=== PATIENT | female | born 1940 | race Caucasian/White ===

== ENCOUNTER → 2016-06-11 | Day surgery (SDC) | payer BC, OTHER ==
[2016-06-02 12:38] VITALS: Ht 157.5 cm; Wt 56.4 kg
[~2016-06-11] VITALS: Ht 157.5 cm; Wt 56.4 kg
[~2016-06-11] MED LIST: ACET-1311 PO; ACET325T95 PO; BISA10SU38 PR; CALC-393 PO; CHOL2000 PO; FENT25DI2 TD; FSLL PO; FSMD/70 PO; LANS30TA3 PO; LEVO112T2 PO; LIDOCAINE HCL 2% 2 ML VIAL (20MG/ML) ONE; LISI-729 PO; LORA-741 PO; LORA2INJ19 IM; MAGNSUS5 PO; OLAN-111 PO; OLAN10TA11 PO; OLAN1TAB7 PO; ONDA4TAB9 PO; OXYC1TAB3 PO; PROPOFOL IV EMULSION 10 MG/ML 20 ML VIAL IV ONE; ROPI0.25 PO; SENN1TAB65 PO; SODIENE PR; SODIUM CHLORIDE 0.9% 500ML 500 ML IV ONE; SUMA25TA12 PO; VENL75CA73 PO
--- NOTE | 2016-06-11 10:04 | Endo History and Physical ---
History & Physical Date of Service: Jun 11, 2016. Chief Complaint: dysphagia,reflux,esophagitis Referring Physician: Dr. Gabe Tovar History of Present Illness 75 yo CF who presents for EGD secondary to dysphagia and Reflux esophagitis. Past Medical History Alzheimer's, Eating Disorders, Osteoporosis, Arthritis, Fractures, Anxiety, Reflux, Hypertension, Thyroid Disease, Depression Past Surgical History Hx Cardiac Surgery: No Hx Internal Defibrillator: No Hx Pacemaker: No Hx Abdominal Surgery: Yes (ANTERIOR GASTROPEXY FOR HIATAL HERNIA, TUBAL LIGATION) Hx of Implantable Prosthesis: No Hx Post-Op Nausea and Vomiting: No Hx Cancer Surgery: No Hx Thoracic Surgery: No Hx Orthopedic: Yes (LEFT ELBOW) Hx Urinary Tract Surgery: No Social History Smoking Status: Former Smoker Hx Substance Use: No Hx Alcohol Use: No Allergies Coded Allergies: Caffeine (Verified Allergy, Unknown, ., 06/02/16) Cantaloupe (Verified Allergy, Unknown, RASH, 06/02/16) Reported by patient and family, unknown severity Desipramine (Verified Allergy, Unknown, ., 06/02/16) Ergotamine (Verified Allergy, Unknown, ., 06/02/16) Nitrofurantoin (Verified Allergy, Unknown, ., 06/02/16) Watermelon (Verified Allergy, Unknown, UNKNOWN, 06/02/16) Current Medications Reported Home Medications Medications Dose Route/Sig Max Daily Dose Days Date Category Dose Instructions Roxicodone Ir (Oxycodone HCl) 5 Mg Tab 1-2 Tab PO Q4H PRN 06/02/16 Reported Zyprexa (Olanzapine) 5 Mg Tab 5 Mg PO QAM 06/02/16 Reported Prevacid Solutab (Lansoprazole) 30 Mg Leia 30 Mg PO BID 06/02/16 Reported Venlafaxine Extended Rel (Venlafaxine Hcl) 75 Mg Cap 75 Mg PO QAM 06/02/16 Reported Senna Plus (Sennosides-Docusate Sodium) 1 Tab Tab 1 Tab PO BID 06/02/16 Reported Ferrous Sulfate 220 Mg/5 Ml Elix 7.3 Ml PO QAM 06/02/16 Reported Ativan (Lorazepam) 2 Mg/Ml Inj 0.25 Mg IM Q8 PRN 02/21/16 Reported IF NOT GIVEN BY MOUTH Vitamin D3 (Cholecalciferol) 2,000 Unit Cap 2,000 Units PO QAM 02/21/16 Reported Zyprexa (Olanzapine) 2.5 Mg Tab 2.5 Mg PO QAM 02/21/16 Reported Calcium (Calcium Carbonate) 600 Mg Tab 600 Mg PO BID 02/21/16 Reported Fosamax+D 70MG/2800 Iu (Alendronate Sodium/Vitamin D3) 70 Mg Tab 1 Tablet PO WK 02/21/16 Reported GIVE EVERY THURSDAY MORNING (1/2 HOUR BEFORE BREAKFAST). Tylenol (Acetaminophen) 325 Mg Tab 650 Mg PO QAM 02/21/16 Reported NTE 3000MG/24HRS Duragesic (Fentanyl) 25 Mcg Tdsy 25 Mcg TD CQ72HR 08/13/15 Reported Zyprexa (Olanzapine) 10 Mg Tab 10 Mg PO QPM 08/13/15 Reported Fleet Enema (Sodium Phosphate/Biphosphate) Zulma 1 Ea CA UD PRN 07/25/15 Reported IF NO BM IN 4 DAYS Dulcolax (Bisacodyl) 10 Mg Sup 1 Supp CA UD PRN 07/25/15 Reported IF NO BM IN 3 DAYS Ativan (Lorazepam) 0.5 Mg Tab 0.25 Mg PO Q8 PRN 07/25/15 Reported NTE 2MG/24HRS Ativan (Lorazepam) 0.5 Mg Tab 0.5 Mg PO Q6H PRN 07/25/15 Reported NTE 2MG/24HRS Milk Of Magnesia (Magnesium Hydroxide) 30 Ml Susp 30 Ml PO UD PRN 07/21/15 Reported Requip (Ropinirole HCl) 0.25 Mg Tab 0.25 Mg PO HS 07/21/15 Reported Zestril (Lisinopril) 5 Mg Tab 5 Mg PO QAM 07/21/15 Reported Synthroid (Levothyroxine Sodium) 112 Mcg Tab 112 Mcg PO QAM 03/10/15 Reported Ondansetron HCl (Ondansetron) 4 Mg Tab 4 Mg PO Q6H PRN 09/08/14 Reported Imitrex (Sumatriptan Succinate) 25 Mg Tab 25 Mg PO DAILY PRN 09/08/14 Reported Tylenol (Acetaminophen) 325 Mg Tab 650 Mg PO Q6H PRN 06/24/14 Reported DO NOT EXCEED 3000MG/24 HRS Vital Signs Weight (Kilograms): 56.36 Height (Feet): 0 Height (Inches): 62 Date Time Temp Pulse Resp B/P Pulse Ox O2 Delivery O2 Flow Rate FiO2 06/11/16 09:08 36.8 57 20 145/72 100 Room Air Physical Exam General Appearance: WD/WN, no apparent distress Respiratory/Chest: Auscultation: breath sounds normal Cardiovascular: Heart Auscultation: RRR Abdomen: Bowel Sounds: normal Inspection & Palpation: soft, non-distended, no tenderness, guarding & rebound Assessment and Plan Assessment: 75 yo CF who presents for EGD secondary to dysphagia and Reflux esophagitis. Plan: Proceed with EGD.
--- NOTE | 2016-06-11 10:15 | Discharge Instructions ---
Endoscopy Patient Instructions Date / Procedure(s) Performed Jun 11, 2016. EGD Allergy Information Coded Allergies: Caffeine (Verified Allergy, Unknown, ., 06/02/16) Cantaloupe (Verified Allergy, Unknown, RASH, 06/02/16) Reported by patient and family, unknown severity Desipramine (Verified Allergy, Unknown, ., 06/02/16) Ergotamine (Verified Allergy, Unknown, ., 06/02/16) Nitrofurantoin (Verified Allergy, Unknown, ., 06/02/16) Watermelon (Verified Allergy, Unknown, UNKNOWN, 06/02/16) Discharge Date / Findings Jun 11, 2016. Severe esophagitis with dilation of Esophageal stenosis Medication Instructions 1) OK to resume all medications today as prescribed 2) Carafate 1g by mouth four times daily prior to each meal and at bedtime. Reported Home Medications Medications Dose Route/Sig Max Daily Dose Days Date Category Dose Instructions Roxicodone Ir (Oxycodone HCl) 5 Mg Tab 1-2 Tab PO Q4H PRN 06/02/16 Reported Zyprexa (Olanzapine) 5 Mg Tab 5 Mg PO QAM 06/02/16 Reported Prevacid Solutab (Lansoprazole) 30 Mg Leia 30 Mg PO BID 06/02/16 Reported Venlafaxine Extended Rel (Venlafaxine Hcl) 75 Mg Cap 75 Mg PO QAM 06/02/16 Reported Senna Plus (Sennosides-Docusate Sodium) 1 Tab Tab 1 Tab PO BID 06/02/16 Reported Ferrous Sulfate 220 Mg/5 Ml Elix 7.3 Ml PO QAM 06/02/16 Reported Ativan (Lorazepam) 2 Mg/Ml Inj 0.25 Mg IM Q8 PRN 02/21/16 Reported IF NOT GIVEN BY MOUTH Vitamin D3 (Cholecalciferol) 2,000 Unit Cap 2,000 Units PO QAM 02/21/16 Reported Zyprexa (Olanzapine) 2.5 Mg Tab 2.5 Mg PO QAM 02/21/16 Reported Calcium (Calcium Carbonate) 600 Mg Tab 600 Mg PO BID 02/21/16 Reported Fosamax+D 70MG/2800 Iu (Alendronate Sodium/Vitamin D3) 70 Mg Tab 1 Tablet PO WK 02/21/16 Reported GIVE EVERY THURSDAY MORNING (1/2 HOUR BEFORE BREAKFAST). Tylenol (Acetaminophen) 325 Mg Tab 650 Mg PO QAM 02/21/16 Reported NTE 3000MG/24HRS Duragesic (Fentanyl) 25 Mcg Tdsy 25 Mcg TD CQ72HR 08/13/15 Reported Zyprexa (Olanzapine) 10 Mg Tab 10 Mg PO QPM 08/13/15 Reported Fleet Enema (Sodium Phosphate/Biphosphate) Zulma 1 Ea [place] UD PRN 07/25/15 Reported IF NO BM IN 4 DAYS Dulcolax (Bisacodyl) 10 Mg Sup 1 Supp IL UD PRN 07/25/15 Reported IF NO BM IN 3 DAYS Ativan (Lorazepam) 0.5 Mg Tab 0.25 Mg PO Q8 PRN 07/25/15 Reported NTE 2MG/24HRS Ativan (Lorazepam) 0.5 Mg Tab 0.5 Mg PO Q6H PRN 07/25/15 Reported NTE 2MG/24HRS Milk Of Magnesia (Magnesium Hydroxide) 30 Ml Susp 30 Ml PO UD PRN 07/21/15 Reported Requip (Ropinirole HCl) 0.25 Mg Tab 0.25 Mg PO HS 07/21/15 Reported Zestril (Lisinopril) 5 Mg Tab 5 Mg PO QAM 07/21/15 Reported Synthroid (Levothyroxine Sodium) 112 Mcg Tab 112 Mcg PO QAM 03/10/15 Reported Ondansetron HCl (Ondansetron) 4 Mg Tab 4 Mg PO Q6H PRN 09/08/14 Reported Imitrex (Sumatriptan Succinate) 25 Mg Tab 25 Mg PO DAILY PRN 09/08/14 Reported Tylenol (Acetaminophen) 325 Mg Tab 650 Mg PO Q6H PRN 06/24/14 Reported DO NOT EXCEED 3000MG/24 HRS Provider Instructions Activity Restrictions - No exercising or heavy lifting for 24 hours. - Do not drink alcohol the day of the procedure. - Do not drive a car or operate machinery until the day after the procedure. - Do not make any important decisions or sign important papers in 24 hours after the procedure. Following Day: - Return to full activity which may include returning to work/school. Diet Start your diet with liquids and light foods (jello, soup, juice, toast). Then eat your usual diet if not nauseated. Treatment For Common After Affects For mild abdominal pain, bloating, or excessive gas: - Rest - Eat lightly - Lie on right side Follow-Up Information Follow-up with Dr. Gabe Tovar as scheduled Anesthesia Information What You Should Know You have had a procedure that required some medicine to reduce anxiety and discomfort. This treatment is called moderate sedation. After receiving the treatment, you may be sleepy, but you will be able to breathe on your own. The effects of the treatment may last for several hours. Follow these instructions along with Activity/Diet recommendations noted above: * Do NOT do anything where dizziness or clumsiness would be dangerous. * Rest quietly at home today, then you can be up and about tomorrow. * Have a responsible person stay with you the rest of today. * You may have had an I.V. today. If so, you may take the dressing off later today. Recommendations Call your doctor if: * Trouble breathing * Continuous vomiting for more than 24 hours * Temperature above 101 degrees * Severe abdominal pain or bloating * Pain not relieved by pain medicine ordered * There is increased drainage or redness from any incision * A large amount of rectal bleeding greater than 2-3 tablespoons. (If you had a polyp/s removed or have hemorrhoids, a small amount of blood - from the rectum is to be expected.) * You have any unanswered questions or concerns. IN THE EVENT OF A SERIOUS EMERGENCY, GO TO THE NEAREST EMERGENCY ROOM Your discharge instructions were prepared by provider Felix Montemayor. Patient Instructions Signature Page Kailey Hunt Patient (or Guardian) Signature/Date: I have read and understand the instructions given to me by my caregivers. Caregiver/RN/Doctor Signature/Date: The above-named patient and/or guardian has received patient instructions on this date. + Original Patient Signature Page (only) stays with chart. Please make copy for patient.
[2016-06-11 10:50] VITALS: BP 134/60; PULSE 54; O2SAT 97
--- NOTE | 2016-06-11 11:23 | GI REPORT ---
Procedure Date: 06/11/2016 9:32 AM Procedure: Upper GI endoscopy Indications: Dysphagia, Follow-up of reflux esophagitis Medicines: Monitored Anesthesia Care Complications: No immediate complications. Estimated Blood Loss: Estimated blood loss: none. Procedure: Pre-Anesthesia Assessment: - Prior to the procedure, a History and Physical was performed, and patient medications and allergies were reviewed. The patient's tolerance of previous anesthesia was also reviewed. The risks and benefits of the procedure and the sedation options and risks were discussed with the patient. All questions were answered, and informed consent was obtained. Prior Anticoagulants: The patient has taken no previous anticoagulant or antiplatelet agents. ASA Grade Assessment: II - A patient with mild systemic disease. After reviewing the risks and benefits, the patient was deemed in satisfactory condition to undergo the procedure. After obtaining informed consent, the endoscope was passed under direct vision. Throughout the procedure, the patient's blood pressure, pulse, and oxygen saturations were monitored continuously. The scope was introduced through the mouth, and advanced to the second part of duodenum. The upper GI endoscopy was accomplished without difficulty. The patient tolerated the procedure well. Findings: Two severe benign-appearing, intrinsic stenoses were found. The narrowest stenosis measured 1 cm (inner diameter) x 1 cm (in length) and were traversed. A TTS dilator was passed through the scope. Dilation with a 12-13.5-15 mm balloon (to a maximum balloon size of 15 mm) dilator was performed. The dilation site was examined and showed moderate improvement in luminal narrowing. Evidence of a Rudy fundoplication was found in the cardia (on retroflexion). The wrap appeared loose. This was traversed. The examined duodenum was normal. Impression: - Benign-appearing esophageal stenoses. Dilated. - A Rudy fundoplication was found. The wrap appears loose. - Normal examined duodenum. - No specimens collected. Recommendation: - Resume previous diet. - Continue present medications. - Use sucralfate suspension 1 gram PO QID. - Return to primary care physician as previously scheduled. Felix Montemayor DO 06/11/2016 11:24:21 AM This report has been signed electronically. Note Initiated On: 06/11/2016 9:32 AM I attest to the content of the Intraoperative Record and orders documented therein, exceptions below
--- NOTE | 2016-06-11 15:13 | Anesthesiology Progress Note ---
Anesthesia Post Op Note Date & Time Jun 11, 2016 at 15:13 Vital Signs Pain Intensity: 0 Vital Signs Past 12 Hours Date Time Temp Pulse Resp B/P Pulse Ox O2 Delivery O2 Flow Rate FiO2 06/11/16 10:50 54 18 134/60 97 Room Air 06/11/16 10:35 64 18 137/64 94 Room Air 06/11/16 10:20 65 16 154/67 95 Room Air 06/11/16 09:08 36.8 57 20 145/72 100 Room Air Notes Mental Status: alert / awake / arousable, participated in evaluation Pt Amnestic to Procedure: Yes Nausea / Vomiting: adequately controlled Pain: adequately controlled Airway Patency, RR, SpO2: stable & adequate BP & HR: stable & adequate Hydration State: stable & adequate Anesthetic Complications: no major complications apparent
== END | disposition home or self-care (01) ==
LOC: C.GI 08:35
PROVIDERS: ATTEND Internal Medicine
DX: R13.10 Dysphagia, unspecified (principal); K22.2 Esophageal obstruction; K20.9 Esophagitis, unspecified; K21.9 Gastro-esophageal reflux disease without esophagitis; F03.90 Unspecified dementia, unspecified severity, without behavioral disturbance, psychotic disturbance, mood disturbance, and anxiety; I10 Essential (primary) hypertension; F41.9 Anxiety disorder, unspecified; Z98.890 Other specified postprocedural states; Z98.51 Tubal ligation status; Z87.891 Personal history of nicotine dependence; Z91.018 Allergy to other foods; Z68.22 Body mass index [BMI] 22.0-22.9, adult

== ENCOUNTER → 2016-07-10 | Outpatient (CLI) | payer BC, OTHER ==
[~2016-07-10] MED LIST changes: +BROM0.07 OPL; +CALC600T PO; +CHOL20007 PO; +CRAN1CAP6 PO; +CRFL PO; +DIFL0.0519 OPL; +FERROUS SULFATE PO; +FNTTP25 TD; -LIDOCAINE HCL 2% 2 ML VIAL (20MG/ML) ONE; +MOML PO; +NMN5 PO; +NTRS PO; -PROPOFOL IV EMULSION 10 MG/ML 20 ML VIAL IV ONE; -SODIUM CHLORIDE 0.9% 500ML 500 ML IV ONE
[2016-07-10 18:13] LABS: URINE APPEARANCE CLOUDY (CLEAR); URINE BILIRUBIN NEG (NEG); URINE COLOR YELLOW; URINE EPITHELIAL CELL AUTO 0-5 /lpf (0-5); URINE NITRITE POS (NEG); URINE SPECIFIC GRAVITY 1.016 (1.000-1.030); UROBILINOGEN NEG (NEG)
[2016-07-10 18:15] LABS: MANUAL MICROSCOPIC REQUIRED? NO; REVIEW REQ? NO
--- NOTE | 2016-07-11 11:57 | CODING QUERY NO DIAGNOSIS ---
TREATMENT RENDERED WITHOUT A DIAGNOSIS Dr. Marinelli, To promote full compliance with coding requirements relating to patient care, physician participation is requested in all cases of medical records coder uncertainty. Please assist us with providing a diagnosis/symptom for the test(s) below: A diagnosis/symptom was not documented on your Order. A valid diagnosis/symptom is required to bill all insurances. Please remember that we are unable to code a diagnosis of rule out, probable, possible, questionable, or suspected. Tests that require a diagnosis: * URINE CULTURE DIAGNOSIS: * URINALYSIS WITH MICROSCOPY DIAGNOSIS: DATE OF SERVICE: 07/10/16 Provider Signature: Date: Thank you Candido Donnelly [facility] Information Management Once completed, please kindly fax back to [phone] For questions please call [phone]
== END | disposition home or self-care (01) ==
LOC: C.LABCC 17:27
PROVIDERS: ATTEND Internal Medicine
DX: F41.9 Anxiety disorder, unspecified (principal); R45.1 Restlessness and agitation

== ENCOUNTER → 2016-08-18 | Outpatient (CLI) | payer BC, OTHER ==
[~2016-08-18] MED LIST changes: -BROM0.07 OPL; -CALC600T PO; -CHOL20007 PO; -CRAN1CAP6 PO; -CRFL PO; -DIFL0.0519 OPL; -FERROUS SULFATE PO; -FNTTP25 TD; -MOML PO; -NMN5 PO; -NTRS PO
[2016-08-18 17:49] LABS: URINE APPEARANCE TURBID (CLEAR); URINE BILIRUBIN NEG (NEG); URINE COLOR ORANGE; URINE EPITHELIAL CELL AUTO >30 /lpf (0-5); URINE NITRITE NEG (NEG); URINE PH >= 9.0 (4.5-7.5); URINE SPECIFIC GRAVITY 1.018 (1.000-1.030); UROBILINOGEN NEG (NEG)
[2016-08-18 17:56] LABS: MANUAL MICROSCOPIC REQUIRED? NO; REVIEW REQ? YES
[2016-08-18 18:03] LABS: SULFASALICYLIC ACID POS (NEG)
== END ==
LOC: C.LABSPEC 14:30
PROVIDERS: ATTEND Internal Medicine
DX: R82.99 Other abnormal findings in urine (principal); R63.8 Other symptoms and signs concerning food and fluid intake; R34 Anuria and oliguria; R41.82 Altered mental status, unspecified

== ENCOUNTER → 2016-08-21 | Outpatient (CLI) | payer BC, OTHER ==
[~2016-08-21] MED LIST changes: +BROM0.07 OPL; +CALC600T PO; +CHOL20007 PO; +CRAN1CAP6 PO; +CRFL PO; +DIFL0.0519 OPL; +FERROUS SULFATE PO; +FNTTP25 TD; +MOML PO; +NMN5 PO; +NTRS PO
[2016-08-21 18:38] LABS: URINE APPEARANCE TURBID (CLEAR); URINE BILIRUBIN NEG (NEG); URINE NITRITE NEG (NEG); URINE PH >= 9.0 (4.5-7.5); URINE SPECIFIC GRAVITY 1.019 (1.000-1.030); UROBILINOGEN NEG (NEG)
[2016-08-21 18:51] LABS: MANUAL MICROSCOPIC REQUIRED? NO; REVIEW REQ? YES; SULFASALICYLIC ACID POS (NEG); URINE COLOR BROWN
== END | disposition home or self-care (01) ==
LOC: C.LABSPEC 12:55
PROVIDERS: ATTEND Internal Medicine
DX: R82.90 Unspecified abnormal findings in urine (principal); R41.82 Altered mental status, unspecified; R33.8 Other retention of urine

== ENCOUNTER → 2016-08-26 | Outpatient (CLI) | payer BC, OTHER ==
[2016-08-26 08:58] LABS: COMPLETE YES; EOS % 2.2 %; HEMATOCRIT 39.1 % (37-47); IG% 0.2 %; LYMPH % 36.4 %; LYMPH ABS # 2.36 K/uL (1.2-3.4); MEAN CELL VOLUME 95.8 fL (80-100); MEAN CORPUSCULAR HEMOGLOBIN 30.6 pg (25-34); MEAN PLATELET VOLUME 10.2 fL (7.4-10.4); MONO % 10.9 %; NEUT % 50.3 %; PLATELET COUNT 254 K/uL (130-400); RED BLOOD COUNT 4.08 M/uL (4.2-5.4); WHITE BLOOD COUNT 6.49 K/uL (4.8-10.8)
[2016-08-26 09:07] LABS: ALT/SGPT 32 U/L (12-78); BLOOD UREA NITROGEN 33 mg/dl (7-18); BUN/CREATININE RATIO 34.6 (10-20); CARBON DIOXIDE 26 mmol/L (21-32); CHLORIDE 108 mmol/L (98-107); CREATININE 0.95 mg/dl (0.60-1.20); GLUCOSE 97 mg/dl (70-99); POTASSIUM 3.5 mmol/L (3.5-5.1); SODIUM 144 mmol/L (136-145)
[2016-08-26 09:17] LABS: ALB/GLOB RATIO 0.8 (0.9-2); ALKALINE PHOSPHATASE 111 U/L (45-117); AST/SGOT 34 U/L (15-37)
[2016-08-26 09:23] LABS: CALCIUM 9.5 mg/dl (8.5-10.1)
== END | disposition home or self-care (01) ==
LOC: C.LABCC 08:34
PROVIDERS: ATTEND Internal Medicine
DX: M81.0 Age-related osteoporosis without current pathological fracture (principal); E03.9 Hypothyroidism, unspecified

== ENCOUNTER → 2016-09-05 | Outpatient (CLI) | payer BC, OTHER ==
[2016-09-05 18:02] LABS: URINE APPEARANCE CLOUDY (CLEAR); URINE BILIRUBIN NEG (NEG); URINE COLOR YELLOW; URINE EPITHELIAL CELL AUTO >30 /lpf (0-5); URINE NITRITE POS (NEG); UROBILINOGEN NEG (NEG)
[2016-09-05 18:10] LABS: MANUAL MICROSCOPIC REQUIRED? NO; REVIEW REQ? YES
== END ==
LOC: C.LABCC 07:55
PROVIDERS: ATTEND Internal Medicine
DX: N39.0 Urinary tract infection, site not specified (principal)

== ENCOUNTER → 2016-10-07 | Outpatient (CLI) | payer BC, OTHER ==
[~2016-10-07] MED LIST changes: -BROM0.07 OPL; -CALC600T PO; -CHOL20007 PO; -CRAN1CAP6 PO; -CRFL PO; -DIFL0.0519 OPL; -FERROUS SULFATE PO; -FNTTP25 TD; -MOML PO; -NMN5 PO; -NTRS PO
[2016-10-07 20:14] LABS: URINE APPEARANCE TURBID (CLEAR); URINE BILIRUBIN NEG (NEG); URINE COLOR ORANGE; URINE EPITHELIAL CELL AUTO >30 /lpf (0-5); URINE NITRITE NEG (NEG); URINE PH >= 9.0 (4.5-7.5); URINE SPECIFIC GRAVITY 1.018 (1.000-1.030); UROBILINOGEN NEG (NEG)
[2016-10-07 20:33] LABS: MANUAL MICROSCOPIC REQUIRED? NO; REVIEW REQ? YES; SULFASALICYLIC ACID POS (NEG)
== END ==
LOC: C.LABCC 16:10
PROVIDERS: ATTEND Internal Medicine
DX: R35.0 Frequency of micturition (principal); R32 Unspecified urinary incontinence; R82.99 Other abnormal findings in urine

== ENCOUNTER → 2016-12-19 | Outpatient (CLI) | payer BC, OTHER ==
[2016-12-19 17:09] LABS: URINE APPEARANCE CLOUDY (CLEAR); URINE BILIRUBIN NEG (NEG); URINE COLOR YELLOW; URINE PH >= 9.0 (4.5-7.5); URINE SPECIFIC GRAVITY 1.018 (1.000-1.030)
[2016-12-19 17:10] LABS: URINE EPITHELIAL CELL AUTO >30 /lpf (0-5); URINE NITRITE NEG (NEG); UROBILINOGEN NEG (NEG)
[2016-12-19 17:19] LABS: MANUAL MICROSCOPIC REQUIRED? NO; REVIEW REQ? YES
[2016-12-19 17:21] LABS: SULFASALICYLIC ACID POS (NEG)
== END ==
LOC: C.LABSPEC 16:26
PROVIDERS: ATTEND Internal Medicine
DX: R35.0 Frequency of micturition (principal); R30.0 Dysuria

== ENCOUNTER → 2016-12-23 | Outpatient (CLI) | payer BC, OTHER ==
[2016-12-23 18:20] LABS: URINE APPEARANCE TURBID (CLEAR); URINE BILIRUBIN NEG (NEG); URINE COLOR ORANGE; URINE EPITHELIAL CELL AUTO >30 /lpf (0-5); URINE NITRITE NEG (NEG); URINE PH >= 9.0 (4.5-7.5); URINE SPECIFIC GRAVITY 1.021 (1.000-1.030); UROBILINOGEN NEG (NEG)
[2016-12-23 18:47] LABS: MANUAL MICROSCOPIC REQUIRED? NO; REVIEW REQ? YES
[2016-12-23 18:59] LABS: SULFASALICYLIC ACID POS (NEG)
== END ==
LOC: C.LABCC 17:41
PROVIDERS: ATTEND Internal Medicine
DX: R30.0 Dysuria (principal)

== ENCOUNTER → 2017-01-20 | Day surgery (SDC) | payer BC, OTHER ==
[2017-01-19 09:27] VITALS: Ht 154.9 cm; Wt 57.7 kg
[~2017-01-20] VITALS: Ht 154.9 cm; Wt 57.7 kg
[~2017-01-20] MED LIST changes: +500ML BSS 0.3ML EPI 1:1000PF IRRIG ONE; +ACETAMINOPHEN 325 MG TAB PO PRN; +AMVISC PLUS 0.8ML SYRINGE INT OCU ONE; +ATROPINE SULFATE 0.1 MG/ML 5ML SYR IV PRN; +BSS FLUSH ONE; -CALC-393 PO; -CHOL2000 PO; +CHOL20007 PO; +CRAN1CAP6 PO; +CRFL PO; +EpHEDrine SULFATE INJ 50 MG/ML AMP IV PRN; +EpINEphrine INJ 1MG/ML AMP 1 MG/ML AMP ONE; -FENT25DI2 TD; +FENTANYL CITRATE INJ 50 MCG/1 ML 2 ML VIAL IV PRN; +FENTANYL CITRATE INJ 50 MCG/1 ML 2 ML VIAL ONE; +FERROUS SULFATE PO; +FNTTP25 EXT; -FSLL PO; -FSMD/70 PO; +LACTATED RINGER'S 1000ML 500 ML IV SCH; +LIDOCAINE 3.5% OPH GEL PER APPLICATION CHARGE ONE; +LIDOCAINE HCL 1% MPF 2 ML VIAL ONE; -MAGNSUS5 PO; +MIDAZOLAM HCL 1 MG/ML 2ML VIAL ONE; +MOML PO; +NMN5 PO; +OCUCOAT 1 ML SOLN IO ONE; -OLAN1TAB7 PO; +ONDANSETRON INJ 2 MG/ML 2 ML VIAL IV PRN; +POVIDONE-IODINE OP SOLN 30 ML BTL ONE; +PROPARACAINE 0.5% OP SOLN PER DROP CHARGE OPL SCH; +TOBRAMYCIN/DEXAMETHASONE OPH OINT PER APPLN CHARGE ONE; -VENL75CA73 PO
[2017-01-20] MEDS: PHENYLEPHRINE HCL 2.5% OP SOLN PER DROP CHARGE OPL SCH ×2 (08:32→08:37)
[2017-01-20] MEDS: TROPICAMIDE 1% OP SOLN PER DROP CHARGE OPL SCH ×2 (08:32→08:38)
[2017-01-20] MEDS: CYCLOPENTOLATE HCL 1% OP SOLN PER DROP CHARGE OPL SCH ×2 (08:33→08:39)
[2017-01-20] MEDS: KETOROLAC 0.5% OP SOLN PER DROP CHARGE OPL SCH ×2 (08:34→08:40)
[2017-01-20] MEDS: GATIFLOXACIN OP SOLN PER DROP CHARGE OPL SCH ×2 (08:35→08:45)
--- NOTE | 2017-01-20 09:06 | History & Physical Bridge - SC ---
H&P Re-Evaluation Bridge Note: I have examined the patient, reviewed the History & Physical and in the interval since the performance of the History & Physical I have noted the following changes of clinical significance: No changes noted
--- NOTE | 2017-01-20 09:47 | [facility] Operative Report ---
Operative Report Date of Service Jan 20, 2017. Operative Report 1. PREOPERATIVE DIAGNOSIS: Cataract of the left eye. 2. POSTOPERATIVE DIAGNOSIS: Same. 3. PROCEDURE: Phacoemulsification with intraocular lens implantation of the left eye. SURGEON: Dr. Bertram Murphy. ANESTHESIA: Topical Lidocaine gel, 1% Non- Preserved intracameral Lidocaine, and monitored intravenous sedation. INDICATIONS FOR THE PROCEDURE: The patient is a 76 - year-old female with a history of cataract of the left eye causing significant visual impairment. The details of the proposed procedure were explained to the patient who asked appropriate questions and following discussion of all risks, benefits and alternatives agreed to have the procedure done. 4. OPERATION AND FINDINGS: DESCRIPTION OF PROCEDURE: After informed consent was obtained, the patient was brought to the Operating Room at the [facility]. The patient was placed in a supine position and then the left eye was prepped and draped in the usual sterile fashion for intraocular surgery. A drop of topical Lidocaine gel was placed in the operative eye. A wire lid speculum was then placed in the fornices. A corneal paracentesis was then created temporally. The Non-Preserved Lidocaine was then instilled into the anterior chamber. The anterior chamber was then pressurized with viscoelastic. A 2.0 mm clear corneal incision was then created temporally. A cystotome was inserted into the anterior chamber and used to create a tear in the anterior lens capsule. This capsular tear was then used to create a small flap and the flap was dragged in a counterclockwise direction in order to create a continuous curvilinear capsulorrhexis. Hydrodissection was accomplished with balanced salt solution. Phacoemulsification of the lens nucleus was then performed in a standard [id number] technique. The phaco time was 24 seconds with an average power of 21 %. The remaining cortical material was removed using irrigation aspiration. The capsular bag was then filled with viscoelastic. A [employer]ch [employer] Lomb MI60L +24.0 diopters lens was then loaded into the injector and injected into the capsular bag. The remaining viscoelastic was removed with the irrigation aspiration handpiece. The wound was hydrated and then checked and found to be watertight. The intraocular pressure was checked and found to be adequate. The wire lid speculum was removed and the patient's face was cleaned and dried. TobraDex ointment was placed in the inferior fornix. The patient was discharged to the Recovery Room having tolerated the procedure well. There were no complications. The patient will be seen tomorrow in the office for follow-up. I attest to the content of the Intraoperative Record and any orders documented therein. Any exceptions are noted below.
--- NOTE | 2017-01-20 09:47 | Discharge Instructions-SurgCtr ---
Discharge Instructions Date of Service Jan 20, 2017. Visit Reason for Visit: Cataract Left Eye Discharge Discharge Diagnosis / Problem: cataract Discharge Goals Goal(s): Improve function Activity Recommendations Activity Limitations: per Instructions/Follow-up section Anesthesia . Post Anesthesia Instructions: If you have had General Anesthesia or IV Sedation: * Do not drive today. * Resume driving when surgeon permits. * Do not make important decisions or sign legal documents today. * Call surgeon for: 1. Temperature elevations greater than 101 degrees F. 2. Uncontrollable pain. 3. Excessive bleeding. 4. Persistent nausea and vomiting. 5. Medication intolerance (nausea, vomiting or rash). * For nausea and vomiting use only clear liquids such as: tea, soda, bouillon until nausea subsides, then gradually increase diet as tolerated. * If you have any concerns or questions, call your surgeon's office. If physician is unavailable and it is an emergency, call 911 or go to the nearest emergency room. . Diet Recommendations Home Diet: resume previous diet Pending Studies Studies pending at discharge: no Medical Emergencies . Who to Call and When: Medical Emergencies: If at any time you feel your situation is an emergency, please call 911 immediately. . Non-Emergent Contact Non-Emergency issues call your: Insurance Professional . . "Provider Documentation" section prepared by Bertram Murphy. .
[2017-01-20 09:50] VITALS: TEMP 36.6
--- NOTE | 2017-01-20 10:14 | Anesthesia Progress Nt - [facility] ---
Anesthesia Post Op Note Date & Time Jan 20, 2017 at 10:13 Vital Signs Pain Intensity: 0 Vital Signs Past 12 Hours Date Time Temp Pulse Resp B/P (MAP) Pulse Ox O2 Delivery O2 Flow Rate FiO2 01/20/17 09:50 36.6 56 12 146/72 (96) 98 Room Air 01/20/17 08:19 36.6 53 16 134/72 (92) 100 Room Air Notes Mental Status: alert / awake / arousable, participated in evaluation Pt Amnestic to Procedure: Yes Nausea / Vomiting: adequately controlled Pain: adequately controlled Airway Patency, RR, SpO2: stable & adequate BP & HR: stable & adequate Hydration State: stable & adequate Anesthetic Complications: no major complications apparent
[2017-01-20 10:16] VITALS: BP 165/74; PULSE 49; O2SAT 100
== END | disposition home or self-care (01) ==
LOC: X.SURG 07:56
PROVIDERS: ATTEND Ophthalmology
DX: H26.9 Unspecified cataract (principal); I10 Essential (primary) hypertension; F03.90 Unspecified dementia, unspecified severity, without behavioral disturbance, psychotic disturbance, mood disturbance, and anxiety; E03.9 Hypothyroidism, unspecified; F41.8 Other specified anxiety disorders

== ENCOUNTER 2017-02-09 22:23 | Emergency (ER) | payer BC, OTHER ==
[~2017-02-09] VITALS: Ht 160 cm; Wt 57.8 kg
[~2017-02-09 22:23] MED LIST changes: -500ML BSS 0.3ML EPI 1:1000PF IRRIG ONE; -ACETAMINOPHEN 325 MG TAB PO PRN; -AMVISC PLUS 0.8ML SYRINGE INT OCU ONE; -ATROPINE SULFATE 0.1 MG/ML 5ML SYR IV PRN; +BROM0.07 OPL; -BSS FLUSH ONE; +DIFL0.0519 OPL; -EpHEDrine SULFATE INJ 50 MG/ML AMP IV PRN; -EpINEphrine INJ 1MG/ML AMP 1 MG/ML AMP ONE; -FENTANYL CITRATE INJ 50 MCG/1 ML 2 ML VIAL IV PRN; -FENTANYL CITRATE INJ 50 MCG/1 ML 2 ML VIAL ONE; -FNTTP25 EXT; +FNTTP25 TD; -LACTATED RINGER'S 1000ML 500 ML IV SCH; -LIDOCAINE 3.5% OPH GEL PER APPLICATION CHARGE ONE; -LIDOCAINE HCL 1% MPF 2 ML VIAL ONE; -MIDAZOLAM HCL 1 MG/ML 2ML VIAL ONE; -OCUCOAT 1 ML SOLN IO ONE; -ONDANSETRON INJ 2 MG/ML 2 ML VIAL IV PRN; -POVIDONE-IODINE OP SOLN 30 ML BTL ONE; -PROPARACAINE 0.5% OP SOLN PER DROP CHARGE OPL SCH; -TOBRAMYCIN/DEXAMETHASONE OPH OINT PER APPLN CHARGE ONE
[2017-02-09 22:32] VITALS: TEMP 36.6; Ht 160 cm; Wt 57.8 kg
[2017-02-09] MEDS ORDERED: ACETAMINOPHEN 500 MG TAB PO STA (22:37)
--- NOTE | 2017-02-09 22:55 | EMERGENCY ROOM VISIT NOTE ---
History Report prepared by Ina: Galen Crane Under the Supervision of: Dr. Prince Cabrales M.D. 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 This HPI is limited secondary to the patient's dementia. She is a resident of [facility]. She was found wandering the halls out of her room. They thought she had fallen and got her back into her bed. Afterward the patient was complaining of right hip pain. They brought her here to be evaluated. The patient denies any loss of consciousness, head trauma or headache. She is having lower back pain, right knee pain, and right ankle pain. Her pain is exacerbated with movement. She states that she is normally able to walk around without difficulty. 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 Review of Systems See HPI for pertinent positives & negatives. A total of 10 systems reviewed and were otherwise negative. Past Medical & Surgical Medical Problems: (1) Anemia (2) Dementia (3) Female bladder prolapse (4) History of - tubal ligation (5) HTN (hypertension) (6) Osteoporosis Nos (7) Urinary tract infection Family History Diabetes mellitus Social History Smoking Status: Former Smoker Smokeless Tobacco Use: No Drug Use: none Marital Status: Housing Status: long term Occupation Status: retired Current/Historical Medications Scheduled Acetaminophen (Tylenol), 650 MG PO QAM Alendronate/Cholecalciferol (Fosamax+D 70MG/2800 Iu), 1 TABLET PO WK Bromfenac Sodium (Ophth) (Prolensa), 1 DROP OPL DAILY Calcium Carbonate (Calcium 600), 600 MG PO BID Cholecalciferol (Vitamin D3), 1 TAB PO QAM Cranberry (Vaccinium Macrocarp (Cranberry), 1 CAP PO BID Difluprednate (Durezol), 1 DROPS OPL QAM Enteral Nutrition Formula (Nutritional Supplement), 1 PO BIDM Fentanyl (Fentanyl), 25 MCG TD [id number] Ferrous Sulfate (Ferrous Sulfate), 7.3 ML PO QAM Lansoprazole (Prevacid Solutab), 30 MG PO BID Levothyroxine Sodium (Synthroid), 112 MCG PO QAM Lisinopril (Zestril), 5 MG PO QAM Lorazepam (Ativan), 0.5 MG PO QID Memantine (Namenda), 5 MG PO BID Olanzapine (Zyprexa), 10 MG PO HS Olanzapine (Zyprexa), 5 MG PO QAM Ropinirole (Requip), 0.25 MG PO HS Sennosides-Docusate Sodium (Senna Plus), 2 TAB PO BID Sucralfate (Carafate), 10 ML PO ACHS Scheduled PRN Acetaminophen (Tylenol), 650 MG PO Q6H PRN for Pain or Fever Lorazepam (Ativan), 0.5 MG PO Q8H PRN for Anxiety Lorazepam (Ativan), 0.125 ML IM Q8H PRN for Anxiety Ondansetron (Ondansetron HCl), 4 MG PO Q6H PRN for Nausea Oxycodone Ir (Roxicodone Ir), 5 MG PO Q4 PRN for Moderate Pain Oxycodone Ir (Roxicodone Ir), 10 MG PO Q4H PRN for Severe Pain Sumatriptan Succinate (Imitrex), 25 MG PO DAILY PRN for Migraine Allergies Coded Allergies: Caffeine (Verified Allergy, Unknown, ., 01/20/17) Cantaloupe (Verified Allergy, Unknown, RASH, 01/20/17) Reported by patient and family, unknown severity Desipramine (Verified Allergy, Unknown, ., 02/09/17) Ergotamine (Verified Allergy, Unknown, ., 02/09/17) Nitrofurantoin (Verified Allergy, Unknown, ., 02/09/17) Watermelon (Verified Allergy, Unknown, UNKNOWN, 02/09/17) Physical Exam Vital Signs Date Time Temp Pulse Resp B/P (MAP) Pulse Ox O2 Delivery O2 Flow Rate FiO2 02/09/17 22:32 63 02/09/17 22:32 36.6 64 18 157/78 100 Room Air Physical Exam GENERAL: Patient is in no acute distress. HEENT: No acute trauma, normocephalic atraumatic, mucous membranes moist, no nasal congestion, no scleral icterus. NECK: No stridor, no adenopathy, no meningismus, trachea is midline. Nontender posterior c-spine. LUNGS: Clear to auscultation bilaterally, no wheeze, no rhonchi, breath sounds equal. HEART: Without murmurs gallops or rubs, regular rate and rhythm. ABDOMEN: Soft, nontender, bowel sounds positive, no hernias, no peritonitis. BACK: Tender along the entire lumbar spine, no step off. EXTREMITIES: Pain to palpate the right knee, right proximal tibia/fibula, and right ankle. No gross deformities. Some pain with palpation of right lateral hip. However, movement of right hip joint causes no discomfort. NEUROLOGIC: Some confusion but awake and alert. Moving all extremities. Dementia noted. SKIN: No rash, no jaundice, no diaphoresis. Medical Decision & Procedures ER Provider Diagnostic Interpretation: Radiology results as stated below per my review and radiologist interpretation: CT HEAD: Comparison: CT head February 21, 2016 No acute intracranial abnormality identified. Stable chronic small vessel ischemic disease and cerebral volume loss. Probable stable remote lacunar infarct in the right basal ganglia. Senescent calcifications in the basal ganglia. Bilateral lens implants. Atherosclerotic calcifications in the intracranial vasculature. Radiologist: Grady Winston M.D. Laboratory Results Test 02/09/17 22:45 02/10/17 00:12 Urine Color YELLOW Urine Appearance CLEAR (CLEAR) Urine pH 6.0 (4.5-7.5) Urine Specific [place] 1.010 (1.000-1.030) Urine Protein NEG (NEG) Urine Glucose (UA) NEG (NEG) Urine Ketones NEG (NEG) Urine Occult Blood TRACE (NEG) Urine Nitrite NEG (NEG) Urine Bilirubin NEG (NEG) Urine Urobilinogen NEG (NEG) Urine Leukocyte Esterase NEG (NEG) Urine RBC 0-4 /hpf (0-4) Urine WBC 5-10 /hpf (0-5) Urine Epithelial Cells 10-20 /lpf (0-5) Urine Bacteria NEG (NEG) Laboratory results reviewed by me. ECG Indication: other (Trauma) Rate (beats per minute): 67 Rhythm: sinus rhythm Findings: PAC, no acute ischemic change ED Course 2230: The patient was evaluated in room B11B. A complete history and physical exam was performed. 2236: Ordered Tylenol Tab 1000 mg PO 0030: The patient was signed out to Dr. Santos at the change in shifts. Medical Decision Differential diagnosis includes but is not limited to contusions, extremity fractures, hip fracture, lumbar fracture, intracranial bleeding, anemia, electrolyte abnormality, UTI, and infection. The patient presents with a presumed fall. She has dementia and the history taking was difficult. She seemed to complain mostly of lower back pain and some right leg pain. Her right hip bothered her intermittently. On exam, she seemed mostly tender in the area of the right knee down to the right ankle. No gross deformities. I could not find any scalp hematomas. The neck was nontender. Urinalysis does not show infection. The chemistry profile and CBC testing are pending. EKG showed a sinus rhythm with PACs, no acute ischemia. Brain CT showed no acute bleed or mass effect. I did review the patient's right knee, right tib-fib and right ankle films, I saw no fractures. Chest film did not show CHF or pneumonia. The pelvis and lumbar spine series results are still pending. At this point, the care is being assumed by Dr. Santos, she has assumed care at the change of shift. If no acute traumatic findings are found, if no concerning laboratory findings are found, I suspect the patient will be discharged back to her long term. The patient was given 1 g of Tylenol during her ER stay for her discomfort. She has been resting comfortably. Medication Reconcilliation Current Medication List: was personally reviewed by me Blood Pressure Screening Patient's blood pressure: Elevated blood pressure Blood pressure disposition: Elevated BP felt to be situational Impression Primary Impression: Right leg pain Additional Impressions: Lower back pain Fall Scribe Attestation The scribe's documentation has been prepared under my direction and personally reviewed by me in its entirety. I confirm that the note above accurately reflects all work, treatment, procedures, and medical decision making performed by me. Departure Information Dispostion Still a Patient Referrals No Doctor, Assigned (PCP) Patient Instructions My [facility] Problem Qualifiers
[2017-02-09] MEDS ORDERED: OXYC1TAB3 PO ×2 (23:18)
[2017-02-09] MEDS ORDERED: LORA-741 PO (23:21)
[2017-02-09] MEDS ORDERED: FSLL PO (23:25)
[2017-02-09] MEDS ORDERED: NTRS PO (23:31)
[2017-02-09] MEDS ORDERED: CALC600T PO (23:33)
[2017-02-09] MEDS ORDERED: FSMD/70 PO (23:33)
[2017-02-09 23:50] LABS: MANUAL MICROSCOPIC REQUIRED? YES; URINE APPEARANCE CLEAR (CLEAR); URINE BILIRUBIN NEG (NEG); URINE COLOR YELLOW; URINE NITRITE NEG (NEG); UROBILINOGEN NEG (NEG)
[2017-02-09 23:56] LABS: REVIEW REQ? NO
[2017-02-10 00:29] LABS: URINE BACTERIA NEG (NEG); URINE RBC 0-4 /hpf (0-4)
[2017-02-10 00:50] LABS: ALB/GLOB RATIO 0.8 (0.9-2); ALKALINE PHOSPHATASE 135 U/L (45-117); ALT/SGPT 24 U/L (12-78); AST/SGOT 26 U/L (15-37); BLOOD UREA NITROGEN 28 mg/dl (7-18); BUN/CREATININE RATIO 27.4 (10-20); CALCIUM 9.2 mg/dl (8.5-10.1); CARBON DIOXIDE 26 mmol/L (21-32); CHLORIDE 108 mmol/L (98-107); CREATININE 1.01 mg/dl (0.60-1.20); GLUCOSE 98 mg/dl (70-99); MAGNESIUM 2.5 mg/dl (1.8-2.4); POTASSIUM 4.3 mmol/L (3.5-5.1); SODIUM 142 mmol/L (136-145)
[2017-02-10 01:40] LABS: HEMATOCRIT 37.5 % (37-47); MEAN CELL VOLUME 90.8 fL (80-100); MEAN CORPUSCULAR HEMOGLOBIN 30.3 pg (25-34); MEAN CORPUSCULAR HGB CONC 33.3 g/dl (32-36); MEAN PLATELET VOLUME 9.4 fL (7.4-10.4); PLATELET COUNT 235 K/uL (130-400); RED BLOOD COUNT 4.13 M/uL (4.2-5.4); WHITE BLOOD COUNT 6.04 K/uL (4.8-10.8)
[2017-02-10 02:22] LABS: BASO % 0.3 %; BASO ABS # 0.02 K/uL (0-0.2); COMPLETE YES; EOS % 4.8 %; IG% 1.8 %; LYMPH % 25.5 %; LYMPH ABS # 1.54 K/uL (1.2-3.4); MONO % 13.7 %; NEUT % 53.9 %
[2017-02-10 02:55] VITALS: BP 160/76; PULSE 74; O2SAT 96
--- NOTE | 2017-02-10 04:19 | EMERGENCY ROOM VISIT NOTE ---
ED Visit Note First contact with patient: 00:57 I received this patient in signout at the change of shift from Dr. Prince Quevedo, pending completion of laboratory work and x-rays. The patient's laboratory evaluation is fairly unrevealing. H&H is stable. Urinalysis is negative. X- rays of the chest, knee, tib-fib and ankle were evaluated by Dr. Quevedo. The pending x-rays which include the lumbar spine and pelvis to my interpretation revealed no acute fracture or dislocation. There is chronic arthritic change. Patient is pleasant but confused. Secure transportation arrangements have been made by the case management service. The patient will follow-up with her PCP at [facility] and return to the ER for worsening of symptoms or any medical concerns.
--- NOTE | 2017-02-10 06:27 | DIAGNOSTIC IMAGING REPORT ---
CT HEAD WITHOUT CONTRAST (CT) CLINICAL HISTORY: Head pain status post trauma COMPARISON STUDY: 02/21/2016 TECHNIQUE: Axial CT of the brain is performed from the vertex to the skull base. IV contrast was not administered for this examination. A dose lowering technique was utilized adhering to the principles of ALARA. CT DOSE: 601.98 mGy.cm FINDINGS: No intra or extra-axial mass lesions are visualized. There is no CT evidence of acute cortical infarction. There is no evidence of midline shift. There is no acute hemorrhage. No calvarial fractures are visualized. There are patchy white matter hypodensities likely on a small vessel basis. There is mild ventricular dilatation, finding which is felt to be secondary to volume loss. There is no evidence of acute sinusitis IMPRESSION: No acute intracranial findings Electronically signed by: Merlin Dennison M.D. 02/10/2017 6:26 AM Dictated Date/Time: 02/10/2017 6:25 AM
--- NOTE | 2017-02-10 06:34 | DIAGNOSTIC IMAGING REPORT ---
PELVIS 1 OR 2 VIEW ROUTINE CLINICAL HISTORY: Pelvic pain status post trauma COMPARISON STUDY: 07/21/2015 FINDINGS: No fractures are visualized. The bones are mildly osteopenic. There are no dislocations. There is no SI joint diastases. There is no symphysis diastases. There are degenerative changes present within the lower lumbar spine. IMPRESSION: No fractures identified. Electronically signed by: Merlin Dennison M.D. 02/10/2017 6:32 AM Dictated Date/Time: 02/10/2017 6:31 AM
--- NOTE | 2017-02-10 06:35 | DIAGNOSTIC IMAGING REPORT ---
R TIBIA/FIBULA 2 VIEWS ROUTINE CLINICAL HISTORY: Right leg pain status post trauma COMPARISON: None. DISCUSSION: The bones are osteopenic. No fractures or dislocations are visualized. IMPRESSION: No fractures identified. Electronically signed by: Merlin Dennison M.D. 02/10/2017 6:33 AM Dictated Date/Time: 02/10/2017 6:32 AM
--- NOTE | 2017-02-10 07:04 | DIAGNOSTIC IMAGING REPORT ---
RIGHT ANKLE 3 VIEWS CLINICAL HISTORY: Fall with right ankle injury. FINDINGS: 3 views of the right ankle are obtained. No prior studies are available for comparison at the time of dictation. The skeletal structures are osteopenic. There is no radiographic evidence of right ankle fracture. The ankle mortise is intact. A plantar calcaneal enthesophyte is observed. No joint effusion is seen. Soft tissue edema is present in the right calf. IMPRESSION: Soft tissue swelling with no radiographic evidence of right ankle fracture. Electronically signed by: Prince Pathak M.D. 02/10/2017 7:02 AM Dictated Date/Time: 02/10/2017 7:01 AM
--- NOTE | 2017-02-10 07:12 | DIAGNOSTIC IMAGING REPORT ---
RIGHT KNEE 3 VIEWS HISTORY: Right knee pain. fall, pain COMPARISON: None. FINDINGS: There is no fracture or dislocation. Soft tissues are unremarkable. No radiopaque foreign bodies. No knee effusion. IMPRESSION: No fractures. Electronically signed by: Victor Hugo Tan M.D. 02/10/2017 7:10 AM Dictated Date/Time: 02/10/2017 7:10 AM
--- NOTE | 2017-02-10 07:13 | DIAGNOSTIC IMAGING REPORT ---
CHEST 1 VW FRONT-NOT PORTABLE HISTORY: Fall. Atypical chest pain. COMPARISON: Chest 08/13/2015. FINDINGS: No pneumothorax. No pleural effusions. Hiatal hernia, unchanged. The heart is normal in size. Old, healed bilateral rib fractures. The lungs are clear. Left humeral head deformity which is likely old. IMPRESSION: 1. No acute process within the chest. 2. Left humeral head deformity which is likely old. Recommend correlation for pain to exclude the less likely possibility of an acute fracture. 3. Old, healed bilateral rib fractures. Electronically signed by: Victor Hugo Tan M.D. 02/10/2017 7:12 AM Dictated Date/Time: 02/10/2017 7:10 AM
--- NOTE | 2017-02-10 07:47 | DIAGNOSTIC IMAGING REPORT ---
LUMBAR SPINE 5 VIEWS CLINICAL HISTORY: Fall with low back pain. FINDINGS: 5 views of the lumbar spine are compared to study dated 07/21/2015. The skeletal structures are osteopenic. There is no radiographic evidence of acute fracture. Vertebral body height and alignment are maintained throughout the lumbar spine. A chronic superior endplate compression deformity of T12 is similar to previous. The transverse and spinous processes appear intact. There is mild lumbar dextrocurvature. Small anterior osteophytes are seen throughout. There is no evidence of spondylolysis. Moderate multilevel degenerative disc space narrowing is noted, greatest at L4-L5 and L5-S1. The visualized bony pelvis appears intact. Mild sclerotic change is noted in the sacroiliac joints. There is atherosclerotic calcification of the abdominal aorta. No bowel obstruction is seen. There is moderate constipation. Surgical clips are noted in the upper abdomen. IMPRESSION: 1. There is no radiographic evidence of acute fracture or malalignment involving the lumbar spine. 2. A chronic compression deformity of T12 is unchanged from previous. 3. Osteopenia and spondylotic change as above. Electronically signed by: Prince Pathak M.D. 02/10/2017 7:46 AM Dictated Date/Time: 02/10/2017 6:59 AM
== END 2017-02-10 02:56 | disposition home or self-care (01) ==
LOC: EDBD 22:23 → C.EDB 22:25
DX: M79.604 Pain in right leg (principal); M54.5 Low back pain; W19.XXXA Unspecified fall, initial encounter; F03.90 Unspecified dementia, unspecified severity, without behavioral disturbance, psychotic disturbance, mood disturbance, and anxiety; I10 Essential (primary) hypertension; M81.0 Age-related osteoporosis without current pathological fracture; Z87.440 Personal history of urinary (tract) infections; Z87.891 Personal history of nicotine dependence; Z98.51 Tubal ligation status; Z83.3 Family history of diabetes mellitus; Z79.899 Other long term (current) drug therapy

== ENCOUNTER → 2017-02-25 | Outpatient (CLI) | payer BC, OTHER ==
[~2017-02-25] MED LIST changes: -BISA10SU38 PR; +CALC600T PO; -FERROUS SULFATE PO; +FSLL PO; +FSMD/70 PO; -MOML PO; +NTRS PO; -SODIENE PR
[2017-02-25 08:59] LABS: COMPLETE YES; EOS % 4.8 %; HEMATOCRIT 36.2 % (37-47); IG% 0.2 %; LYMPH % 30.4 %; MEAN CELL VOLUME 94.3 fL (80-100); MEAN CORPUSCULAR HEMOGLOBIN 30.2 pg (25-34); MEAN PLATELET VOLUME 9.6 fL (7.4-10.4); MONO % 11.5 %; NEUT % 53.1 %; PLATELET COUNT 246 K/uL (130-400); RED BLOOD COUNT 3.84 M/uL (4.2-5.4); WHITE BLOOD COUNT 6.25 K/uL (4.8-10.8)
[2017-02-25 09:39] LABS: BLOOD UREA NITROGEN 37 mg/dl (7-18); BUN/CREATININE RATIO 36.7 (10-20); CALCIUM 8.5 mg/dl (8.5-10.1); CARBON DIOXIDE 25 mmol/L (21-32); CHLORIDE 113 mmol/L (98-107); CREATININE 1.01 mg/dl (0.60-1.20); GLUCOSE 96 mg/dl (70-99); SODIUM 143 mmol/L (136-145)
[2017-02-25 09:50] LABS: FERRITIN 30.5 ng/ml (8.0-388.0); TOTAL IRON BINDING CAPACITY 271 mcg/dl (250-450)
== END ==
LOC: C.LABCC 08:25
PROVIDERS: ATTEND Internal Medicine
DX: I10 Essential (primary) hypertension (principal); D64.9 Anemia, unspecified; E03.9 Hypothyroidism, unspecified

== ENCOUNTER → 2017-02-26 | Outpatient (CLI) | payer BC, OTHER ==
--- NOTE | 2017-04-17 09:12 | CODING QUERY NO DIAGNOSIS ---
TREATMENT RENDERED WITHOUT A DIAGNOSIS To promote full compliance with coding requirements relating to patient care, physician participation is requested in all cases of relief master uncertainty. Please assist us with providing a diagnosis/symptom for the test(s) below: A diagnosis/symptom was not documented on your Order. A valid diagnosis/symptom is required to bill all insurances. Please remember that we are unable to code a diagnosis of rule out, probable, possible, questionable, or suspected. Tests that require a diagnosis: DOS: 02/26/17 * UA CATH DIAGNOSIS: * URINE CULTURE CATH DIAGNOSIS: Provider Signature: Date: Thank you Janine Conti [employer] Information Management Once completed, please kindly fax back to [phone] For questions please call [phone]
== END ==
LOC: C.LABCC 17:40
PROVIDERS: ATTEND Internal Medicine
DX: R39.9 Unspecified symptoms and signs involving the genitourinary system (principal)

== ENCOUNTER → 2017-04-23 | Outpatient (CLI) | payer BC, OTHER | LOC: C.LABCC 17:47 | PROVIDERS: ATTEND Internal Medicine | DX: R31.9 Hematuria, unspecified (principal); R32 Unspecified urinary incontinence ==

== ENCOUNTER → 2017-05-16 | Outpatient (CLI) | payer BC, OTHER ==
[~2017-05-16] MED LIST changes: -ACET325T95 PO; +TYLOTC325 PO
== END ==
LOC: C.LABCC 13:00
PROVIDERS: ATTEND Internal Medicine
DX: R19.7 Diarrhea, unspecified (principal)

== ENCOUNTER → 2017-06-27 | Outpatient (CLI) | payer BC, OTHER | END | disposition home or self-care (01) | LOC: C.LABCC 10:47 | PROVIDERS: ATTEND Internal Medicine | DX: R41.82 Altered mental status, unspecified (principal); R35.0 Frequency of micturition ==

== ENCOUNTER → 2017-07-02 | Outpatient (CLI) | payer BC, OTHER | LOC: C.LABCC 17:58 | PROVIDERS: ATTEND Internal Medicine | DX: R41.82 Altered mental status, unspecified (principal) ==

== ENCOUNTER → 2017-08-06 | Outpatient (CLI) | payer BC, OTHER | LOC: C.LABCC 17:16 | PROVIDERS: ATTEND Internal Medicine | DX: N39.0 Urinary tract infection, site not specified (principal) ==

== ENCOUNTER 2018-07-15 23:14 | Inpatient (IN) ==
[2018-07-15] MEDS ORDERED: NITROGLYCERIN 2% OINTMENT 30GM TUBE EXT STA (23:39)
[2018-07-15] MEDS ORDERED: ONDANSETRON INJ 2 MG/ML 2 ML VIAL IV STA (23:39)
[2018-07-16 00:20] LABS: Eosinophils # (auto) 0.23 K/uL (0-0.5); Eosinophils % (auto) 3.2 %; Hematocrit (blood only) 39.6 % (37-47); Immature Granulocytes # (auto) 0.01 K/uL (0.00-0.02); Immature Granulocytes % (auto) 0.1 %; Lymphocytes # (auto) 1.34 K/uL (1.2-3.4); Lymphocytes % (auto) 18.6 %; Mean Corpuscular Hgb Conc 32.8 g/dL (32-36); Mean Corpuscular Volume 94.3 fL (80-100); Monocytes # (auto) 0.65 K/uL (0.11-0.59); Neutrophils # (auto) 4.99 K/uL (1.4-6.5); Neutrophils % (auto) 69.1 %; Platelet Count 227 K/uL (130-400); White Blood Count 7.22 K/uL (4.8-10.8)
[2018-07-16 00:37] LABS: Alanine Aminotransferase 22 U/L (12-78); Albumin Level 3.5 gm/dl (3.4-5.0); Aspartate Aminotransferase 23 U/L (15-37); BUN Creatinine Ratio 32.7 (10-20); Blood Urea Nitrogen 35 mg/dl (7-18); Calcium 9.2 mg/dl (8.5-10.1); Carbon Dioxide 26 mmol/L (21-32); Chloride 109 mmol/L (98-107); Creatinine Clr Calc Pharmacy 40.6 ml/min; Est GFR (African American) 59.1; Glucose 107 mg/dl (70-99); Potassium 4.2 mmol/L (3.5-5.1); Sodium 139 mmol/L (136-145)
[2018-07-16 00:42] LABS: Albumin Globulin Ratio 0.8 (0.9-2); Alkaline Phosphatase 145 U/L (45-117); Bilirubin,Total 0.2 mg/dl (0.2-1); Globulin 4.2 gm/dl (2.5-4.0); Total Protein 7.7 gm/dl (6.4-8.2); Troponin I < 0.015 ng/ml (0-0.045)
[2018-07-16] MEDS ORDERED: METOCLOPRAMIDE HCL INJ 5 MG/ML 2 ML VIAL IV ONE (00:47)
--- NOTE | 2018-07-16 01:18 | History & Physical Report ---
Date of Service July 16, 2018 Assessment & Plan (1) Substernal chest pain: 77 y/o F Hx advanced dementia, HTN, hypothyroidism, unstable gait with frequent falls, back pain and narcotic-dependence, esophageal stenosis and a hiatal hernia which was previously repaired. She also has a history of recurrent UTIs and tends to lose her balance when she acquires an infection. She has been unsteady for a few days per family and today had a few episodes of [facility] at the [facility]. She then apparently complained of left sided chest and arm pain. At this point, the astute staff at [facility] alerted EMS and she was brought to the hospital for evaluation. It was reported that she vomited again on route. On arrival to the ER, her SBP was over 190 which is unusual for her per family. She did not complain of any specific symptoms and could not recall if she had chest pain earlier. Initial labs and an EKG do not support ACS. A CT of the abdomen displayed a moderate hiatal hernia with no acute abnormalities. The pt is unable to provide reliable information which was obtained from family at bedside. 1) CP - no immediate evidence of ACS - she cannot properly express herself or remember earlier symptoms. We will obtain serial troponins. She was provided w ith NTG for her HTN. we would not provide ASA unless there was evidence of cardiac etiology as a GI-related issue may be more likely. 2) Nausea and vomiting. Considering her history, if her symptoms persist, GI should be consulted. We will place her on clears pending AM reevaluation. She should be tried on a soft diet prior to considering DC. 3) Advanced dementia - per family, she can develop delirium and needs a sitter in the hospital. We will continue Olanzapine and Lorazepam. 4) HTN - poorly controlled on arrival - responded to NTG - will continue her Lisinopril which she may have vomited this AM and place her on PRN Hydralazine. 5) Hypothyroidism - cont Synthroid 6) Family were concerned that she may have a UTI due to worsening balance - UA pending 7) Back pain - cont Fenatnyl Full code - SCDs due to GI risk Total time for this admit including review of labs, meds, imaging, records - discussion with pt and ER attending - 35 min History of Present Illness Chief Complaint: 77 y/o F Hx advanced dementia, HTN, hypothyroidism, unstable gait with frequent falls, back pain and narcotic-dependence, esophageal stenosis and a hiatal hernia which was previously repaired. She also has a history of recurrent UTIs and tends to lose her balance when she acquires an infection. She has been unsteady for a few days per family and today had a few episodes of vomiting at the [facility] where she [facility]. She then apparently complained of left sided chest and arm pain. At this point, the astute staff at [facility] alerted EMS and she was brought to the hospital for evaluation. It was reported that she vomited again on route. On arrival to the ER, her SBP was over 190 which is unusual for her per family. She did not complain of any specific symptoms and could not recall if she had chest pain earlier. Initial labs and an EKG do not support ACS. A CT of the abdomen displayed a moderate hiatal hernia with no acute abnormalities. The pt is unable to provide reliable information which was obtained from family at bedside. PMH: 1) Advanced dementia 2) Hiatal hernia 3) HTN 4) Sinus bradycardia 5) Hypothyroidism 6) Esophageal stenosis requiring dilation 7) Migraine headaches 8) Recurrent UTIs - normally requires at least 10 days of antibiotics to clear per family 9) Back pain and narcotic dependence. Surgical: 1) Pessary 2) Hiatal hernia repair 3) Tubal ligation 4) Esophageal dilation 5) L humerus Social: Resides in a fci - care-dependent due to dementia and an unsteady gait. She does not have a history of smoking or drinking although she claimed that she smokes. Family: Noncontributory Primary Care Provider: [facility] Allergies Allergy/AdvReac Type Severity Reaction Status Date / Time caffeine Allergy Unknown . Verified 07/16/18 01:21 desipramine Allergy Unknown . Verified 07/16/18 01:21 ergotamine Allergy Unknown . Verified 07/16/18 01:21 nitrofurantoin Allergy Unknown . Verified 07/16/18 01:21 watermelon Allergy Unknown UNKNOWN Verified 07/16/18 01:21 Cantaloupe Allergy Unknown RASH Uncoded 07/16/18 01:21 Home Medications Home Medications Medication Instructions Recorded Confirmed Type acetaminophen [Tylenol] 650 mg PO Q6H PRN 07/16/18 07/16/18 History acetaminophen [Tylenol] 650 mg PO QAM 07/16/18 07/16/18 History calcium carbonate [Calcium 600] 600 mg PO DAILY 07/16/18 07/16/18 History cholecalciferol (vitamin D3) 2,000 unit PO DAILY 07/16/18 07/16/18 History [Vitamin D3] cranberry extract 250 mg PO DAILY 07/16/18 07/16/18 History escitalopram oxalate 10 mg PO HS 07/16/18 07/16/18 History fentanyl 25 mcg TOPICAL .Q3D 07/16/18 07/16/18 History ferrous sulfate 7.3 ml PO DAILY 07/16/18 07/16/18 History lansoprazole 30 mg PO BID 07/16/18 07/16/18 History levothyroxine 112 mcg PO QAM 07/16/18 07/16/18 History lisinopril 5 mg PO QAM 07/16/18 07/16/18 History lorazepam 0.5 mg PO QID 07/16/18 07/16/18 History magnesium hydroxide [Milk of 30 ml PO DAILY PRN 07/16/18 07/16/18 History Magnesia] memantine 5 mg PO BID 07/16/18 07/16/18 History olanzapine [Zyprexa] 5 mg PO HS 07/16/18 07/16/18 History olanzapine [Zyprexa] 7.5 mg PO HS 07/16/18 07/16/18 History ondansetron HCl 4 mg PO QID PRN 07/16/18 07/16/18 History oxycodone 5 mg PO Q4H PRN 07/16/18 07/16/18 History oxycodone 10 mg PO Q4H PRN 07/16/18 07/16/18 History ropinirole 0.25 mg PO HS 07/16/18 07/16/18 History sennosides-docusate sodium [Senna 2 tab PO DAILY 07/16/18 07/16/18 History Plus] sucralfate [Carafate] 10 ml PO BID 07/16/18 07/16/18 History sumatriptan succinate 25 mg PO DAILY PRN 07/16/18 07/16/18 History Past Med/Surg History Medical History Dementia (Chronic) Female bladder prolapse (Resolved) Anemia CVA (cerebral vascular accident) (Acute) Fracture of head of left humerus (Acute) Fracture of left olecranon process (Acute) Fracture, thoracic vertebra, compression (Acute) HTN (hypertension) (Chronic) Lumbar transverse process fracture (Acute) T12 compression fracture (Acute) Thoracic compression fracture (Acute) UTI (lower urinary tract infection) (Acute) Social History Preferred Language: Uz[place] marital status: Current Living Situation: [place] current occupational status: retired Feels Safe at Home: Yes Smoking Status: Former smoker Review of Systems Review of Systems: Cannot obtain from pt - per HPI - N/V and complaints of L CP Physical Exam Physical Exam: General: Pleasant, disoriented, elderly F, no distress ENT: No erythema or exudates, no thrush Eyes: [place], EOMI Head and neck: Normocephalic, atraumatic, No JVD, neck is supple. Chest/heart: Nontender, S1,2, RRR, no murmurs, no gallops Lungs: CTAB, no wheezing or crackles Abdomen: Nontender, nondistended, BS+ Neuro: Speech is clear, no unilateral weakness or loss of sensation, coordination intact Musculoskeletal: No joint inflammation, muscle tenderness, FROM Skin: No acute rashes or ulcers Extremities: No clubbing, cyanosis, edema Results & Data Vital Signs (Past 12 Hours) Vital Signs Temp Pulse Resp BP Pulse Ox 07/16/18 01:01 55 L 16 161/70 H 97 07/16/18 01:00 59 L 14 97 07/16/18 00:41 55 L 19 169/64 H 96 07/16/18 00:31 55 L 16 186/71 H 96 07/16/18 00:30 52 L 24 97 07/16/18 00:20 49 L 19 98 07/16/18 00:18 20 199/67 H 97 07/15/18 23:19 98.2 F 77 28 H 185/79 H 98
[2018-07-16] MEDS ORDERED: LORazepam 0.5 MG/1 ML VIAL IV STA (01:56)
[2018-07-16] MEDS ORDERED: LORazepam 2 MG/4 ML VIAL ONE (02:03)
--- NOTE | 2018-07-16 02:25 | Emergency Department Note ---
Entered by Toma Mancera acting as a scribe for ED Provider Note CHIEF COMPLAINT: Chest pain HISTORY OF PRESENT ILLNESS: The patient is a 77 year old female with a history of dementia, a CVA, anemia, hypertension, and UTIs who presents to the Emergency Room with complaints of worsening chest pain starting tonight. Per EMS, the patient complained of substernal chest pain and diaphragmatic pain when they arrived at the [facility]. They state that she also reported shortness of breath and pain in her left hand radiating up her left arm and shoulder. They add that the patient was able to interact appropriately with them. EMS notes that the patient received Aspirin and Zofran en route to the ED and experienced 2 episodes of emesis. The patient currently reports that her chest pain has resolved. Pt denies LOC, headache, fevers, chills, diaphoresis, visual changes, neck pain, nausea, abdominal pain, back pain, melena, hematochezia, urinary symptoms, numbness, weakness, lymphadenopathy, rash, or other complaints. REVIEW OF SYSTEMS: See HPI for pertinent positives and negatives. A total of ten systems were reviewed and were otherwise negative. PMHx/PSHx: Dementia CVA Anemia Hypertension UTI SOCIAL HISTORY: Patient lives at a [facility]. She is and retired. PHYSICAL EXAM: GENERAL: Awake, alert, uncomfortable-appearing, in no distress HENT: Normocephalic, atraumatic. Oropharynx unremarkable. EYES: PERRL. Normal conjunctiva. Sclera non-icteric. NECK: Inspection normal. Non-tender. Supple. No nuchal rigidity. FROM. No masses. RESPIRATORY: Clear to auscultation. No wheezes. No rales. Normal respiratory effort. CARDIAC: Normal rate. Normal rhythm. No murmurs. No rubs. Extremities warm and well perfused. Pulses equal. No JVD. GI: Soft, non-distended. No tenderness to palpation. No rebound or guarding. No masses. RECTAL: Deferred. MUSCULOSKELETAL: Atraumatic. Chest examination reveals no tenderness. The back is symmetrical on inspection without obvious abnormality. There is no CVA tenderness to palpation. No joint edema. LOWER EXTREMITIES: Calves are equal size bilaterally and non-tender. 1+ edema. No discoloration. NEURO: Demented sensorium. No focal sensory or motor deficits noted. Following commands and moving extremities appropriately. SKIN: No rash or jaundice noted. EMERGENCY DEPARTMENT COURSE: 2322: Past medical records reviewed. The patient was evaluated in room B11B, and a complete history and physical examination were performed. 0045: Patient reassessed. She was having some nausea. Repeat ECG was performed without any ischemic change. Reglan was ordered. Family updated. 0057: I reviewed the patient's case with Dr. Han - Hospitalist, [facility]. Dr. Han will evaluate the patient for further management. MEDICAL DECISION MAKING: Prior records/ancillary studies reviewed. Triage Nursing notes reviewed and agree them. Additional history obtained from EMS and the family. The patient's history was concerning for chest pain. Differential diagnosis: Etiologies such as cardiac ischemia, aortic dissection, pulmonary embolism, pneumonia, pneumothorax, musculoskeletal, infections, pericarditis, myocarditis, esophageal rupture, gastrointestinal, as well as others were entertained. Physical examination: As above. ER treatment provided: IV Zofran Nitropaste IV Reglan Diagnostic interpretation by me: The electrocardiogram was negative for pathologic change x2 The labs revealed an unremarkable CBC and chemistry panel. Troponin negative x1. Imaging studies: CT scan reveals a hiatal hernia. No obstructive process was noted. No acute intra-abdominal process noted per stat read. Consultation: A consultation was placed with the hospitalist. The case was discussed and diagnostics were reviewed. The patient was evaluated in the ER for further treatment. IMPRESSION: Substernal chest pain Vomiting Hiatal hernia Dementia PLAN: Admitted as inpatient The scribe's documentation has been prepared under my direction and personally reviewed by me in its entirety. I confirm that the note above accurately reflects all work, treatment, procedures, and medical decision making performed by me. Impression & Plan Substernal chest pain Past Med/Surg History Medical History Dementia (Chronic) Female bladder prolapse (Resolved) Anemia CVA (cerebral vascular accident) (Acute) Fracture of head of left humerus (Acute) Fracture of left olecranon process (Acute) Fracture, thoracic vertebra, compression (Acute) HTN (hypertension) (Chronic) Lumbar transverse process fracture (Acute) T12 compression fracture (Acute) Thoracic compression fracture (Acute) UTI (lower urinary tract infection) (Acute) Social History Preferred Language: Polish marital status: Current Living Situation: Intermediate current occupational status: retired Feels Safe at Home: Yes Smoking Status: Former smoker Results & Data Vital Signs Vital Signs - 24 hr 07/15/18 23:19 07/15/18 23:39 07/16/18 00:18 Temperature 36.8 C Temperature Source Oral Sepsis Recent Fever Within 48 Hours No Sepsis New/Unexplained Change in Mental Status No Sepsis Action Taken by Nursing No Action Required Pulse Rate 77 Pulse Rate from SpO2 Sensor 52 L Respiratory Rate 28 H 20 Respiratory Effort / Characteristics Non-Labored Spontaneous Respiratory Depth Normal Respiratory Pattern Regular Blood Pressure 185/79 H 199/67 H Blood Pressure Mean 114 111 Blood Pressure Position Lying Pulse Oximetry 98 97 Oxygen Delivery Method Room Air Room Air Room Air 07/16/18 00:20 07/16/18 00:30 07/16/18 00:31 Temperature Temperature Source Sepsis Recent Fever Within 48 Hours Sepsis New/Unexplained Change in Mental Status Sepsis Action Taken by Nursing Pulse Rate 49 L 52 L 55 L Pulse Rate from SpO2 Sensor 50 L 52 L 55 L Respiratory Rate 19 24 16 Respiratory Effort / Characteristics Respiratory Depth Respiratory Pattern Blood Pressure 186/71 H Blood Pressure Mean 109 Blood Pressure Position Pulse Oximetry 98 97 96 Oxygen Delivery Method Room Air Room Air Room Air 07/16/18 00:41 07/16/18 01:00 07/16/18 01:01 Temperature Temperature Source Sepsis Recent Fever Within 48 Hours Sepsis New/Unexplained Change in Mental Status Sepsis Action Taken by Nursing Pulse Rate 55 L 59 L 55 L Pulse Rate from SpO2 Sensor 54 L 56 L 53 L Respiratory Rate 19 14 16 Respiratory Effort / Characteristics Respiratory Depth Respiratory Pattern Blood Pressure 169/64 H 161/70 H Blood Pressure Mean 99 100 Blood Pressure Position Pulse Oximetry 96 97 97 Oxygen Delivery Method Room Air 07/16/18 01:02 07/16/18 01:40 07/16/18 01:41 Temperature Temperature Source Sepsis Recent Fever Within 48 Hours Sepsis New/Unexplained Change in Mental Status Sepsis Action Taken by Nursing Pulse Rate 57 L 81 63 Pulse Rate from SpO2 Sensor 55 L 62 Respiratory Rate 16 20 21 Respiratory Effort / Characteristics Respiratory Depth Respiratory Pattern Blood Pressure 190/78 H Blood Pressure Mean 115 Blood Pressure Position Pulse Oximetry 96 97 Oxygen Delivery Method 07/16/18 02:00 07/16/18 02:01 Temperature Temperature Source Sepsis Recent Fever Within 48 Hours Sepsis New/Unexplained Change in Mental Status Sepsis Action Taken by Nursing Pulse Rate 67 67 Pulse Rate from SpO2 Sensor 66 63 Respiratory Rate 21 21 Respiratory Effort / Characteristics Respiratory Depth Respiratory Pattern Blood Pressure 155/70 H Blood Pressure Mean 98 Blood Pressure Position Pulse Oximetry 91 94 Oxygen Delivery Method Home Medications Current Medication List: was personally reviewed by me Laboratory Data Attestation: I reviewed the patient's lab results. Result diagrams: 07/16/18 00:04 07/16/18 00:04 Lab Results 07/16/18 07/16/18 Range/Units 00:04 00:04 WBC 7.22 (4.8-10.8) K/uL RBC 4.20 (4.2-5.4) M/uL Hgb 13.0 (12.0-16.0) g/dL Hct 39.6 (37-47) % MCV 94.3 (80-100) fL MCH 31.0 (25-34) pg MCHC 32.8 (32-36) g/dL RDW Std Deviation 48.0 H (36.4-46.3) fL RDW Coeff of Neville 14.0 (11.5-14.5) % Plt Count 227 (130-400) K/uL MPV 10.0 (7.4-10.4) fL Immature Gran % (Auto) 0.1 % Neut % (Auto) 69.1 % Lymph % (Auto) 18.6 % Taney % (Auto) 9.0 % Eos % (Auto) 3.2 % Baso % (Auto) 0.0 % Immature Gran # (Auto) 0.01 (0.00-0.02) K/uL Neut # (Auto) 4.99 (1.4-6.5) K/uL Lymph # (Auto) 1.34 (1.2-3.4) K/uL Taney # (Auto) 0.65 H (0.11-0.59) K/uL Eos # (Auto) 0.23 (0-0.5) K/uL Baso # (Auto) 0.00 (0-0.2) K/uL Sodium 139 (136-145) mmol/L Potassium 4.2 (3.5-5.1) mmol/L Chloride 109 H (98-107) mmol/L Carbon Dioxide 26 (21-32) mmol/L Anion Gap 4.0 (3-11) BUN 35 H (7-18) mg/dl Creatinine 1.06 (0.6-1.2) mg/dl Est Cr Clr Drug Dosing 40.6 ml/min Est GFR ( Amer) 59.1 Est GFR (Non-Af Amer) 51.0 BUN/Creatinine Ratio 32.7 H (10-20) Glucose 107 H (70-99) mg/dl Calcium 9.2 (8.5-10.1) mg/dl Total Bilirubin 0.2 (0.2-1) mg/dl AST 23 (15-37) U/L ALT 22 (12-78) U/L Alkaline Phosphatase 145 H (45-117) U/L Troponin I < 0.015 (0-0.045) ng/ml Total Protein 7.7 (6.4-8.2) gm/dl Albumin 3.5 (3.4-5.0) gm/dl Globulin 4.2 H (2.5-4.0) gm/dl Albumin/Globulin Ratio 0.8 L (0.9-2) Lipase 100 (73-393) U/L Administered Medications Discontinued Medications Lorazepam (Ativan) 0.5 mg in 1 mls @ 1 mls/min IV NOW STA Stop: 07/16/18 01:57 Last Admin: 07/16/18 02:17 Dose: 1 mls/min Documented by: [id number] Lorazepam (Ativan) Confirm Administered Dose 2 mg .ROUTE .STK-MED ONE Stop: 07/16/18 02:04 Last Admin: 07/16/18 02:13 Dose: Not Given Documented by: [id number] Metoclopramide HCl (Reglan) 5 mg IV ONE ONE Stop: 07/16/18 00:48 Last Admin: 07/16/18 00:58 Dose: 5 mg Documented by: [id number] Nitroglycerin (Nitro-Bid 2%) 0.5 inch EXT NOW STA Stop: 07/15/18 23:40 Last Admin: 07/15/18 23:53 Dose: 0.5 inch Documented by: [id number] Ondansetron HCl (Zofran) 4 mg IV NOW STA Stop: 07/15/18 23:40 Last Admin: 07/15/18 23:53 Dose: 4 mg Documented by: [id number] Imaging Data Attestation: I personally reviewed and interpreted this imaging study as follows: My Impression: Radiology results as stated below per my review and interpretation: XR CHEST 1V: Findings: No free air, no pneumothorax, no infiltrate, no pulmonary edema. Kyphosis. Radiologist's Impression: Radiology results as stated below per my review and the radiologist's interpretation: CT ABDOMEN & PELVIS Without Contrast: Moderate hiatal hernia. Normal appendix. No bowel wall thickening or obstruction. A pelvic device is located in the cervix and vaginal canal. Scoliosis and multilevel degenerative changes of the spine. No other acute findings. Radiologist: Belia Pichardo MD Study ready at 0024 and initial results transmitted at 0037 ECG Data Attestation: I personally reviewed and interpreted this ECG as follows: Indication: chest pain Rate (beats per minute): 94 Rhythm: normal sinus Findings: + other (premature supraventricular complexes); no PVC, no ST depression and no ST elevation Additional Comments: Prehospital EKG findings: normal sinus, 55 BPM, no ST elevation, no ST depression, no PVC Repeat EKG findings: sinus bradycardia, 55 BPM, no ST elevation, no ST depression, no PVC, no PAC Blood Pressure Blood Pressure Findings: Elevated blood pressure Blood Pressure Disposition: further management by hospitalist Discharge Plan Visit Data Chief Complaint: Chest Pain ED Provider: Mau Gentile Discharge Problem: Substernal chest pain Patient Disposition: Admitted As Inpatient Forms Stand Alone Forms: Call Back Authorization, [facility] Prescriptions Prescriptions: No Action acetaminophen [Tylenol] 325 mg Tablet 650 mg PO Q6H PRN (Reason: Fever Or Pain) RF: 0 acetaminophen [Tylenol] 325 mg Tablet 650 mg PO QAM RF: 0 calcium carbonate [Calcium 600] 600 mg calcium (1,500 mg) Tablet 600 mg PO DAILY RF: 0 sucralfate [Carafate] 100 mg/mL Suspension 10 ml PO BID RF: 0 cranberry extract 250 mg Capsule 250 mg PO DAILY RF: 0 fentanyl 25 mcg/hr patch 72 hour 25 mcg topical .Q3D RF: 0 ferrous sulfate 220 mg (44 mg iron)/5 mL Solution 7.3 ml PO DAILY RF: 0 lansoprazole 30 mg tablet,disintegrat, delay rel 30 mg PO BID RF: 0 levothyroxine 112 mcg tablet 112 mcg PO QAM RF: 0 escitalopram oxalate 10 mg tablet 10 mg PO HS RF: 0 lisinopril 5 mg tablet 5 mg PO QAM RF: 0 lorazepam 0.5 mg Tablet 0.5 mg PO QID RF: 0 memantine 5 mg tablet 5 mg PO BID RF: 0 magnesium hydroxide [Milk of Magnesia] 400 mg/5 mL Suspension 30 ml PO DAILY PRN (Reason: Constipation) RF: 0 ondansetron HCl 4 mg Tablet 4 mg PO QID PRN (Reason: Nausea) RF: 0 oxycodone 5 mg tablet 5 mg PO Q4H PRN (Reason: Pain) RF: 0 oxycodone 5 mg Tablet 10 mg PO Q4H PRN (Reason: Pain) RF: 0 ropinirole 0.25 mg Tablet 0.25 mg PO HS RF: 0 sennosides-docusate sodium [Senna Plus] 8.6-50 mg Tablet 2 tab PO DAILY RF: 0 sumatriptan succinate 25 mg tablet 25 mg PO DAILY PRN (Reason: Migraine Headache) RF: 0 cholecalciferol (vitamin D3) [Vitamin D3] 2,000 unit Tablet 2,000 unit PO DAILY RF: 0 olanzapine [Zyprexa] 5 mg Tablet 5 mg PO QAM RF: 0 olanzapine [Zyprexa] 7.5 mg Tablet 7.5 mg PO HS RF: 0 Referrals Referrals: [facility] [Primary Care Provider] - The scribe's documentation has been prepared under my direction and personally reviewed by me in its entirety. I confirm that the note above accurately reflects all work, treatment, procedures, and medical decision making performed by me.
[2018-07-16] MEDS ORDERED: ACETAMINOPHEN 325 MG TAB PO PRN (02:59)
[2018-07-16] MEDS ORDERED: MAGNESIUM HYDROXIDE SUSP 30 ML UDC PO PRN (02:59)
[2018-07-16] MEDS ORDERED: NITROGLYCERIN SL 0.4 MG/TAB TAB SL PRN (02:59)
[2018-07-16] MEDS ORDERED: D5W AND NSS 1,000 ML IV SCH (02:59)
[2018-07-16] MEDS ORDERED: NITROGLYCERIN 2% OINTMENT 30GM TUBE EXT SCH (06:00)
[2018-07-16] MEDS: LEVOTHYROXINE SODIUM 112 MCG TABLET PO SCH (06:21)
--- NOTE | 2018-07-16 06:24 | XRay Report ---
XR chest 1V portable CLINICAL HISTORY: Chest Pain COMPARISON STUDY: Chest radiograph February 10, 2017. FINDINGS: Upper abdominal and lower mediastinal surgical clips are noted. A hiatal hernia is present. There is no consolidation or evidence for pulmonary edema. Cardiomediastinal silhouette is normal. T here are old left rib fractures and an old proximal left humeral fracture. Low lung volumes are prese nt. There is no consolidation. IMPRESSION: 1. No acute cardiopulmonary findings. 2. Hiatal hernia. 3. Low lung volumes. Electronically signed by: Brandon Wing M.D. 07/16/2018 6:23 AM
--- NOTE | 2018-07-16 07:21 | CT Scan Report ---
CT abd pelvis wo con CLINICAL HISTORY: 77 years-old Female presenting with vomiting, chest pain. TECHNIQUE: Multidetector CT of the abdomen and pelvis was performed without the use of intravenous co ntrast. IV contrast: None. One or more dose lowering techniques were used consistent with the princip les of ALA (as low as reasonably achievable), including automatic exposure control, mA or kV adjust ment to individual patient size, and/or use of iterative reconstruction. COMPARISON: 06/05/2014. CT DOSE (mGy.cm): The estimated cumulative dose is 646.67 mGy.cm. FINDINGS: Viscera Washer topogram: Unremarkable. Lung bases: Normal heart size. No pericardial or pleural effusion. Minimal dependent changes likely a telectasis. Liver: Normal morphology. Normal density. Biliary: No gross biliary ductal dilatation allowing for noncontrast technique. Gallbladder decompres sed. Pancreas: Moderate parenchymal atrophy. Spleen: Normal. Adrenal glands: Normal noncontrast appearance. Kidneys and ureters: Normal noncontrast appearance. No nephrolithiasis. No hydronephrosis. Normal ure ters. Bladder: Normal. Pelvic organs: Uterine atrophy versus partial hysterectomy. A pessary is in place within the vagina. No adnexal masses. Bowel: Few diverticula in the distal sigmoid colon without associated inflammatory change. No bowel o bstruction. The appendix is normal. Moderate hiatal hernia, which appears to be a sliding-type. Surgi clay clips noted in the region of the gastroesophageal junction, possibly from prior repair. Peritoneal cavity: No free fluid or intraperitoneal gas. Lymph nodes: No gross lymphadenopathy allowing for noncontrast technique. Vasculature: Atherosclerosis of the normal caliber abdominal aorta. Abdominal wall: Normal. Musculoskeletal: Mild compression deformity of T12, which is new since 2014 though present on prior l umbar radiographs from 02/10/2017. IMPRESSION: 1. No acute intra-abdominal pathology. 2. Moderate hiatal hernia. 3. Pessary in place. 4. Chronic mild compression fracture of T12. Electronically signed by: Yimi Aparicio M.D. 07/16/2018 7:20 AM
[2018-07-16] MEDS: SUCRALFATE 1 GM/10 ML UDC PO SCH ×2 (08:31→21:56)
[2018-07-16] MEDS: LANSOPRAZOLE 30 MG SOLTAB PO SCH ×2 (08:32→21:59)
[2018-07-16] MEDS: MEMANTINE HCL 5 MG TAB PO SCH ×2 (08:32→21:56)
[2018-07-16] MEDS: OLANZapine 5 MG TABLET PO SCH (08:33)
[2018-07-16] MEDS: LISINOPRIL 5 MG TAB PO SCH (08:33)
[2018-07-16] MEDS: fentaNYL 25 MCG/HR TDSY TD SCH (08:36)
[2018-07-16] MEDS: LORazepam 0.5 MG TAB PO SCH ×5 (08:37→22:01)
[2018-07-16] MEDS: DOCUSATE SODIUM/SENNA 50/8.6MG TAB PO SCH (08:37)
[2018-07-16] MEDS ORDERED: FAMOTIDINE 20 MG in DEXTROSE 5% 100 ML IV SCH (09:00)
[2018-07-16] MEDS: FAMOTIDINE 20 MG in SYRINGE 3 ML IV SCH ×2 (10:11→22:01)
[2018-07-16] MEDS: cefTRIAXone SODIUM 1,000 MG in DEXTROSE 5% 50 ML IV SCH (10:12)
[2018-07-16] MEDS: OXYCODONE HCL IR 5 MG TAB (IMMEDIATE RELEASE) PO PRN (10:19)
[2018-07-16] MEDS: ONDANSETRON INJ 2 MG/ML 2 ML VIAL IV PRN (10:22)
[2018-07-16] MEDS: ACETAMINOPHEN 1,000 MG/100 ML VIAL IV PRN (10:58)
--- NOTE | 2018-07-16 13:11 | Hospitalist Progress Note ---
Date of Service July 16, 2018 Assessment & Plan (1) Substernal chest pain: This patient is a 77 y/o F Hx advanced dementia, HTN, hypothyroidism, unstable gait with frequent falls, back pain and narcotic-dependence, esophageal stenosis and a hiatal hernia which was previously repaired. She also has a history of recurrent UTIs and tends to lose her balance when she acquires an infection. She has been unsteady for a few days per family and then presented with a few episodes of vomiting at the [facility] where [facility]. She then apparently complained of left sided chest and arm pain, as well as upper back pain. At this point, the astute staff at [facility] alerted EMS and she was brought to the hospital for evaluation. It was reported that she vomited again on route. On arrival to the ER, her SBP was over 190 which is unusual for her per family. Serial troponins were negative and EKG without ischemia. A CT of the abdomen displayed a moderate hiatal hernia with no acute abnormalities. CP -acute coronary syndrome ruled out with serial negative troponin. Most like ly a GI etiology of the chest pain. -Discontinue Nitropaste as is causing headache -No need for aspirin or statin -Appreciate cardiology consultation -Consult thoracic surgery for hiatal hernia as possible cause of chest pain and nausea with vomiting-appreciate consultation-recommends against surgery at this time and to consult GI -GI consultation pending -Added Pepcid 20 mg IV twice daily, continue lansoprazole twice daily as well (2) Nausea & vomiting: Nausea and vomiting persisted today. Question if is related to her moderate sized hiatal hernia seen on imaging -Continue with antiemetics as needed -Continue H2 lima and PPI -GI consultation requested -Continue clear liquids diet as tolerated (3) Hiatal hernia: Moderate-sized seen on CT -Plan outlined as above (4) Dementia: Daughter reports that patient can wax and wane from day today with her mental status. She can get agitated at times and the olanzapine does help with this. She is able to recognize her daughter's face and name. She can carry on simple conversations on some days. Other days, she barely speaks. She has been in the [facility] now with her dementia for about 4 years. - per family, she can develop delirium and needs a sitter in the hospital. -Continue Olanzapine and memantine -Continue Lorazepam (5) Female bladder prolapse: With frequent UTIs, has pessary in place -UA here appears abnormal, most likely is asymptomatic bacteriuria, but will treat nonetheless with Rocephin -Follow urine culture (6) HTN (hypertension): Blood pressures were quite elevated upon admission likely due to pain. Had Nitropaste on and blood pressures have been on the low side along with a headache. -Discontinue Nitropaste -Continue lisinopril 5 mg daily -Follow blood pressures (7) UTI (lower urinary tract infection): UA abnormal here -Started Rocephin 1 g daily for uncomplicated cystitis which may be asymptomatic bacteriuria -Follow urine culture (8) Sinus bradycardia: Noted to be in the low 40s at rest consistently, not on any AV ryamon blocking agents -Discussed the case with cardiology who does not feel this is a problem as patient is mostly sedentary and is asymptomatic with it. Her heart rate did come up in the 50s when she is awake. -No further treatment needed -Cardiology recommends taking her off of telemetry-we will do so in the morning is already late at night and this may cause her agitation with her dementia (9) Hypothyroidism: TSH not checked in our records since last year -Check TSH in the morning -Continue home levothyroxine 112 mcg daily (10) Chronic pain: Stable, in the back -Continue fentanyl patch 25 mcg change every 72 hours -Continue oxycodone as needed for breakthrough pain -Continue senna/docusate for constipation (11) Depression: Stable and associated with dementia -Continue Lexapro 10 mg daily (12) Restless legs syndrome: Stable -Continue ropinirole 0.25 mg p.o. nightly (13) DVT prophylaxis: Add Lovenox SQ as no surgical procedure is planned Disposition-remain on telemetry overnight and will transfer to medical floor tomorrow Discharge back to [facility] when able to take p.o. Subjective Patient was vomiting quite a bit this morning and is now improved after getting antiemetics. She denies any further severe chest pain, but does report some mild chest pain. Denies shortness of breath. She was sleeping when I saw her and was very difficult to wake up. Her daughter was at the bedside provided most of the history. She had a very small bowel movement today. Telemetry with sinus bradycardia with rates consistently in the 40s with sleeping and in the 50s when awake Review of Systems Review of Systems: Unobtainable due to cognitive status Physical Exam 2 Constitutional: well developed (Sleeping for most of my examination); no acute distress ENMT: Ears: no external ear abnormality Neck: trachea midline, no thyromegaly Respiratory: normal respiratory effort, lungs clear to auscultation Cardiovascular: Rate/Rhythm: regular rhythm and + bradycardic Heart Sounds: no murmur Extremities: no edema Gastrointestinal (Abdomen): normal bowel sounds, soft, nontender, no hepatosplenomegaly Musculoskeletal: Extremities: extremities normal to inspection; no cyanosis and no clubbing Skin: no rashes, warm and dry Neurologic: + not awake Psychiatric: Orientation: oriented to person; + not alert (Lethargic), + not oriented to place and + not oriented to time Results & Data Vital Signs (Past 12 Hours) Vital Signs Temp Pulse Pulse Resp BP BP BP 07/16/18 11:52 36.7 C 47 L 16 122/71 07/16/18 07:05 36.4 C L 50 L 16 118/52 L 07/16/18 04:33 51 L 106/45 L 07/16/18 02:50 36.7 C 20 180/59 H 07/16/18 02:01 67 21 155/70 H 07/16/18 02:00 67 21 07/16/18 01:41 63 21 190/78 H 07/16/18 01:40 81 20 Pulse Ox 07/16/18 11:52 97 07/16/18 07:05 96 07/16/18 04:33 07/16/18 02:50 95 07/16/18 02:01 94 07/16/18 02:00 91 07/16/18 01:41 97 07/16/18 01:40 Laboratory Results 07/16/18 07/16/18 07/16/18 Range/Units Unknown 06:02 00:04 WBC (4.8-10.8) K/uL RBC (4.2-5.4) M/uL Hgb (12.0-16.0) g/dL Hct (37-47) % MCV (80-100) fL MCH (25-34) pg MCHC (32-36) g/dL RDW Std Deviation (36.4-46.3) fL RDW Coeff of Neville (11.5-14.5) % Plt Count (130-400) K/uL MPV (7.4-10.4) fL Immature Gran % (Auto) % Neut % (Auto) % Lymph % (Auto) % [place] % (Auto) % Eos % (Auto) % Baso % (Auto) % Immature Gran # (Auto) (0.00-0.02) K/uL Neut # (Auto) (1.4-6.5) K/uL Lymph # (Auto) (1.2-3.4) K/uL [place] # (Auto) (0.11-0.59) K/uL Eos # (Auto) (0-0.5) K/uL Baso # (Auto) (0-0.2) K/uL Sodium 139 (136-145) mmol/L Potassium 4.2 (3.5-5.1) mmol/L Chloride 109 H (98-107) mmol/L Carbon Dioxide 26 (21-32) mmol/L Anion Gap 4.0 (3-11) BUN 35 H (7-18) mg/dl Creatinine 1.06 (0.6-1.2) mg/dl Est Cr Clr Drug Dosing 40.6 ml/min Est GFR ( Amer) 59.1 Est GFR (Non-Af Amer) 51.0 BUN/Creatinine Ratio 32.7 H (10-20) Glucose 107 H (70-99) mg/dl Calcium 9.2 (8.5-10.1) mg/dl Total Bilirubin 0.2 (0.2-1) mg/dl AST 23 (15-37) U/L ALT 22 (12-78) U/L Alkaline Phosphatase 145 H (45-117) U/L Troponin I < 0.015 < 0.015 (0-0.045) ng/ml Total Protein 7.7 (6.4-8.2) gm/dl Albumin 3.5 (3.4-5.0) gm/dl Globulin 4.2 H (2.5-4.0) gm/dl Albumin/Globulin Ratio 0.8 L (0.9-2) Lipase 100 (73-393) U/L Nasal Screen MRSA (PCR) Negative (Negative) 07/16/18 Range/Units 00:04 WBC 7.22 (4.8-10.8) K/uL RBC 4.20 (4.2-5.4) M/uL Hgb 13.0 (12.0-16.0) g/dL Hct 39.6 (37-47) % MCV 94.3 (80-100) fL MCH 31.0 (25-34) pg MCHC 32.8 (32-36) g/dL RDW Std Deviation 48.0 H (36.4-46.3) fL RDW Coeff of Neville 14.0 (11.5-14.5) % Plt Count 227 (130-400) K/uL MPV 10.0 (7.4-10.4) fL Immature Gran % (Auto) 0.1 % Neut % (Auto) 69.1 % Lymph % (Auto) 18.6 % [place] % (Auto) 9.0 % Eos % (Auto) 3.2 % Baso % (Auto) 0.0 % Immature Gran # (Auto) 0.01 (0.00-0.02) K/uL Neut # (Auto) 4.99 (1.4-6.5) K/uL Lymph # (Auto) 1.34 (1.2-3.4) K/uL [place] # (Auto) 0.65 H (0.11-0.59) K/uL Eos # (Auto) 0.23 (0-0.5) K/uL Baso # (Auto) 0.00 (0-0.2) K/uL Sodium (136-145) mmol/L Potassium (3.5-5.1) mmol/L Chloride (98-107) mmol/L Carbon Dioxide (21-32) mmol/L Anion Gap (3-11) BUN (7-18) mg/dl Creatinine (0.6-1.2) mg/dl Est Cr Clr Drug Dosing ml/min Est GFR ( Amer) Est GFR (Non-Af Amer) BUN/Creatinine Ratio (10-20) Glucose (70-99) mg/dl Calcium (8.5-10.1) mg/dl Total Bilirubin (0.2-1) mg/dl AST (15-37) U/L ALT (12-78) U/L Alkaline Phosphatase (45-117) U/L Troponin I (0-0.045) ng/ml Total Protein (6.4-8.2) gm/dl Albumin (3.4-5.0) gm/dl Globulin (2.5-4.0) gm/dl Albumin/Globulin Ratio (0.9-2) Lipase (73-393) U/L Nasal Screen MRSA (PCR) (Negative)
[2018-07-16] MEDS: CHECK FENTANYL PATCH PLACEMENT SCH (15:59)
--- NOTE | 2018-07-16 18:41 | Cardiology Consultation ---
Date of Consultation July 16, 2018 Assessment & Plan (1) Chest pain: Unfortunately, the patient is a poor historian. However, does seem that she had some symptoms of chest discomfort yesterday evening. This is in association with a known hiatal hernia and some gastrointestinal symptoms. I think given the absence of objective cardiac findings, cardiac etiology is less likely. There is no elevation in serial biomarkers. Her EKG was normal. Unfortunately, she can provide very little additional history regarding the symptoms. It would seem that the more likely diagnosis for symptoms would be this hiatal hernia. I think the likelihood of a coronary syndrome is low. Given her dementia and relatively sedentary lifestyle I do not think pursuing a diagnosis of coronary disease is in her best interest. I would not recommend any additional cardiac testing in that regard. (2) Sinus bradycardia: Patient does have an element of sinus bradycardia at baseline. It appears that when she is sleeping or resting she can have sinus rates in the 30s. I think this is physiological. I do not think this represents a clinical concern at this point in time. While she is a very poor historian, there does not appear to have been any symptoms or signs of trouble with this low heart rate. When she is awake or more active her heart rate appears to respond appropriately. Again, I think we would have difficulty providing her any benefit with a pacemaker, especially in the absence of any symptoms. Her overall conduction appears quite good and there has been no evidence of heart block. I think she could be safely taken off telemetry. I would only pursue additional evaluation in the presence of significant symptoms that could potentially be attributed to bradycardia. History of Present Illness Reason for Consultation: Bradycardia, chest pain Requesting Physician: Dahlia Attending Physician: Dafne Villagomez MD History of Present Illness Patient is a 77-year-old woman without a known history of cardiac disease who is currently a resident at [facility]. She suffers from severe dementia. According to the nursing staff she had some vomiting and chest discomfort last evening. This was associated with significant hypertension. Based on this information she was transferred to [facility] for an evaluation. She continue to have some gastrointestinal complaints. Initial EKG did not demonstrate any acute findings. Initial cardiac biomarkers were also normal. The patient was admitted to telemetry for observation. Unfortunately, the patient provides little useful history. She was accompanied today by her daughter who provided some supplemental information. It seems that she is very sedentary. She generally gets around in a wheelchair currently but can ambulate for short distances. She appears to have some difficulty with gait instability. She has a known history of hiatal hernia. She generally does not complain of chest discomfort. The patient could not recall the symptoms which prompted her evaluation at the hospital. She is not currently having symptoms of chest discomfort. She reports a poor appetite. She cannot recall eating dinner. Her daughter reports very little oral intake today. She did eat some Jell-O and broth. Allergies Allergy/AdvReac Type Severity Reaction Status Date / Time caffeine Allergy Unknown . Verified 07/16/18 01:21 desipramine Allergy Unknown . Verified 07/16/18 01:21 ergotamine Allergy Unknown . Verified 07/16/18 01:21 nitrofurantoin Allergy Unknown . Verified 07/16/18 01:21 watermelon Allergy Unknown UNKNOWN Verified 07/16/18 01:21 Cantaloupe Allergy Unknown RASH Uncoded 07/16/18 01:21 Home Medications Home Medications Medication Instructions Recorded Confirmed Type acetaminophen [Tylenol] 650 mg PO Q6H PRN 07/16/18 07/16/18 History acetaminophen [Tylenol] 650 mg PO QAM 07/16/18 07/16/18 History calcium carbonate [Calcium 600] 600 mg PO DAILY 07/16/18 07/16/18 History cholecalciferol (vitamin D3) 2,000 unit PO DAILY 07/16/18 07/16/18 History [Vitamin D3] cranberry extract 250 mg PO DAILY 07/16/18 07/16/18 History escitalopram oxalate 10 mg PO HS 07/16/18 07/16/18 History fentanyl 25 mcg TOPICAL .Q3D 07/16/18 07/16/18 History ferrous sulfate 7.3 ml PO DAILY 07/16/18 07/16/18 History lansoprazole 30 mg PO BID 07/16/18 07/16/18 History levothyroxine 112 mcg PO QAM 07/16/18 07/16/18 History lisinopril 5 mg PO QAM 07/16/18 07/16/18 History lorazepam 0.5 mg PO QID 07/16/18 07/16/18 History magnesium hydroxide [Milk of 30 ml PO DAILY PRN 07/16/18 07/16/18 History Magnesia] memantine 5 mg PO BID 07/16/18 07/16/18 History olanzapine [Zyprexa] 5 mg PO QAM 07/16/18 07/16/18 History olanzapine [Zyprexa] 7.5 mg PO HS 07/16/18 07/16/18 History ondansetron HCl 4 mg PO QID PRN 07/16/18 07/16/18 History oxycodone 5 mg PO Q4H PRN 07/16/18 07/16/18 History oxycodone 10 mg PO Q4H PRN 07/16/18 07/16/18 History ropinirole 0.25 mg PO HS 07/16/18 07/16/18 History sennosides-docusate sodium [Senna 2 tab PO DAILY 07/16/18 07/16/18 History Plus] sucralfate [Carafate] 10 ml PO BID 07/16/18 07/16/18 History sumatriptan succinate 25 mg PO DAILY PRN 07/16/18 07/16/18 History Patient History Medical History Dementia (Chronic) Female bladder prolapse (Resolved) Anemia CVA (cerebral vascular accident) (Acute) Fracture of head of left humerus (Acute) Fracture of left olecranon process (Acute) Fracture, thoracic vertebra, compression (Acute) HTN (hypertension) (Chronic) Lumbar transverse process fracture (Acute) T12 compression fracture (Acute) Thoracic compression fracture (Acute) UTI (lower urinary tract infection) (Acute) Social History Preferred Language: [place] Communication Ability: dementia [place] Headgate Operator Required: No Beliefs That Will Affect Care: None marital status: Current Living Situation: Detention current occupational status: retired Feels Safe at Home: Yes Smoking Status: Never smoker Hx Alcohol Use: No Hx Substance Use: No Review of Systems Review of Systems: Unobtainable due to cognitive status Physical Exam Physical Exam: She is alert but only oriented to person. Mood affect appear normal. She did not answer questions appropriately. HEENT: Sclerae are anicteric. Pupils are equal and reactive to light and accommodation. Extraocular movements were intact. Neuro: Cranial nerves intact Neck: Examination of the submandibular region did not reveal any significant lymphadenopathy. Carotids are palpable bilaterally and free of bruits on auscultation. There was no evidence of jugular venous distention. The thyroid was not enlarged. Lungs: Lungs are clear to auscultation bilaterally. There are no rales wheezes or rhonchi. She has normal respiratory effort without use of accessory muscles. There is normal pulmonary excursion. Cardiac: The rhythm was regular. S1 and S2 were normal. There are no murmurs on examination. The PMI was not markedly displaced on palpation. Abdomen: The abdomen was soft and nontender. Extremities: Patient has bilateral radial pulses that are equal in intensity. There is no evidence cyanosis or clubbing. There was no evidence of significant peripheral edema bilaterally. Skin: There are no rashes noted on examination today. Results & Data Vital Signs (Past 12 Hours) Vital Signs Temp Pulse Resp BP Pulse Ox 07/16/18 15:39 36.8 C 67 20 152/66 H 96 07/16/18 11:52 36.7 C 47 L 16 122/71 97 07/16/18 07:05 36.4 C L 50 L 16 118/52 L 96 Laboratory Results Abnormal Lab Results 07/16/18 07/16/18 07/16/18 00:04 00:04 06:02 WBC 7.22 RBC 4.20 Hgb 13.0 Hct 39.6 MCV 94.3 MCH 31.0 MCHC 32.8 RDW Std Deviation 48.0 H RDW Coeff of Neville 14.0 Plt Count 227 MPV 10.0 Immature Gran % (Auto) 0.1 Neut % (Auto) 69.1 Lymph % (Auto) 18.6 [place] % (Auto) 9.0 Eos % (Auto) 3.2 Baso % (Auto) 0.0 Immature Gran # (Auto) 0.01 Neut # (Auto) 4.99 Lymph # (Auto) 1.34 [place] # (Auto) 0.65 H Eos # (Auto) 0.23 Baso # (Auto) 0.00 Sodium 139 Potassium 4.2 Chloride 109 H Carbon Dioxide 26 Anion Gap 4.0 BUN 35 H Creatinine 1.06 Est Cr Clr Drug Dosing 40.6 Est GFR ( Amer) 59.1 Est GFR (Non-Af Amer) 51.0 BUN/Creatinine Ratio 32.7 H Glucose 107 H Calcium 9.2 Total Bilirubin 0.2 AST 23 ALT 22 Alkaline Phosphatase 145 H Troponin I < 0.015 < 0.015 Total Protein 7.7 Albumin 3.5 Globulin 4.2 H Albumin/Globulin Ratio 0.8 L Lipase 100 Nasal Screen MRSA (PCR) 07/16/18 Unknown WBC RBC Hgb Hct MCV MCH MCHC RDW Std Deviation RDW Coeff of Neville Plt Count MPV Immature Gran % (Auto) Neut % (Auto) Lymph % (Auto) [place] % (Auto) Eos % (Auto) Baso % (Auto) Immature Gran # (Auto) Neut # (Auto) Lymph # (Auto) [place] # (Auto) Eos # (Auto) Baso # (Auto) Sodium Potassium Chloride Carbon Dioxide Anion Gap BUN Creatinine Est Cr Clr Drug Dosing Est GFR ( Amer) Est GFR (Non-Af Amer) BUN/Creatinine Ratio Glucose Calcium Total Bilirubin AST ALT Alkaline Phosphatase Troponin I Total Protein Albumin Globulin Albumin/Globulin Ratio Lipase Nasal Screen MRSA (PCR) Negative Diagnostic Findings Chest x-ray did not demonstrate any acute cardiopulmonary findings Abdominal CT demonstrated moderate hiatal hernia. ECG Additional Comments: Normal sinus rhythm. Normal EKG
[2018-07-16 20:55] LABS: Partial Thromboplastin Ratio 0.9; Partial Thromboplastin Time 24.8 Seconds (21.0-31.0); Prothrombin Time 10.6 Seconds (9.0-12.0)
[2018-07-16] MEDS: ROPINIROLE HCL 0.25 MG TABLET PO SCH (21:56)
[2018-07-16] MEDS: ESCITALOPRAM OXALATE 10 MG TAB PO SCH (21:56)
[2018-07-16] MEDS: OLANZAPINE 2.5 MG TAB PO SCH (21:58)
--- NOTE | 2018-07-16 23:07 | Consultation Report ---
DATE OF CONSULTATION: 07/16/2018 GASTROENTEROLOGY CONSULTATION SEX: Female RACE: ATTENDING PHYSICIAN: Dafne Villagomez MD CONSULTING PHYSICIAN: Felix Montemayor DO REASON FOR CONSULTATION: Chest pain, history of hiatal hernia. HISTORY OF PRESENT ILLNESS: This patient is a 77-year-old female who resides at [facility]. She has a chronic medical history including gastroesophageal reflux disease with esophageal stenosis and a hiatal hernia which has previously been repaired with a Rudy fundoplication. She had 2 esophageal strictures dilated with a Savary dilator to 15 mm. She presented to the Department of Emergency Medicine secondary to left-sided chest pain radiating to her left arm. She was noted to have systolic blood pressures in 190s and subsequently was brought to the Emergency Room. In the Department of Emergency Medicine, she was noted to have a normal H and H of 13 and 39.6. Her BUN and creatinine were noted to be 35 and 1.06. Liver panel was unremarkable with the exception of a slight elevation of her alkaline phosphatase of 145. CT scan of the abdomen and pelvis showed no acute intra-abdominal pathology. There was a moderate sized hiatal hernia. She was subsequently admitted and placed on Pepcid 20 mg I.V. q. 12 hours and Carafate 1 g p.o. b.i.d. as well as Prevacid 30 mg p.o. b.i.d. She was subsequently admitted to the second floor PCU. Her troponins were negative x2. Her systolic blood pressures improved to 120s and she had a resolution of her chest pain. It should be noted that she did have a resting pulse rate in 40s. At the time I saw the patient, her and daughter were at the bedside. The patient herself states that she is feeling much better though she does have baseline dementia. The and daughter both feel that she is improved since her arrival. Per the family, there has not been any reported history of hematemesis, melena or hematochezia and the patient does have intermittent dysphagia at times. She has not had any reported dysphagia over the last few days. She denies any abdominal pain now. She did, however, have 2 episodes of nonbloody, nonbilious vomiting today. PAST MEDICAL HISTORY: Includes dementia, anxiety, depression, cerebrovascular accident, anemia, bladder prolapse, hypertension and urinary tract infection. PAST SURGICAL HISTORY: Includes orthopedic surgery. ALLERGIES: CAFFEINE, DESIPRAMINE, ERGOTAMINE AND NITROFURANTOIN. MEDICATIONS: At present include Tylenol 650 mg p.o. q. 6 hours p.r.n., ceftriaxone 1 g I.V. q. 24 hours, docusate sodium 2 tablets p.o. daily with senna, Lexapro 10 mg p.o. at bedtime, famotidine 20 mg I.V. q. 12 hours, fentanyl 25 mcg transdermally every 72 hours, Lansoprazole 30 mg p.o. b.i.d., levothyroxine 112 mcg p.o. daily, lisinopril 5 mg p.o. q.a.m., Ativan 0.5 mg p.o. q.i.d., magnesium hydroxide 30 mL p.o. daily p.r.n., Namenda 5 mg p.o. b.i.d., Zyprexa 5 mg p.o. q.a.m., Zyprexa 7.5 mg p.o. at bedtime, Zofran 4 mg I.V. q. 6 hours p.r.n. nausea, oxycodone 10 mg p.o. q. 4 hours p.r.n. pain, Requip 0.25 mg p.o. at bedtime, Carafate 1 g p.o. b.i.d. and nitroglycerin paste 1 inch externally applied q. 6 hours. SOCIAL HISTORY: She currently resides at [facility]. No tobacco, alcohol or illicit drug use. FAMILY HISTORY: Negative for gastrointestinal malignancy or inflammatory bowel disease. REVIEW OF SYSTEMS: Limited secondary to the patient's dementia and reviewed in the HPI. PHYSICAL EXAMINATION: VITAL SIGNS: Temperature 36.7, pulse 47, respirations 16, blood pressure 122/71 and pulse ox 97% on room air. GENERAL: She is awake, cooperative, in no acute distress. HEAD: Normocephalic and atraumatic. EYES: Pupils are equal and round. Extraocular muscles are intact. ENT: External evaluation of ears and nose are normal. Oropharynx is clear. Mucous membranes are dry. CHEST: Decreased breath sounds at bilateral bases. CARDIOVASCULAR SYSTEM: Slow rate. Regular rhythm. ABDOMEN: Soft, nontender and nondistended. Positive bowel sounds. There is no appreciable hepatosplenomegaly. EXTREMITIES: No clubbing, cyanosis or edema. LABORATORY STUDIES AND RADIOGRAPHIC STUDIES: Reviewed in the HPI. IMPRESSION: This patient is a 77-year-old female with a known history of gastroesophageal reflux disease and esophageal stenosis who presented with chest pain as well as hypertension. PLAN: At the present time, the patient has had an improvement of her symptoms following normalization of her blood pressure. She is noted to have bradycardia and that will need to be worked up further as per the primary team. She is not having any alarm gastrointestinal symptoms that would prompt emergent upper endoscopy. Her hemoglobin and hematocrit are normal. I would advance her diet to a soft diet and see if she tolerates this. I did speak with the family and told them that if they wish to pursue invasive testing down the road, this could be performed either while she is hospitalized or as an outpatient. In regard to her intermittent dysphagia and history of esophageal strictures. I would continue her on Prevacid 30 mg p.o. b.i.d. as well as famotidine 20 mg I.V. q. 12 hours and I would continue her Carafate 1 g p.o. b.i.d. Once again, thank you for allowing me to participate in the care of this patient. If you have any further questions, please do not hesitate to contact me.
--- NOTE | 2018-07-17 00:45 | Consultation Report ---
DATE OF CONSULTATION: 07/16/2018 SURGICAL CONSULTATION REASON FOR CONSULTATION: Hiatal hernia. HISTORY OF PRESENT ILLNESS: This is a 77-year-old female with underlying dementia who was admitted to the hospital secondary to experiencing some substernal chest pain along with nausea and vomiting. The patient did present through the Emergency Department and diagnostic studies were undertaken. The patient did have complete blood count which revealed white blood cell count, hemoglobin and hematocrit along with platelet count were within the normal range. Chemistry profile did show sodium and potassium within normal range. BUN was slightly high at 35. Creatinine was normal at 1.06. The patient had imaging studies including a CT scan of her abdomen and pelvis which demonstrated no acute intraabdominal pathology, but a moderate hiatal hernia was noted. Because of her hiatal hernia, we are asked to see her. At the time of our examination, the patient was resting comfortably at bedside. At the present time, she is not complaining of abdominal pain. The patient has underlying dementia which limits her subjective data but there were not any evident falls. The patient did note some chest pain prior to admission and she did note some nausea and vomiting. Her records were reviewed and she did have a history of a Rudy fundoplication in the past and she also has had endoscopies in the past with her most recent one being in 2017, where she was noted to have some intrinsic stenosis that were dilated by Dr. Felix Montemayor. PAST MEDICAL HISTORY: Includes the following, 1. Dementia. 2. History of hiatal hernia. 3. Hypertension. 4. Hypothyroidism. 5. History of unstable gait. 6. History of back pain. 7. History of esophageal stenosis. 8. History of migraines. 9. History of recurrent urinary tract infections. PAST SURGICAL HISTORY: Includes, 1. Hiatal hernia repair with Rudy fundoplication. 2. History of esophageal dilatation. 3. Tubal ligation. SOCIAL HISTORY: She resides in a [facility]. FAMILY HISTORY: She does not report premature coronary artery disease. REVIEW OF SYSTEMS: As noted above. PHYSICAL EXAMINATION: VITAL SIGNS: The patient's blood pressure is 164/88. Pulse 80 and regular. Respirations are 17 and unlabored. She is afebrile with temperature 36.6. Pulse ox 95% on room air. GENERAL: The patient is alert to person. HEENT: Head is atraumatic and normocephalic. Eyes, pupils are equal, round and react to light and accommodation. Extraocular motions are intact. Ears, auditory acuity is grossly intact. Nose, nasal patency is intact. Sinuses are nontender. Mouth is moist without exudates. NECK: Supple. There is no JVD. CARDIOVASCULAR: Regular rate and rhythm. LUNGS: Clear to auscultation. ABDOMEN: Soft and nondistended. Palpation did not really cause pain. EXTREMITIES: Reveal no cyanosis, clubbing or edema. NEUROLOGIC: Reveals she can move all 4 extremities and follow simple commands. DIAGNOSTIC DATA: As noted above. IMPRESSION: This patient is a 77-year-old female with hiatal hernia. PLAN: The patient has multiple underlying medical problems and before any surgical intervention would even be considered, I feel that Gastroenterology consultation should be obtained. We discussed this with the primary service and they do plan on consulting Gastroenterology. We would be interested to see if they recommend the patient to undergo any type of swallowing study versus repeat endoscopy. We will follow along for the results of her consultation with recommendations to follow thereafter.
[2018-07-17] MEDS: CHECK FENTANYL PATCH PLACEMENT SCH ×4 (01:27→23:47)
[2018-07-17] MEDS: ONDANSETRON INJ 2 MG/ML 2 ML VIAL IV PRN (05:32)
[2018-07-17] MEDS: LEVOTHYROXINE SODIUM 112 MCG TABLET PO SCH (06:31)
[2018-07-17 07:16] LABS: Eosinophils # (auto) 0.15 K/uL (0-0.5); Eosinophils % (auto) 1.6 %; Hematocrit (blood only) 35.7 % (37-47); Hemoglobin 11.6 g/dL (12.0-16.0); Immature Granulocytes # (auto) 0.02 K/uL (0.00-0.02); Immature Granulocytes % (auto) 0.2 %; Lymphocytes # (auto) 0.88 K/uL (1.2-3.4); Lymphocytes % (auto) 9.3 %; Mean Corpuscular Hgb Conc 32.5 g/dL (32-36); Mean Corpuscular Volume 94.9 fL (80-100); Mean Platelet Volume 9.7 fL (7.4-10.4); Monocytes # (auto) 0.96 K/uL (0.11-0.59); Monocytes % (auto) 10.1 %; Neutrophils # (auto) 7.45 K/uL (1.4-6.5); Neutrophils % (auto) 78.8 %; Platelet Count 204 K/uL (130-400); RDW Coefficient of Variation 14.1 % (11.5-14.5); RDW Standard Deviation 48.5 fL (36.4-46.3); Red Blood Count 3.76 M/uL (4.2-5.4); White Blood Count 9.46 K/uL (4.8-10.8)
[2018-07-17 08:03] LABS: BUN Creatinine Ratio 19.5 (10-20); Calcium 8.8 mg/dl (8.5-10.1); Creatinine Clr Calc Pharmacy 36.6 ml/min; Est GFR (African American) 53.5; Est GFR (Non-African American) 46.2; Potassium 4.1 mmol/L (3.5-5.1)
--- NOTE | 2018-07-17 09:04 | Gastroenterology Progress Note ---
Date of Service July 17, 2018 Supervising Physician Co-Signing Physician Notes 77 yo fm with a history of prior Rudy fundoplication in the past, last egd in [address] Montemayor for esophageal stenosis s/p dilation admitted on 07/16/18 with complaints of chest pain and vomiting. She was bradycardic and hypertensive initially- cardiac workup was done. She remains bradycardic and was seen by dr. Montemayor yesterday. She had one episode of vomiting over night- mostly bile per aide report at bedside. She appears to be doing okay. Would limit her diet to NPO or clear liquid diet if she would like to take sips. Would continue IV Pepcid, Carafate qid- (it appears she is getting it bid). Would also query if any of her dementia medications were recently changed or increased as sometimes those changes can contribute to nausea/vomiting. No current plan for egd today or likely tomorrow. This follow-up was seen for Dr. Montemayor. Subjective No family at bediside this morning Patient appears to have just had a bath Aide with her in the room. She reports not complaints of chest pain One episode of vomiting yesterday and ? this am- all non bloody. She is having no diarrhea, fevers, or chills. Review of Systems Review of Systems: All systems reviewed & are unremarkable except as noted in HPI & below Physical Exam Physical Exam: Lying in bed in no acute distress Constitutional: WD/WN, vitals as above Respiratory: normal respiratory effort, lungs clear to auscultation Cardiovascular: RRR, no murmur, no edema Gastrointestinal (Abdomen): normal bowel sounds, soft, nontender, no hepatosplenomegaly Results & Data Vital Signs (Past 12 Hours) Vital Signs Temp Pulse Resp BP BP Pulse Ox 07/17/18 07:09 36.7 C 54 L 17 129/56 L 93 07/17/18 03:42 36.7 C 62 17 114/62 94 07/16/18 23:36 36.7 C 67 18 139/69 98 Laboratory Results Reviewed - no significant changes.
[2018-07-17] MEDS: LORazepam 0.5 MG TAB PO SCH ×4 (09:26→22:27)
[2018-07-17] MEDS: OLANZapine 5 MG TABLET PO SCH (09:27)
[2018-07-17] MEDS: MEMANTINE HCL 5 MG TAB PO SCH ×2 (09:27→22:22)
[2018-07-17] MEDS: DOCUSATE SODIUM/SENNA 50/8.6MG TAB PO SCH (09:27)
[2018-07-17] MEDS: ENOXAPARIN INJ 40 MG/0.4 ML SYR SQ SCH (09:27)
[2018-07-17] MEDS: LISINOPRIL 5 MG TAB PO SCH (09:27)
[2018-07-17] MEDS: SUCRALFATE 1 GM/10 ML UDC PO SCH ×4 (09:27→22:32)
[2018-07-17] MEDS: LANSOPRAZOLE 30 MG SOLTAB PO SCH ×2 (09:27→22:24)
[2018-07-17] MEDS: cefTRIAXone SODIUM 1,000 MG in DEXTROSE 5% 50 ML IV SCH (09:28)
--- NOTE | 2018-07-17 10:02 | Progress Note ---
DATE: 07/17/2018 Ms. Hunt was seen today on 07/17/2018. She remains quite confused. She has also had some vomiting this morning. Gastroenterology evaluated her yesterday and as expected they would hold off doing an endoscopy now as her symptoms were improved. From a surgical standpoint, we really have nothing to offer her at this point. Again, it is unclear to me that her symptoms currently are due to her hiatal hernia.
[2018-07-17] MEDS: FAMOTIDINE 20 MG in SYRINGE 3 ML IV SCH ×2 (10:14→22:34)
--- NOTE | 2018-07-17 11:38 | Consultation Report ---
DATE OF CONSULTATION: 07/16/2018 HISTORY OF PRESENT ILLNESS: Kailey Hunt is a 77-year-old who has fairly significant cognitive dysfunction from dementia, who was seen with her and her daughter. She had a Rudy fundoplication several years ago. She presents now with chest pain and nausea and vomiting; however, this has resolved to a great extent. She is not a reliable historian, but her daughter and tell me that she feels much better than she did upon admission. At this point, in reviewing the record, she underwent an endoscopy by Dr. Montemayor in the past and noted to have a bit of a slipped Rudy and she does have a recurrent hiatal hernia; however, I do not think this is causing her current problem. She also had esophageal stenosis. I would ask GI to evaluate this patient. I am not sure that I would even go so far as stated that she do an upper endoscopy, but I would at least have an evaluation. At this point, she would be a poor candidate for us to try and re-repair of this hiatal hernia. In addition, it is unclear to me that this is causing her current symptoms. For details of this consultation, please see Mr. Can Velazquez's note.
--- NOTE | 2018-07-17 12:27 | Hospitalist Progress Note ---
Date of Service July 17, 2018 Assessment & Plan (1) Substernal chest pain: This patient is a 77 y/o F Hx advanced dementia, HTN, hypothyroidism, unstable gait with frequent falls, back pain and narcotic-dependence, esophageal stenosis and a hiatal hernia which was previously repaired. She also has a history of recurrent UTIs and tends to lose her balance when she acquires an infection. She has been unsteady for a few days per family and then presented with [facility]. She then apparently complained of left sided chest and arm pain, as well as upper back pain. At this point, the astute staff at [facility] alerted EMS and she was brought to the hospital for evaluation. It was reported that she vomited again on route. On arrival to the ER, her SBP was over 190 which is unusual for her per family. Serial troponins were negative and EKG without ischemia. A CT of the abdomen displayed a moderate hiatal hernia with no acute abnormalities. CP -acute coronary syndrome ruled out with serial negative troponin. Most like ly a GI etiology of the chest pain. -No need for aspirin or statin -Appreciate cardiology consultation -Consult thoracic surgery for hiatal hernia as possible cause of chest pain and nausea with vomiting-appreciate consultation-recommends against surgery at this time and to consult GI -GI consultation appreciated--> reports since doing better today, no indication for EGD, continues clears diet as tolerated -continue Pepcid 20 mg IV twice daily, continue lansoprazole twice daily as well, and GI recommends carafate qid--increased dose of this today (2) Nausea & vomiting: Nausea and vomiting somewhat improved today. Question if is related to her moderate sized hiatal hernia seen on imaging -Continue with antiemetics as needed -Continue H2 lima and PPI -GI consultation appreciated-no EGD indicated at this time -Continue clear liquids diet as tolerated (3) Hiatal hernia: Moderate-sized seen on CT -Plan outlined as above (4) Dementia: Daughter reports that patient can wax and wane from day today with her mental status. She can get agitated at times and the olanzapine does help with this. She is able to recognize her daughter's face and name. She can carry on simple conversations on some days. Other days, she barely speaks. She has been [facility] the [facility] now with her dementia for about 4 years. - per family, she can develop delirium and needs a sitter in the hospital. Very confused at this time -Continue Olanzapine and memantine -Continue Lorazepam (5) Female bladder prolapse: With frequent UTIs, has pessary in place -UA here appears abnormal, most likely is asymptomatic bacteriuria, but will tr eat nonetheless with Rocephin urine culture with Proteus resistant to FQs (6) HTN (hypertension): Blood pressures somewhat elevated again -Continue lisinopril 5 mg daily and increase as needed -Follow (7) UTI (lower urinary tract infection): UA abnormal here, Ur cx with Proteus as above res to FQs -continue Rocephin 1 g daily for uncomplicated cystitis which may be asymptomatic bacteriuria-day #2 of 3 (8) Sinus bradycardia: Noted to be in the low 40s at rest consistently, not on any AV raymon blocking agents, now improved to the 50s-60s -Discussed the case with cardiology who does not feel this is a problem as patient is mostly sedentary and is asymptomatic with it. -No further treatment needed -Cardiology recommends taking her off of telemetry-will transfer to medical floor today (9) Hypothyroidism: TSH 9 months ago was normal -Continue home levothyroxine 112 mcg daily (10) Chronic pain: Stable, in the back -Continue fentanyl patch 25 mcg change every 72 hours -Continue oxycodone as needed for breakthrough pain -Continue senna/docusate for constipation (11) Depression: Stable and associated with dementia -Continue Lexapro 10 mg daily (12) Restless legs syndrome: Stable -Continue ropinirole 0.25 mg p.o. nightly (13) DVT prophylaxis: Add Lovenox SQ as no surgical procedure is planned Disposition-transfer to medical floor [facility]charge back to [facility] when able to take p.o. better PT/OT Subjective Pt very confused but is trying to tell me that her throat feels "scratchy" after swallowing the carafate today. Then asks when she is going home and then talks off topic about nonsensical matters. Keeps yelling out at her "Isabel Man! Isabel Man!" and refers to me as the "file-keeping lady." Says she has some mild chest pain. No vomiting so far today and is currently tolerating clears and applesauce Review of Systems Review of Systems: All systems reviewed & are unremarkable except as noted in HPI & below Physical Exam Constitutional: WD/WN, vitals as above no acute distress Eyes: PERRL, conjunctivae normal, anicteric sclerae ENMT: external ear and nose normal, oropharynx normal Ears: no external ear abnormality Neck: trachea midline, no thyromegaly Respiratory: normal respiratory effort, lungs clear to auscultation Cardiovascular: RRR, no murmur, no edema Gastrointestinal (Abdomen): normal bowel sounds, soft, nontender, no hepatosplenomegaly Musculoskeletal: Extremities: extremities normal to inspection; no cyanosis and no clubbing Skin: no rashes, warm and dry Psychiatric: Orientation: alert, oriented to person and cooperative; + not oriented to place and + not oriented to time Results & Data Vital Signs (Past 12 Hours) Vital Signs Temp Pulse Resp BP BP Pulse Ox 07/17/18 10:57 36.9 C 57 L 16 162/54 H 98 07/17/18 07:09 36.7 C 54 L 17 129/56 L 93 07/17/18 03:42 36.7 C 62 17 114/62 94 Laboratory Results 07/17/18 07/17/18 Range/Units 07:02 07:02 WBC 9.46 (4.8-10.8) K/uL RBC 3.76 L (4.2-5.4) M/uL Hgb 11.6 L (12.0-16.0) g/dL Hct 35.7 L (37-47) % MCV 94.9 (80-100) fL MCH 30.9 (25-34) pg MCHC 32.5 (32-36) g/dL RDW Std Deviation 48.5 H (36.4-46.3) fL RDW Coeff of Neville 14.1 (11.5-14.5) % Plt Count 204 (130-400) K/uL MPV 9.7 (7.4-10.4) fL Immature Gran % (Auto) 0.2 % Neut % (Auto) 78.8 % Lymph % (Auto) 9.3 % Edwards % (Auto) 10.1 % Eos % (Auto) 1.6 % Baso % (Auto) 0.0 % Immature Gran # (Auto) 0.02 (0.00-0.02) K/uL Neut # (Auto) 7.45 H (1.4-6.5) K/uL Lymph # (Auto) 0.88 L (1.2-3.4) K/uL Edwards # (Auto) 0.96 H (0.11-0.59) K/uL Eos # (Auto) 0.15 (0-0.5) K/uL Baso # (Auto) 0.00 (0-0.2) K/uL Sodium 142 (136-145) mmol/L Potassium 4.1 (3.5-5.1) mmol/L Chloride 114 H (98-107) mmol/L Carbon Dioxide 25 (21-32) mmol/L Anion Gap 3.0 (3-11) BUN 22 H (7-18) mg/dl Creatinine 1.15 (0.6-1.2) mg/dl Est Cr Clr Drug Dosing 36.6 ml/min Est GFR ( Amer) 53.5 Est GFR (Non-Af Amer) 46.2 BUN/Creatinine Ratio 19.5 (10-20) Glucose 94 (70-99) mg/dl Calcium 8.8 (8.5-10.1) mg/dl
[2018-07-17] MEDS: ACETAMINOPHEN 1,000 MG/100 ML VIAL IV PRN (16:50)
[2018-07-17] MEDS: ESCITALOPRAM OXALATE 10 MG TAB PO SCH (22:21)
[2018-07-17] MEDS: ROPINIROLE HCL 0.25 MG TABLET PO SCH (22:21)
[2018-07-17] MEDS: OLANZAPINE 2.5 MG TAB PO SCH (22:22)
[2018-07-18] MEDS: OXYCODONE HCL IR 5 MG TAB (IMMEDIATE RELEASE) PO PRN (02:29)
[2018-07-18] MEDS: LEVOTHYROXINE SODIUM 112 MCG TABLET PO SCH (06:12)
--- NOTE | 2018-07-18 09:36 | Gastroenterology Progress Note ---
Date of Service July 18, 2018 Supervising Physician Co-Signing Physician Notes 77 yo fm with dementia, admitted Thursday with chest pain and vomiting - noted to be hypertensive and bradycardic. Initially on 2nd floor, now on the 4th floor today. From a GI perspective she had a prior Rudy fundoplication and last egd per Dr. Montemayor in 2017 with esophageal dilation done at that time. She reports no complaints of dysphagia. Admitted with vomiting in addition to chest pain- both appear to have resolved as of today. She did have vomiting Thursday/Thursday but none today since being on the 4th floor. Would continue IV Pepcid and Carafate. No plans for EGD at this time. This patient was seen in follow-up for Dr. Montemayor. Subjective She is sleeping this morning and per nursing she was agitated overnite Review of Systems Review of Systems: Other Mostly discussed her case with nursing in the room as patient was awak for parts of the night and sleeping Physical Exam Physical Exam: Lying in bed in no acute distress Constitutional: WD/WN, vitals as above well developed and well nourished Gastrointestinal (Abdomen): normal bowel sounds, soft, nontender, no hepatosplenomegaly Skin: no rashes, warm and dry Results & Data Vital Signs (Past 12 Hours) Vital Signs Temp Pulse Resp BP BP Pulse Ox 07/18/18 07:00 36.7 C 94 H 20 177/87 H 95 07/17/18 22:54 36.8 C 58 L 18 165/70 H 96 Laboratory Results No new labs today
[2018-07-18] MEDS: CHECK FENTANYL PATCH PLACEMENT SCH ×2 (09:50→15:54)
[2018-07-18] MEDS: FAMOTIDINE 20 MG in SYRINGE 3 ML IV SCH ×2 (09:51→21:53)
[2018-07-18] MEDS: ONDANSETRON INJ 2 MG/ML 2 ML VIAL IV PRN (09:52)
[2018-07-18] MEDS: cefTRIAXone SODIUM 1,000 MG in DEXTROSE 5% 50 ML IV SCH (10:04)
[2018-07-18] MEDS: ENOXAPARIN INJ 40 MG/0.4 ML SYR SQ SCH (10:11)
[2018-07-18] MEDS: LORazepam 0.5 MG TAB PO SCH ×4 (10:11→21:48)
[2018-07-18] MEDS: MEMANTINE HCL 5 MG TAB PO SCH ×2 (10:12→21:48)
[2018-07-18] MEDS: LANSOPRAZOLE 30 MG SOLTAB PO SCH ×2 (10:13→21:47)
[2018-07-18] MEDS: LISINOPRIL 5 MG TAB PO SCH (10:14)
[2018-07-18] MEDS: OLANZapine 5 MG TABLET PO SCH (10:15)
[2018-07-18] MEDS: DOCUSATE SODIUM/SENNA 50/8.6MG TAB PO SCH (10:19)
[2018-07-18] MEDS ORDERED: LORazepam 0.5 MG/1 ML VIAL IV STA (10:56)
[2018-07-18] MEDS: SUCRALFATE 1 GM/10 ML UDC PO SCH ×4 (10:59→22:39)
[2018-07-18] MEDS ORDERED: BISACODYL 10 MG SUPP PR STA (14:51)
--- NOTE | 2018-07-18 14:52 | Hospitalist Progress Note ---
Date of Service July 18, 2018 Assessment & Plan (1) Substernal chest pain: This patient is a 77 y/o F Hx advanced dementia, HTN, hypothyroidism, unstable gait with frequent falls, back pain and narcotic-dependence, esophageal stenosis and a hiatal hernia which was previously repaired. She also has a history of recurrent UTIs and tends to lose her balance when she acquires an infection. She has been unsteady for a few days per family and then presented with a few episodes of vomiting at the residential where she resides. She then apparently complained of left sided chest and arm pain, as well as upper back pain. At this point, the astute staff at [facility] alerted EMS and she was brought to the hospital for evaluation. It was reported that she vomited again on route. On arrival to the ER, her SBP was over 190 which is unusual for her per family. Serial troponins were negative and EKG without ischemia. A CT of the abdomen displayed a moderate hiatal hernia with no acute abnormalities. CP -acute coronary syndrome ruled out with serial negative troponin. Most like ly a GI etiology of the chest pain. -No need for aspirin or statin -Appreciate cardiology consultation -Consult thoracic surgery for hiatal hernia as possible cause of chest pain and nausea with vomiting-appreciate consultation-recommends against surgery at this time and to consult GI -GI consultation appreciated--> reports since doing better, no indication for EGD -continue Pepcid 20 mg IV twice daily, continue lansoprazole twice daily as well, and GI recommends carafate be increased to qid (2) Nausea & vomiting: Nausea and vomiting continue intermittently. Was tolerating some soft diet earlier today Question if is related to her moderate sized hiatal hernia seen on imaging -Continue with antiemetics as needed -Continue H2 lima and PPI -GI consultation appreciated-no EGD indicated at this time (3) Hiatal hernia: Moderate-sized seen on CT -Plan outlined as above (4) Dementia: Daughter reports that patient can wax and wane from day today with her mental status. She can get agitated at times and the olanzapine does help with this. She is able to recognize her daughter's face and name. She can carry on simple conversations on some days. Other days, she barely speaks. She has been in the residential now with her dementia for about 4 years. - per family, she can develop delirium and needs a sitter in the hospital. Very confused at this time off and on. Is dependent at this point on benzos and becomes very agitated when ativan wears off -Continue Olanzapine and memantine -Continue Lorazepam due to dependence (5) Female bladder prolapse: With frequent UTIs, has pessary in place -UA here appears abnormal, most likely is asymptomatic bacteriuria, but will treat nonetheless urine culture with Proteus resistant to FQs -received 3 days of Rocephin, now on keflex-day#4 overall of treatment (6) HTN (hypertension): Blood pressures somewhat elevated -Continue lisinopril 5 mg daily and increase as needed -Follow (7) UTI (lower urinary tract infection): UA abnormal here, Ur cx with Proteus as above res to FQs treatment as above (8) Sinus bradycardia: Noted to be in the low 40s at rest consistently when on tele, not on any AV raymon blocking agents, now improved to the 50s-60s -Discussed the case with cardiology who does not feel this is a problem as patient is mostly sedentary and is asymptomatic with it. -No further treatment needed no further tele monitoring needed (9) Hypothyroidism: TSH 9 months ago was normal -Continue home levothyroxine 112 mcg daily (10) Chronic pain: Stable, in the back -Continue fentanyl patch 25 mcg change every 72 hours -Continue oxycodone as needed for breakthrough pain -Continue senna/docusate for constipation (11) Depression: Stable and associated with dementia -Continue Lexapro 10 mg daily (12) Restless legs syndrome: Stable -Continue ropinirole 0.25 mg p.o. nightly (13) DVT prophylaxis: Lovenox SQ Disposition- Discharge back to residential when able to take p.o. better without N/V PT/OT Subjective Pt was refusing po meds this AM and was pinching her , RN requested IV ativan to replace her po ativan. When I saw her, daughter reported pt had been sleeping for hours after the IV ativan. But pt continues to wake up when has urge to urinate and aide reports she is getting up to the bathroom with assistance. Pt does tell me she is feeling "much better." Later in the evening, RN reported to me pt was trying to hit the nurses when attempts were made to give bisacodyl supository for constiaption. Still no BM the entire hsopital stay. Had more vomiting then in the evening Review of Systems Review of Systems: Unobtainable due to cognitive status Physical Exam Constitutional: WD/WN, vitals as above (sleeping) no acute distress Eyes: PERRL, conjunctivae normal, anicteric sclerae ENMT: Ears: no external ear abnormality Neck: trachea midline, no thyromegaly Respiratory: normal respiratory effort, lungs clear to auscultation Cardiovascular: RRR, no murmur, no edema Gastrointestinal (Abdomen): normal bowel sounds, soft, nontender, no hepatosplenomegaly Musculoskeletal: Extremities: extremities normal to inspection; no cyanosis and no clubbing Skin: no rashes, warm and dry Neurologic: + not awake Results & Data Vital Signs (Past 12 Hours) Vital Signs Temp Pulse Resp BP BP Pulse Ox 07/18/18 13:50 36.4 C L 72 20 162/75 H 96 07/18/18 07:00 36.7 C 94 H 20 177/87 H 95
[2018-07-18] MEDS ORDERED: BISACODYL 10 MG SUPP PR ONE (17:44)
[2018-07-18] MEDS ORDERED: BISACODYL 5 MG TABEC PO ONE (20:40)
[2018-07-18] MEDS: OLANZAPINE 2.5 MG TAB PO SCH (21:47)
[2018-07-18] MEDS: ROPINIROLE HCL 0.25 MG TABLET PO SCH (21:47)
[2018-07-18] MEDS: ESCITALOPRAM OXALATE 10 MG TAB PO SCH (21:48)
[2018-07-19] MEDS ORDERED: Nursing to Pharmacy Communication ONE (01:03)
[2018-07-19] MEDS: CHECK FENTANYL PATCH PLACEMENT SCH ×3 (01:10→16:36)
[2018-07-19] MEDS: ONDANSETRON INJ 2 MG/ML 2 ML VIAL IV PRN ×3 (01:18→16:35)
[2018-07-19] MEDS: fentaNYL 25 MCG/HR TDSY TD SCH (01:34)
[2018-07-19] MEDS: PROCHLORPERAZINE 10 MG in SYRINGE 8 ML IV PRN ×3 (05:49→20:06)
[2018-07-19] MEDS: LEVOTHYROXINE SODIUM 112 MCG TABLET PO SCH (06:24)
[2018-07-19] MEDS: cephALEXin 500 MG CAP PO SCH ×2 (08:25→20:37)
[2018-07-19] MEDS: ENOXAPARIN INJ 40 MG/0.4 ML SYR SQ SCH (08:25)
[2018-07-19] MEDS: MEMANTINE HCL 5 MG TAB PO SCH ×2 (08:25→20:35)
[2018-07-19] MEDS: DOCUSATE SODIUM/SENNA 50/8.6MG TAB PO SCH (08:25)
[2018-07-19] MEDS: LISINOPRIL 5 MG TAB PO SCH (08:25)
[2018-07-19] MEDS: OLANZapine 5 MG TABLET PO SCH (08:26)
[2018-07-19] MEDS: SUCRALFATE 1 GM/10 ML UDC PO SCH ×4 (08:26→20:36)
[2018-07-19] MEDS: LORazepam 0.5 MG TAB PO SCH ×3 (08:26→17:32)
[2018-07-19] MEDS: FAMOTIDINE 20 MG in SYRINGE 3 ML IV SCH ×2 (08:27→20:34)
[2018-07-19] MEDS: LANSOPRAZOLE 30 MG SOLTAB PO SCH ×2 (08:29→20:37)
[2018-07-19] MEDS: OXYCODONE HCL IR 5 MG TAB (IMMEDIATE RELEASE) PO PRN ×2 (08:40→12:32)
--- NOTE | 2018-07-19 09:32 | Gastroenterology Progress Note ---
Date of Service July 19, 2018 Assessment & Plan (1) Nausea & vomiting: (2) RUQ pain: 1. NPO for now. 2. Gall bladder ultrasound now. 3. If ultrasound is negative, will proceed with EGD for further evaluation of symptoms. 4. Continue IV Pepcid, Carafate and antiemetics as prescribed. 5. Additional recommendations pending results of testing. Supervising Physician Co-Signing Physician Notes Agree with [place] Block as above Abd: Soft, ND Continue current therapy RUQ US reviewed Proceed with EGD tomorrow Subjective Patient reports she is feeling poorly today. Per nursing, patient has had 4 episodes of vomiting this morning. Patient also states she is having significant RUQ pain stating "it's a 10 or 12" on a 0-10 scale. No fever or chills. Review of Systems Constitutional: as per Subjective / HPI Respiratory: no problem reported Cardiovascular: no problem reported Gastrointestinal: as per Subjective / HPI Physical Exam Constitutional: WD/WN, vitals as above Respiratory: + tachypneic Auscultation: lungs clear to auscultation bilaterally Cardiovascular: Rate/Rhythm: regular rate and regular rhythm Gastrointestinal (Abdomen): Inspection/Auscultation: normal bowel sounds Percussion/Palpation: + abdomen tender and abdomen soft; no guarding and abdomen not rigid Psychiatric: A+Ox3, euthymic affect Results & Data Vital Signs (Past 12 Hours) Vital Signs Temp Pulse Resp BP Pulse Ox 07/19/18 07:25 36.9 C 63 20 162/77 H 90 07/18/18 23:05 37.2 C 78 18 142/71 H 92
--- NOTE | 2018-07-19 10:23 | Ultrasound Report ---
US gallbladder HISTORY: Pain. Nausea. RUQ pain, persistent n/v COMPARISON: None. FINDINGS: Ultrasonic evaluation of the right upper quadrant shows limited visibility of the pancreas. Liver is uniform. Gallbladder demonstrates slight gallbladder wall thickening. Gallbladder wall is estimated a t 4 mm. There is no pericholecystic fluid. Common bile duct measures 6 to 7 mm which is at the upper limits of normal. Right kidney is negative for hydronephrosis. IMPRESSION: 1. Mild gallbladder wall thickening at 4 mm.. 2. Otherwise negative study. The above report was generated using voice recognition software. It may contain grammatical, syntax or spelling errors. Electronically signed by: Duke Rosario M.D. 07/19/2018 10:22 AM
--- NOTE | 2018-07-19 10:24 | XRay Report ---
XR abdomen 2V w PA chest CLINICAL HISTORY: ongoing nausea/emesis pain. Nausea. COMPARISON STUDY: No previous studies for comparison. FINDINGS: The soft tissues, psoas shadows, renal outlines and intestinal gas pattern appear normal. T here is no evidence for bowel obstruction. There is no evidence for free intraperitoneal air. No abno rmal abdominal calcifications are seen. A frontal view of the chest was performed and is unremarkable . IMPRESSION: Normal study. The above report was generated using voice recognition software. It may contain grammatical, syntax or spelling errors. Electronically signed by: Duke Rosario M.D. 07/19/2018 10:22 AM
[2018-07-19] MEDS ORDERED: SOD PHOSPHATE/SOD BIPHOSPHATE ENEMA 132 ML BTL PR STA (13:03)
[2018-07-19] MEDS: METOCLOPRAMIDE HCL INJ 5 MG/ML 2 ML VIAL IV SCH ×2 (13:32→20:34)
--- NOTE | 2018-07-19 13:53 | Progress Note ---
DATE: 07/19/2018 The patient is seen today on 07/19/2018. She is quite confused this morning. In addition, the patient has had some bilious vomiting. She is to be evaluated by Gastroenterology, but I believe that offering her a repeat upper endoscopy is probably going to be required.
[2018-07-19] MEDS: D5W AND 1/2NSS + 20MEQ KCL 20 MEQ/1,000 ML BAG IV SCH (14:55)
[2018-07-19] MEDS: LORazepam 0.5 MG/1 ML VIAL IV SCH (19:19)
[2018-07-19] MEDS: ESCITALOPRAM OXALATE 10 MG TAB PO SCH (20:36)
[2018-07-19] MEDS: OLANZAPINE 2.5 MG TAB PO SCH (20:36)
[2018-07-19] MEDS: ROPINIROLE HCL 0.25 MG TABLET PO SCH (20:37)
--- NOTE | 2018-07-19 21:08 | Hospitalist Progress Note ---
Date of Service July 19, 2018 Assessment & Plan (1) Nausea & vomiting: CT abd/pelvis without obvious cause (has hiatal hernia - could be contributing but uncertain). Abd x-rays today w/o ileus, gastric outlet obstruction, or SBO. Significant constipation present but doubt the primary player. Gall bladder u/s without acute cholecystitis. By the description of the events it sounds more like regurgitation rather than vomiting. severe GERD in setting of hiatal hernia? other? Plan - NPO. restart IVF. place on reglan 5mg IV q6h. EGD tomorrow by . cont PPI, H2 lima, carafate. 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 Present on Admission?: Yes (2) Chest pain: likely esophageal/GI in origin. see above. (3) Hiatal hernia: moderate in size. had it repaired in the past. seen by thoracic - no operative re-do at this time. see discussion above in nausea/vomiting. (4) Hypothyroidism: cont synthroid check TSH am (5) Depression: continue home meds (6) Dementia: cont zyprexa BID cont ativan QID - change ativan to IV to ensure no benzo withdrawal (7) Delirium: continue usual meds including zyprexa normally I would not give ativan but she takes this chronically outside the hospital titrate zyprexa if needed recheck labs in am UTI could be contributing to altered MS (8) UTI (lower urinary tract infection): due to proteus received 3 days of IV rocephin now on keflex doubt UTI contributing to GI symptoms (9) Fecal impaction: likely due to chronic narcotic usage, advanced age, dementia, etc fleets enema x 1 then bowel maintenance (10) DVT prophylaxis: lovenox daily hold tomorrow's dose due to EGD family updated at bedside today Subjective patient unable to provide any meaningful history or ROS during the visit occasionally will answer some questions with 1-word responses staff report that the emesis isn't forceful but dribbles out of her mouth and downward able to eat very little this am even with anti-emetics Review of Systems Review of Systems: Unobtainable due to cognitive status Physical Exam Constitutional: average body habitus and + altered mental status; + not well nourished and no acute distress ENMT: Mouth: + oral mucosal abnormality (dry MM) Respiratory: normal respiratory effort, lungs clear to auscultation Cardiovascular: Rate/Rhythm: regular rhythm Heart Sounds: normal S1 and normal S2; no murmur Vessels: posterior tibial pulses present and dorsalis pedis pulses present; no JVD Extremities: no edema Gastrointestinal (Abdomen): normal bowel sounds, soft, nontender, no hepatosplenomegaly FLOYD -- chaperoned by nurse Tasha -- COPIOUS HARD STOOL IN THE RECTAL VAULT; NO MASSES. STOOL NOT MELENA. Psychiatric: Orientation: alert; + not oriented x 3 Results & Data Vital Signs (Past 12 Hours) Vital Signs Temp Pulse Resp BP Pulse Ox 07/19/18 15:01 36.8 C 66 20 164/72 H 95 Diagnostic Findings abd x-rays, my reading - copious stool; no ileus; no SBO; no enlarged stomach bubble. gall bladder u/s - no stones. IMPRESSION: 1. Mild gallbladder wall thickening at 4 mm.. 2. Otherwise negative study. (1) Nausea & vomiting Vomiting type: unspecified Vomiting Intractability: intractable Qualified Code(s): R11.2 - Nausea with vomiting, unspecified (2) Chest pain Chest pain type: unspecified Qualified Code(s): R07.9 - Chest pain, unspecified (3) Hypothyroidism Hypothyroidism type: acquired Qualified Code(s): E03.9 - Hypothyroidism, unspecified (4) Depression Depression Type: other depression Qualified Code(s): F32.89 - Other specified depressive episodes (5) Dementia Dementia type: associated with other underlying disease Dementia behavioral disturbance: with behavioral disturbance Qualified Code(s): F02.81 - Dementia in other diseases classified elsewhere with behavioral disturbance
--- OUTSIDE RECORDS SUMMARY | 2018-07-19 21:47 | External Medical Summary | Continuity of Care Document ---
:1940 Author Name Danielle Gzuman Address Unavailable Unavailable , Care Team Providers Name Role Phone Meri Mcmillan M.D. Unavailable [email or web address] Bony Tovar M.D. Unavailable [email or web address] Unavailable Unavailable Unavailable Unavailable Unavailable Problems Improper Nutrition - Moderate (263.0) Increased urinary frequency (788.41) (R35.0) Joint pain, knee (719.46) (M25.569) Rosacea (695.3) (L71.9) Allergic rhinitis (477.9) (J30.9) Osteoporosis (733.00) (M81.0) Encounter for routine gynecological examination (V72.31) (Z0 1.419) Depression (311) (F32.9) Urinary incontinence (788.30) (R32) Facet syndrome, lumbar (724.8) (M47.816) Joint pain, elbow (719.42) (M25.529) Excoriation, neurotic (698.4) (L98.1) Gastroparesis (536.3) (K31.84) Abnormal weight loss (783.21) (R63.4) Diarrhea (787.91) (R19.7) Appetite lost (783.0) (R63.0) Abnormal blood chemistry (790.6) (R79.9) Insomnia (780.52) (G47.00) Anxiety disorder (300.00) (F41.9) Cerumen impaction (380.4) (H61.20) Hematuria (599.70) (R31.9) Urinary tract infection (599.0) (N39.0) 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) Ptosis of eyelid (374.30) (H02.409) Fall from other slipping, tripping, or stumbling (E885.9) (W 01.0XXA) Compression fracture of lumbar vertebra (805.4) (S32.000A) Hypertension (401.9) (I10) Hypothyroidism (244.9) (E03.9) Dementia (294.20) (F03.90) Renal insufficiency (593.9) (N28.9) Fracture, olecranon (813.01) (S52.023A) Traumatic fracture of spine at T12-L1 level (805.2) Fall (E888.9) (W19.XXXA) Hypokalemia (276.8) (E87.6) Vaginitis (616.10) (N76.0) Elbow fracture (812.40) (S42.409A) Anemia (285.9) (D64.9) Dysphagia, oropharyngeal phase (787.22) (R13.12) Erosive esophagitis (530.19) (K22.10) Acid reflux disease (530.81) (K21.9) Constipation (564.00) (K59.00) Migraine headache (346.90) (G43.909) Venous insufficiency (459.81) (I87.2) Pessary maintenance (V53.99) (Z46.89) Procidentia of uterus (618.3) (N81.3) Cystocele, midline (618.01) (N81.11) Prolapse of vaginal mathews (618.00) (N81.10) Allergies and Adverse Reactions Cafergot TABS (Allergy) Caffeine (Allergy) Desipramine HCl TABS (Allergy) Ergotamine Tartrate POWD (Allergy) Nitrofurantoin CAPS (Allergy) Medications Tylenol 325 MG Oral Tablet; TAKE 1 TO 2 TABLETS EVERY 4 HOUR S NEEDED Refills: 0 Ensure Oral Liquid; USE DIRECTED. Thomas Tovar art: 03-Dec-2011 Quantity: 1 237 ML Bottle Refills: 0 Lidocaine 5 % External Patch; APPLY 1 PA TCH TO THE AFFECTED AREA AND LEAVE IN PLACE FOR 12 HOURS, THEN REMOVE AND LEAVE OFF FOR 12 HOURS. Start: 04-Jul-2014 Refills: 0 Requip 1 MG TABS Refills: 0 Levothyroxine Sodium 112 MCG Oral Tablet Refills: 0 Vitamin D3 2000 UNIT Oral Capsule Refills: 0 SUMAtriptan Succinate 25 MG Oral Tablet Start: 25-Feb-2016 Refills: 0 Carafate 1 GM/10ML Oral Suspension Refills: 0 Senna-Plus 8.6-50 MG Oral Tablet Refills: 0 Calcium 600 + D TABS Refills: 0 Cranberry TABS Refills: 0 Lisinopril 5 MG Oral Tablet Refills: 0 Memantine HCl TABS Refills: 0 Milk of Magnesia SUSP Refills: 0 oxyCODONE HCl - 5 MG Oral Capsule Refills: 0 Prevacid 30 MG Oral Capsule Delayed Release Refills: 0 Acetaminophen TABS Refills: 0 Dulcolax TBEC Refills: 0 fentaNYL PT72 Refills: 0 Ferrous Sulfate TABS Refills: 0 LORazepam TABS Refills: 0 OLANZapine 10 MG Oral Tablet Disintegrating Refills: 0 Ondansetron HCl - 8 MG Oral Tablet Refills: 0 Fleet Enema ENEM Refills: 0 Lexapro 20 MG Oral Tablet Refills: 0 Procedures History of Anterior Gastropexy For Hiatal Hernia Status: Completed History of Tubal Ligation Status: Comple bijan History of Cataract Surgery Status: Comp leted History of Pap smear for cervical cancer screening Status: Completed History of Elbow Surgery Status: Complet ed Immunizations Zostavax 13850 UNT/0.65ML Subcutaneous Solution Reconstitute d On: 2007 Pneumococcal polysaccharide vaccine, 23 valent On: 09-Feb-20 10 Influenza On: 27-Dec-2010 11:34 Lot #: [id number], SANOFI PASTEUR Influenza On: 16-Dec-2011 14:58 Lot #: [id number], SANOFI PASTEUR Influenza On: 30-Nov-2012 16:06 Lot #: [id number], SANOFI PASTEUR Fluzone INJ On: 25-Jan-2014 15:04 Lot #: [id number], SANOFI PASTEUR Family History Father Family history of Bone cancer (170.9) (C41.9) Status: Active Family history of cerebrovascular accident (V17.1) (Z82.3) S tatus: Active Sister No pertinent family history in first degree relatives (V49.8 9) Status: Active (Z78.9) Mother Family history of cerebrovascular accident (V17.1) (Z82.3) S tatus: Active Plan of Treatment Planned Encounters Appointment; Raiza Mcmillan M.D. Start: 07-Oct-2018 11:15 Re quest Appointment; CURRENCY EXAMINER SC1, Procedure Room Start: 07-Oct-2018 11:1 5 Request Planned Observations Planned Goals not documented Results Ultrasound Gallbladder Abd Ltd (Pending) Laboratory: [facility] Diagnostic Imaging [address] Kayla Sumpter KATHERINE 19-Jul-2018 10:21 US Gallbladder Abd Ltd [facility], [place] [phone] Ultrasound Report Patient: ADILENE JALLOH Admit Date: 07/17/18 MR#: [id number] Address1: [address] [place] [address] Acct ID:[id number] Address2: [facility] Date: 1940 [facility] Zip : [place] [address] Age: 77 Location: 4W Sex: F Room/Bed: [facility] Att Phy: Yandel Ware MD Diagnosis: CH EST PAIN, N/V Elly Phy: [facility] Service Date: 9 Fam Phy: [facility] Interpreting Phy: Dorothy Rosario MD Admit Phy: Teo Han M. D. Ordering Phy: Ebony Green CRNP cc: US gallbladder HISTORY: Pain. Nausea. RUQ pain, persistent n/v COMPARISON : None. FINDINGS: Ultrasonic evaluation of the right upper quadrant shows limited visibility of the pancreas . Liver is uniform. Gallbladder demonstrat es slight gallbladder wall thickening. Gallbladder wall is estimated at 4 mm. There is no pericholecystic fluid. Common bile duct measures 6 to 7 mm whic h is at the upper limits of normal. Right kidney is negative for hydronephrosis. IMPRESSION: 1. Mild gallbladder wall thickening at 4 mm .. 2. Otherwise negative study. The above report was generated [employer] voice recognition software. It may contain grammatical, syntax or spelling errors. Electronically signed by: Duke Rosario M.D. 07/19/2018 10:22 AM Dictated: 07/19/18 1021 Transcribed: 07/19/18 1021 Encounters Appointment; Raiza Mcmillan M.D. 18-Jun-2018 11:00 Encounter Diagnosis: Problem not documented Appointment; CURRENCY EXAMINER SC1, Procedure Room 18-Jun-2018 11:00 Encounter Diagnosis: Problem not documented Appointment; Raiza Mcmillan M.D. 02-Mar-2018 10:15 Encounter Diagnosis: Problem not documented Appointment; CURRENCY EXAMINER SC1, Procedure Room 02-Mar-2018 10:15 Encounter Diagnosis: Problem not documented Appointment; Raiza Mcmillan M.D. 10-Dec-2017 13:30 Encounter Diagnosis: Problem not documented Appointment; CURRENCY EXAMINER SC1, Procedure Room 10-Dec-2017 13:30 Encounter Diagnosis: Problem not documented Appointment; Bibi Jones M.D. 07-Aug-2017 13:40 Encounter Diagnosis: Problem not documented Appointment; Bibi Jones M.D. 04-May-2017 13:30 Encounter Diagnosis: Problem not documented Appointment; Bibi Jones M.D. 06-Feb-2017 13:50 Encounter Diagnosis: Problem not documented Appointment; CURRENCY EXAMINER SC1, Procedure Room 06-Feb-2017 13:50 Encounter Diagnosis: Problem not documented Appointment; Bibi Jones M.D. 29-Oct-2016 13:40 Encounter Diagnosis: Problem not documented Appointment; Bibi Jones M.D. 28-Jul-2016 14:20 Encounter Diagnosis: Problem not documented Appointment; CURRENCY EXAMINER SC1, Procedure Room 28-Jul-2016 14:00 Encounter Diagnosis: Problem not documented Appointment; CURRENCY EXAMINER SC1, Procedure Room 23-Jul-2016 13:30 Encounter Diagnosis: Problem not documented Appointment; Bibi Jones M.D. 23-Jul-2016 13:30 Encounter Diagnosis: Problem not documented Appointment; Raiza Mcmillan M.D. 07-Oct-2018 11:15 Encounter Diagnosis: Problem not documented
[2018-07-20] MEDS: CHECK FENTANYL PATCH PLACEMENT SCH ×4 (00:15→23:35)
[2018-07-20] MEDS: LORazepam 0.5 MG/1 ML VIAL IV SCH ×4 (00:18→19:47)
[2018-07-20] MEDS: METOCLOPRAMIDE HCL INJ 5 MG/ML 2 ML VIAL IV SCH ×4 (01:40→21:03)
[2018-07-20] MEDS: D5W AND 1/2NSS + 20MEQ KCL 20 MEQ/1,000 ML BAG IV SCH ×2 (04:21→19:47)
[2018-07-20] MEDS: ONDANSETRON INJ 2 MG/ML 2 ML VIAL IV PRN (05:00)
[2018-07-20] MEDS: LEVOTHYROXINE SODIUM 112 MCG TABLET PO SCH (05:56)
[2018-07-20 07:19] LABS: Hematocrit (blood only) 35.5 % (37-47); Hemoglobin 11.7 g/dL (12.0-16.0); Mean Corpuscular Volume 92.9 fL (80-100); Mean Platelet Volume 9.9 fL (7.4-10.4); Platelet Count 215 K/uL (130-400); RDW Coefficient of Variation 13.9 % (11.5-14.5); RDW Standard Deviation 47.2 fL (36.4-46.3); Red Blood Count 3.82 M/uL (4.2-5.4); White Blood Count 17.49 K/uL (4.8-10.8)
[2018-07-20 07:57] LABS: Albumin Level 2.8 gm/dl (3.4-5.0); BUN Creatinine Ratio 18.3 (10-20); Calcium 8.5 mg/dl (8.5-10.1); Est GFR (Non-African American) 63.8; Potassium 3.5 mmol/L (3.5-5.1)
[2018-07-20] MEDS: FAMOTIDINE 20 MG in SYRINGE 3 ML IV SCH ×2 (08:03→21:25)
[2018-07-20] MEDS: OXYCODONE HCL IR 5 MG TAB (IMMEDIATE RELEASE) PO PRN (08:04)
[2018-07-20 08:07] LABS: Albumin Globulin Ratio 0.7 (0.9-2); Bilirubin,Total 0.5 mg/dl (0.2-1); Globulin 4.1 gm/dl (2.5-4.0); Total Protein 6.9 gm/dl (6.4-8.2)
--- NOTE | 2018-07-20 09:05 | History & Physical Bridge Note ---
Date of Service July 20, 2018 History & Physical Bridge Note I have examined the patient, reviewed the History & Physical and in the interval since the performance of the History & Physical I have noted the following changes of clinical significance: last emesis was last evening. Patient to undergo EGD today for further evaluation of symptoms. General: Drowsy. VSS as follows: BP 163/79, Pulse 57, Resp 20, Temp 36.9, and O2 sat 91% on RA. Cardiovascular: RRR. Respiratory: Lungs CTA bilaterally. Gastrointestinal: Normal bowel sounds. Soft, non-tender. Musculoskeletal: No pedal edema A/P: Patient is a 77 y.o female with persistent nausea and vomiting. Proceed with EGD today by Dr. Montemayor. Continue supportive care with IV Pepcid, Carafate and antiemetics as prescribed. Additional recommendations pending results of testing. Supervising Physician Co-Signing Physician Notes Agree with AUSTIN Block as above Abd: Soft, ND Proceed with EGD Continue current therapy
[2018-07-20] MEDS ORDERED: LIDOCAINE HCL 2% 2 ML VIAL/AMP(20MG/ML) INFIL ONE ×2 (10:01→11:02)
[2018-07-20] MEDS ORDERED: PROPOFOL IV EMULSION 10 MG/ML 20 ML VIAL IV ONE ×2 (10:01→11:02)
--- NOTE | 2018-07-20 10:26 | Anesthesiology Consultation ---
Date of Service July 20, 2018 Assessment & Plan (1) Encounter for pre-operative examination: Chart Review Chart Review: Acceptable Risk for Surgery Consults Requested none ASA ASA4 Proposed Anesthesia Anesthesia Type: MAC Risk / Benefits Reviewed With: PT / POA / Parent / Guardian, Accepts Plan and Informed Consent Obtained History Surgery Operation Date: 07/20/18 10:30 Proposed Procedures p Esophagogastroduodenoscopy Dr Montemayor - Felix Carmona Case, DO Height/Weight Height: 5 ft 2 in Weight: 59.4 kg Allergies Allergy/AdvReac Type Severity Reaction Status Date / Time caffeine Allergy Unknown . Verified 07/16/18 01:21 desipramine Allergy Unknown . Verified 07/16/18 01:21 ergotamine Allergy Unknown . Verified 07/16/18 01:21 nitrofurantoin Allergy Unknown . Verified 07/16/18 01:21 watermelon Allergy Unknown UNKNOWN Verified 07/16/18 01:21 Cantaloupe Allergy Unknown RASH Uncoded 07/16/18 01:21 Medications Home Medications Medication Instructions Recorded Confirmed Last Taken acetaminophen [Tylenol] 650 mg PO Q6H PRN 07/16/18 07/16/18 Unknown acetaminophen [Tylenol] 650 mg PO QAM 07/16/18 07/16/18 Unknown calcium carbonate [Calcium 600] 600 mg PO DAILY 07/16/18 07/16/18 Unknown cholecalciferol (vitamin D3) 2,000 unit PO DAILY 07/16/18 07/16/18 Unknown [Vitamin D3] cranberry extract 250 mg PO DAILY 07/16/18 07/16/18 Unknown escitalopram oxalate 10 mg PO HS 07/16/18 07/16/18 Unknown fentanyl 25 mcg TOPICAL .Q3D 07/16/18 07/16/18 Unknown ferrous sulfate 7.3 ml PO DAILY 07/16/18 07/16/18 Unknown lansoprazole 30 mg PO BID 07/16/18 07/16/18 Unknown levothyroxine 112 mcg PO QAM 07/16/18 07/16/18 Unknown lisinopril 5 mg PO QAM 07/16/18 07/16/18 Unknown lorazepam 0.5 mg PO QID 07/16/18 07/16/18 Unknown magnesium hydroxide [Milk of 30 ml PO DAILY PRN 07/16/18 07/16/18 Unknown Magnesia] memantine 5 mg PO BID 07/16/18 07/16/18 Unknown olanzapine [Zyprexa] 5 mg PO QAM 07/16/18 07/16/18 Unknown olanzapine [Zyprexa] 7.5 mg PO HS 07/16/18 07/16/18 Unknown ondansetron HCl 4 mg PO QID PRN 07/16/18 07/16/18 Unknown oxycodone 5 mg PO Q4H PRN 07/16/18 07/16/18 Unknown oxycodone 10 mg PO Q4H PRN 07/16/18 07/16/18 Unknown ropinirole 0.25 mg PO HS 07/16/18 07/16/18 Unknown sennosides-docusate sodium [Senna 2 tab PO DAILY 07/16/18 07/16/18 Unknown Plus] sucralfate [Carafate] 10 ml PO BID 07/16/18 07/16/18 Unknown sumatriptan succinate 25 mg PO DAILY PRN 07/16/18 07/16/18 Unknown Active Medications Generic Name Dose Route Start Last Admin Trade Name Freq PRN Reason Stop Dose Admin Cephalexin HCl 500 mg 07/19/18 09:00 07/19/18 20:37 Keflex PO 07/24/18 08:59 500 mg BID NORMA Administration Enoxaparin Sodium 40 mg 07/17/18 09:00 07/19/18 08:25 Lovenox SQ 08/16/18 08:59 40 mg Q24H NORMA Administration Escitalopram Oxalate 10 mg 07/16/18 21:00 07/19/18 20:36 Lexapro PO 08/15/18 20:59 10 mg HS NORMA Administration Fentanyl 25 mcg 07/16/18 08:00 07/19/18 01:34 Duragesic TD 07/30/18 07:59 25 mcg Q72H NORMA Administration Famotidine 20 mg/ Syringe 5 mls @ 2.5 mls/min 07/16/18 09:00 07/20/18 08:03 IV 08/15/18 08:59 2.5 mls/min Q12H NORMA Administration Acetaminophen 1,000 mg in 100 mls @ 400 mls/hr 07/16/18 10:37 07/17/18 17:37 Ofirmev IV 08/15/18 10:36 Infused Q8H PRN Infusion Pain Prochlorperazine 10 mg/ 10 mls @ 5 mls/min 07/19/18 05:09 07/19/18 20:06 Syringe IV 08/18/18 05:08 5 mls/min Q6H PRN Administration Nausea And Vomiting Potassium Chloride/Dextrose/Sod Cl 20 meq in 1,000 mls @ 80 mls/hr 07/19/18 13:15 07/20/18 06:26 D5w And 1/2nss + 20meq Kcl IV 08/18/18 13:14 80 mls/hr .[id number] NORMA Infusion Lorazepam 0.5 mg in 1 mls @ 1 mls/min 07/19/18 19:00 07/20/18 05:56 Ativan IV 08/18/18 18:59 1 mls/min Q6H NORMA Administration Lansoprazole 30 mg 07/16/18 09:00 07/19/18 20:37 Prevacid PO 08/15/18 08:59 30 mg BID NORMA Administration Levothyroxine Sodium 112 mcg 07/16/18 06:30 07/20/18 05:56 Synthroid PO 08/15/18 06:29 Not Given DAILYBB NORMA Lisinopril 5 mg 07/16/18 09:00 07/19/18 08:25 Zestril PO 08/15/18 08:59 5 mg QAM NORMA Administration Memantine 5 mg 07/16/18 09:00 07/19/18 20:35 Namenda PO 08/15/18 08:59 5 mg BID NORMA Administration Metoclopramide HCl 5 mg 07/19/18 13:15 07/20/18 08:03 Reglan IV 08/18/18 13:14 5 mg Q6H NORMA Administration Miscellaneous 1 ea 07/16/18 16:00 07/20/18 08:03 Fentanyl Patch Check Placement N/A 08/15/18 15:59 1 ea QS NORMA Administration Miscellaneous 1 ea 07/16/18 07:59 07/19/18 01:26 Fentanyl Patch Remove & Waste N/A 08/15/18 07:58 1 ea Q72H NORMA Administration Olanzapine 5 mg 07/16/18 09:00 07/19/18 08:26 Zyprexa PO 08/15/18 08:59 5 mg QAM NORMA Administration Olanzapine 7.5 mg 07/16/18 21:00 07/19/18 20:36 Zyprexa PO 08/15/18 20:59 7.5 mg HS NORMA Administration Ondansetron HCl 4 mg 07/16/18 02:59 07/20/18 05:00 Zofran IV 08/15/18 02:58 4 mg Q6H PRN Administration Nausea Oxycodone HCl 10 mg 07/16/18 02:59 07/20/18 08:04 Roxicodone Immediate Rel PO 07/30/18 02:58 10 mg Q4H PRN Administration Pain Ropinirole HCl 0.25 mg 07/16/18 21:00 07/19/18 20:37 Requip PO 08/15/18 20:59 0.25 mg HS NORMA Administration Senna/Docusate Sodium 2 tab 07/16/18 09:00 07/19/18 08:25 Senokot S PO 08/15/18 08:59 2 tab DAILY NORMA Administration Sucralfate 1 gm 07/17/18 13:00 07/19/18 20:36 Carafate PO 08/16/18 12:59 1 gm QID NORMA Administration NPO Date Last Intake of Fluids: 07/20/18 Time Last Intake of Fluids: 08:00 Date Last Intake of Solids: 07/19/18 Time Last Intake of Solids: 10:00 Past Medical History Medical History Dementia (Chronic) Female bladder prolapse (Resolved) Anemia Fracture of head of left humerus (Acute) Fracture of left olecranon process (Acute) Fracture, thoracic vertebra, compression (Acute) HTN (hypertension) (Chronic) Lumbar transverse process fracture (Acute) T12 compression fracture (Acute) Thoracic compression fracture (Acute) UTI (lower urinary tract infection) (Acute) Exercise / Class Metabolic Activity IV < 2 Limit ADL/Bedbound Past Surgical History Surgical History S/P breast biopsy S/P hysterectomy S/P shoulder surgery Status post Rudy fundoplication Past Anesthesia History No Hx of Anesthesia Complications and No Family Hx of Anesthesia Complications History of PONV No Hx of PONV, No Family Hx of PONV and No Hx of Motion Sickness Social History Smoking Status: Never smoker Hx Alcohol Use: No Hx Substance Use: No Physical Exam Vital Signs Last Vital Signs Temp 98.4 F 07/20/18 10:20 Pulse 64 07/20/18 10:20 Resp 17 07/20/18 10:20 BP 152/98 H 07/20/18 10:20 Pulse Ox 92 07/20/18 10:20 ENMT Mouth: + edentulous Thyromental Distance: > or= 3.5 Finger Breadths Mallampati Class: II Neck normal visual inspection Respiratory normal respiratory effort Auscultation: lungs clear to auscultation bilaterally Cardiovascular Rate/Rhythm: regular rate and regular rhythm Testing Electrocardiogram Date: 07/16/18 Findings: + SB @ (55 bpm) Chest X-Ray Date: 07/19/18 Findings: + NAD Laboratory Results 07/20/18 06:40 07/20/18 06:40 PT 10.6 Seconds (9.0-12.0) 07/16/18 19:53 INR 1.0 (0.9-1.1) 07/16/18 19:53 APTT 24.8 Seconds (21.0-31.0) 07/16/18 19:53
--- NOTE | 2018-07-20 11:32 | Anesthesiology Progress Note ---
Date of Service July 20, 2018 Anesthesia Post Procedure Vital Signs Vital Signs: Temp Pulse Resp BP BP Pulse Ox 07/20/18 10:20 36.9 C 64 17 152/98 H 92 07/20/18 06:51 36.9 C 57 L 20 163/79 H 91 07/19/18 23:08 36.8 C 68 20 153/80 H 94 07/19/18 15:01 36.8 C 66 20 164/72 H 95 Pain Intensity Medial Neck: Pain Intensity: 4
--- NOTE | 2018-07-20 11:38 | GI REPORT ---
Patient Name: Kailey Hunt Procedure Date: 07/20/2018 10:43 AM Date of : 1940 Admit Type: Inpatient Age: 77 Gender: Female Attending MD: Felix Montemayor DO Procedure: Upper GI endoscopy Providers: Felix Montemayor DO Referring MD: Yandel Fritz Indications: Dysphagia, Abnormal CT of the GI tract, Chest pain (non cardiac), Nausea with vomiting Medicines: Monitored Anesthesia Care Complications: No immediate complications. Estimated Blood Loss: Estimated blood loss: none. Procedure: Pre-Anesthesia Assessment: - Prior to the procedure, a History and Physical was performed, and patient medications and allergies were reviewed. The patient's tolerance of previous anesthesia was also reviewed. The risks and benefits of the procedure and the sedation options and risks were discussed with the patient. All questions were answered, and informed consent was obtained. Prior Anticoagulants: The patient has taken Lovenox (enoxaparin), last dose was 1 day prior to procedure. ASA Grade Assessment: IV - A patient with severe systemic disease that is a constant threat to life. After reviewing the risks and benefits, the patient was deemed in satisfactory condition to undergo the procedure. After obtaining informed consent, the endoscope was passed under direct vision. Throughout the procedure, the patient's blood pressure, pulse, and oxygen saturations were monitored continuously. The Endoscope was introduced through the mouth, and advanced to the second part of duodenum. The upper GI endoscopy was accomplished without difficulty. The patient tolerated the procedure well. Findings: One benign-appearing, intrinsic moderate stenosis was found 22 cm from the incisors. This stenosis measured 1.2 cm (inner diameter) x 1 cm (in length). The stenosis was traversed. A guidewire was placed and the scope was withdrawn. Dilation was performed with a Savary dilator with mild resistance at 45 Fr. The dilation site was examined following endoscope reinsertion and showed moderate improvement in luminal narrowing. A medium-sized hiatal hernia was present. Diffuse mild inflammation characterized by congestion (edema) and erythema was found in the entire examined stomach. The examined duodenum was normal. Impression: - Benign-appearing esophageal stenosis. Dilated. - Medium-sized hiatal hernia. - Gastritis. - Normal examined duodenum. - No specimens collected. Recommendation: - Return patient to hospital [facility] for ongoing care. - Advance diet as tolerated. - Continue present medications. Felix FaridehJt Montemayor, DO 07/20/2018 11:37:52 AM This report has been signed electronically. Note Initiated On: 07/20/2018 10:43 AM Number of Addenda: 0 I attest to the content of the Intraoperative Record and orders documented therein, exceptions below {[id number]}
[2018-07-20] MEDS: SUCRALFATE 1 GM/10 ML UDC PO SCH ×4 (12:18→21:07)
[2018-07-20] MEDS: LANSOPRAZOLE 30 MG SOLTAB PO SCH ×2 (12:27→21:11)
[2018-07-20] MEDS: LISINOPRIL 5 MG TAB PO SCH (12:28)
[2018-07-20] MEDS: cephALEXin 500 MG CAP PO SCH ×2 (12:28→21:02)
[2018-07-20] MEDS: MEMANTINE HCL 5 MG TAB PO SCH ×2 (12:29→21:09)
[2018-07-20] MEDS: OLANZapine 5 MG TABLET PO SCH (12:30)
[2018-07-20] MEDS: DOCUSATE SODIUM/SENNA 50/8.6MG TAB PO SCH (13:34)
--- NOTE | 2018-07-20 16:27 | Progress Note ---
DATE: 07/20/2018 The patient is seen today. She has not really changed. She has significant cognitive defects and has dementia. An upper endoscopy was performed today, which showed some gastritis, and a very mild distal esophageal stricture which was dilated by Dr. Montemayor. He noted a moderate hiatal hernia. At this point, of course we would not consider any surgical intervention. HAILEY
[2018-07-20] MEDS: ROPINIROLE HCL 0.25 MG TABLET PO SCH (21:02)
[2018-07-20] MEDS: ESCITALOPRAM OXALATE 10 MG TAB PO SCH (21:09)
[2018-07-20] MEDS: OLANZAPINE 2.5 MG TAB PO SCH (21:10)
--- NOTE | 2018-07-20 21:18 | XRay Report ---
XR chest 1V portable CLINICAL HISTORY: b/l basilar rales, eval for edema/pneumonia dyspnea COMPARISON STUDY: 07/19/2018 FINDINGS: Developing pulmonary edema. Increased cardiac size. Superimposed parenchymal infiltrate rig ht base. IMPRESSION: 1. Developing congestive failure versus pulmonary edema. 2. Superimposed parenchymal infiltrate right base. 3. Fixed hiatal hernia. The above report was generated using voice recognition software. It may contain grammatical, syntax or spelling errors. Electronically signed by: Duke Rosario M.D. 07/20/2018 9:16 PM
[2018-07-20] MEDS ORDERED: FUROSEMIDE 10 MG in SYRINGE 0 ML IV SCH (21:30)
--- NOTE | 2018-07-20 21:35 | Hospitalist Progress Note ---
Date of Service July 20, 2018 Assessment & Plan (1) Esophageal stenosis: s/p EGD today with discovery of this issue. likely cause of presenting vomiting/regurgitation. s/p dilatation by Dr Montemayor. now tolerating diet following the procedure. appreciate GI assistance. Present on Admission?: Yes (2) RLL pneumonia: suspect an aspiration event in setting of frequent vomiting/regurgitation in the last few days. new RLL infiltrate on cxr and elevated wbc is concerning for RLL infectious process. thus start unasyn q6h. could have component of mild fluid overload - lasix 10mg IV x 1 reassess tomorrow (3) Nausea & vomitinnd to esophageal stenosis -- s/p dilatation by Dr Montemayor today. N/V resolved. mild gastritis seen on EGD today as well. stop the H2 lima IV cont PPI cont carafate can likely stop the reglan IV as well (4) Chest pain: likely esophageal/GI in origin. see above. (5) Hiatal hernia: moderate in size radiographically and on EGD today. risk factor for GERD. cont acid blockade with PPI. no surgical intervention of hiatal hernia at this time. (6) Hypothyroidism: cont synthroid TSH wnl (7) Depression: continue home meds (8) Dementia: cont zyprexa BID cont ativan QID (9) Delirium: continue usual meds including zyprexa UTI could be contributing hospital psychosis could be contributing follow adjust meds as needed (10) UTI (lower urinary tract infection): due to proteus received 3 days of IV rocephin, then keflex since unasyn is being started for RLL pneumonia can d/c keflex (11) Fecal impaction: likely due to chronic narcotic usage, advanced age, dementia, etc resolved s/p enema bowel maintenance thereafter (12) DVT prophylaxis: lovenox daily resume in AM stop fluids due to ? mild volume overload see how patient does next 24 hours w/ diet dispo - centre crest wheelchair dependent / nonambulatory at baseline Subjective like yesterday patient unable to provide any meaningful history or ROS during the visit she waved when I came into the room she pointed to the medical education manager and uttered some nonsensical phrase she seems more awake/alert today staff report she ate lunch without any vomiting following her EGD Review of Systems Review of Systems: Unobtainable due to cognitive status Physical Exam Constitutional: average body habitus and + altered mental status; no acute distress ENMT: external ear and nose normal, oropharynx normal Respiratory: no respiratory distress Auscultation: + rales (b/l); no wheezes Cardiovascular: Rate/Rhythm: regular rhythm Heart Sounds: normal S1 and normal S2; no murmur Vessels: posterior tibial pulses present and dorsalis pedis pulses present; no JVD Extremities: no edema Gastrointestinal (Abdomen): normal bowel sounds, soft, nontender, no hepatosplenomegaly Psychiatric: Orientation: alert; + not oriented x 3 Results & Data Vital Signs (Past 12 Hours) Vital Signs Temp Pulse Resp BP Pulse Ox 07/20/18 14:35 37.2 C 75 20 130/71 92 07/20/18 11:56 59 L 17 130/60 97 07/20/18 11:39 67 17 142/58 H 98 07/20/18 11:24 74 17 135/73 96 07/20/18 10:20 36.9 C 64 17 152/98 H 92 Laboratory Results Laboratory Results - last 24 hr 07/20/18 07/20/18 06:40 06:40 WBC 17.49 H RBC 3.82 L Hgb 11.7 L Hct 35.5 L MCV 92.9 MCH 30.6 MCHC 33.0 RDW Std Deviation 47.2 H RDW Coeff of Neville 13.9 Plt Count 215 MPV 9.9 Sodium 143 Potassium 3.5 Chloride 111 H Carbon Dioxide 23 Anion Gap 9.0 BUN 16 Creatinine 0.88 Est Cr Clr Drug Dosing 43.0 Est GFR ( Amer) 74.0 Est GFR (Non-Af Amer) 63.8 BUN/Creatinine Ratio 18.3 Glucose 147 H Calcium 8.5 Total Bilirubin 0.5 AST 17 ALT 14 Alkaline Phosphatase 104 Total Protein 6.9 Albumin 2.8 L Globulin 4.1 H Albumin/Globulin Ratio 0.7 L TSH 3.500 (1) Dementia Dementia behavioral disturbance: with behavioral disturbance Dementia type: associated with other underlying disease Qualified Code(s): F02.81 - Dementia in other diseases classified elsewhere with behavioral disturbance (2) Depression Depression Type: other depression Qualified Code(s): F32.89 - Other specified depressive episodes (3) Hypothyroidism Hypothyroidism type: acquired Qualified Code(s): E03.9 - Hypothyroidism, unspecified (4) Nausea & vomiting Vomiting Intractability: intractable Vomiting type: unspecified Qualified Code(s): R11.2 - Nausea with vomiting, unspecified (5) Chest pain Chest pain type: unspecified Qualified Code(s): R07.9 - Chest pain, unspecified (6) RLL pneumonia Pneumonia type: aspiration pneumonia Aspiration pneumonia type: due to gastric secretions Qualified Code(s): J69.0 - Pneumonitis due to inhalation of food and vomit
[2018-07-20] MEDS: AMPICILLIN/SULBACTAM SOD 3,000 MG in 0.9 % SODIUM CHLORIDE 100 ML IV SCH (22:27)
[2018-07-21] MEDS: LORazepam 0.5 MG/1 ML VIAL IV SCH ×4 (01:04→19:20)
[2018-07-21] MEDS: METOCLOPRAMIDE HCL INJ 5 MG/ML 2 ML VIAL IV SCH (01:44)
[2018-07-21] MEDS: AMPICILLIN/SULBACTAM SOD 3,000 MG in 0.9 % SODIUM CHLORIDE 100 ML IV SCH ×4 (04:16→21:53)
[2018-07-21] MEDS: LEVOTHYROXINE SODIUM 112 MCG TABLET PO SCH (06:47)
[2018-07-21 07:25] LABS: Hemoglobin 12.2 g/dL (12.0-16.0); Mean Corpuscular Volume 93.2 fL (80-100); Mean Platelet Volume 10.1 fL (7.4-10.4); Platelet Count 206 K/uL (130-400); RDW Standard Deviation 47.8 fL (36.4-46.3); Red Blood Count 3.97 M/uL (4.2-5.4); White Blood Count 13.76 K/uL (4.8-10.8)
[2018-07-21 07:59] LABS: BUN Creatinine Ratio 17.8 (10-20); Calcium 8.4 mg/dl (8.5-10.1); Creatinine Clr Calc Pharmacy 40.7 ml/min; Est GFR (African American) 69.2; Est GFR (Non-African American) 59.7; Potassium 3.1 mmol/L (3.5-5.1)
[2018-07-21] MEDS ORDERED: POTASSIUM CHLORIDE 10 MEQ TABCR PO STA (08:42)
[2018-07-21] MEDS: LANSOPRAZOLE 30 MG SOLTAB PO SCH ×2 (09:17→20:27)
[2018-07-21] MEDS: CHECK FENTANYL PATCH PLACEMENT SCH ×3 (09:17→23:42)
[2018-07-21] MEDS: LISINOPRIL 5 MG TAB PO SCH (09:17)
[2018-07-21] MEDS: MEMANTINE HCL 5 MG TAB PO SCH ×2 (09:18→20:26)
[2018-07-21] MEDS: OLANZapine 5 MG TABLET PO SCH (09:18)
[2018-07-21] MEDS: SUCRALFATE 1 GM/10 ML UDC PO SCH ×4 (09:18→20:26)
[2018-07-21] MEDS: OXYCODONE HCL IR 5 MG TAB (IMMEDIATE RELEASE) PO PRN (09:23)
[2018-07-21] MEDS: DOCUSATE SODIUM/SENNA 50/8.6MG TAB PO SCH (09:23)
--- NOTE | 2018-07-21 12:00 | Gastroenterology Progress Note ---
Date of Service July 21, 2018 Assessment & Plan (1) Nausea & vomitin. Diet as tolerated. 2. Continue Carafate 1 g ACHS x 10 days. 3. Start Pantoprazole 40 mg daily. 4. Supportive care. Supervising Physician Co-Signing Physician Notes Agree with AUSTIN Block as above Abd: Soft, NT, ND, +BS Continue current therapy Continue supportive care Subjective Patient reports feeling "very bad". Per her , however, she has not had any further nausea or vomiting and has in fact started to eat solids. She is reporting a mild sore throat s/p EGD with dilation. No further abdominal pain or overt GIB sx. Review of Systems Constitutional: as per Subjective / HPI Cardiovascular: no problem reported Gastrointestinal: no problem reported Physical Exam Constitutional: no acute distress Respiratory: tachypneic. lungs CTA Gastrointestinal (Abdomen): Inspection/Auscultation: normal bowel sounds Percussion/Palpation: abdomen soft; abdomen nontender Results & Data Vital Signs (Past 12 Hours) Vital Signs Temp Pulse Resp BP BP Pulse Ox 07/21/18 11:30 150/81 H 07/21/18 06:00 36.0 C L 58 L 24 188/74 H 91 07/21/18 04:34 162/73 H 07/21/18 00:03 160/74 H Laboratory Results Abnormal lab results 07/21/18 07/21/18 Range/Units 07:08 07:08 WBC 13.76 H (4.8-10.8) K/uL RBC 3.97 L (4.2-5.4) M/uL RDW Std Deviation 47.8 H (36.4-46.3) fL Potassium 3.1 L (3.5-5.1) mmol/L Chloride 110 H (98-107) mmol/L Glucose 107 H (70-99) mg/dl Calcium 8.4 L (8.5-10.1) mg/dl (1) Nausea & vomiting Vomiting Intractability: intractable Vomiting type: unspecified Qualified Code(s): R11.2 - Nausea with vomiting, unspecified
[2018-07-21] MEDS: PANTOprazole 40 MG TAB PO SCH (13:26)
[2018-07-21] MEDS: ROPINIROLE HCL 0.25 MG TABLET PO SCH (20:26)
[2018-07-21] MEDS: OLANZAPINE 2.5 MG TAB PO SCH (20:26)
[2018-07-21] MEDS: ESCITALOPRAM OXALATE 10 MG TAB PO SCH (20:27)
--- NOTE | 2018-07-21 21:32 | Hospitalist Progress Note ---
Date of Service July 21, 2018 Assessment & Plan (1) Esophageal stenosis: s/p EGD with dilatation by Dr Montemayor. was the likely cause of presenting vomiting/regurgitation. now tolerating diet following the procedure. appreciate GI assistance. (2) RLL pneumonia: suspect an aspiration event in setting of frequent vomiting/regurgitation in the last few days. new RLL infiltrate on cxr and elevated wbc c/w the pneumonia. day #2 unasyn. consider transition to PO augmentin tomorrow. pulmonary status stable today. (3) Nausea & vomitinnd to esophageal stenosis -- s/p dilatation by Dr Montemayor on EGD. N/V resolved. mild gastritis seen on EGD cont PPI cont carafate reglan IV stopped (4) Chest pain: was likely esophageal/GI in origin. resolved (5) Hiatal hernia: moderate in size radiographically and on EGD. risk factor for GERD. cont acid blockade with PPI. no surgical intervention of hiatal hernia at this time. (6) Hypothyroidism: cont synthroid TSH wnl (7) Depression: continue home meds (8) Dementia: cont zyprexa BID cont ativan QID (9) Delirium: continue usual meds including zyprexa improved (10) UTI (lower urinary tract infection): due to proteus received 3 days of IV rocephin, then keflex since unasyn is being used for RLL pneumonia this will cover UTI (11) Fecal impaction: likely due to chronic narcotic usage, advanced age, dementia, etc resolved s/p enema bowel maintenance (12) DVT prophylaxis: dispo - centre crest wheelchair dependent / nonambulatory at baseline hopefully d/c tomorrow Subjective pt sleeping during the visit daughter at bedside no feeding intolerance per daughter and staff no nausea/emesis/regurgitation no respiratory issues daughter requests to speak with department chair about "foods my mom can eat that won't cause swallowing issues" Review of Systems Review of Systems: Unobtainable due to cognitive status Physical Exam Constitutional: average body habitus; no acute distress ENMT: external ear and nose normal, oropharynx normal Respiratory: no respiratory distress Auscultation: + rales (right base only); no wheezes Cardiovascular: Rate/Rhythm: regular rhythm Heart Sounds: normal S1 and normal S2; no murmur Vessels: posterior tibial pulses present and dorsalis pedis pulses present; no JVD Extremities: no edema Gastrointestinal (Abdomen): normal bowel sounds, soft, nontender, no hepatosplenomegaly Psychiatric: sleeping Results & Data Vital Signs (Past 12 Hours) Vital Signs Temp Pulse Resp BP BP Pulse Ox 07/21/18 14:51 36.8 C 68 18 119/64 91 07/21/18 11:30 150/81 H Laboratory Results Laboratory Results - last 24 hr 07/21/18 07/21/18 07:08 07:08 WBC 13.76 H RBC 3.97 L Hgb 12.2 Hct 37.0 MCV 93.2 MCH 30.7 MCHC 33.0 RDW Std Deviation 47.8 H RDW Coeff of Neville 14.0 Plt Count 206 MPV 10.1 Sodium 141 Potassium 3.1 L Chloride 110 H Carbon Dioxide 26 Anion Gap 5.0 BUN 17 Creatinine 0.93 Est Cr Clr Drug Dosing 40.7 Est GFR ( Amer) 69.2 Est GFR (Non-Af Amer) 59.7 BUN/Creatinine Ratio 17.8 Glucose 107 H Calcium 8.4 L Magnesium 2.0 (1) Dementia Dementia behavioral disturbance: with behavioral disturbance Dementia type: associated with other underlying disease Qualified Code(s): F02.81 - Dementia in other diseases classified elsewhere with behavioral disturbance (2) Depression Depression Type: other depression Qualified Code(s): F32.89 - Other specified depressive episodes (3) Hypothyroidism Hypothyroidism type: acquired Qualified Code(s): E03.9 - Hypothyroidism, unspecified (4) RLL pneumonia Aspiration pneumonia type: due to gastric secretions Pneumonia type: aspiration pneumonia Qualified Code(s): J69.0 - Pneumonitis due to inhalation of food and vomit (5) Nausea & vomiting Vomiting Intractability: intractable Vomiting type: unspecified Qualified Code(s): R11.2 - Nausea with vomiting, unspecified (6) Chest pain Chest pain type: unspecified Qualified Code(s): R07.9 - Chest pain, unspec ified
[2018-07-22] MEDS: LORazepam 0.5 MG/1 ML VIAL IV SCH ×3 (00:13→13:37)
[2018-07-22] MEDS: fentaNYL 25 MCG/HR TDSY TD SCH (01:57)
[2018-07-22] MEDS: AMPICILLIN/SULBACTAM SOD 3,000 MG in 0.9 % SODIUM CHLORIDE 100 ML IV SCH (03:36)
[2018-07-22] MEDS: LEVOTHYROXINE SODIUM 112 MCG TABLET PO SCH (05:51)
[2018-07-22] MEDS ORDERED: AMOXICILLIN/CLAVULANATE 875 MG TAB PO SCH (08:35)
[2018-07-22 09:24] LABS: Hematocrit (blood only) 38.3 % (37-47); Hemoglobin 12.9 g/dL (12.0-16.0); Mean Corpuscular Hgb Conc 33.7 g/dL (32-36); Mean Platelet Volume 9.9 fL (7.4-10.4); Platelet Count 230 K/uL (130-400); RDW Coefficient of Variation 14.1 % (11.5-14.5); RDW Standard Deviation 48.2 fL (36.4-46.3); Red Blood Count 4.12 M/uL (4.2-5.4); White Blood Count 12.51 K/uL (4.8-10.8)
[2018-07-22] MEDS: LISINOPRIL 5 MG TAB PO SCH (09:44)
[2018-07-22] MEDS: DOCUSATE SODIUM/SENNA 50/8.6MG TAB PO SCH (09:45)
[2018-07-22] MEDS: OLANZapine 5 MG TABLET PO SCH (09:45)
[2018-07-22] MEDS: OXYCODONE HCL IR 5 MG TAB (IMMEDIATE RELEASE) PO PRN (09:45)
[2018-07-22] MEDS: CHECK FENTANYL PATCH PLACEMENT SCH (09:47)
[2018-07-22] MEDS: MEMANTINE HCL 5 MG TAB PO SCH (09:48)
[2018-07-22] MEDS: SUCRALFATE 1 GM/10 ML UDC PO SCH ×2 (09:48→13:38)
[2018-07-22] MEDS: LANSOPRAZOLE 30 MG SOLTAB PO SCH (09:49)
[2018-07-22] MEDS: PANTOprazole 40 MG TAB PO SCH (09:49)
[2018-07-22 09:50] LABS: BUN Creatinine Ratio 21.9 (10-20); Creatinine Clr Calc Pharmacy 41.1 ml/min; Est GFR (African American) 70.1; Est GFR (Non-African American) 60.5; Potassium 3.5 mmol/L (3.5-5.1)
[2018-07-22] MEDS ORDERED: LACTOBACILLUS ACIDOPHILUS (FLORANEX) TAB PO SCH (12:00)
--- NOTE | 2018-07-27 08:44 | Discharge Summary ---
Date of Service date of admission - 07/16/18 date of discharge - 07/22/18 Admission HPI Per Admitting Provider 77 y/o F Hx advanced dementia, HTN, hypothyroidism, unstable gait with frequent falls, back pain and narcotic-dependence, esophageal stenosis and a hiatal hernia which was previously repaired. She also has a history of recurrent UTIs and tends to lose her balance when she acquires an infection. She has been unsteady for a few days per family and today had a few episodes of vomiting [facility]. She then apparently complained of left sided chest and arm pain. At this point, the astute staff at [facility] alerted EMS and she was brought to the hospital for evaluation. It was reported that she vomited again on route. On arrival to the ER, her SBP was over 190 which is unusual for her per family. She did not complain of any specific sympt oms and could not recall if she had chest pain earlier. Initial labs and an EKG do not support ACS. A CT of the abdomen displayed a moderate hiatal hernia with no acute abnormalities. Principal Diagnosis esophageal stenosis s/p dilatation Discharge Exam Constitutional average body habitus; no acute distress ENMT external ear and nose normal, oropharynx normal Respiratory no respiratory distress Auscultation: + rales (right base only); no wheezes Cardiovascular Rate/Rhythm: regular rhythm Heart Sounds: normal S1 and normal S2; no murmur Vessels: posterior tibial pulses present and dorsalis pedis pulses present; no JVD Extremities: no edema Gastrointestinal (Abdomen) normal bowel sounds, soft, nontender, no hepatosplenomegaly Psychiatric Orientation: alert; + not oriented x 3 Discharge Data Allergies Allergy/AdvReac Type Severity Reaction Status Date / Time caffeine Allergy Unknown . Verified 07/16/18 01:21 desipramine Allergy Unknown . Verified 07/16/18 01:21 ergotamine Allergy Unknown . Verified 07/16/18 01:21 nitrofurantoin Allergy Unknown . Verified 07/16/18 01:21 watermelon Allergy Unknown UNKNOWN Verified 07/16/18 01:21 Cantaloupe Allergy Unknown RASH Uncoded 07/16/18 01:21 Consultations 1. cardiology - Robbie Peace MD 2. thoracic surgery - Lexa Arriaga MD 3. gastroenterology - Felix Case DO 4. warehouse driver 5. PT, OT 6. speech therapy Procedures Performed Operation Date: 07/20/18 EGD with Dilatation - Felix Montemayor, DO * esophageal stenosis s/p dilatation * mild gastritis * medium-sized hiatal hernia Ordered Studies 1. CT abd pelvis - IMPRESSION: 1. No acute intra-abdominal pathology. 2. Moderate hiatal hernia. 3. Pessary in place. 4. Chronic mild compression fracture of T12. 2. US gallbladder - IMPRESSION: 1. Mild gallbladder wall thickening at 4 mm. 2. Otherwise negative study. Hospital Course (1) Esophageal stenosis: This was the cause of the patient's vomiting/regurgitation. She underwent EGD with dilatation by Dr Felix Montemayor for the stenosis. Post-EGD the patient had no further upper GI symptoms and was able to eat/drink without any difficulty. She should follow a minced & moist diet and exercise GERD precautions in light of her hiatal hernia. (2) RLL pneumonia: Post-EGD the patient developed rales on physical exam along with leukocytosis. Chest x-ray was consistent with a new RLL pneumonia. I suspect she had an aspiration event in the setting of frequent vomiting/regurgitation in the days leading up to her admission as well as during her stay. She was initiated on Unasyn then transitioned to PO augmentin at discharge. She never required oxygen. She will complete an augmentin course after discharge. Repeat cxr in 4-6 weeks to ensure radiographic resolution advised. She may have had very mild volume overload as well and received diuretics here and will take a few more days of PO lasix post-discharge. (3) Nausea & vomitinnd to esophageal stenosis -- s/p dilatation by Dr Montemayor on EGD. N/V promptly resolved after the EGD. She also had mild gastritis on EGD. She will remain on PPI and carafate. (4) Chest pain: This was likely esophageal/GI in origin rather than cardiac. She was evaluated by [facility] and they, too, felt her symptoms were GI in origin. No cardiac work-up was pursued. All troponins were negative. (5) Hiatal hernia: Moderate in size radiographically and on EGD. Certainly a risk factor for GERD. She will continue acid blockade with PPI. Seen by Dr Arriaga - thoracic surgery - NO surgical intervention of the hiatal hernia was recommended at this time. (6) Hypothyroidism: cont synthroid TSH wnl (7) Depression: continue home meds (8) Dementia: cont zyprexa BID cont ativan QID (9) Delirium: Mild hospital psychosis / metabolic encephalopathy while hospitalized. This resolved over the course of her stay with supportive care. She will continue her usual meds including zyprexa and ativan. (10) UTI (lower urinary tract infection): Due to proteus. Received 3 days of IV rocephin, then unasyn, and then ultimately augmentin (to cover her RLL pneumonia as well). (11) Fecal impaction: Likely due to chronic narcotic usage, advanced age, dementia, etc. Resolved s/p enema. She should remain on a bowel maintenance indefinitely. (12) Chronic kidney disease, stage 3a: baseline Cr 0.9 to 1. stable while hospitalized. Total Time Total Time Spent Total Time Spent (In Minutes): 40 Total Time Includes: Examination of the Patient, Discharge Planning and Medication Reconciliation Discharge Plan Discharge Items Patient Disposition: Transfer Snf Fac Reason For Visit: Nausea and Vomiting Discharge Diagnosis: Nausea and vomiting due to esophageal stenosis s/p dilatation by Dr. Montemayor. RLL (right lower lobe) pneumonia. UTI. Discharge Goals: Diagnostic testing and Therapeutic intervention Activity: Resume your previous activity Non-emergency contact: Primary Care Provider Call non-emergency contact if: you have any medication questions, your symptoms worsen and your temperature is above 100.5 Follow-up/Referrals: Felix Montemayor DO [Physician] - (1-2 MONTHS - diagnosis - esophageal stricture, hiatal hernia.) [facility] - Diet: Regular Diet Texture: Dental soft (bite-sized) Diet Comment: NO STRAWS WITH DRINKING. BITE-SIZED, MINCED AND MOIST FOODS. Addtl Provider Instructions: 1. aspiration precautions at all times. NO STRAWS. UPRIGHT FOR MEALS AND UPRIGHT FOR AT LEAST 30 MINUTES FOLLOWING MEALS. 2. repeat basic metabolic panel and magnesium in 3-4 days for stability. Results to medical claims assistant. 3. follow-up with Dr. Montemayor's office in 1-2 months. 4. PT and OT -- diagnosis -- ambulatory dysfunction and deconditioning. 5. speech therapy for mild dysphagia. Return to [facility] if - * fevers over 100.5 degrees occur * recurrent vomiting * abdominal pain * any other concerns Prescriptions: New furosemide [Lasix] 20 mg tablet 20 mg PO DAILY Qty: 2 RF: 0 polyethylene glycol 3350 [Miralax] 17 gram powder in packet 17 gm PO DAILY Qty: 30 RF: 5 Continued acetaminophen [Tylenol] 325 mg Tablet 650 mg PO Q6H PRN (Reason: Fever Or Pain) RF: 0 acetaminophen [Tylenol] 325 mg Tablet 650 mg PO QAM RF: 0 calcium carbonate [Calcium 600] 600 mg calcium (1,500 mg) Tablet 600 mg PO DAILY RF: 0 sucralfate [Carafate] 100 mg/mL Suspension 10 ml PO BID RF: 0 cranberry extract 250 mg Capsule 250 mg PO DAILY RF: 0 ferrous sulfate 220 mg (44 mg iron)/5 mL Solution 7.3 ml PO DAILY RF: 0 lansoprazole 30 mg tablet,disintegrat, delay rel 30 mg PO BID RF: 0 levothyroxine 112 mcg tablet 112 mcg PO QAM RF: 0 escitalopram oxalate 10 mg tablet 10 mg PO HS RF: 0 lisinopril 5 mg tablet 5 mg PO QAM RF: 0 lorazepam 0.5 mg Tablet 0.5 mg PO QID RF: 0 memantine 5 mg tablet 5 mg PO BID RF: 0 magnesium hydroxide [Milk of Magnesia] 400 mg/5 mL Suspension 30 ml PO DAILY PRN (Reason: Constipation) RF: 0 ondansetron HCl 4 mg Tablet 4 mg PO QID PRN (Reason: Nausea) RF: 0 ropinirole 0.25 mg Tablet 0.25 mg PO HS RF: 0 sennosides-docusate sodium [Senna Plus] 8.6-50 mg Tablet 2 tab PO DAILY RF: 0 sumatriptan succinate 25 mg tablet 25 mg PO DAILY PRN (Reason: Migraine Headache) RF: 0 cholecalciferol (vitamin D3) [Vitamin D3] 2,000 unit Tablet 2,000 unit PO DAILY RF: 0 olanzapine [Zyprexa] 5 mg Tablet 5 mg PO QAM RF: 0 olanzapine [Zyprexa] 7.5 mg Tablet 7.5 mg PO HS RF: 0 fentanyl 25 mcg/hr patch 72 hour 25 mcg topical .Q3D Qty: 10 RF: 0 oxycodone 5 mg tablet 5 mg PO Q4H PRN (Reason: Pain) Qty: 15 RF: 0 Discontinued oxycodone 5 mg Tablet 10 mg PO Q4H PRN (Reason: Pain) RF: 0 Stand-Alone Forms: Call Back Authorization, [facility] Discharge Orders: Discharge Order (Routine); Ordered 07/22/18 Ordered By: Yandel Ware Skilled Items Patient informed of condition?: Yes DNR: No Discharge Level of Care: Skilled Communicable Disease: No Discharge Prognosis: Stable Admission Data Admit Date/Time: 07/17/18 13:47 Attending Provider: Yandel Ware Admit Provider: Teo Han Primary Care Provider: Vance Urena Other Providers: Jacques Peace ; Lexa Arriaga ; Felix Montemayor Service: Medical Other Interventions: Discharge Summary Assessment (RN) Last Done: 07/22/18 11:01 DC Date/Time DO NOT enter until pt leaves facility: 07/22/18 16:14
== END 2018-07-22 16:14 | DRG 391 ==
LOC: 2E 23:14 → ED 23:14 → SUATTDRO 07-16 01:55 → 2E 07-16 02:30 → SUATTDRO 07-17 13:47 → 4W 07-17 14:07

== ENCOUNTER 2018-07-27 09:15 | Inpatient (IN) ==
[2018-07-27] MEDS ORDERED: SODIUM CHLORIDE 0.9% 250 ML IV PRN (10:24)
[2018-07-27 10:55] LABS: Eosinophils % (auto) 0.8 %; Hematocrit (blood only) 40.1 % (37-47); Hemoglobin 13.2 g/dL (12.0-16.0); Immature Granulocytes # (auto) 0.05 K/uL (0.00-0.02); Immature Granulocytes % (auto) 0.4 %; Lymphocytes # (auto) 1.08 K/uL (1.2-3.4); Lymphocytes % (auto) 9.1 %; Mean Corpuscular Hgb Conc 32.9 g/dL (32-36); Mean Platelet Volume 9.9 fL (7.4-10.4); Monocytes # (auto) 0.82 K/uL (0.11-0.59); Monocytes % (auto) 6.9 %; Neutrophils # (auto) 9.81 K/uL (1.4-6.5); Neutrophils % (auto) 82.8 %; Platelet Count 286 K/uL (130-400); RDW Coefficient of Variation 13.9 % (11.5-14.5); RDW Standard Deviation 47.4 fL (36.4-46.3); Red Blood Count 4.31 M/uL (4.2-5.4); White Blood Count 11.86 K/uL (4.8-10.8)
[2018-07-27 11:15] LABS: Albumin Level 3.2 gm/dl (3.4-5.0); BUN Creatinine Ratio 23.2 (10-20); Calcium 9.2 mg/dl (8.5-10.1); Creatinine Clr Calc Pharmacy 38.9 ml/min; Est GFR (African American) 60.4; Est GFR (Non-African American) 52.1; Potassium 4.4 mmol/L (3.5-5.1)
[2018-07-27 11:18] LABS: Albumin Globulin Ratio 0.7 (0.9-2); Bilirubin,Total 0.4 mg/dl (0.2-1); Globulin 4.4 gm/dl (2.5-4.0); Total Protein 7.6 gm/dl (6.4-8.2)
[2018-07-27] MEDS ORDERED: IOVERSOL 100ml IV PRN (11:53)
--- NOTE | 2018-07-27 12:02 | CT Scan Report ---
CT abd pelvis IV con only CLINICAL HISTORY: abd pain COMPARISON STUDY: CT scan dated 07/16/2018 TECHNIQUE: The patient was scanned in a dynamic helical fashion during intravenous administration of 94 cc of Optiray 320. A dose lowering technique was utilized adhering to the principles of ALARA. CT DOSE: 848.35 mGycm FINDINGS: Lower chest: There is a prominent fluid-filled hiatal hernia. There are bilateral dependent lower don g zone airspace opacities, atelectatic versus infectious/inflammatory Liver: The contrast-enhanced liver is normal in size, contour, and attenuation. There is no intrahepa tic biliary ductal dilatation. The hepatic veins and portal veins are patent. Gallbladder: Unremarkable. Spleen: Normal in size and attenuation. Pancreas: Unremarkable. Adrenal glands: Unremarkable. Kidneys: There is symmetric renal cortical enhancement. The kidneys are normal in size without hydron ephrosis. Bowel: There are no transition zones indicate bowel obstruction. There is no evidence of acute divert iculitis. The appendix is at the upper limits of normal in diameter. There are no periappendiceal inf lammatory changes. peritoneum: There is no intraperitoneal free air or abdominal ascites. Vasculature: The abdominal aorta is normal in course and caliber. Adenopathy: None. Pelvic viscera: A pessary device is visualized. There is suggestion of mild thickening of the endomet rium. Skeletal structures: There is an old superior endplate T12 compression deformity. IMPRESSION: 1. No evidence of bowel obstruction. No evidence of free air 2. No evidence of acute appendicitis. No evidence of acute diverticulitis 3. Moderate fluid-filled hiatal hernia 4. Basilar airspace opacities, atelectatic versus infectious/inflammatory 5. Mild endometrial thickening. Electronically signed by: Merlin Dennison M.D. 07/27/2018 12:01 PM
[2018-07-27] MEDS ORDERED: FAMOTIDINE 20MG/5ML IV PUSH IV STA (12:12)
--- NOTE | 2018-07-27 15:53 | History & Physical Report ---
Date of Service July 27, 2018 Assessment & Plan (1) Upper GI bleed: Patient with approximate 1 cup of coffee-ground emesis at the [facility] No nausea and vomiting since admitted CT abdomen pelvis negative for acute findings Continue Zofran Continue active bacillus acidophilus Continue pantoprazole 40 mg p.o. daily, and Carafate twice daily, and lansoprazole 30 mg p.o. twice daily Gastroenterology was consulted We will keep the patient n.p.o. in the event that they want to repeat EGD Hemodynamically stable H&H stable Check repeat H&H at 1800 hrs. tonight and every morning (2) Chronic kidney disease, stage 3a: BUN 24, creatinine 1.04 Normal saline solution at 70 mL/h for maintenance fluids Follow fluid output as well as routine vital signs Follow serial labs (3) Esophageal stenosis: Previous EGD with dilatation by Dr. Montemayor Gastroenterology consulted Follow expectantly Appreciate GIs input (4) Hypothyroidism: Continue levothyroxine (5) DVT prophylaxis: No chemical prophylaxis secondary to upper GI bleed Ambulate as tolerated Disposition: Patient is a resident at [facility]. Patient brought in under observation for GI evaluation. Anticipate discharge back to [facility] when stable Please refer to Dr. Han's addendum for further recommendations. History of Present Illness Admitting: Dr. Han This is a 77-year-old female that is admitted for upper GI bleed. She is a resident at [facility] and overnight had 3 episodes of hematemesis. In discussion with the nurse at [facility] it was to find that the patient had the largest episode of about 1 cup of coffee ground appearing emesis. The ailyn ent has no abdominal pain at this time and nausea is controlled. She denies any fever, chills, sweats, rigors. She has no ripping or tearing sensation in her abdomen back or flank. The patient does have dementia but is absent of any signs of CVA and is able to give me her name and date of . Her of 61 years and her daughter are present at bedside for the examination interview and corroborate her story. Patient was recently admitted and was discharged on 07/27/2018. During that ad mission she had an EGD with a benign-appearing esophageal stenosis which was dilated with mild resistance of 45 Persian. The dilation site at that time was examined and showed moderate improvement in luminal narrowing with no evidence of bleeding. There was diffuse mild inflammation characterized by edema and erythema found within the entire examined stomach. The patient was discharged on dual therapy and has been taking medications as prescribed at [facility]. The patient denies any current melena or hematochezia. The patient does have a history of aspiration pneumonia per the family's report. She has had no recent episodes of aspiration the family is aware of and is oxygenating well on room air. The patient has no other acute complaints. Primary Care Provider: [facility] Allergies Allergy/AdvReac Type Severity Reaction Status Date / Time caffeine Allergy Unknown . Verified 07/27/18 10:23 desipramine Allergy Unknown . Verified 07/27/18 10:23 ergotamine Allergy Unknown . Verified 07/27/18 10:23 nitrofurantoin Allergy Unknown . Verified 07/27/18 10:23 watermelon Allergy Unknown UNKNOWN Verified 07/27/18 10:23 Cantaloupe Allergy Unknown RASH Uncoded 07/27/18 10:23 Home Medications Home Medications Medication Instructions Recorded Confirmed Type acetaminophen [Tylenol] 650 mg PO QAM 07/16/18 07/27/18 History calcium carbonate [Calcium 600] 600 mg PO DAILY 07/16/18 07/27/18 History cholecalciferol (vitamin D3) 2,000 unit PO DAILY 07/16/18 07/27/18 History [Vitamin D3] cranberry extract 250 mg PO DAILY 07/16/18 07/27/18 History escitalopram oxalate 10 mg PO HS 07/16/18 07/27/18 History ferrous sulfate 7.3 ml PO DAILY 07/16/18 07/27/18 History lansoprazole 30 mg PO BID 07/16/18 07/27/18 History levothyroxine 112 mcg PO QAM 07/16/18 07/27/18 History lisinopril 5 mg PO QAM 07/16/18 07/27/18 History lorazepam 0.5 mg PO QID 07/16/18 07/27/18 History magnesium hydroxide [Milk of 30 ml PO DAILY PRN 07/16/18 07/27/18 History Magnesia] memantine 5 mg PO BID 07/16/18 07/27/18 History olanzapine [Zyprexa] 5 mg PO QAM 07/16/18 07/27/18 History olanzapine [Zyprexa] 7.5 mg PO HS 07/16/18 07/27/18 History ondansetron HCl 4 mg PO QID PRN 07/16/18 07/27/18 History ropinirole 0.25 mg PO HS 07/16/18 07/27/18 History sennosides-docusate sodium [Senna 2 tab PO DAILY 07/16/18 07/27/18 History Plus] sucralfate [Carafate] 10 ml PO BID 07/16/18 07/27/18 History sumatriptan succinate 25 mg PO DAILY PRN 07/16/18 07/27/18 History fentanyl 25 mcg TOPICAL .Q3D #10 patch 07/22/18 07/27/18 Rx oxycodone 5 mg PO Q4H PRN #15 tab 07/22/18 07/27/18 Rx polyethylene glycol 3350 [Miralax] 17 gm PO DAILY #30 ea 07/22/18 07/27/18 Rx Lactobacillus acidoph-L.bulgar 4 tab PO TID 07/27/18 07/27/18 History [Floranex] bisacodyl 10 mg IN DAILY PRN 07/27/18 07/27/18 History oxycodone 10 mg PO Q4H PRN 07/27/18 07/27/18 History pantoprazole 40 mg PO DAILY 07/27/18 07/27/18 History sodium phosphates [Fleet Enema] 118 ml IN HS PRN 07/27/18 07/27/18 History Past Med/Surg History Medical History Dementia (Chronic) Female bladder prolapse (Resolved) Anemia Fracture of head of left humerus (Acute) Fracture of left olecranon process (Acute) Fracture, thoracic vertebra, compression (Acute) HTN (hypertension) (Chronic) Lumbar transverse process fracture (Acute) T12 compression fracture (Acute) Thoracic compression fracture (Acute) UTI (lower urinary tract infection) (Acute) Surgical History S/P breast biopsy S/P hysterectomy S/P shoulder surgery Status post Rudy fundoplication Family History Other Family history non-contributory Social History Preferred Language: Algerian Communication Ability: dementia Beliefs That Will Affect Care: None marital status: Current Living Situation: Senior [facility] current occupational status: retired Other Information That Helps Us Care for You: No Feels Safe at Home: Yes Safety Concerns: Feels Safe At This Time Smoking Status: Never smoker Hx Alcohol Use: No Hx Substance Use: No Review of Systems Review of Systems: All systems reviewed & are unremarkable except as noted in HPI & below Physical Exam Physical Exam: GENERAL : No acute distress. Pleasant EYES: No icterus, gaze conjugate. Pupils are equal round and reactive to light NOSE: No evidence of epistaxis. MOUTH: No lesions or candidiasis. Mucosa is moist. No evidence of bleeding in the posterior oropharynx NECK: Supple. No carotid bruits LUNGS: Rales at the left base. No bronchospasm appreciated HEART: Regular, rate controlled. No evidence of ectopy ABDOMEN: Soft, NT, ND, BS Present. No pain to light palpation. No guarding. EXTREMITIES: No LE edema, pedal pulses intact NEURO: A&OX3. Deep tendon reflexes at the biceps, brachioradialis, patellar tendons 2/4. No pronator drift. Cerebellar function is intact with [id number] and rapid alternating movements. No acute neurological deficits appreciated. Results & Data Vital Signs (Past 12 Hours) Vital Signs Temp Pulse Pulse Resp BP BP Pulse Ox 07/27/18 13:00 65 16 164/82 H 95 07/27/18 11:23 72 16 163/85 H 95 07/27/18 10:18 92 07/27/18 09:23 37.1 C 72 16 180/91 H 93 Laboratory Results 07/27/18 10:47 07/27/18 10:[address] abd pelvis IV con only CLINICAL HISTORY: abd pain COMPARISON STUDY: CT scan dated 07/16/2018 TECHNIQUE: The patient was scanned in a dynamic helical fashion during intravenous administration of 94 cc of Optiray 320. A dose lowering technique was utilized adhering to the principles of ALARA. CT DOSE: 848.35 mGycm FINDINGS: Lower chest: There is a prominent fluid-filled hiatal hernia. There are bilateral dependent lower lung zone airspace opacities, atelectatic versus infectious/inflammatory Liver: The contrast-enhanced liver is normal in size, contour, and attenuation. There is no intrahepatic biliary ductal dilatation. The hepatic veins and portal veins are patent. Gallbladder: Unremarkable. Spleen: Normal in size and attenuation. Pancreas: Unremarkable. Adrenal glands: Unremarkable. Kidneys: There is symmetric renal cortical enhancement. The kidneys are normal in size without hydronephrosis. Bowel: There are no transition zones indicate bowel obstruction. There is no evidence of acute diverticulitis. The appendix is at the upper limits of normal in diameter. There are no periappendiceal inflammatory changes. peritoneum: There is no intraperitoneal free air or abdominal ascites. Vasculature: The abdominal aorta is normal in course and caliber. Adenopathy: None. Pelvic viscera: A pessary device is visualized. There is suggestion of mild thickening of the endometrium. Skeletal structures: There is an old superior endplate T12 compression deformity. IMPRESSION: 1. No evidence of bowel obstruction. No evidence of free air 2. No evidence of acute appendicitis. No evidence of acute diverticulitis 3. Moderate fluid-filled hiatal hernia 4. Basilar airspace opacities, atelectatic versus infectious/inflammatory 5. Mild endometrial thickening. Electronically signed by: Merlin Dennison M.D. 07/27/2018 12:01 PM Code Status & VTE Plan VTE Prophylaxis Plan VTE Prophylaxis will be ordered: No Reason for no VTE drug order: Contraindicated Reason for no VTE mechanical prophylaxis: Refusal of treatmnt by pt Critical Care Time Critical Care Time: No Supervising Physician Co-Signing Physician Notes Pt seen/examined following KATHERINE Moya. Orders and plan of admission formulated with KATHERINE. 77 y/o F Hx Dementia, HTN, recent admission for esophageal stenosis requiring dilation. EGD also showed inflammation of the stomach lining without discrete ulcers. She had been DCd on dual suppression therapy and has complied with treatment. Presents from [facility] following 3 episodes of hematemesis. She is not able to provide any additional information and denies abdominal pain at the time of my evaluation. Hb on arrival has imporved from DC but may be due to element of hemoconcentration. OE AAO x1 S1,2 R CTAB NT, ND No CCE No deficits - poor recall P: NPO, GI consult, serial Hb, PPi and H2 continued Would hold Lisinopril for AM eval, cont Synthroid She takes narcotics for arthrirtic pain which should be continued as possible to avoid withdrawal (1) Hypothyroidism Hypothyroidism type: acquired Qualified Code(s): E03.9 - Hypothyroidism, unspecified
[2018-07-27] MEDS ORDERED: BISACODYL 10 MG SUPP PR PRN (16:41)
[2018-07-27] MEDS ORDERED: ACETAMINOPHEN 325 MG TAB PO PRN (16:41)
[2018-07-27] MEDS ORDERED: ONDANSETRON INJ 2 MG/ML 2 ML VIAL IV PRN (16:41)
--- NOTE | 2018-07-27 17:26 | Emergency Department Note ---
Entered by Jena Jama acting as a scribe for History of Present Illness General Chief complaint: Vomiting Stated complaint: vomit/ [facility] Source: patient and family History of Present Illness Onset (ago): day(s) 1 Location: abdomen Pain Consistency: + other (episodes) Maximum Pain Intensity: 4 Quality: + other (hematemesis) Associated symptoms: + denies other symptoms (abdominal pain); no headaches The patient is a 77 year old female that is presenting to the Emergency Room with complaints of multiple episodes of vomiting that started last night around 2300. The patients family notes that the patient is demented at baseline and is only slightly aware of her current situation. The patients daughter states that the patient started vomiting blood and then had two more episodes over the course of the night. Her daughter is unsure of the appearance of the emesis but notes that the nurses at the halfway stated that it appeared to contain blood and tested heme positive. She denies any headaches or abdominal pain. Her daughter notes that the patient was in the Emergency Room 1 week ago for similar symptoms and had her esophagus was stretched. Her daughter states that her symptoms were thought to be secondary to scarring of the esophagus and a hiatal hernia. The daughter reports that the patient had been able to keep food down until yesterday. Her daughter notes that the patient had her esophagus stretched 2 years ago. The HPI and ROS are limited secondary to the patient's dementia. Home Medications Home Medications Medication Instructions Recorded Confirmed Type acetaminophen [Tylenol] 650 mg PO QAM 07/16/18 07/27/18 History calcium carbonate [Calcium 600] 600 mg PO DAILY 07/16/18 07/27/18 History cholecalciferol (vitamin D3) 2,000 unit PO DAILY 07/16/18 07/27/18 History [Vitamin D3] cranberry extract 250 mg PO DAILY 07/16/18 07/27/18 History escitalopram oxalate 10 mg PO HS 07/16/18 07/27/18 History ferrous sulfate 7.3 ml PO DAILY 07/16/18 07/27/18 History lansoprazole 30 mg PO BID 07/16/18 07/27/18 History levothyroxine 112 mcg PO QAM 07/16/18 07/27/18 History lisinopril 5 mg PO QAM 07/16/18 07/27/18 History lorazepam 0.5 mg PO QID 07/16/18 07/27/18 History magnesium hydroxide [Milk of 30 ml PO DAILY PRN 07/16/18 07/27/18 History Magnesia] memantine 5 mg PO BID 07/16/18 07/27/18 History olanzapine [Zyprexa] 5 mg PO QAM 07/16/18 07/27/18 History olanzapine [Zyprexa] 7.5 mg PO HS 07/16/18 07/27/18 History ondansetron HCl 4 mg PO QID PRN 07/16/18 07/27/18 History ropinirole 0.25 mg PO HS 07/16/18 07/27/18 History sennosides-docusate sodium [Senna 2 tab PO DAILY 07/16/18 07/27/18 History Plus] sucralfate [Carafate] 10 ml PO BID 07/16/18 07/27/18 History sumatriptan succinate 25 mg PO DAILY PRN 07/16/18 07/27/18 History fentanyl 25 mcg TOPICAL .Q3D #10 patch 07/22/18 07/27/18 Rx oxycodone 5 mg PO Q4H PRN #15 tab 07/22/18 07/27/18 Rx polyethylene glycol 3350 [Miralax] 17 gm PO DAILY #30 ea 07/22/18 07/27/18 Rx Lactobacillus acidoph-L.bulgar 4 tab PO TID 07/27/18 07/27/18 History [Floranex] bisacodyl 10 mg ND DAILY PRN 07/27/18 07/27/18 History oxycodone 10 mg PO Q4H PRN 07/27/18 07/27/18 History pantoprazole 40 mg PO DAILY 07/27/18 07/27/18 History sodium phosphates [Fleet Enema] 118 ml ND HS PRN 07/27/18 07/27/18 History Allergies Allergy/AdvReac Type Severity Reaction Status Date / Time caffeine Allergy Unknown . Verified 07/27/18 10:23 desipramine Allergy Unknown . Verified 07/27/18 10:23 ergotamine Allergy Unknown . Verified 07/27/18 10:23 nitrofurantoin Allergy Unknown . Verified 07/27/18 10:23 watermelon Allergy Unknown UNKNOWN Verified 07/27/18 10:23 Cantaloupe Allergy Unknown RASH Uncoded 07/27/18 10:23 Past Med/Surg History Medical History Dementia (Chronic) Female bladder prolapse (Resolved) Anemia Fracture of head of left humerus (Acute) Fracture of left olecranon process (Acute) Fracture, thoracic vertebra, compression (Acute) HTN (hypertension) (Chronic) Lumbar transverse process fracture (Acute) T12 compression fracture (Acute) Thoracic compression fracture (Acute) UTI (lower urinary tract infection) (Acute) Surgical History S/P breast biopsy S/P hysterectomy S/P shoulder surgery Status post Rudy fundoplication Family History Other Family history non-contributory Social History Preferred Language: [place] Communication Ability: dementia Beliefs That Will Affect Care: None marital status: Current Living Situation: Residential current occupational status: retired Other Information That Helps Us Care for You: No Feels Safe at Home: Yes Safety Concerns: Feels Safe At This Time Smoking Status: Never smoker Hx Alcohol Use: No Hx Substance Use: No Review of Systems See HPI for pertinent positives & negatives. The HPI and ROS are limited secondary to the patient's dementia. Physical Exam Vital Signs Vital Signs - 24 hr 07/27/18 09:23 07/27/18 10:18 07/27/18 11:23 Temperature 37.1 C Temperature Source Oral Sepsis Recent Fever Within 48 Hours No Sepsis New/Unexplained Change in Mental Status No Sepsis Action Taken by Nursing No Action Required Pulse Rate 72 Pulse Rate [Apical] 72 Pulse Rate [Left Finger] Respiratory Rate 16 16 Respiratory Effort / Characteristics Respiratory Depth Respiratory Pattern Blood Pressure 180/91 H Blood Pressure [Left Arm] 163/85 H Blood Pressure [Right Arm] Blood Pressure Mean 120 Blood Pressure Mean [Left Arm] 111 Blood Pressure Mean [Right Arm] Pulse Oximetry 93 92 95 Oxygen Delivery Method Room Air Room Air Room Air 07/27/18 13:00 07/27/18 14:39 07/27/18 16:40 Temperature 37.5 C Temperature Source Oral Sepsis Recent Fever Within 48 Hours Sepsis New/Unexplained Change in Mental Status Sepsis Action Taken by Nursing Pulse Rate Pulse Rate [Apical] 65 Pulse Rate [Left Finger] 67 Respiratory Rate 16 21 Respiratory Effort / Characteristics Non-Labored Spontaneous Non-Labored Spontaneous Respiratory Depth Normal Normal Respiratory Pattern Regular Regular Blood Pressure Blood Pressure [Left Arm] 164/82 H Blood Pressure [Right Arm] 176/72 H Blood Pressure Mean Blood Pressure Mean [Left Arm] 109 Blood Pressure Mean [Right Arm] 106 Pulse Oximetry 95 96 Oxygen Delivery Method Room Air Room Air Room Air GENERAL: Sitting up in bed, well appearing, well nourished, no distress, non- toxic EYE EXAM: normal conjunctiva OROPHARYNX: no exudate, no erythema, lips, buccal mucosa, and tongue normal and mucous membranes are moist NECK: supple, no nuchal rigidity, no adenopathy, non-tender LUNGS: Clear to auscultation. Normal chest wall mechanics HEART: no murmurs, S1 normal and S2 normal ABDOMEN: abdomen soft, non-tender, normo-active bowel sounds, no masses, no rebound or guarding. BACK: Back is symmetrical on inspection and there is no deformity, no midline tenderness, no CVA tenderness. SKIN: no rashes and no bruising UPPER EXTREMITIES: upper extremities are grossly normal. LOWER EXTREMITIES: No pitting edema. NEURO EXAM:Pleasantly demented at baseline per family, moving all extremities, non-vocal. Course ED COURSE: Vital signs were reviewed and showed hypertension The patients medical record was reviewed The above diagnostic studies were performed and reviewed. ED treatments and interventions as stated above. 1017: The patient was evaluated in room A03. A complete history and physical examination was performed. 1220: I discussed the patient's case with LISANDRO Streeter, who will evaluate the patient for further management and care. 1224: I updated the patient on her current lab findings. 1345: I discussed the patient's case with VICKI Bermudez, who will follow-up with the patient. 1350: Upon reevaluation, the patient is resting comfortably.I discussed my findings with the patient and she understands and agrees with the treatment plan. Based on the patients age, coexisting illnesses, exam and lab findings the decision to treat as an inpatient was made. The patient remained stable while under my care. The patient will be evaluated for further management. Consultations Consultation #1: I discussed the patient's case with LISANDRO Streeter, who will evaluate the patient for further management and care. Time: 12:20 Consultation #2: I discussed the patient's case with Dr. Montemayor, GI, who will follow-up with the patient. Time: 13:45 Administered Medications Ioversol (Optiray 320 100ml) 94 ml IV ONCE PRN PRN Reason: Interaction Checking Stop: 07/31/18 11:52 Last Admin: 07/27/18 11:53 Dose: 94 ml Documented by: [id number] Discontinued Medications Famotidine (Pepcid 20mg Iv Push) 20 mg IV ONE STA Stop: 07/27/18 12:13 Last Admin: 07/27/18 12:24 Dose: 20 mg Documented by: [id number] Medical Decision Making Differential Diagnosis Differential diagnosis includes etiologies such as diverticulosis, AVM, coagulopathy, colitis, inflammatory bowel disease, malignancy, Bel-Anand tear, esophagitis, peptic ulcer disease, variceal bleed, gastritis, epistaxis, fissure, hemorrhoids, as well as others were entertained. Medical Records Attestation: I reviewed the patient's medical records. Home Medications Current Medication List: was personally reviewed by me Laboratory Data Attestation: I reviewed the patient's lab results. Result diagrams: 07/27/18 10:47 07/27/18 10:47 Lab Results 07/27/18 07/27/18 07/27/18 Range/Units 10:47 10:47 10:47 WBC 11.86 H (4.8-10.8) K/uL RBC 4.31 (4.2-5.4) M/uL Hgb 13.2 (12.0-16.0) g/dL Hct 40.1 (37-47) % MCV 93.0 (80-100) fL MCH 30.6 (25-34) pg MCHC 32.9 (32-36) g/dL RDW Std Deviation 47.4 H (36.4-46.3) fL RDW Coeff of Neville 13.9 (11.5-14.5) % Plt Count 286 (130-400) K/uL MPV 9.9 (7.4-10.4) fL Immature Gran % (Auto) 0.4 % Neut % (Auto) 82.8 % Lymph % (Auto) 9.1 % [place] % (Auto) 6.9 % Eos % (Auto) 0.8 % Baso % (Auto) 0.0 % Immature Gran # (Auto) 0.05 H (0.00-0.02) K/uL Neut # (Auto) 9.81 H (1.4-6.5) K/uL Lymph # (Auto) 1.08 L (1.2-3.4) K/uL [place] # (Auto) 0.82 H (0.11-0.59) K/uL Eos # (Auto) 0.10 (0-0.5) K/uL Baso # (Auto) 0.00 (0-0.2) K/uL Sodium 138 (136-145) mmol/L Potassium 4.4 (3.5-5.1) mmol/L Chloride 104 (98-107) mmol/L Carbon Dioxide 32 (21-32) mmol/L Anion Gap 2.0 L (3-11) BUN 24 H (7-18) mg/dl Creatinine 1.04 (0.6-1.2) mg/dl Est Cr Clr Drug Dosing 38.9 ml/min Est GFR ( Amer) 60.4 Est GFR (Non-Af Amer) 52.1 BUN/Creatinine Ratio 23.2 H (10-20) Glucose 111 H (70-99) mg/dl Calcium 9.2 (8.5-10.1) mg/dl Total Bilirubin 0.4 (0.2-1) mg/dl AST 17 (15-37) U/L ALT 17 (12-78) U/L Alkaline Phosphatase 114 (45-117) U/L Total Protein 7.6 (6.4-8.2) gm/dl Albumin 3.2 L (3.4-5.0) gm/dl Globulin 4.4 H (2.5-4.0) gm/dl Albumin/Globulin Ratio 0.7 L (0.9-2) Lipase 67 L (73-393) U/L Blood Type O Positive Antibody Screen NEGATIVE Crossmatch See Detail Imaging Data Radiologist's Impression: Radiology results as stated below per my review and the radiologist's interpretation: CT abd pelvis IV con only CLINICAL HISTORY: abd pain COMPARISON STUDY: CT scan dated 07/16/2018 TECHNIQUE: The patient was scanned in a dynamic helical fashion during intravenous administration of 94 cc of Optiray 320. A dose lowering technique was utilized adhering to the principles of ALARA. CT DOSE: 848.35 mGycm FINDINGS: Lower chest: There is a prominent fluid-filled hiatal hernia. There are bilateral dependent lower lung zone airspace opacities, atelectatic versus infectious/inflammatory Liver: The contrast-enhanced liver is normal in size, contour, and attenuation. There is no intrahepatic biliary ductal dilatation. The hepatic veins and portal veins are patent. Gallbladder: Unremarkable. Spleen: Normal in size and attenuation. Pancreas: Unremarkable. Adrenal glands: Unremarkable. Kidneys: There is symmetric renal cortical enhancement. The kidneys are normal in size without hydronephrosis. Bowel: There are no transition zones indicate bowel obstruction. There is no evidence of acute diverticulitis. The appendix is at the upper limits of normal in diameter. There are no periappendiceal inflammatory changes. peritoneum: There is no intraperitoneal free air or abdominal ascites. Vasculature: The abdominal aorta is normal in course and caliber. Adenopathy: None. Pelvic viscera: A pessary device is visualized. There is suggestion of mild thickening of the endometrium. Skeletal structures: There is an old superior endplate T12 compression deformity. IMPRESSION: 1. No evidence of bowel obstruction. No evidence of free air 2. No evidence of acute appendicitis. No evidence of acute diverticulitis 3. Moderate fluid-filled hiatal hernia 4. Basilar airspace opacities, atelectatic versus infectious/inflammatory 5. Mild endometrial thickening. Electronically signed by: Merlin Dennison M.D. 07/27/2018 12:01 PM Blood Pressure Blood Pressure Findings: Elevated blood pressure Blood Pressure Disposition: Referred to patients primary care provider MDM Narrative Patient is a 77-year-old female who presents the ER for abdominal pain along with vomiting/hematemesis. Had 3 episodes of coffee-ground emesis. Discussed with halfway fur floor worker who notes that had a full cup of coffee ground emesis and consequently patient was sent here. Upon review of the chart patient has a previous scope for esophageal stricture. Labs were obtained and showed mild leukocytosis of 11.8 thousand. BMP was unremarkable. LFTs and lipase was negative. She was typed and screened. CT abdomen pelvis shows atelectasis at the bases. Patient was given IV fluids and IV Pepcid. Discussed case with GI who recently scoped her and recommended bringing her in. Discussed case with jakub michaud hospitalist patient was admitted for upper GI bleed likely secondary to recent dilation and gastritis. Impression & Plan Upper GI bleed Discharge Plan Visit Data *Final* Discharge Date/Time: 07/27/18 16:28 Chief Complaint: Vomiting Stated Complaint: vomit/ [facility] ED Provider: Marquise New Discharge Problem: Upper GI bleed Patient Disposition: Admitted As Inpatient Discharge Instructions Interventions: ED Discharge Assessment Last Done: 07/27/18 16:28 The scribe's documentation has been prepared under my direction and personally reviewed by me in its entirety. I confirm that the note above accurately reflects all work, treatment, procedures, and medical decision making performed by me.
[2018-07-27] MEDS: SODIUM CHLORIDE 0.9% 1000ML 1,000 ML IV SCH (17:30)
[2018-07-27] MEDS ORDERED: LORazepam 0.5 MG TAB ONE (18:11)
[2018-07-27 18:48] LABS: Hematocrit (blood only) 37.7 % (37-47); Hemoglobin 12.2 g/dL (12.0-16.0)
[2018-07-27] MEDS: FERROUS SULFATE 325 MG/7.4 ML UDP PO SCH (19:21)
[2018-07-27] MEDS: OLANZAPINE 2.5 MG TAB PO SCH (19:22)
[2018-07-27] MEDS: LORazepam 0.5 MG TAB PO SCH ×2 (19:46→21:06)
[2018-07-27] MEDS: SUCRALFATE 1 GM/10 ML UDC PO SCH (20:58)
[2018-07-27] MEDS: LACTOBACILLUS ACIDOPHILUS (FLORANEX) TAB PO SCH ×2 (20:59→21:35)
[2018-07-27] MEDS: ESCITALOPRAM OXALATE 10 MG TAB PO SCH (21:00)
[2018-07-27] MEDS: MEMANTINE HCL 5 MG TAB PO SCH (21:01)
[2018-07-27] MEDS: ROPINIROLE HCL 0.25 MG TABLET PO SCH (21:02)
[2018-07-27] MEDS: LANSOPRAZOLE 30 MG SOLTAB PO SCH (21:35)
[2018-07-27] MEDS: CHECK FENTANYL PATCH PLACEMENT SCH (23:42)
[2018-07-28] MEDS ORDERED: LORazepam 0.5 MG TAB PO STA (03:24)
[2018-07-28] MEDS ORDERED: OLANZAPINE ZYDIS 5 MG ORALLY DIS. TAB PO ONE (03:45)
[2018-07-28] MEDS ORDERED: LEVOTHYROXINE SODIUM 112 MCG TABLET PO SCH (06:30)
[2018-07-28] MEDS: SODIUM CHLORIDE 0.9% 1000ML 1,000 ML IV SCH ×2 (07:21→21:13)
[2018-07-28 07:43] LABS: Eosinophils # (auto) 0.16 K/uL (0-0.5); Eosinophils % (auto) 2.1 %; Hematocrit (blood only) 38.2 % (37-47); Hemoglobin 12.3 g/dL (12.0-16.0); Immature Granulocytes # (auto) 0.03 K/uL (0.00-0.02); Immature Granulocytes % (auto) 0.4 %; Lymphocytes # (auto) 1.62 K/uL (1.2-3.4); Mean Corpuscular Hgb Conc 32.2 g/dL (32-36); Mean Corpuscular Volume 93.4 fL (80-100); Monocytes # (auto) 0.85 K/uL (0.11-0.59); Neutrophils # (auto) 5.05 K/uL (1.4-6.5); Neutrophils % (auto) 65.5 %; Platelet Count 280 K/uL (130-400); RDW Coefficient of Variation 13.8 % (11.5-14.5); Red Blood Count 4.09 M/uL (4.2-5.4); White Blood Count 7.71 K/uL (4.8-10.8)
[2018-07-28 08:21] LABS: BUN Creatinine Ratio 16.8 (10-20); Calcium 8.7 mg/dl (8.5-10.1); Creatinine Clr Calc Pharmacy 48.7 ml/min; Est GFR (African American) 79.4; Est GFR (Non-African American) 68.5; Potassium 4.2 mmol/L (3.5-5.1)
[2018-07-28] MEDS ORDERED: DOCUSATE SODIUM/SENNA 50/8.6MG TAB PO SCH (09:00)
[2018-07-28] MEDS ORDERED: CALCIUM CARBONATE 1250MG TAB PO SCH (09:00)
[2018-07-28] MEDS ORDERED: PANTOprazole 40 MG TAB PO SCH (09:00)
[2018-07-28] MEDS ORDERED: CHOLECALCIFEROL 1,000 UNITS TAB PO SCH (09:00)
[2018-07-28] MEDS ORDERED: fentaNYL 25 MCG/HR TDSY TD SCH (09:00)
[2018-07-28] MEDS: CHECK FENTANYL PATCH PLACEMENT SCH ×3 (09:05→23:41)
[2018-07-28] MEDS: SUCRALFATE 1 GM/10 ML UDC PO SCH ×4 (09:07→22:34)
[2018-07-28] MEDS: MEMANTINE HCL 5 MG TAB PO SCH ×2 (09:08→22:28)
[2018-07-28] MEDS: LACTOBACILLUS ACIDOPHILUS (FLORANEX) TAB PO SCH ×2 (09:08→12:28)
[2018-07-28] MEDS: LANSOPRAZOLE 30 MG SOLTAB PO SCH ×2 (09:09→22:34)
[2018-07-28] MEDS: LISINOPRIL 5 MG TAB PO SCH (09:10)
[2018-07-28] MEDS: OLANZapine 5 MG TABLET PO SCH (09:10)
[2018-07-28] MEDS: LORazepam 0.5 MG TAB PO SCH ×2 (09:17→12:26)
--- NOTE | 2018-07-28 10:49 | Gastrointestinal Consultation ---
Date of Consultation July 28, 2018 Assessment & Plan (1) Hematemesis: Patient is a 77 yo female who recently underwent an EGD with dilation for esophageal stenosis. She was discharged back to her [facility] and was promptly returned after vomiting. Her H/H is stable. She has had no episodes of vomiting today. 1) Recommend BID PPI therapy. Patient does not need both Pantoprazole and Lansoprazole as they are both PPIs, but should continue one of these choices BID upon discharge. 2) Increase Carafate dosing to 1 gm four times daily before meals and bedtime. If patient does not have liquid version, the tablet should be crushed and mixed with 15 mL of water to make a syrup. 3) Recommend a standing dosage of Zofran 4 mg IV q 6 hr. 4) No further GI procedures or interventions planned unless patient develops dysphagia. Thank you for allowing us to participate in the care of this patient. If you should have any further questions or concerns, do not hesitate to contact us at [email or web address] [phone] or [phone]. Present on Admission?: Yes Supervising Physician Co-Signing Physician Notes Agree with JOAN Chadwick as above Abd: Soft, NT, ND No overt bleeding since her arrival Continue current therapy Followup clinical course No plans for endoscopic workup at present History of Present Illness Reason for Consultation: Hematemesis Attending Physician: Yandel Ware History of Present Illness Patient is a 77 yo female with a PMH of CKD, RLS, Depression, chronic pain, hypothyroidism, Dementia, HTN, DJD & Anemia who was readmitted on 07/27/2018 after being discharged from a hospital stay. She was sent home to [facility] and had an episode of hematemesis. She underwent an EGD on 07/20/2018 that indicated an esophageal stenosis, gastritis, and a hiatal hernia. She appears to have been discharged on once daily PPI therapy and Carafate twice daily. She is resting comfortably in bed at present. Family reports no further issues with vomiting since admission. Her H/H is stable at 12.3/38.2. There are no reports of abdominal pain. Family denies issues with dysphagia since the dilation on 07/20/2018. Allergies Allergy/AdvReac Type Severity Reaction Status Date / Time caffeine Allergy Unknown . Verified 07/27/18 10:23 desipramine Allergy Unknown . Verified 07/27/18 10:23 ergotamine Allergy Unknown . Verified 07/27/18 10:23 nitrofurantoin Allergy Unknown . Verified 07/27/18 10:23 watermelon Allergy Unknown UNKNOWN Verified 07/27/18 10:23 Cantaloupe Allergy Unknown RASH Uncoded 07/27/18 10:23 Home Medications Home Medications Medication Instructions Recorded Confirmed Type acetaminophen [Tylenol] 650 mg PO QAM 07/16/18 07/27/18 History calcium carbonate [Calcium 600] 600 mg PO DAILY 07/16/18 07/27/18 History cholecalciferol (vitamin D3) 2,000 unit PO DAILY 07/16/18 07/27/18 History [Vitamin D3] cranberry extract 250 mg PO DAILY 07/16/18 07/27/18 History escitalopram oxalate 10 mg PO HS 07/16/18 07/27/18 History ferrous sulfate 7.3 ml PO DAILY 07/16/18 07/27/18 History lansoprazole 30 mg PO BID 07/16/18 07/27/18 History levothyroxine 112 mcg PO QAM 07/16/18 07/27/18 History lisinopril 5 mg PO QAM 07/16/18 07/27/18 History lorazepam 0.5 mg PO QID 07/16/18 07/27/18 History magnesium hydroxide [Milk of 30 ml PO DAILY PRN 07/16/18 07/27/18 History Magnesia] memantine 5 mg PO BID 07/16/18 07/27/18 History olanzapine [Zyprexa] 5 mg PO QAM 07/16/18 07/27/18 History olanzapine [Zyprexa] 7.5 mg PO HS 07/16/18 07/27/18 History ondansetron HCl 4 mg PO QID PRN 07/16/18 07/27/18 History ropinirole 0.25 mg PO HS 07/16/18 07/27/18 History sennosides-docusate sodium [Senna 2 tab PO DAILY 07/16/18 07/27/18 History Plus] sucralfate [Carafate] 10 ml PO BID 07/16/18 07/27/18 History sumatriptan succinate 25 mg PO DAILY PRN 07/16/18 07/27/18 History fentanyl 25 mcg TOPICAL .Q3D #10 patch 07/22/18 07/27/18 Rx oxycodone 5 mg PO Q4H PRN #15 tab 07/22/18 07/27/18 Rx polyethylene glycol 3350 [Miralax] 17 gm PO DAILY #30 ea 07/22/18 07/27/18 Rx Lactobacillus acidoph-L.bulgar 4 tab PO TID 07/27/18 07/27/18 History [Floranex] bisacodyl 10 mg IN DAILY PRN 07/27/18 07/27/18 History oxycodone 10 mg PO Q4H PRN 07/27/18 07/27/18 History pantoprazole 40 mg PO DAILY 07/27/18 07/27/18 History sodium phosphates [Fleet Enema] 118 ml IN HS PRN 07/27/18 07/27/18 History Patient History Medical History Dementia (Chronic) Female bladder prolapse (Resolved) Anemia Fracture of head of left humerus (Acute) Fracture of left olecranon process (Acute) Fracture, thoracic vertebra, compression (Acute) HTN (hypertension) (Chronic) Lumbar transverse process fracture (Acute) T12 compression fracture (Acute) Thoracic compression fracture (Acute) UTI (lower urinary tract infection) (Acute) Surgical History S/P breast biopsy S/P hysterectomy S/P shoulder surgery Status post Rudy fundoplication Family History Other Family history non-contributory Social History Preferred Language: Pakistani Communication Ability: dementia Beliefs That Will Affect Care: None marital status: Current Living Situation: Care Home current occupational status: retired Other Information That Helps Us Care for You: No Feels Safe at Home: Yes Safety Concerns: Feels Safe At This Time Smoking Status: Never smoker Hx Alcohol Use: No Hx Substance Use: No Review of Systems Constitutional: no fever and no chills Eyes: no acute complaints Ear, Nose, Mouth, Throat: no acute issues Respiratory: no cough Cardiovascular: no chest pain Gastrointestinal: no abdominal pain, no nausea, no vomiting and no dysphagia Musculoskeletal: no new complaints Integumentary: no acute complaints Neurologic: no new complaints Psychiatric: no acute changes/complaints Physical Exam Constitutional: WD/WN, vitals as above Eyes: PERRL, conjunctivae normal, anicteric sclerae Neck: normal visual inspection Respiratory: normal respiratory effort Cardiovascular: Rate/Rhythm: regular rate and regular rhythm Gastrointestinal (Abdomen): normal bowel sounds, soft, nontender, no hepatosplenomegaly Musculoskeletal: Head/Neck/Chest: normocephalic and head atraumatic Skin: warm, dry Psychiatric: Orientation: alert Results & Data Vital Signs (Past 12 Hours) Vital Signs Temp Pulse Resp BP Pulse Ox 07/28/18 07:06 36.7 C 68 18 180/76 H 93 07/28/18 03:23 95 07/27/18 23:02 37.3 C 81 17 186/88 H 90
[2018-07-28] MEDS: FERROUS SULFATE 325 MG/7.4 ML UDP PO SCH (12:25)
[2018-07-28] MEDS: ONDANSETRON INJ 2 MG/ML 2 ML VIAL IV SCH ×3 (12:26→23:41)
[2018-07-28] MEDS: AMOXICILLIN/CLAVULANATE 875 MG TAB PO SCH ×2 (12:26→16:53)
[2018-07-28] MEDS: LORazepam 0.5 MG/1 ML VIAL IV SCH ×2 (14:20→19:30)
[2018-07-28] MEDS ORDERED: HydrALAZINE HCL 20 MG/ML VIAL IV PRN (15:51)
--- NOTE | 2018-07-28 16:07 | Hospitalist Progress Note ---
Date of Service July 28, 2018 Assessment & Plan (1) Hematemesis: - Presented with recurrent hematemesis after undergoing EGD with esophageal dilation on 07/20/18. - Also had gastritis noted on EGD imaging. - H/H has remained stable, no further episodes noted. - Will continue PPI BID along with increasing Carafate to QID dosing. - Zofran 4 mg IV q6hr scheduled for nausea/vomiting. - Converted most meds to IV as pt. is refusing most PO meds; convert back to oral form in near future. - Clear liquid diet; advance to minced and moist if tolerating. - GI consulted, appreciate input. (2) HTN (hypertension): - Continue Lisinopril as prescribed. - Has been hypertensive with SBP 170-190's -- start Hydralazine q6hr prn. - May be partially related to anxiety as well. (3) Chronic kidney disease, stage 3a: - Renally dose all meds. (4) Esophageal stenosis: - S/p dilation on EGD 07/20/18. (5) Hypothyroidism: - Continue Synthroid, convert to IV due to dysphagia. - Most recent TSH was 3.5. (6) RLL pneumonia: - Previously treated with Unasyn --> Augmentin. - Will complete Augmentin x 2 days to finish treatment course. - Chest imaging was not obtained during this admission; CT A/P did show basilar opacities c/w atelectasis vs. infectious. - Has been afebrile, hemodynamically stable. (7) Hiatal hernia: - Moderate in size, noted on EGD. - Continue PPI. - No surgery indicated. (8) Depression: - Continue home lexapro and zyprexa as tolerated. - Continue Ativan -- converted to 0.5 mg IV q6hr scheduled (on 0.5 mg PO q4hr ATC at home) (9) Delirium: - Likely acute hospital delirium - Continue treatment for aspiration PNA as noted above. - Repeat u/a pending; previously treated for Proteus UTI. (10) Dementia: - Continue Namenda as prescribed. (11) DVT prophylaxis: - Hold in setting of acute bleed. Dispo: Med/surg; discharge pending improvement in PO intake. PT/OT ordered. Supervising Physician Co-Signing Physician Notes Attending Attestation: Chart reviewed in detail, care plan d/w KATHERINE Moralez. I agree w/ the chavis components of her documentation. Pt well known to me from her previous hospitalization. Had esophageal dilatation for esophageal stenosis. Following such she was eating/drinking without difficulty. Was observed for about 48 hours following this procedure and did well. Returns with coffee-ground emesis. H/H stable -- values nanette similar to her prior hospital stay's labs. gastritis? esophageal irritation from the dilatation procedure? other? cont PPI twice daily. carafate QID. CBC am. Yandel Ware MD Subjective Pt. did not provide history today. Her daughter and were present at bedside. They stated that patient did not have any further episodes of coffee ground emesis overnight. She was complaining of a sore throat today and refused to take PO meds. She was previously taking meds at [facility]. Per bedside nurse, patient was incontinent of urine this morning. Review of Systems Review of Systems: Unobtainable due to cognitive status Physical Exam Physical Exam: General: Resting comfortably HEENT: NC/AT; PERRLA with EOMI; [place] conjunctiva, MMM. Neck: Supple and nontender Cardiac: RRR Lungs: CTA bilaterally Abdomen: Bowel normoactive X 4; Nontender to palpation Extremities: Warm. No edema present Neuro: No focal weakness; did not answer questions, slept throughout exam. Skin: No rash Results & Data Vital Signs (Past 12 Hours) Vital Signs Temp Pulse Resp BP Pulse Ox 07/28/18 15:22 36.8 C 72 16 193/85 H 97 07/28/18 07:06 36.7 C 68 18 180/76 H 93 Laboratory Results 07/28/18 07/28/18 07/28/18 Range/Units 07:27 07:27 06:00 WBC 7.71 (4.8-10.8) K/uL RBC 4.09 L (4.2-5.4) M/uL Hgb 12.3 (12.0-16.0) g/dL Hct 38.2 (37-47) % MCV 93.4 (80-100) fL MCH 30.1 (25-34) pg MCHC 32.2 (32-36) g/dL RDW Std Deviation 47.0 H (36.4-46.3) fL RDW Coeff of Neville 13.8 (11.5-14.5) % Plt Count 280 (130-400) K/uL MPV 10.0 (7.4-10.4) fL Immature Gran % (Auto) 0.4 % Neut % (Auto) 65.5 % Lymph % (Auto) 21.0 % [place] % (Auto) 11.0 % Eos % (Auto) 2.1 % Baso % (Auto) 0.0 % Immature Gran # (Auto) 0.03 H (0.00-0.02) K/uL Neut # (Auto) 5.05 (1.4-6.5) K/uL Lymph # (Auto) 1.62 (1.2-3.4) K/uL [place] # (Auto) 0.85 H (0.11-0.59) K/uL Eos # (Auto) 0.16 (0-0.5) K/uL Baso # (Auto) 0.00 (0-0.2) K/uL Sodium 140 (136-145) mmol/L Potassium 4.2 (3.5-5.1) mmol/L Chloride 109 H (98-107) mmol/L Carbon Dioxide 26 (21-32) mmol/L Anion Gap 5.0 (3-11) BUN 14 (7-18) mg/dl Creatinine 0.83 (0.6-1.2) mg/dl Est Cr Clr Drug Dosing 48.7 ml/min Est GFR ( Amer) 79.4 Est GFR (Non-Af Amer) 68.5 BUN/Creatinine Ratio 16.8 (10-20) Glucose 90 (70-99) mg/dl Calcium 8.7 (8.5-10.1) mg/dl Nasal Screen MRSA (PCR) Negative (Negative) 07/27/18 Range/Units 18:31 WBC (4.8-10.8) K/uL RBC (4.2-5.4) M/uL Hgb 12.2 (12.0-16.0) g/dL Hct 37.7 (37-47) % MCV (80-100) fL MCH (25-34) pg MCHC (32-36) g/dL RDW Std Deviation (36.4-46.3) fL RDW Coeff of Neville (11.5-14.5) % Plt Count (130-400) K/uL MPV (7.4-10.4) fL Immature Gran % (Auto) % Neut % (Auto) % Lymph % (Auto) % [place] % (Auto) % Eos % (Auto) % Baso % (Auto) % Immature Gran # (Auto) (0.00-0.02) K/uL Neut # (Auto) (1.4-6.5) K/uL Lymph # (Auto) (1.2-3.4) K/uL [place] # (Auto) (0.11-0.59) K/uL Eos # (Auto) (0-0.5) K/uL Baso # (Auto) (0-0.2) K/uL Sodium (136-145) mmol/L Potassium (3.5-5.1) mmol/L Chloride (98-107) mmol/L Carbon Dioxide (21-32) mmol/L Anion Gap (3-11) BUN (7-18) mg/dl Creatinine (0.6-1.2) mg/dl Est Cr Clr Drug Dosing ml/min Est GFR ( Amer) Est GFR (Non-Af Amer) BUN/Creatinine Ratio (10-20) Glucose (70-99) mg/dl Calcium (8.5-10.1) mg/dl Nasal Screen MRSA (PCR) (Negative) (1) Dementia Dementia behavioral disturbance: with behavioral disturbance Dementia type: associated with other underlying disease Qualified Code(s): F02.81 - Dementia in other diseases classified elsewhere with behavioral disturbance (2) Depression Depression Type: other depression Qualified Code(s): F32.89 - Other specified depressive episodes (3) Hypothyroidism Hypothyroidism type: acquired Qualified Code(s): E03.9 - Hypothyroidism, unspecified (4) RLL pneumonia Aspiration pneumonia type: due to gastric secretions Pneumonia type: aspiration pneumonia Qualified Code(s): J69.0 - Pneumonitis due to inhalation of food and vomit
[2018-07-28 18:01] LABS: Appearance Urine Clear (Clear); Bacteria Urine Automated Negative (Negative); Bilirubin Urine Negative (Negative); Blood Urine Negative (Negative); Color Urine Yellow; Epithelial Cell Urine Auto >30 /lpf (0-5); Glucose Urine UA Negative (Negative); Ketones Urine Negative (Negative); Leukocyte Esterase Urine Trace (Negative); Nitrite Urine Negative (Negative); Protein Urine Negative (Negative); RBC Urine Automated 0-4 /hpf (0-4); Specific Gravity Urine 1.015 (1.000-1.030); Urobilinogen Urine Negative (Negative); pH Urine 6.5 (4.5-7.5)
[2018-07-28] MEDS: OLANZAPINE 2.5 MG TAB PO SCH (22:28)
[2018-07-28] MEDS: ROPINIROLE HCL 0.25 MG TABLET PO SCH (22:28)
[2018-07-28] MEDS: ESCITALOPRAM OXALATE 10 MG TAB PO SCH (22:28)
[2018-07-29] MEDS: LORazepam 0.5 MG/1 ML VIAL IV SCH ×4 (03:12→19:58)
[2018-07-29 05:26] LABS: Basophils # (auto) 0.02 K/uL (0-0.2); Basophils % (auto) 0.3 %; Eosinophils # (auto) 0.17 K/uL (0-0.5); Eosinophils % (auto) 2.7 %; Hematocrit (blood only) 32.9 % (37-47); Hemoglobin 10.6 g/dL (12.0-16.0); Immature Granulocytes # (auto) 0.05 K/uL (0.00-0.02); Immature Granulocytes % (auto) 0.8 %; Lymphocytes # (auto) 1.34 K/uL (1.2-3.4); Mean Corpuscular Hgb Conc 32.2 g/dL (32-36); Mean Corpuscular Volume 93.5 fL (80-100); Mean Platelet Volume 9.9 fL (7.4-10.4); Monocytes # (auto) 0.76 K/uL (0.11-0.59); Monocytes % (auto) 11.9 %; Neutrophils # (auto) 4.04 K/uL (1.4-6.5); Neutrophils % (auto) 63.3 %; Platelet Count 259 K/uL (130-400); RDW Coefficient of Variation 13.9 % (11.5-14.5); RDW Standard Deviation 46.9 fL (36.4-46.3); Red Blood Count 3.52 M/uL (4.2-5.4); White Blood Count 6.38 K/uL (4.8-10.8)
[2018-07-29 05:45] LABS: Calcium 7.8 mg/dl (8.5-10.1); Creatinine Clr Calc Pharmacy 45.9 ml/min; Est GFR (Non-African American) 63.8; Potassium 4.1 mmol/L (3.5-5.1)
[2018-07-29] MEDS: ONDANSETRON INJ 2 MG/ML 2 ML VIAL IV SCH ×4 (06:00→23:35)
[2018-07-29] MEDS: LANSOPRAZOLE 30 MG SOLTAB PO SCH ×2 (08:01→19:59)
[2018-07-29] MEDS: SUCRALFATE 1 GM/10 ML UDC PO SCH ×4 (08:01→19:59)
[2018-07-29] MEDS: LISINOPRIL 5 MG TAB PO SCH (08:01)
[2018-07-29] MEDS: OLANZapine 5 MG TABLET PO SCH (08:02)
[2018-07-29] MEDS: MEMANTINE HCL 5 MG TAB PO SCH ×2 (08:02→19:59)
[2018-07-29] MEDS: AMOXICILLIN/CLAVULANATE 875 MG TAB PO SCH ×2 (08:03→18:09)
[2018-07-29] MEDS: FERROUS SULFATE 325 MG/7.4 ML UDP PO SCH (08:03)
[2018-07-29] MEDS: CHECK FENTANYL PATCH PLACEMENT SCH ×3 (08:27→21:44)
[2018-07-29] MEDS: LEVOTHYROXINE SODIUM 56 MCG in SYRINGE 0 ML IV SCH (09:10)
--- NOTE | 2018-07-29 15:28 | Hospitalist Progress Note ---
Date of Service July 29, 2018 Assessment & Plan (1) Hematemesis: - Presented with recurrent hematemesis after undergoing EGD with esophageal dilation on 07/20/18. - Also had gastritis noted on EGD imaging. - H/H is stable; no further episodes of emesis. - Continue PPI BID; increased Carafate to QID dosing. - Zofran 4 mg IV q6hr scheduled. - Converted meds to IV due to dysphagia/pain with swallowing. - Advance to moist and minced diet. - GI consulted, appreciate input. (2) HTN (hypertension): - Continue Lisinopril as prescribed. - Has been hypertensive -- Hydralazine q6hr prn. - May be partially related to anxiety as well. (3) Chronic kidney disease, stage 3a: - Renally dose all meds. (4) Esophageal stenosis: - S/p dilation on EGD 07/20/18. (5) Hypothyroidism: - Continue Synthroid, convert to IV due to dysphagia. - Most recent TSH was 3.5. (6) RLL pneumonia: - Previously treated with Unasyn --> Augmentin. - Complete Augmentin x 2 days to finish treatment course. - Chest imaging was not obtained during this admission; CT A/P did show basilar opacities c/w atelectasis vs. infectious. - Has been afebrile, hemodynamically stable. (7) Hiatal hernia: - Moderate in size, noted on EGD. - Continue PPI. - No surgery indicated. (8) Depression: - Continue home lexapro and zyprexa as tolerated. - Continue Ativan -- converted to 0.5 mg IV q6hr scheduled (on 0.5 mg PO q4hr AT at home) (9) Delirium: - Likely acute hospital delirium - Continue treatment for aspiration PNA as noted above. - Repeat u/a was negative; previously treated for Proteus UTI. (10) Dementia: - Continue Namenda as prescribed. (11) DVT prophylaxis: - Hold in setting of acute bleed. Dispo: Med/surg; discharge to [facility] pending improvement in lethargy, PO intake and ability to take PO meds. Supervising Physician Co-Signing Physician Notes Attending Attestation: Chart reviewed in detail, care plan d/w KATHERINE Moralez. I agree w/ the chavis components of her documentation. Patient with no additional episodes of hematemsis. H/H stable. cont PPI twice daily and carafate QID. Waxing/ waning of mental status is similar to previous admission. Delirium/encephalopathy - likely hospital psychosis - in setting of advance dementia. Supportive care. Yandel Ware MD Subjective Pt. is very lethargic today, does not wake up during rounds. Daughter and are at bedside -- states patient sleeps throughout most of the day. She was awake overnight per bedside nurse report. Pt. was awake around 8 am, used bedside commode and had breakfast. Has not had any further episodes of coffee ground emesis. Will advance to minced and moist diet. Is having BMs. Review of Systems Review of Systems: Unobtainable due to cognitive status Physical Exam Physical Exam: General: Resting comfortably HEENT: NC/AT; PERRLA with EOMI; [place] conjunctiva, MMM. Neck: Supple and nontender Cardiac: RRR Lungs: CTA bilaterally Abdomen: Bowel normoactive X 4; Nontender to palpation Extremities: Warm. No edema present Neuro: No focal weakness; slept through exam. Skin: No rash Results & Data Vital Signs (Past 12 Hours) Vital Signs Temp Pulse Resp BP Pulse Ox 07/29/18 15:10 37.0 C 60 20 173/76 H 95 07/29/18 13:53 66 16 154/83 H 93 07/29/18 07:10 36.5 C 72 18 182/76 H 94 Laboratory Results 07/29/18 07/29/18 07/28/18 Range/Units 05:20 05:20 17:00 WBC 6.38 (4.8-10.8) K/uL RBC 3.52 L (4.2-5.4) M/uL Hgb 10.6 L (12.0-16.0) g/dL Hct 32.9 L (37-47) % MCV 93.5 (80-100) fL MCH 30.1 (25-34) pg MCHC 32.2 (32-36) g/dL RDW Std Deviation 46.9 H (36.4-46.3) fL RDW Coeff of Neville 13.9 (11.5-14.5) % Plt Count 259 (130-400) K/uL MPV 9.9 (7.4-10.4) fL Immature Gran % (Auto) 0.8 % Neut % (Auto) 63.3 % Lymph % (Auto) 21.0 % [place] % (Auto) 11.9 % Eos % (Auto) 2.7 % Baso % (Auto) 0.3 % Immature Gran # (Auto) 0.05 H (0.00-0.02) K/uL Neut # (Auto) 4.04 (1.4-6.5) K/uL Lymph # (Auto) 1.34 (1.2-3.4) K/uL [place] # (Auto) 0.76 H (0.11-0.59) K/uL Eos # (Auto) 0.17 (0-0.5) K/uL Baso # (Auto) 0.02 (0-0.2) K/uL Sodium 142 (136-145) mmol/L Potassium 4.1 (3.5-5.1) mmol/L Chloride 113 H (98-107) mmol/L Carbon Dioxide 26 (21-32) mmol/L Anion Gap 3.0 (3-11) BUN 13 (7-18) mg/dl Creatinine 0.88 (0.6-1.2) mg/dl Est Cr Clr Drug Dosing 45.9 ml/min Est GFR ( Amer) 74.0 Est GFR (Non-Af Amer) 63.8 BUN/Creatinine Ratio 15.0 (10-20) Glucose 78 (70-99) mg/dl Calcium 7.8 L (8.5-10.1) mg/dl Urine Color Yellow Urine Appearance Clear (Clear) Urine pH 6.5 (4.5-7.5) Ur Specific [place] 1.015 (1.000-1.030) Urine Protein Negative (Negative) Urine Glucose (UA) Negative (Negative) Urine Ketones Negative (Negative) Urine Blood Negative (Negative) Urine Nitrite Negative (Negative) Urine Bilirubin Negative (Negative) Urine Urobilinogen Negative (Negative) Ur Leukocyte Esterase Trace H (Negative) Urine WBC (Auto) 1-5 (0-5) /hpf Urine RBC (Auto) 0-4 (0-4) /hpf U Hyaline Cast (Auto) 1-5 (0-5) /lpf U Epithel Cells (Auto) >30 H (0-5) /lpf Urine Bacteria (Auto) Negative (Negative) (1) Dementia Dementia behavioral disturbance: with behavioral disturbance Dementia type: associated with other underlying disease Qualified Code(s): F02.81 - Dementia in other diseases classified elsewhere with behavioral disturbance (2) Depression Depression Type: other depression Qualified Code(s): F32.89 - Other specified depressive episodes (3) Hypothyroidism Hypothyroidism type: acquired Qualified Code(s): E03.9 - Hypothyroidism, unspecified (4) RLL pneumonia Aspiration pneumonia type: due to gastric secretions Pneumonia type: aspiration pneumonia Qualified Code(s): J69.0 - Pneumonitis due to inhalation of food and vomit
[2018-07-29] MEDS: ROPINIROLE HCL 0.25 MG TABLET PO SCH (19:58)
[2018-07-29] MEDS: ESCITALOPRAM OXALATE 10 MG TAB PO SCH (19:59)
[2018-07-29] MEDS: OLANZAPINE 2.5 MG TAB PO SCH (19:59)
[2018-07-29] MEDS: OXYCODONE HCL IR 5 MG TAB (IMMEDIATE RELEASE) PO PRN ×2 (19:59→23:33)
[2018-07-30] MEDS: LORazepam 0.5 MG/1 ML VIAL IV SCH ×2 (01:16→08:37)
[2018-07-30] MEDS: OXYCODONE HCL IR 5 MG TAB (IMMEDIATE RELEASE) PO PRN (03:42)
[2018-07-30] MEDS: ONDANSETRON INJ 2 MG/ML 2 ML VIAL IV SCH ×2 (06:23→11:26)
[2018-07-30 06:34] LABS: Eosinophils # (auto) 0.17 K/uL (0-0.5); Eosinophils % (auto) 2.1 %; Hemoglobin 12.4 g/dL (12.0-16.0); Immature Granulocytes # (auto) 0.02 K/uL (0.00-0.02); Immature Granulocytes % (auto) 0.3 %; Lymphocytes # (auto) 1.43 K/uL (1.2-3.4); Lymphocytes % (auto) 18.1 %; Mean Corpuscular Hgb Conc 33.5 g/dL (32-36); Mean Corpuscular Volume 91.6 fL (80-100); Mean Platelet Volume 9.5 fL (7.4-10.4); Monocytes # (auto) 0.85 K/uL (0.11-0.59); Monocytes % (auto) 10.7 %; Neutrophils # (auto) 5.44 K/uL (1.4-6.5); Neutrophils % (auto) 68.8 %; Platelet Count 293 K/uL (130-400); RDW Coefficient of Variation 13.6 % (11.5-14.5); RDW Standard Deviation 45.2 fL (36.4-46.3); Red Blood Count 4.04 M/uL (4.2-5.4); White Blood Count 7.91 K/uL (4.8-10.8)
[2018-07-30 07:08] LABS: BUN Creatinine Ratio 11.1 (10-20); Calcium 8.7 mg/dl (8.5-10.1); Creatinine Clr Calc Pharmacy 44.4 ml/min; Est GFR (Non-African American) 61.3; Potassium 4.1 mmol/L (3.5-5.1)
[2018-07-30] MEDS: SUCRALFATE 1 GM/10 ML UDC PO SCH ×2 (08:38→11:26)
[2018-07-30] MEDS: CHECK FENTANYL PATCH PLACEMENT SCH (08:41)
[2018-07-30] MEDS: LISINOPRIL 5 MG TAB PO SCH (08:42)
[2018-07-30] MEDS: FERROUS SULFATE 325 MG/7.4 ML UDP PO SCH (08:42)
[2018-07-30] MEDS: MEMANTINE HCL 5 MG TAB PO SCH (08:48)
[2018-07-30] MEDS: OLANZapine 5 MG TABLET PO SCH (08:48)
[2018-07-30] MEDS: LANSOPRAZOLE 30 MG SOLTAB PO SCH (08:48)
[2018-07-30] MEDS: LEVOTHYROXINE SODIUM 56 MCG in SYRINGE 0 ML IV SCH (09:47)
--- NOTE | 2018-07-30 12:33 | Discharge Summary ---
Date of Service July 30, 2018 Admission HPI Per Admitting Provider This is a 77-year-old female that is admitted for upper GI bleed. She is a resident at [facility] and overnight had 3 episodes of hematemesis. In discussion with the nurse at [facility] it was to find that the patient had the largest episode of about 1 cup of coffee ground appearing emesis. The patient has no abdominal pain at this time and nausea is controlled. She denies any fever, chills, sweats, rigors. She has no ripping or tearing sensation in her abdomen back or flank. The patient does have dementia but is absent of any signs of CVA and is able to give me her name and date of . Her of 60 years and her daughter are present at bedside for the examination interview and corroborate her story. Patient was recently admitted and was discharged on 07/27/2018. During that admission she had an EGD with a benign-appearing esophageal stenosis which was dilated with mild resistance of 45 [place]. The dilation site at that time was examined and showed moderate improvement in luminal narrowing with no evidence of bleeding. There was diffuse mild inflammation characterized by edema and erythema found within the entire examined stomach. The patient was discharged on dual therapy and has been taking medications as prescribed at [facility]. The patient denies any current melena or hematochezia. The patient does have a history of aspiration pneumonia per the family's report. She has had no recent episodes of aspiration the family is aware of and is oxygenating well on room air. The patient has no other acute complaints. Admission Exam Per Admitting Provider GENERAL : No acute distress. Pleasant EYES: No icterus, gaze conjugate. Pupils are equal round and reactive to light NOSE: No evidence of epistaxis. MOUTH: No lesions or candidiasis. Mucosa is moist. No evidence of bleeding in the posterior oropharynx NECK: Supple. No carotid bruits LUNGS: Rales at the left base. No bronchospasm appreciated HEART: Regular, rate controlled. No evidence of ectopy ABDOMEN: Soft, NT, ND, BS Present. No pain to light palpation. No guarding. EXTREMITIES: No LE edema, pedal pulses intact NEURO: A&OX3. Deep tendon reflexes at the biceps, brachioradialis, patellar tendons 2/4. No pronator drift. Cerebellar function is intact with [id number] and rapid alternating movements. No acute neurological deficits appreciated. Principal Diagnosis Hematemesis Discharge Exam General: Sitting up in chair, accompanied by and daughter. HEENT: NC/AT; PERRLA with EOMI; [place] conjunctiva, MMM. Neck: Supple and nontender Cardiac: RRR Lungs: CTA bilaterally Abdomen: Bowel normoactive X 4; Nontender to palpation Extremities: Warm. No edema present Neuro: No focal weakness; alert, answers questions appropriately. Skin: No rash Discharge Data Allergies Allergy/AdvReac Type Severity Reaction Status Date / Time caffeine Allergy Unknown . Verified 07/27/18 10:23 desipramine Allergy Unknown . Verified 07/27/18 10:23 ergotamine Allergy Unknown . Verified 07/27/18 10:23 nitrofurantoin Allergy Unknown . Verified 07/27/18 10:23 watermelon Allergy Unknown UNKNOWN Verified 07/27/18 10:23 Cantaloupe Allergy Unknown RASH Uncoded 07/27/18 10:23 Consultations 07/27/18 12:13 ED Decision to Admit Stat 07/27/18 16:41 Consult Gastroenterology Routine Ordered Studies 07/27/18 10:14 CT abd pelvis IV con only Stat Hospital Course (1) Hematemesis: Presented with recurrent hematemesis after undergoing EGD with esophageal dilation on 07/20/18. Also had gastritis noted on EGD imaging. H/H remained stable during this admission, did not have further episodes of hematemesis. PPI BID was continued; Carafate was increased to QID dosing -- will need to complete 10 day course as outpatient. Zofran was scheduled QID. GI was consulted, appreciate input. Repeat EGD was not indicated. Pt. was tolerating minced and moist diet, stable for discharge on 07/30/18. (2) HTN (hypertension): Continued Lisinopril as prescribed. BP was elevated -- may be related to anxiety during hospitalization. May require increase in med in future vs. adding additional agent. (3) Chronic kidney disease, stage 3a: Renally dosed all meds. (4) Esophageal stenosis: S/p dilation on EGD 07/20/18. (5) Hypothyroidism: Continued Synthroid, convert to IV due to dysphagia. Most recent TSH was 3.5. (6) RLL pneumonia: Previously treated with Unasyn --> Augmentin. Completed Augmentin x 2 days to finish treatment course. Chest imaging was not obtained during this admission; CT A/P did show basilar opacities c/w atelectasis vs. infectious. Was afebrile, hemodynamically stable. (7) Hiatal hernia: Moderate in size, noted on EGD. Continued PPI. Is not surgical candidate. (8) Depression: Continued home lexapro and zyprexa as tolerated. Continued Ativan -- was converted to 0.5 mg IV q6hr due to dysphagia, will resume 0.5 mg PO q4hr at discharge. (9) Delirium: Likely acute hospital delirium Repeat u/a was negative. CXR was not obtained but did complete Augmentin course for PNA. Confusion improved, was alert and answering questions on day of discharge. (10) Dementia: Continued Namenda as prescribed. (11) DVT prophylaxis: Held in setting of recent bleed. Stable for discharge to [facility] on 07/30/18. Total Time Total Time Spent Total Time Spent (In Minutes): >30 minutes Total Time Includes: Examination of the Patient, Discharge Planning, Medication Reconciliation, Communication With Other Providers and Other Discharge Plan Discharge Items Patient Disposition: Transfer [facility] Reason For Visit: GI BLEED Discharge Diagnosis: Hematemesis Condition: Good Discharge Goals: Improve disease control, Improve function, Increase independence, Improve nutritional status and Prevent disease Activity: As commented below Activity Comment: Per PT/OT recs. Exercise/Sports: Gradually increase as tolerated Non-emergency contact: Primary Care Provider Call non-emergency contact if: you have any medication questions, your symptoms worsen, your pain is not controlled, your pain is worsening, your pain is unusual for you, your pain is concerning for you and you have a fever Follow-up/Referrals: Vance Urena [Primary Care Provider] - Diet: Regular Diet Texture: Dental soft (bite-sized) Addtl Provider Instructions: 1. Hematemesis in setting of recent esophageal dilatation and gastritis * Please continue a PPI twice daily. * Please continue Carafate four times daily to complete a 10 day course (end date: 08/08/18) * Please continue a moist and minced diet as tolerated. * Monitor CBC weekly -- hemoglobin has been stable during this admission. 2. Hypertension * Please continue Lisinopril as prescribed. * Blood pressure has been elevated during this admission -- consider increasing dose of ACEI vs. adding an additional agent. 3. Please schedule a follow up with her PCP in 1-2 weeks. Prescriptions: New lorazepam 0.5 mg Tablet 0.5 mg PO QID 7 Days Qty: 28 RF: 0 fentanyl 25 mcg/hr patch 72 hour 25 mcg topical .Q3D Qty: 10 RF: 0 oxycodone 5 mg tablet 5 mg PO Q4H PRN (Reason: Pain) Qty: 15 RF: 0 Continued calcium carbonate [Calcium 600] 600 mg calcium (1,500 mg) Tablet 600 mg PO DAILY RF: 0 cranberry extract 250 mg Capsule 250 mg PO DAILY RF: 0 ferrous sulfate 220 mg (44 mg iron)/5 mL Solution 7.3 ml PO DAILY RF: 0 lansoprazole 30 mg tablet,disintegrat, delay rel 30 mg PO BID RF: 0 levothyroxine 112 mcg tablet 112 mcg PO QAM RF: 0 escitalopram oxalate 10 mg tablet 10 mg PO HS RF: 0 lisinopril 5 mg tablet 5 mg PO QAM RF: 0 memantine 5 mg tablet 5 mg PO BID RF: 0 magnesium hydroxide [Milk of Magnesia] 400 mg/5 mL Suspension 30 ml PO DAILY PRN (Reason: Constipation) RF: 0 ondansetron HCl 4 mg Tablet 4 mg PO QID PRN (Reason: Nausea) RF: 0 ropinirole 0.25 mg Tablet 0.25 mg PO HS RF: 0 sennosides-docusate sodium [Senna Plus] 8.6-50 mg Tablet 2 tab PO DAILY RF: 0 sumatriptan succinate 25 mg tablet 25 mg PO DAILY PRN (Reason: Migraine Headache) RF: 0 cholecalciferol (vitamin D3) [Vitamin D3] 2,000 unit Tablet 2,000 unit PO DAILY RF: 0 olanzapine [Zyprexa] 5 mg Tablet 5 mg PO QAM RF: 0 olanzapine [Zyprexa] 7.5 mg Tablet 7.5 mg PO HS RF: 0 bisacodyl 10 mg Suppository 10 mg HI DAILY PRN (Reason: Constipation) RF: 0 Fleet Enema 19-7 gram/118 mL Enema 118 ml HI HS PRN (Reason: Constipation) RF: 0 Lactobacillus acidoph-L.bulgar [Floranex] 1 million cell Tablet 4 tab PO TID RF: 0 Changed acetaminophen [Tylenol] 325 mg Tablet 650 mg PO QAM PRN (Reason: pain) Qty: 0 RF: 0 polyethylene glycol 3350 [Miralax] 17 gram powder in packet 17 gm PO DAILY PRN (Reason: constipation) Qty: 30 RF: 5 sucralfate [Carafate] 100 mg/mL Suspension 10 ml PO QID Qty: 0 RF: 0 Discontinued pantoprazole 40 mg Tablet,Delayed Release (Dr/Ec) 40 mg PO DAILY RF: 0 oxycodone 5 mg Tablet 10 mg PO Q4H PRN (Reason: Pain) RF: 0 Stand-Alone Forms: [facility] Discharge Orders: Discharge Order (Routine); Ordered 07/30/18 Ordered By: Janee Moralez Skilled Items Patient informed of condition?: Yes DNR: No Discharge Level of Care: Skilled Communicable Disease: No Discharge Prognosis: Improving Admission Data Admit Date/Time: 07/29/18 11:10 Attending Provider: Yandel Ware Admit Provider: Teo Han Primary Care Provider: Vance Urena Other Providers: Felix Montemayor Service: Surgical Services Other Interventions: Discharge Summary Assessment (RN) Last Done: 07/30/18 12:26 Pending Studies at Discharge: No DC Date/Time DO NOT enter until pt leaves facility: 07/30/18 13:55 Supervising Physician Co-Signing Physician Notes Attending Attestation and Discharge Note: Pt seen/examined, chart reviewed, discharge care plan d/w PA Janee Moralez. I agree w/ the chavis components of her discharge summary. 77yo female with dementia - well known to me from her recent hospital stay for vomiting / regurgitation due to esophageal stenosis s/p EGD w/ dilatation - who presented with an episode of hematemesis. H/H stayed stable the entire stay. Upper GI symptoms never recurred. Suspect this was old blood due to gastritis or due to irritation from the dilatation procedure. Course complicated by hospital psychosis which resolved prior to d/c. Other medical issues were stable. Discharge exam: gen - sitting in chair eating breakfast mouth - MMM heart - RRR, s1, s2 lungs - CTA b/l abd - soft NT ND BS+ no HSM ext - no edema psych - awake, alert Yandel Ware MD
[2018-07-30] MEDS ORDERED: LORazepam 0.5 MG TAB PO STA (12:48)
--- NOTE | 2018-08-03 13:38 | Coding Query ---
CODING QUERY To promote full compliance with coding requirements relating to patient care, provider participation is requested in all cases of shank paperer uncertainty. Please assist us with the question(s) below: Coding Question: "Hematemesis in setting of recent esophageal dilatation and gastritis", was documented throughout the chart but that verbiage does not establish a link. Please clarify below if the bleeding could have been due to the dilation procedure or gastritis. Thank you so much for your help on this! Have a great day! ( ) Hematemesis possibly due to esophageal dilation (postop complication) ( ) Hematemesis due to gastritis (X) Hematemesis possibly due to gastritis and a postop complication ( ) Other, explain Thank you! Gwen Grullon Principal Diagnosis: "that condition established after study, to be chiefly responsible for occasioning the admission of the patient to the hospital for care." Co-Existing Principal Diagnosis: "when two or more diagnoses equally meet the criteria for principal diagnosis as determined by the circumstances of admission, diagnostic work up, and/or therapy provided, and the Alphabetic Index, Tabular List, or another coding guideline does not provide sequencing direction, any one of the diagnoses may be sequenced first." "When the physician has documented what appears to be a current diagnosis in the body of the record, but has not included the diagnosis in the final diagnostic statement, the physician should be asked whether the diagnosis should be added." (Source [facility]oding [facility] 2 QTR90. p3-4) [facility]
== END 2018-07-30 13:55 | DRG 919 ==
LOC: 3N 09:15 → ED 09:15 → SUATTDRO 15:29 → 3N 16:28

== ENCOUNTER 2018-11-11 09:21 | Inpatient (IN) ==
[2018-11-11] MEDS ORDERED: FAMOTIDINE 20MG/5ML IV PUSH IV STA (09:34)
[2018-11-11] MEDS ORDERED: SODIUM CHLORIDE 0.9% 500 ML IV SCH (09:45)
[2018-11-11 09:50] LABS: Eosinophils # (auto) 0.03 K/uL (0-0.5); Eosinophils % (auto) 0.4 %; Hematocrit (blood only) 39.9 % (37-47); Lymphocytes # (auto) 0.79 K/uL (1.2-3.4); Mean Corpuscular Hgb Conc 32.6 g/dL (32-36); Mean Corpuscular Volume 90.5 fL (80-100); Mean Platelet Volume 10.1 fL (7.4-10.4); Monocytes # (auto) 0.45 K/uL (0.11-0.59); Monocytes % (auto) 6.3 %; Neutrophils % (auto) 82.3 %; Platelet Count 244 K/uL (130-400); RDW Standard Deviation 46.2 fL (36.4-46.3); Red Blood Count 4.41 M/uL (4.2-5.4); White Blood Count 7.17 K/uL (4.8-10.8)
[2018-11-11] MEDS ORDERED: ONDANSETRON INJ 2 MG/ML 2 ML VIAL IV STA (09:55)
[2018-11-11] MEDS ORDERED: ONDANSETRON INJ 2 MG/ML 2 ML VIAL ONE ×2 (09:55→11:58)
--- NOTE | 2018-11-11 10:01 | XRay Report ---
XR chest 1V portable CLINICAL HISTORY: Gastrointestinal hemorrhage COMPARISON STUDY: 07/20/2018 FINDINGS: The heart is normal in size. There is no failure. There is no focal pulmonary consolidation . There are no pleural effusions. There is a retrocardiac opacity consistent with a hiatal hernia.[ IMPRESSION: Hiatal hernia. No active disease in the chest. Electronically signed by: Merlin Dennison M.D. 11/11/2018 10:00 AM
[2018-11-11 10:05] LABS: Partial Thromboplastin Ratio 0.9; Partial Thromboplastin Time 24.5 Seconds (21.0-31.0); Prothrombin Time 10.7 Seconds (9.0-12.0)
[2018-11-11 10:08] LABS: Alanine Aminotransferase 26 U/L (12-78); Albumin Level 3.6 gm/dl (3.4-5.0); Aspartate Aminotransferase 30 U/L (15-37); BUN Creatinine Ratio 27.6 (10-20); Blood Urea Nitrogen 34 mg/dl (7-18); Calcium 8.6 mg/dl (8.5-10.1); Carbon Dioxide 27 mmol/L (21-32); Chloride 109 mmol/L (98-107); Est GFR (Non-African American) 42.3; Glucose 96 mg/dl (70-99); Sodium 142 mmol/L (136-145)
[2018-11-11 10:13] LABS: Alkaline Phosphatase 130 U/L (45-117); Bilirubin,Total 0.5 mg/dl (0.2-1); Globulin 3.8 gm/dl (2.5-4.0); Total Protein 7.4 gm/dl (6.4-8.2); Troponin I < 0.015 ng/ml (0-0.045)
--- NOTE | 2018-11-11 10:19 | Emergency Department Note ---
Entered by Renetta Banda acting as a scribe for History of Present Illness General Chief complaint: GI Bleed Stated complaint: abd pain Time Seen by Provider: 11/11/18 09:24 Source: patient, family and other (nurse) History of Present Illness Provider complaint: GI bleed Onset (ago): hour(s) 5 Severity: similar to prior episodes (May,) Pain Consistency: + other (episode) Quality: + other (GI bleeding) Associated symptoms: + denies other symptoms (abdominal pain) and + other (4 bloody emesis looked like "coffee grounds," 4 bloody bowel movements, refused medicine) Treatments prior to arrival: other (daily medication) The patient is a 78 year old female who presents to the ED with complaints of an episodes of GI bleeding that began 5 hours ago. Per nursing staff, the patient has slight dementia and was sent here from [facility]. Per nurse, the patient had 4 episodes of bloody emesis and 4 episodes of bloody bowel movements starting at 0400 this morning. The patients daughter states that the patient had a similar episode of this in May, and was given medication for it. Per daughter, the patient refused her medication last night which is probably why she had coffee ground looking emesis this morning. Per daughter, it seems as if the patient took her medications this morning based on the way she is acting. The patient denies abdominal pain. Home Medications Home Medications Medication Instructions Recorded Confirmed Type calcium carbonate [Calcium 600] 600 mg PO DAILY 07/16/18 11/11/18 History cholecalciferol (vitamin D3) 2,000 unit PO DAILY 07/16/18 11/11/18 History [Vitamin D3] cranberry extract 250 mg PO DAILY 07/16/18 11/11/18 History escitalopram oxalate 10 mg PO HS 07/16/18 11/11/18 History ferrous sulfate 7.3 ml PO DAILY 07/16/18 11/11/18 History lansoprazole 30 mg PO BID 07/16/18 11/11/18 History levothyroxine 112 mcg PO QAM 07/16/18 11/11/18 History lisinopril 5 mg PO QAM 07/16/18 11/11/18 History magnesium hydroxide [Milk of 30 ml PO DAILY PRN 07/16/18 11/11/18 History Magnesia] memantine 5 mg PO BID 07/16/18 11/11/18 History olanzapine [Zyprexa] 5 mg PO QAM 07/16/18 11/11/18 History olanzapine [Zyprexa] 7.5 mg PO HS 07/16/18 11/11/18 History ondansetron HCl 4 mg PO QID PRN 07/16/18 11/11/18 History ropinirole 0.25 mg PO HS 07/16/18 11/11/18 History sennosides-docusate sodium [Senna 2 tab PO DAILY 07/16/18 11/11/18 History Plus] sumatriptan succinate 25 mg PO DAILY PRN 07/16/18 11/11/18 History Fleet Enema 118 ml DE HS PRN 07/27/18 11/11/18 History Lactobacillus acidoph-L.bulgar 4 tab PO TID 07/27/18 11/11/18 History [Floranex] bisacodyl 10 mg DE DAILY PRN 07/27/18 11/11/18 History acetaminophen [Tylenol] 650 mg PO QAM PRN #0 tab 07/30/18 11/11/18 Rx fentanyl 25 mcg TOPICAL .Q3D #10 patch 07/30/18 11/11/18 Rx oxycodone 5 mg PO Q4H PRN #15 tab 07/30/18 11/11/18 Rx polyethylene glycol 3350 [Miralax] 17 gm PO DAILY PRN #30 ea 07/30/18 11/11/18 Rx sucralfate [Carafate] 10 ml PO QID #0 ml 07/30/18 11/11/18 Rx lorazepam 0.5 mg PO QID 11/11/18 11/11/18 History sulfamethoxazole-trimethoprim 1 tab PO DAILY 11/11/18 11/11/18 History Allergies Allergy/AdvReac Type Severity Reaction Status Date / Time melon Allergy Intermediate [place] Verified 11/11/18 13:45 - Rash caffeine Allergy Unknown . Verified 11/11/18 09:46 desipramine Allergy Unknown . Verified 11/11/18 09:46 ergotamine Allergy Unknown . Verified 11/11/18 09:46 nitrofurantoin Allergy Unknown . Verified 11/11/18 09:46 watermelon Allergy Unknown UNKNOWN Verified 11/11/18 09:46 Past Med/Surg History Medical History Dementia (Chronic) Female bladder prolapse (Resolved) Anemia Fracture of head of left humerus (Acute) Fracture of left olecranon process (Acute) Fracture, thoracic vertebra, compression (Acute) HTN (hypertension) (Chronic) Lumbar transverse process fracture (Acute) T12 compression fracture (Acute) Thoracic compression fracture (Acute) UTI (lower urinary tract infection) (Acute) Chronic scarring of esophagus Surgical History S/P breast biopsy S/P hysterectomy S/P shoulder surgery Status post Rudy fundoplication Family History Other Family history non-contributory Social History Preferred Language: Gabonese Communication Ability: dementia Damascener Required: No Beliefs That Will Affect Care: None marital status: Current Living Situation: Senior Living Current Living Situation Comment: [facility] current occupational status: retired Other Information That Helps Us Care for You: No Feels Safe at Home: Yes Safety Concerns: Feels Safe At This Time Smoking Status: Never smoker Do You Dip or Chew Tobacco: No ; Second Hand Exposure: No ; Tobacco Cessation Education Requested by Patient: No Hx Alcohol Use: No Hx Substance Use: No Review of Systems See HPI for pertinent positives & negatives. and A total of 10 systems reviewed and were otherwise negative Physical Exam Vital Signs Vital Signs - 24 hr 11/11/18 09:23 11/11/18 09:27 11/11/18 09:33 Temperature 36.7 C Temperature Source Oral Sepsis Recent Fever Within 48 Hours No Sepsis Action Taken by Nursing No Action Required Pulse Rate 64 54 L 59 L Pulse Rate [Apical] Pulse Rate [Left Finger] Pulse Rate from SpO2 Sensor 62 59 L Pulse Rhythm Pulse Rhythm [Apical] Respiratory Rate 23 20 18 Respiratory Effort / Characteristics Non-Labored Spontaneous Respiratory Depth Normal Respiratory Pattern Blood Pressure 175/72 H 175/72 H Blood Pressure [Left Arm] Blood Pressure Mean 106 106 Blood Pressure Mean [Left Arm] Blood Pressure Position [Left Arm] Pulse Oximetry 97 98 97 Oxygen Delivery Method Room Air Oxygen Flow Rate 11/11/18 10:00 11/11/18 10:04 11/11/18 10:12 Temperature Temperature Source Sepsis Recent Fever Within 48 Hours Sepsis Action Taken by Nursing Pulse Rate 67 71 71 Pulse Rate [Apical] Pulse Rate [Left Finger] Pulse Rate from SpO2 Sensor 65 Pulse Rhythm Regular Pulse Rhythm [Apical] Respiratory Rate 29 H 16 Respiratory Effort / Characteristics Respiratory Depth Respiratory Pattern Blood Pressure 169/70 H Blood Pressure [Left Arm] Blood Pressure Mean 103 Blood Pressure Mean [Left Arm] Blood Pressure Position [Left Arm] Pulse Oximetry 92 87 L Oxygen Delivery Method Room Air Oxygen Flow Rate 2 11/11/18 10:30 11/11/18 11:07 11/11/18 11:53 Temperature Temperature Source Sepsis Recent Fever Within 48 Hours Sepsis Action Taken by Nursing Pulse Rate 61 Pulse Rate [Apical] Pulse Rate [Left Finger] 62 Pulse Rate from SpO2 Sensor 72 Pulse Rhythm Pulse Rhythm [Apical] Respiratory Rate 24 23 18 Respiratory Effort / Characteristics Non-Labored Respiratory Depth Normal Respiratory Pattern Regular Blood Pressure 167/75 H 138/60 Blood Pressure [Left Arm] 148/61 H Blood Pressure Mean 105 Blood Pressure Mean [Left Arm] 90 Blood Pressure Position [Left Arm] Pulse Oximetry 94 100 98 Oxygen Delivery Method Nasal Cannula Nasal Cannula Oxygen Flow Rate 2 2 11/11/18 12:00 11/11/18 13:34 11/11/18 13:40 Temperature 36.8 C 36.5 C Temperature Source Oral Temporal Artery Scan Sepsis Recent Fever Within 48 Hours Sepsis Action Taken by Nursing Pulse Rate Pulse Rate [Apical] 64 66 66 Pulse Rate [Left Finger] Pulse Rate from SpO2 Sensor Pulse Rhythm Pulse Rhythm [Apical] Regular Regular Regular Respiratory Rate 16 18 18 Respiratory Effort / Characteristics Non-Labored Spontaneous Non-Labored Spontaneous Non-Labored Spontaneous Respiratory Depth Normal Normal Normal Respiratory Pattern Regular Regular Regular Blood Pressure Blood Pressure [Left Arm] 145/56 H 143/52 H 134/58 L Blood Pressure Mean Blood Pressure Mean [Left Arm] 85 82 83 Blood Pressure Position [Left Arm] Semi-fowlers Lying Lying Pulse Oximetry 100 100 100 Oxygen Delivery Method Room Air Oxymask Oxymask Oxygen Flow Rate 10 10 GENERAL: Patient is awake, alert, and in no acute distress.Patient is resting comfortably and showing no signs of anxiety EYES: The conjunctivae are clear. The pupils are round and reactive. EARS, NOSE, MOUTH AND THROAT: The nose is without any evidence of any deformity. Mucous membranes are moist.Tongue is midline NECK: The neck is nontender and supple. RESPIRATORY: Normal respiratory effort is noted. There is no evidence of wheezing rhonchi or rales to auscultation. CARDIOVASCULAR: Regular rate and rhythm noted to auscultation. Systolic murmur suggested GASTROINTESTINAL: The abdomen is mildly distended but soft. Epigastric region is tender to palpation but no guarding or rigidity. RECTAL: Black stool strongly heme positive. MUSCULOSKELETAL/EXTREMITIES: There is no evidence of gross deformity. Full range of motion is noted in the hips and shoulders. SKIN: Pedal edema bilaterally, skin is pale. NEUROLOGIC: Patient is awake alert and oriented to person, place and situation. The patient recognizes her daughter. Course 0932: Past medical records reviewed. The patient was evaluated in room B7. A complete history and physical exam was performed. 0959: The patient started vomiting so I ordered Zofran. 1007: I discussed the patient's case with Dr. Marquita COHEN. He is agreeable for admi ssion. 1009: I discussed the patient's case with Dr. Dubois [facility], Hospitalist. He will evaluate the patient for further management. 1010: I updated the patient on the test results and plan for admission. She verbally agrees and understands. Consultations Consultation #1: I discussed the patient's case with Dr. Marquita COHEN. He is agreeable for admission. Time: 10:07 Consultation #2: I discussed the patient's case with Dr. Dubois [facility], Hospitalist. He will evaluate the patient for further management. Time: 10:09 Administered Medications Escitalopram Oxalate (Lexapro Tab) 10 mg PO HS NORMA Stop: 12/11/18 20:59 Last Admin: 11/11/18 21:27 Dose: 10 mg Documented by: [id number] Pantoprazole Sodium 40 mg/ (Dextrose) 100 mls @ 20 mls/hr IV Q5H NORMA Stop: 12/12/18 10:59 Last Admin: 11/12/18 07:12 Dose: 20 mls/hr Documented by: [id number] Infusion: 11/12/18 07:12 Dose: 20 mls/hr Documented by: [id number] Admin: 11/12/18 02:33 Dose: 20 mls/hr Documented by: [id number] Infusion: 11/12/18 02:33 Dose: 20 mls/hr Documented by: [id number] Admin: 11/11/18 22:03 Dose: 20 mls/hr Documented by: [id number] Infusion: 11/11/18 21:25 Dose: 20 mls/hr Documented by: [id number] Admin: 11/11/18 16:25 Dose: 20 mls/hr Documented by: [id number] Infusion: 11/11/18 16:25 Dose: 20 mls/hr Documented by: [id number] Admin: 11/11/18 12:05 Dose: 20 mls/hr Documented by: [id number] Sodium Chloride (Nss 1000ml) 1,000 mls @ 80 mls/hr IV .[id number] NORMA Stop: 12/11/18 14:16 Last Admin: 11/12/18 03:50 Dose: 80 mls/hr Documented by: [id number] Infusion: 11/12/18 03:50 Dose: 80 mls/hr Documented by: [id number] Admin: 11/11/18 16:25 Dose: 80 mls/hr Documented by: [id number] Acetaminophen (Ofirmev) 1,000 mg in 100 mls @ 400 mls/hr IV Q8H PRN; Protocol PRN Reason: Pain Stop: 12/11/18 16:14 Last Infusion: 11/11/18 17:21 Dose: 0 mls/hr Documented by: [id number] Admin: 11/11/18 16:51 Dose: 400 mls/hr Documented by: [id number] Lactobacillus Acidophilus (Floranex) 4 tab PO TID NORMA Stop: 12/11/18 20:59 Last Admin: 11/11/18 21:26 Dose: 4 tab Documented by: [id number] Levothyroxine Sodium (Synthroid) 112 mcg PO DAILYBB NORMA Stop: 12/12/18 06:29 Last Admin: 11/12/18 06:18 Dose: 112 mcg Documented by: [id number] Lisinopril (Zestril) 5 mg PO QAM NORMA Stop: 12/11/18 16:14 Last Admin: 11/11/18 16:55 Dose: 5 mg Documented by: [id number] Memantine (Namenda) 5 mg PO BID NORMA Stop: 12/11/18 20:59 Last Admin: 11/11/18 21:27 Dose: 5 mg Documented by: [id number] Olanzapine (Zyprexa) 7.5 mg PO HS NORMA Stop: 12/11/18 20:59 Last Admin: 11/11/18 21:29 Dose: 7.5 mg Documented by: [id number] Ropinirole HCl (Requip) 0.25 mg PO HS NORMA Stop: 12/11/18 20:59 Last Admin: 11/11/18 21:28 Dose: 0.25 mg Documented by: [id number] Discontinued Medications Famotidine (Pepcid 20mg Iv Push) 20 mg IV ONE STA Stop: 11/11/18 09:35 Last Admin: 11/11/18 09:59 Dose: 20 mg Documented by: [id number] Sodium Chloride (Nss) 500 mls @ 999 mls/hr IV .Q31M NORMA Stop: 11/11/18 10:15 Last Infusion: 11/11/18 10:59 Dose: 0 mls/hr Documented by: [id number] Admin: 11/11/18 09:59 Dose: 999 mls/hr Documented by: [id number] Pantoprazole Sodium 80 mg/ (Dextrose) 120 mls @ 480 mls/hr IV 1045 NORMA Stop: 11/11/18 10:59 Last Infusion: 11/11/18 11:49 Dose: 0 mls/hr Documented by: [id number] Admin: 11/11/18 11:33 Dose: 480 mls/hr Documented by: [id number] Metoclopramide HCl (Reglan) 10 mg IV NOW STA Stop: 11/11/18 10:49 Last Admin: 11/11/18 11:32 Dose: 10 mg Documented by: [id number] Olanzapine (Zyprexa) 5 mg PO ONE ONE Stop: 11/11/18 16:01 Last Admin: 11/11/18 16:32 Dose: 5 mg Documented by: [id number] Ondansetron HCl (Zofran) 4 mg IV NOW STA Stop: 11/11/18 09:56 Last Admin: 11/11/18 09:58 Dose: 4 mg Documented by: [id number] Ondansetron HCl (Zofran) Confirm Administered Dose 4 mg .ROUTE .STK-MED ONE Stop: 11/11/18 09:56 Last Admin: 11/11/18 09:59 Dose: Not Given Documented by: [id number] Medical Decision Making Differential Diagnosis Differential diagnosis: Etiologies such as esophagitis, variceal bleed, [place], [place] tear, gastritis, peptic ulcer disease, AVM, inflammatory bowel disease, ischemia, diverticulosis, colitis, malignancy, coagulopathy, thrombocytopenia, fissure, hemorrhoid, epistaxis , as well as others were entertained. Medical Records Attestation: I reviewed the patient's medical records. Home Medications Current Medication List: was personally reviewed by me Laboratory Data Attestation: I reviewed the patient's lab results. Result diagrams: 11/12/18 08:09 11/12/18 07:33 Lab Results 11/11/18 11/11/18 11/11/18 Range/Units 09:29 09:29 09:29 WBC 7.17 (4.8-10.8) K/uL RBC 4.41 (4.2-5.4) M/uL Hgb 13.0 (12.0-16.0) g/dL Hct 39.9 (37-47) % MCV 90.5 (80-100) fL MCH 29.5 (25-34) pg MCHC 32.6 (32-36) g/dL RDW Std Deviation 46.2 (36.4-46.3) fL RDW Coeff of Neville 14.0 (11.5-14.5) % Plt Count 244 (130-400) K/uL MPV 10.1 (7.4-10.4) fL Immature Gran % (Auto) 0.0 % Neut % (Auto) 82.3 % Lymph % (Auto) 11.0 % [place] % (Auto) 6.3 % Eos % (Auto) 0.4 % Baso % (Auto) 0.0 % Immature Gran # (Auto) 0.00 (0.00-0.02) K/uL Neut # (Auto) 5.90 (1.4-6.5) K/uL Lymph # (Auto) 0.79 L (1.2-3.4) K/uL [place] # (Auto) 0.45 (0.11-0.59) K/uL Eos # (Auto) 0.03 (0-0.5) K/uL Baso # (Auto) 0.00 (0-0.2) K/uL PT 10.7 (9.0-12.0) Seconds INR 1.0 (0.9-1.1) APTT 24.5 (21.0-31.0) Seconds PTT Ratio 0.9 Sodium 142 (136-145) mmol/L Potassium 4.0 (3.5-5.1) mmol/L Chloride 109 H (98-107) mmol/L Carbon Dioxide 27 (21-32) mmol/L Anion Gap 6.0 (3-11) BUN 34 H (7-18) mg/dl Creatinine 1.23 H (0.6-1.2) mg/dl Est Cr Clr Drug Dosing 36.0 ml/min Est GFR ( Amer) 49.0 Est GFR (Non-Af Amer) 42.3 BUN/Creatinine Ratio 27.6 H (10-20) Glucose 96 (70-99) mg/dl Calcium 8.6 (8.5-10.1) mg/dl Total Bilirubin 0.5 (0.2-1) mg/dl AST 30 (15-37) U/L ALT 26 (12-78) U/L Alkaline Phosphatase 130 H (45-117) U/L Troponin I < 0.015 (0-0.045) ng/ml Total Protein 7.4 (6.4-8.2) gm/dl Albumin 3.6 (3.4-5.0) gm/dl Globulin 3.8 (2.5-4.0) gm/dl Albumin/Globulin Ratio 1.0 (0.9-2) Lipase 54 L (73-393) U/L Blood Type Antibody Screen 11/11/18 Range/Units 09:29 WBC (4.8-10.8) K/uL RBC (4.2-5.4) M/uL Hgb (12.0-16.0) g/dL Hct (37-47) % MCV (80-100) fL MCH (25-34) pg MCHC (32-36) g/dL RDW Std Deviation (36.4-46.3) fL RDW Coeff of Neville (11.5-14.5) % Plt Count (130-400) K/uL MPV (7.4-10.4) fL Immature Gran % (Auto) % Neut % (Auto) % Lymph % (Auto) % [place] % (Auto) % Eos % (Auto) % Baso % (Auto) % Immature Gran # (Auto) (0.00-0.02) K/uL Neut # (Auto) (1.4-6.5) K/uL Lymph # (Auto) (1.2-3.4) K/uL [place] # (Auto) (0.11-0.59) K/uL Eos # (Auto) (0-0.5) K/uL Baso # (Auto) (0-0.2) K/uL PT (9.0-12.0) Seconds INR (0.9-1.1) APTT (21.0-31.0) Seconds PTT Ratio Sodium (136-145) mmol/L Potassium (3.5-5.1) mmol/L Chloride (98-107) mmol/L Carbon Dioxide (21-32) mmol/L Anion Gap (3-11) BUN (7-18) mg/dl Creatinine (0.6-1.2) mg/dl Est Cr Clr Drug Dosing ml/min Est GFR ( Amer) Est GFR (Non-Af Amer) BUN/Creatinine Ratio (10-20) Glucose (70-99) mg/dl Calcium (8.5-10.1) mg/dl Total Bilirubin (0.2-1) mg/dl AST (15-37) U/L ALT (12-78) U/L Alkaline Phosphatase (45-117) U/L Troponin I (0-0.045) ng/ml Total Protein (6.4-8.2) gm/dl Albumin (3.4-5.0) gm/dl Globulin (2.5-4.0) gm/dl Albumin/Globulin Ratio (0.9-2) Lipase (73-393) U/L Blood Type O Positive Antibody Screen NEGATIVE Imaging Data Radiologist's Impression: Radiology results as stated below per my review and the radiologist's interpretation: XR chest 1V portable CLINICAL HISTORY: Gastrointestinal hemorrhage COMPARISON STUDY: 07/20/2018 FINDINGS: The heart is normal in size. There is no failure. There is no focal pulmonary consolidation. There are no pleural effusions. There is a retrocardiac opacity consistent with a hiatal hernia.[ IMPRESSION: Hiatal hernia. No active disease in the chest. Electronically signed by: Merlin Dennison M.D. 11/11/2018 10:00 AM [facility] CLINICAL HISTORY: GI bleeding. FINDINGS: 2 AP supine abdominal radiographs are compared to study dated 07/19/2018 and correlated with abdominal CT dated 07/27/2018. There is a nonobstructed abdominal bowel gas pattern. No evidence of intraperitoneal free air is seen on these supine images. Postoperative change is noted at the level of the diaphragm. There are no abnormal abdominal calcifications. The skeletal structures are osteopenic. Lumbosacral spondylosis is observed. A vaginal pessary is in place. IMPRESSION: Nonobstructed abdominal bowel gas pattern. Electronically signed by: Prince Pathak M.D. 11/11/2018 10:49 AM Blood Pressure Blood Pressure Findings: Elevated blood pressure Blood Pressure Disposition: further management by hospitalist MDM Narrative The patient is a 78-year-old female who presented to the emergency department by ambulance for an evaluation of GI bleeding. The patient had multiple episodes of coffee-ground emesis. She has black stool which is strongly heme positive on physical exam. I discussed the patient's laboratory and radiographic studies with her. She was treated with Pepcid in the emergency department. Unfortunately I could not order Protonix in the emergency department because of pharmacy rules. I discussed the patient's laboratory and radiographic studies with her and her daughter. The patient was also treated with IV Zofran and IV fluids. I discussed her case with the patient's primary GI physician as well as the on-call [facility] hospitalist group. They have agreed to evaluate the patient in the emergency department for further management disposition. The patient's hemoglobin was stable at this time. She is not hypotensive. She did have one episode of emesis and then had oxygen desaturation afterwards. She was reevaluated afterwards and was breathing easier. Her oxygen saturation was acceptable. She was placed on supplemental oxygen. Impression & Plan Upper GI bleed, Hematemesis Discharge Plan Visit Data *Final* Discharge Date/Time: 11/11/18 11:53 Chief Complaint: GI Bleed Stated Complaint: abd pain ED Provider: Gabe Gomez Discharge Problem: Upper GI bleed, Hematemesis Patient Disposition: Still a Patient Discharge Instructions Interventions: ED Discharge Assessment Last Done: 11/11/18 11:53 Discharge Problem: Hematemesis Qualifiers: Nausea presence: unspecified Qualified Code(s): K92.0 - Hematemesis The scribe's documentation has been prepared under my direction and personally reviewed by me in its entirety. I confirm that the note above accurately reflects all work, treatment, procedures, and medical decision making performed by me.
[2018-11-11] MEDS ORDERED: PANTOprazole 80 MG in DEXTROSE 5% 100 ML IV SCH (10:45)
[2018-11-11] MEDS ORDERED: METOCLOPRAMIDE HCL INJ 5 MG/ML 2 ML VIAL IV STA (10:48)
--- NOTE | 2018-11-11 10:51 | XRay Report ---
[facility]UB CLINICAL HISTORY: GI bleeding. FINDINGS: 2 AP supine abdominal radiographs are compared to study dated 07/19/2018 and correlated with abdominal CT dated 07/27/2018. There is a nonobstructed abdominal bowel gas pattern. No evidence of in traperitoneal free air is seen on these supine images. Postoperative change is noted at the level of the diaphragm. There are no abnormal abdominal calcifications. The skeletal structures are osteopenic . Lumbosacral spondylosis is observed. A vaginal pessary is in place. IMPRESSION: Nonobstructed abdominal bowel gas pattern. Electronically signed by: Prince Pathak M.D. 11/11/2018 10:49 AM
--- NOTE | 2018-11-11 11:03 | Gastrointestinal Consultation ---
Date of Consultation November 11, 2018 Assessment & Plan (1) Hematemesis: -Initiate Protonix infusion. Confirmed with pharmacy that this has been ordered. -Continue to monitor H/H. -Zofran 4 mg q 6 hr prn n/v. -10 mg IV Reglan prior to EGD. -EGD in OR today. Thank you for allowing us to participate in the care of this patient. If you should have any further questions or concerns, do not hesitate to contact us at extension [phone] or [phone]. Supervising Physician Co-Signing Physician Notes Agree with JOAN Chadwick as above Abd: Soft, NT, ND, +BS Continue current therapy with Protonix gtt Proceed with emergent EGD History of Present Illness Reason for Consultation: Vomiting, possible upper GI bleed History of Present Illness Patient is a 78 yo female with dementia, CKD3, recurrent pneumonia, RLS, depression, chronic pain, hypothyroidism, hiatal hernia, anemia, and history of esophageal stenosis who presents to the ED accompanied by her daughter. Daughter provides the history due to patient's dementia. Daughter reports she was in her usual state of health and was feeling quite well until last night when she refused her PPI and Carafate. This morning she reportedly woke up with vomiting and reporting it was hard to breathe. In the ED during my evaluation, patient had multiple episodes of coffee-ground emesis. Presently her H/H is 13.0/39.9 at the time of admission, however this was prior to the emesis episodes. There is no documented history of NSAID use. As an outpatient she takes Lansoprazole 30 mg BID & Carafate 1-4 times daily. She had an EGD in June 2018 that indicated an esophageal stenosis & gastritis as well as a hiatal hernia. The patient is presently on 4L O2 in the ED as she was saturating at 87% upon presentation to the ED. Her sats are presently 92% on 4L O2 NC. Allergies Allergy/AdvReac Type Severity Reaction Status Date / Time caffeine Allergy Unknown . Verified 11/11/18 09:46 desipramine Allergy Unknown . Verified 11/11/18 09:46 ergotamine Allergy Unknown . Verified 11/11/18 09:46 nitrofurantoin Allergy Unknown . Verified 11/11/18 09:46 watermelon Allergy Unknown UNKNOWN Verified 11/11/18 09:46 Cantaloupe Allergy Unknown RASH Uncoded 11/11/18 09:46 Home Medications Home Medications Medication Instructions Recorded Confirmed Type calcium carbonate [Calcium 600] 600 mg PO DAILY 07/16/18 11/11/18 History cholecalciferol (vitamin D3) 2,000 unit PO DAILY 07/16/18 11/11/18 History [Vitamin D3] cranberry extract 250 mg PO DAILY 07/16/18 11/11/18 History escitalopram oxalate 10 mg PO HS 07/16/18 11/11/18 History ferrous sulfate 7.3 ml PO DAILY 07/16/18 11/11/18 History lansoprazole 30 mg PO BID 07/16/18 11/11/18 History levothyroxine 112 mcg PO QAM 07/16/18 11/11/18 History lisinopril 5 mg PO QAM 07/16/18 11/11/18 History magnesium hydroxide [Milk of 30 ml PO DAILY PRN 07/16/18 11/11/18 History Magnesia] memantine 5 mg PO BID 07/16/18 11/11/18 History olanzapine [Zyprexa] 5 mg PO QAM 07/16/18 11/11/18 History olanzapine [Zyprexa] 7.5 mg PO HS 07/16/18 11/11/18 History ondansetron HCl 4 mg PO QID PRN 07/16/18 11/11/18 History ropinirole 0.25 mg PO HS 07/16/18 11/11/18 History sennosides-docusate sodium [Senna 2 tab PO DAILY 07/16/18 11/11/18 History Plus] sumatriptan succinate 25 mg PO DAILY PRN 07/16/18 11/11/18 History Fleet Enema 118 ml MS HS PRN 07/27/18 11/11/18 History Lactobacillus acidoph-L.bulgar 4 tab PO TID 07/27/18 11/11/18 History [Floranex] bisacodyl 10 mg MS DAILY PRN 07/27/18 11/11/18 History acetaminophen [Tylenol] 650 mg PO QAM PRN #0 tab 07/30/18 11/11/18 Rx fentanyl 25 mcg TOPICAL .Q3D #10 patch 07/30/18 11/11/18 Rx oxycodone 5 mg PO Q4H PRN #15 tab 07/30/18 11/11/18 Rx polyethylene glycol 3350 [Miralax] 17 gm PO DAILY PRN #30 ea 07/30/18 11/11/18 Rx sucralfate [Carafate] 10 ml PO QID #0 ml 07/30/18 11/11/18 Rx lorazepam 0.5 mg PO QID 11/11/18 11/11/18 History sulfamethoxazole-trimethoprim 1 tab PO DAILY 11/11/18 11/11/18 History Patient History Medical History Dementia (Chronic) Female bladder prolapse (Resolved) Anemia Fracture of head of left humerus (Acute) Fracture of left olecranon process (Acute) Fracture, thoracic vertebra, compression (Acute) HTN (hypertension) (Chronic) Lumbar transverse process fracture (Acute) T12 compression fracture (Acute) Thoracic compression fracture (Acute) UTI (lower urinary tract infection) (Acute) Chronic scarring of esophagus Surgical History S/P breast biopsy S/P hysterectomy S/P shoulder surgery Status post Rudy fundoplication Family History Other Family history non-contributory Social History Preferred Language: Mauritian Communication Ability: dementia Iv Technician Required: No Beliefs That Will Affect Care: None marital status: Current Living Situation: Halfway Current Living Situation Comment: [facility] current occupational status: retired Other Information That Helps Us Care for You: No Feels Safe at Home: Yes Safety Concerns: Feels Safe At This Time Smoking Status: Never smoker Do You Dip or Chew Tobacco: No ; Second Hand Exposure: No ; Tobacco Cessation Education Requested by Patient: No Hx Alcohol Use: No Hx Substance Use: No Review of Systems Review of Systems: Patient could not participate with extensive ROS due to dementia, however did report vomiting, shortness of breath, and acknowledged acid reflux Physical Exam Constitutional: + ill appearing Eyes: PERRL, conjunctivae normal, anicteric sclerae ENMT: external ear and nose normal, oropharynx normal Neck: normal visual inspection Respiratory: normal respiratory effort, lungs clear to auscultation Cardiovascular: RRR, no murmur, no edema Gastrointestinal (Abdomen): normal bowel sounds, soft, nontender, no hepatosplenomegaly patient with multiple episodes of coffee ground emesis during my physical examination Skin: no rashes, warm and dry Psychiatric: Orientation: alert Results & Data Vital Signs (Past 12 Hours) Vital Signs Temp Pulse Resp BP Pulse Ox 11/11/18 10:30 24 167/75 H 94 11/11/18 10:12 71 87 L 11/11/18 10:04 71 16 169/70 H 11/11/18 10:00 67 29 H 92 11/11/18 09:33 59 L 18 97 11/11/18 09:27 36.7 C 54 L 20 175/72 H 98 11/11/18 09:23 64 23 175/72 H 97 PG Care Time/CCT Total # of Minutes Spent Total Time Spent with Patient: Total time spent is greater than 50% in coordination of care (as documented) at patient's floor/unit and/or counseling patient:
[2018-11-11] MEDS ORDERED: LIDOCAINE HCL 2% 2 ML VIAL/AMP(20MG/ML) INFIL ONE (11:58)
[2018-11-11] MEDS ORDERED: PROPOFOL IV EMULSION 10 MG/ML 20 ML VIAL IV ONE (11:58)
[2018-11-11] MEDS ORDERED: MIDAZOLAM HCL 1 MG/ML 2ML VIAL ONE (11:58)
[2018-11-11] MEDS ORDERED: SUCCINYLCHOLINE CHLORIDE 20 MG/ML 10 ML VIAL ONE (11:58)
[2018-11-11] MEDS ORDERED: fentaNYL citrate 100 MCG/2 ML VIAL ONE (11:58)
--- NOTE | 2018-11-11 12:00 | History & Physical Report ---
Date of Service November 11, 2018 Assessment & Plan (1) Upper GI bleed: EGD with esophagitis and gastritis. No evidence of acute bleeding. Appreciate Case input Continue with pantoprazole per GI orders Okay to advance diet to clear liquids tonight and give oral medications Continue to follow serial H&H * 2000 tonight and a.m. labs ordered * Most recent bowel movement with bilious appearance but no bipin blood Continue to follow supportively (2) Dementia: Patient requires meds on a scheduled basis Per daughter's report when patient does not get her meds she has increased confusion and can have some slight combativeness Continue home meds as prescribed In the event the patient needs to be n.p.o., call to see if limited meds can be administered orally (3) Chronic kidney disease, stage 3a: Continue normal saline solution at 80 mL liters per hour due to n.p.o. status from GI bleed and procedure Follow serial labs BUN 34 Creatinine 1.23 (4) Restless legs syndrome: Okay to continue home meds No current acute complaints (5) HTN (hypertension): Continue home dose of lisinopril Currently hemodynamically stable in the low 100s Continue to follow. (6) Hypothyroidism: Continue levothyroxine No need for any further inpatient work-up Continue to manage outpatient (7) DVT prophylaxis: No chemical prophylaxis secondary to GI bleed Ambulate as tolerated with assistance Reassess in the morning Please refer to Dr. Betts's addendum for further recommendations History of Present Illness Attending: Dr. Betts Is a 78-year-old female that resides at [facility] in [facility]. She has a past medical history which includes CKD stage I II AAA, esophageal stenosis, history of pneumonia, restless leg syndrome, chronic and progressive dementia, depression, hypothyroidism, chronic sinus bradycardia, hiatal hernia, hypertension. The patient reports that over the last 2 to 3 days she had increased mild abdominal pain in the midepigastric region. Last evening she developed hematemesis as witnessed by the senior living staff. This continued overnight and progressed to melena this morning. The patient was brought to the emergency department and had witnessed hematemesis and melena on arrival. The patient's hemoglobin is 13 and hematocrit is 39.9. Hemodynamically the patient is stable. She has no significant hypoxia. She has some pain to deep palpation in the midepigastric region but otherwise has no complaints of abdominal pain at this time. Gastroenterology has been consulted and is planning on taking the patient for EGD from the emergency department. Patient has been started on pantoprazole drip. Further management per gastroenterology Patient is able to give some history but also confirmed with daughter Leatha who is present with the patient. There is no reported fever, chills, sweats, rigors. No recent trauma or injury to the abdomen. No recent travel. No new foods have been introduced. The patient has no other acute complaints. Primary Care Provider: [facility] Allergies Allergy/AdvReac Type Severity Reaction Status Date / Time melon Allergy Intermediate Cantelope Verified 11/11/18 13:45 - Rash caffeine Allergy Unknown . Verified 11/11/18 09:46 desipramine Allergy Unknown . Verified 11/11/18 09:46 ergotamine Allergy Unknown . Verified 11/11/18 09:46 nitrofurantoin Allergy Unknown . Verified 11/11/18 09:46 watermelon Allergy Unknown UNKNOWN Verified 11/11/18 09:46 Home Medications Home Medications Medication Instructions Recorded Confirmed Type calcium carbonate [Calcium 600] 600 mg PO DAILY 07/16/18 11/11/18 History cholecalciferol (vitamin D3) 2,000 unit PO DAILY 07/16/18 11/11/18 History [Vitamin D3] cranberry extract 250 mg PO DAILY 07/16/18 11/11/18 History escitalopram oxalate 10 mg PO HS 07/16/18 11/11/18 History ferrous sulfate 7.3 ml PO DAILY 07/16/18 11/11/18 History lansoprazole 30 mg PO BID 07/16/18 11/11/18 History levothyroxine 112 mcg PO QAM 07/16/18 11/11/18 History lisinopril 5 mg PO QAM 07/16/18 11/11/18 History magnesium hydroxide [Milk of 30 ml PO DAILY PRN 07/16/18 11/11/18 History Magnesia] memantine 5 mg PO BID 07/16/18 11/11/18 History olanzapine [Zyprexa] 5 mg PO QAM 07/16/18 11/11/18 History olanzapine [Zyprexa] 7.5 mg PO HS 07/16/18 11/11/18 History ondansetron HCl 4 mg PO QID PRN 07/16/18 11/11/18 History ropinirole 0.25 mg PO HS 07/16/18 11/11/18 History sennosides-docusate sodium [Senna 2 tab PO DAILY 07/16/18 11/11/18 History Plus] sumatriptan succinate 25 mg PO DAILY PRN 07/16/18 11/11/18 History Fleet Enema 118 ml UT HS PRN 07/27/18 11/11/18 History Lactobacillus acidoph-L.bulgar 4 tab PO TID 07/27/18 11/11/18 History [Floranex] bisacodyl 10 mg [place] DAILY PRN 07/27/18 11/11/18 History acetaminophen [Tylenol] 650 mg PO QAM PRN #0 tab 07/30/18 11/11/18 Rx fentanyl 25 mcg TOPICAL .Q3D #10 patch 07/30/18 11/11/18 Rx oxycodone 5 mg PO Q4H PRN #15 tab 07/30/18 11/11/18 Rx polyethylene glycol 3350 [Miralax] 17 gm PO DAILY PRN #30 ea 07/30/18 11/11/18 Rx sucralfate [Carafate] 10 ml PO QID #0 ml 07/30/18 11/11/18 Rx lorazepam 0.5 mg PO QID 11/11/18 11/11/18 History sulfamethoxazole-trimethoprim 1 tab PO DAILY 11/11/18 11/11/18 History Past Med/Surg History Medical History Dementia (Chronic) Female bladder prolapse (Resolved) Anemia Fracture of head of left humerus (Acute) Fracture of left olecranon process (Acute) Fracture, thoracic vertebra, compression (Acute) HTN (hypertension) (Chronic) Lumbar transverse process fracture (Acute) T12 compression fracture (Acute) Thoracic compression fracture (Acute) UTI (lower urinary tract infection) (Acute) Chronic scarring of esophagus Surgical History S/P breast biopsy S/P hysterectomy S/P shoulder surgery Status post Rudy fundoplication Family History Other Family history non-contributory Social History Preferred Language: Belarusian Communication Ability: dementia Hand Stonecutter Required: No Beliefs That Will Affect Care: None marital status: Current Living Situation: Group Home Current Living Situation Comment: [facility] current occupational status: retired Other Information That Helps Us Care for You: No Feels Safe at Home: Yes Safety Concerns: Feels Safe At This Time Smoking Status: Never smoker Do You Dip or Chew Tobacco: No ; Second Hand Exposure: No ; Tobacco Cessation Education Requested by Patient: No Hx Alcohol Use: No Hx Substance Use: No Review of Systems Review of Systems: All systems reviewed & are unremarkable except as noted in HPI & below Patient does have mild epigastric pain to deep palpation but otherwise has no pain in her abdomen. Physical Exam Physical Exam: GENERAL : No acute distress. Patient appears to be competent other than some short-term memory loss. EYES: No icterus, gaze conjugate. Pupils equal and round and reactive to light NOSE: No evidence of epistaxis. No evidence of septal breech MOUTH: No lesions or candidiasis. No evidence of bleeding in the posterior oropharynx NECK: Supple. No stridor or appreciation carotid bruits LUNGS: CTA B/L, no wheezes, rales or rhonchi. No appreciation of ectopy HEART: Regular, rate controlled in the 60s ABDOMEN: Soft, ND, BS Present. Some tenderness in the mid epigastric region with deep palpation. No guarding or rebound tenderness. EXTREMITIES: No LE edema, pedal pulses intact NEURO: A&OX3. Results & Data Vital Signs (Past 12 Hours) Vital Signs Temp Pulse Pulse Resp BP BP Pulse Ox 11/11/18 11:53 61 18 138/60 98 11/11/18 11:07 62 23 148/61 H 100 11/11/18 10:30 24 167/75 H 94 11/11/18 10:12 71 87 L 11/11/18 10:04 71 16 169/70 H 11/11/18 10:00 67 29 H 92 11/11/18 09:33 59 L 18 97 11/11/18 09:27 36.7 C 54 L 20 175/72 H 98 11/11/18 09:23 64 23 175/72 H 97 Laboratory Results 11/11/18 09:29 11/11/18 09:29 Diagnostic Findings KUB CLINICAL HISTORY: GI bleeding. FINDINGS: 2 AP supine abdominal radiographs are compared to study dated 07/19/2018 and correlated with abdominal CT dated 07/27/2018. There is a nonobstructed abdominal bowel gas pattern. No evidence of intraperitoneal free air is seen on these supine images. Postoperative change is noted at the level of the diaphragm. There are no abnormal abdominal calcifications. The skeletal structures are osteopenic. Lumbosacral spondylosis is observed. A vaginal pess gerber is in place. IMPRESSION: Nonobstructed abdominal bowel gas pattern. Electronically signed by: Prince Pathak M.D. 11/11/2018 10:49 AM Code Status & VTE Plan VTE Prophylaxis Plan Reason for no VTE drug order: Contraindicated (UGI Bleed) Supervising Physician Co-Signing Physician Notes Patient seen and examined with Prince MURPHY. I agree with his HPI, history, ROS, physical exam and A/P. Case was discussed with his as well as the chavis points in treatment. I personally reviewed the lab work and imaging and other diagnostic studies. Patient presented with melena and hematemesis but not a significant drop in Hb. Vitals stable. Taken for EGD this afternoon, found to have esophagitis and gastritis. - GI bleeding due to gastritis and esophagitis no active bleeding at this time follow Hb treat with Protonix clear liquids for today discuss with GI tomorrow for full details see the H&P PG Care Time/CCT Total # of Minutes Spent Total Time Spent with Patient: Total time spent is greater than 50% in coordination of care (as documented) at patient's floor/unit and/or counseling patient: 60 (1) Dementia Dementia behavioral disturbance: with behavioral disturbance Dementia type: associated with other underlying disease Qualified Code(s): F02.81 - Dementia in other diseases classified elsewhere with behavioral disturbance (2) Hypothyroidism Hypothyroidism type: acquired Qualified Code(s): E03.9 - Hypothyroidism, unspecified
[2018-11-11] MEDS: PANTOprazole 40 MG in DEXTROSE 5% 100 ML IV SCH ×3 (12:05→22:03)
--- NOTE | 2018-11-11 12:18 | Anesthesiology Consultation ---
Date of Service November 11, 2018 Assessment & Plan Chart Review Chart Review: Acceptable Risk for Surgery Consults Requested none History Surgery Operation Date: 11/11/18 08:50 Proposed Procedures p Esophagogastroduodenoscopy Dr Sim Carmona Case, DO Height/Weight Height: 5 ft 4 in Weight: 66.8 kg Allergies Allergy/AdvReac Type Severity Reaction Status Date / Time caffeine Allergy Unknown . Verified 11/11/18 09:46 desipramine Allergy Unknown . Verified 11/11/18 09:46 ergotamine Allergy Unknown . Verified 11/11/18 09:46 nitrofurantoin Allergy Unknown . Verified 11/11/18 09:46 watermelon Allergy Unknown UNKNOWN Verified 11/11/18 09:46 Cantaloupe Allergy Unknown RASH Uncoded 11/11/18 09:46 Medications Home Medications Medication Instructions Recorded Confirmed Last Taken calcium carbonate [Calcium 600] 600 mg PO DAILY 07/16/18 11/11/18 11/10/18 cholecalciferol (vitamin D3) 2,000 unit PO DAILY 07/16/18 11/11/18 11/10/18 [Vitamin D3] cranberry extract 250 mg PO DAILY 07/16/18 11/11/18 11/10/18 escitalopram oxalate 10 mg PO HS 07/16/18 11/11/18 11/10/18 ferrous sulfate 7.3 ml PO DAILY 07/16/18 11/11/18 11/10/18 lansoprazole 30 mg PO BID 07/16/18 11/11/18 11/10/18 levothyroxine 112 mcg PO QAM 07/16/18 11/11/18 11/10/18 lisinopril 5 mg PO QAM 07/16/18 11/11/18 11/10/18 magnesium hydroxide [Milk of 30 ml PO DAILY PRN 07/16/18 11/11/18 11/10/18 Magnesia] memantine 5 mg PO BID 07/16/18 11/11/18 11/10/18 olanzapine [Zyprexa] 5 mg PO QAM 07/16/18 11/11/18 11/10/18 olanzapine [Zyprexa] 7.5 mg PO HS 07/16/18 11/11/18 11/10/18 ondansetron HCl 4 mg PO QID PRN 07/16/18 11/11/18 11/10/18 ropinirole 0.25 mg PO HS 07/16/18 11/11/18 11/10/18 sennosides-docusate sodium [Senna 2 tab PO DAILY 07/16/18 11/11/18 11/10/18 Plus] sumatriptan succinate 25 mg PO DAILY PRN 07/16/18 11/11/18 11/10/18 Fleet Enema 118 ml MN HS PRN 07/27/18 11/11/18 11/10/18 Lactobacillus acidoph-L.bulgar 4 tab PO TID 07/27/18 11/11/18 11/10/18 [Floranex] bisacodyl 10 mg [place] DAILY PRN 07/27/18 11/11/18 11/10/18 acetaminophen [Tylenol] 650 mg PO QAM PRN #0 tab 07/30/18 11/11/18 11/10/18 fentanyl 25 mcg TOPICAL .Q3D #10 patch 07/30/18 11/11/18 11/10/18 oxycodone 5 mg PO Q4H PRN #15 tab 07/30/18 11/11/18 11/10/18 polyethylene glycol 3350 [Miralax] 17 gm PO DAILY PRN #30 ea 07/30/18 11/11/18 11/10/18 sucralfate [Carafate] 10 ml PO QID #0 ml 07/30/18 11/11/18 11/10/18 lorazepam 0.5 mg PO QID 11/11/18 11/11/18 11/10/18 sulfamethoxazole-trimethoprim 1 tab PO DAILY 11/11/18 11/11/18 11/10/18 Active Medications Generic Name Dose Route Start Last Admin Trade Name Freq PRN Reason Stop Dose Admin Pantoprazole Sodium 40 mg/ 100 mls @ 20 mls/hr 11/11/18 11:00 11/11/18 12:05 Dextrose IV 11/11/18 15:59 20 mls/hr Q5H NORMA Administration NPO Date Last Intake of Fluids: 11/10/18 Time Last Intake of Fluids: 20:00 Date Last Intake of Solids: 11/10/18 Time Last Intake of Solids: 20:00 Past Medical History Medical History Dementia (Chronic) Female bladder prolapse (Resolved) Anemia Fracture of head of left humerus (Acute) Fracture of left olecranon process (Acute) Fracture, thoracic vertebra, compression (Acute) HTN (hypertension) (Chronic) Lumbar transverse process fracture (Acute) T12 compression fracture (Acute) Thoracic compression fracture (Acute) UTI (lower urinary tract infection) (Acute) Chronic scarring of esophagus Past Family History Family History Other Family history non-contributory Past Surgical History Surgical History S/P breast biopsy S/P hysterectomy S/P shoulder surgery Status post Rudy fundoplication Social History Smoking Status: Never smoker Do You Dip or Chew Tobacco: No Hx Alcohol Use: No Hx Substance Use: No substance use type: does not use Physical Exam Vital Signs Last Vital Signs Temp 36.8 C 11/11/18 12:00 Pulse 64 11/11/18 12:00 Resp 16 11/11/18 12:00 BP 145/56 H 11/11/18 12:00 Pulse Ox 100 11/11/18 12:00 Testing Laboratory Results 11/11/18 09:29 11/11/18 09:29 PT 10.7 Seconds (9.0-12.0) 11/11/18 09:29 INR 1.0 (0.9-1.1) 11/11/18 09:29 APTT 24.5 Seconds (21.0-31.0) 11/11/18 09:29 Blood Type O Positive 11/11/18 09:29 Antibody Screen NEGATIVE 11/11/18 09:29
[2018-11-11] MEDS ORDERED: ePHEDrine sulfate 50 MG/ML AMP IV PRN (13:22)
[2018-11-11] MEDS ORDERED: ATROPINE SULFATE 0.1 MG/ML 10ML SYR IV PRN (13:22)
--- NOTE | 2018-11-11 13:29 | GI REPORT ---
Patient Name: Kailey Hunt Procedure Date: 11/11/2018 11:59 AM Date of : 1940 Admit Type: Emergency Department Age: 78 Gender: Female Attending MD: Felix Montemayor DO Procedure: Upper GI endoscopy Providers: Felix Montemayor DO Referring MD: Felix Montemayor DO Indications: Coffee-ground emesis, Melena Medicines: Monitored Anesthesia Care Complications: No immediate complications. Estimated Blood Loss: Estimated blood loss: none. Procedure: Pre-Anesthesia Assessment: - Prior to the procedure, a History and Physical was performed, and patient medications and allergies were reviewed. The patient's tolerance of previous anesthesia was also reviewed. The risks and benefits of the procedure and the sedation options and risks were discussed with the patient. All questions were answered, and informed consent was obtained. Prior Anticoagulants: The patient has taken no previous anticoagulant or antiplatelet agents. ASA Grade Assessment: E - Emergency. After reviewing the risks and benefits, the patient was deemed in satisfactory condition to undergo the procedure. After obtaining informed consent, the endoscope was passed under direct vision. Throughout the procedure, the patient's blood pressure, pulse, and oxygen saturations were monitored continuously. The Endoscope was introduced through the mouth, and advanced to the third part of duodenum. The upper GI endoscopy was accomplished without difficulty. The patient tolerated the procedure well. Findings: Moderately severe esophagitis with no bleeding was found. A medium-sized hiatal hernia was present. Retained fluid was found on the greater curvature of the stomach. Localized moderate inflammation characterized by erythema and friability was found in the gastric antrum. The examined duodenum was normal. Impression: - Moderately severe acute esophagitis. - Medium-sized hiatal hernia. - Retained gastric fluid. - Gastritis. - Normal examined duodenum. - No specimens collected. Recommendation: - Admit the patient to hospital [facility] for ongoing care. - NPO. - Use Protonix (pantoprazole) 40 mg IV BID. Felix Montemayor DO 11/11/2018 1:29:35 PM This report has been signed electronically. Note Initiated On: 11/11/2018 11:59 AM Number of Addenda: 0 I attest to the content of the Intraoperative Record and orders documented therein, exceptions below {[id number]}
[2018-11-11] MEDS ORDERED: ONDANSETRON INJ 2 MG/ML 2 ML VIAL IV PRN (14:17)
--- NOTE | 2018-11-11 14:19 | Anesthesiology Progress Note ---
Date of Service November 11, 2018 Anesthesia Post Procedure Vital Signs Vital Signs: Temp Pulse Pulse Pulse Resp BP BP 11/11/18 14:10 37.3 C 70 22 132/47 L 11/11/18 14:00 66 20 138/70 11/11/18 13:50 73 21 166/80 H 11/11/18 13:40 66 18 134/58 L 11/11/18 13:34 36.5 C 66 18 143/52 H 11/11/18 12:00 36.8 C 64 16 145/56 H 11/11/18 11:53 61 18 138/60 11/11/18 11:07 62 23 148/61 H 11/11/18 10:30 24 167/75 H 11/11/18 10:12 71 11/11/18 10:04 71 16 169/70 H 11/11/18 10:00 67 29 H 11/11/18 09:33 59 L 18 11/11/18 09:27 36.7 C 54 L 20 175/72 H 11/11/18 09:23 64 23 175/72 H Pulse Ox 11/11/18 14:10 95 11/11/18 14:00 100 11/11/18 13:50 100 11/11/18 13:40 100 11/11/18 13:34 100 11/11/18 12:00 100 11/11/18 11:53 98 11/11/18 11:07 100 11/11/18 10:30 94 11/11/18 10:12 87 L 11/11/18 10:04 11/11/18 10:00 92 11/11/18 09:33 97 11/11/18 09:27 98 11/11/18 09:23 97 Transfer of Care Handoff Completed per policy Notes Mental Status: alert / awake / arousable and participated in evaluation Patient Amnestic to Procedure: Yes Nausea / Vomiting: adequately controlled Pain: adequately controlled Airway Patency, RR, SpO2: stable & adequate BP & HR: stable & adequate Hydration State: stable & adequate Anesthetic Complications: no major complications apparent
[2018-11-11 14:38] LABS: Hematocrit (blood only) 35.6 % (37-47); Hemoglobin 11.7 g/dL (12.0-16.0)
[2018-11-11] MEDS ORDERED: ACETAMINOPHEN 1000 MG/100 ML IV IV PRN (15:57)
[2018-11-11] MEDS ORDERED: OLANZapine 5 MG TABLET PO ONE (16:00)
[2018-11-11] MEDS ORDERED: SUMAtriptan succinate 25 MG TAB PO PRN (16:04)
[2018-11-11] MEDS ORDERED: ACETAMINOPHEN 1,000 MG/100 ML VIAL IV PRN (16:15)
[2018-11-11] MEDS: SODIUM CHLORIDE 0.9% 1000ML 1,000 ML IV SCH (16:25)
[2018-11-11] MEDS: LISINOPRIL 5 MG TAB PO SCH (16:55)
[2018-11-11 20:34] LABS: Hematocrit (blood only) 33.4 % (37-47)
[2018-11-11] MEDS: LACTOBACILLUS ACIDOPHILUS (FLORANEX) TAB PO SCH (21:26)
[2018-11-11] MEDS: ESCITALOPRAM OXALATE 10 MG TAB PO SCH (21:27)
[2018-11-11] MEDS: MEMANTINE HCL 5 MG TAB PO SCH (21:27)
[2018-11-11] MEDS: ROPINIROLE HCL 0.25 MG TABLET PO SCH (21:28)
[2018-11-11] MEDS: OLANZAPINE 2.5 MG TAB PO SCH (21:29)
[2018-11-12] MEDS: PANTOprazole 40 MG in DEXTROSE 5% 100 ML IV SCH ×5 (02:33→23:20)
[2018-11-12] MEDS: SODIUM CHLORIDE 0.9% 1000ML 1,000 ML IV SCH ×2 (03:50→18:09)
[2018-11-12] MEDS: LEVOTHYROXINE SODIUM 112 MCG TABLET PO SCH (06:18)
[2018-11-12 08:13] LABS: Calcium 8.1 mg/dl (8.5-10.1); Creatinine Clr Calc Pharmacy 45.2 ml/min; Est GFR (African American) 64.5; Est GFR (Non-African American) 55.6; Potassium 3.7 mmol/L (3.5-5.1)
[2018-11-12 08:30] LABS: Eosinophils # (auto) 0.19 K/uL (0-0.5); Eosinophils % (auto) 2.6 %; Hematocrit (blood only) 33.2 % (37-47); Hemoglobin 10.6 g/dL (12.0-16.0); Immature Granulocytes # (auto) 0.01 K/uL (0.00-0.02); Immature Granulocytes % (auto) 0.1 %; Lymphocytes # (auto) 1.05 K/uL (1.2-3.4); Lymphocytes % (auto) 14.1 %; Mean Corpuscular Hgb Conc 31.9 g/dL (32-36); Mean Corpuscular Volume 90.7 fL (80-100); Mean Platelet Volume 9.8 fL (7.4-10.4); Monocytes # (auto) 0.64 K/uL (0.11-0.59); Monocytes % (auto) 8.6 %; Neutrophils # (auto) 5.54 K/uL (1.4-6.5); Neutrophils % (auto) 74.6 %; Platelet Count 178 K/uL (130-400); RDW Coefficient of Variation 14.2 % (11.5-14.5); RDW Standard Deviation 46.3 fL (36.4-46.3); Red Blood Count 3.66 M/uL (4.2-5.4); White Blood Count 7.43 K/uL (4.8-10.8)
--- NOTE | 2018-11-12 09:39 | Gastroenterology Progress Note ---
Date of Service November 12, 2018 Assessment & Plan (1) Esophagitis: H/H dropped to 10.6/33.2 after hematemesis yesterday. No further vomiting or concerns. -Continue Protonix 40 mg BID. Take 30 minutes prior to breakfast & dinner. -Carafate 1 gm four times daily before meals and at bedtime. -If records from [facility] indicate the patient is vomiting regularly, consider a standing prophylactic dose of Zofran 1-2 times daily. -Patient's daughter would like to be notified by the shelter each time her mother refuses her GI meds. -Continue to monitor H/H. No further GI interventions at present. Thank you for allowing us to participate in the care of this patient. If you should have any further questions or concerns, do not hesitate to contact us. Present on Admission?: Yes Supervising Physician Co-Signing Physician Notes Agree with JOAN Chadwick as above Abd: Soft, NT, ND, +BS No overt GI bleeding per nursing staff Continue current therapy and supportive care Subjective Patient is a 78 yo female with dementia & coffee ground emesis. Patient underwent an EGD on 11/11 that indicated esophagitis, gastritis, & a hiatal hernia. The patient's daughter is at bedside and reports no acute issues overnight. She denies further vomiting episodes. Daughter expresses concerns that she is unsure how often the patient is vomiting at [facility] or how often she is truly refusing her PPI & Carafate. Review of Systems Review of Systems: Patient's daughter denies any complaints at present. Patient remains sleeping throughout the exam, however did wake up reporting a need to use the bathroom. Physical Exam Respiratory: normal respiratory effort, lungs clear to auscultation Cardiovascular: RRR, no murmur, no edema Gastrointestinal (Abdomen): normal bowel sounds, soft, nontender, no hepatosplenomegaly Results & Data Vital Signs (Past 12 Hours) Vital Signs Temp Pulse Pulse Resp BP Pulse Ox 11/12/18 07:27 36.5 C 52 L 18 147/65 H 93 11/12/18 01:29 56 L 11/11/18 22:59 36.8 C 49 L 16 122/59 L 95 PG Care Time/CCT Total # of Minutes Spent Total Time Spent with Patient: Total time spent is greater than 50% in coordination of care (as documented) at patient's floor/unit and/or counseling patient:
[2018-11-12] MEDS: LACTOBACILLUS ACIDOPHILUS (FLORANEX) TAB PO SCH ×5 (10:16→22:40)
[2018-11-12] MEDS: FERROUS SULFATE 325 MG/7.4 ML UDP PO SCH ×2 (10:16→11:18)
[2018-11-12] MEDS: MEMANTINE HCL 5 MG TAB PO SCH ×4 (10:17→21:57)
[2018-11-12] MEDS: CALCIUM CARBONATE 1250MG TAB PO SCH ×2 (10:18→11:17)
[2018-11-12] MEDS: LISINOPRIL 5 MG TAB PO SCH ×3 (10:18→13:18)
[2018-11-12] MEDS: CHOLECALCIFEROL 1,000 UNITS TAB PO SCH ×2 (10:18→11:18)
[2018-11-12] MEDS: OLANZapine 5 MG TABLET PO SCH ×3 (10:19→13:17)
[2018-11-12] MEDS ORDERED: OLANZapine 10 MG/2.1 ML SDV IM ONE (11:15)
[2018-11-12] MEDS ORDERED: LORazepam 0.5 MG/1 ML VIAL IV ONE (11:15)
--- NOTE | 2018-11-12 12:35 | Hospitalist Progress Note ---
Date of Service November 12, 2018 Assessment & Plan (1) Esophagitis: esophagitis and gastritis on EGD on 11/11 no active bleeding GI recommends Protonix BID and carafate QID (2) Upper GI bleed: due to esophagitis and gastritis bleeding appears to be stopped, no further melena or hematemesis again, use Protonix BID x one month then daily, carafate QID x a week (3) Dementia: with behavioral issues refusing to take medications this morning, not eating well give Ativan 0.5mg IV x 1 and Zyprexa 5mg IM today to see if she gets more cooperative can make the Ativan scheduled IV and Zyprexa scheduled IM if she still refuses (4) Chronic kidney disease, stage 3a: Cr stable at 0.98 (5) Restless legs syndrome: (6) HTN (hypertension): BP stable today (7) Hypothyroidism: ok to hold PO Synthroid for 7 days if she still refuses to take PO (8) DVT prophylaxis: SCD due to bleeding will try to d/c tomorrow if Hb stable and she is taking medications Subjective patient not very cooperative today, would not take medications, no eating or drinking she was not in distress during my visit, but would not talk to me updated patient's daughter at the bedside, she would like to see the patient janny castillo prior to d/c reviewed labs, Hb down slightly to 10.6 from 13 no further melena or hematemesis discussed with GI, appreciate their input will try some Ativan 0.5mg IV and Zyprexa 5mg IM since she did not take those this morning Review of Systems Review of Systems: Unobtainable due to cognitive status (refusing to talk) Physical Exam Constitutional: WD/WN, vitals as above Eyes: PERRL, conjunctivae normal, anicteric sclerae ENMT: external ear and nose normal, oropharynx normal Neck: trachea midline, no thyromegaly Respiratory: normal respiratory effort, lungs clear to auscultation Cardiovascular: RRR, no murmur, no edema Gastrointestinal (Abdomen): normal bowel sounds, soft, nontender, no hepatosplenomegaly Musculoskeletal: no cyanosis or clubbing, extremities motor strength 5/5 Skin: no rashes, warm and dry Neurologic: patellar DTR's 2+ bilat, sensation intact and PERRL, EOMI, accommodation nl, no face palsy, no dysarthria Psychiatric: Orientation: alert, oriented to person and + guarded; + not oriented to place and + not oriented to time Affect: + irritable affect Mood: + irritable mood Lymphatic: no cervical or axillary lymphadenopathy Results & Data Vital Signs (Past 12 Hours) Vital Signs Temp Pulse Pulse Resp BP Pulse Ox 11/12/18 07:27 36.5 C 52 L 18 147/65 H 93 11/12/18 01:29 56 L Laboratory Results Laboratory Results - last 24 hr 11/11/18 11/11/18 11/12/18 14:12 20:21 07:33 WBC Cancelled RBC Cancelled Hgb 11.7 L 11.0 L Cancelled Hct 35.6 L 33.4 L Cancelled MCV Cancelled MCH Cancelled MCHC Cancelled RDW Std Deviation Cancelled RDW Coeff of Neville Cancelled Plt Count Cancelled MPV Cancelled Immature Gran % (Auto) Cancelled Neut % (Auto) Cancelled Lymph % (Auto) Cancelled [place] % (Auto) Cancelled Eos % (Auto) Cancelled Baso % (Auto) Cancelled Immature Gran # (Auto) Cancelled Neut # (Auto) Cancelled Lymph # (Auto) Cancelled [place] # (Auto) Cancelled Eos # (Auto) Cancelled Baso # (Auto) Cancelled Absolute Nucleated RBC Cancelled Nucleated RBC % (auto) Cancelled Neutrophils % (Manual) Cancelled Band Neutrophils % Cancelled Lymphocytes % (Manual) Cancelled Prolymphocyte % Cancelled Reactive Lymphs % (Man) Cancelled Monocytes % (Manual) Cancelled Eosinophils % (Manual) Cancelled Basophils % (Manual) Cancelled Metamyelocytes % (Man) Cancelled Myelocytes % (Man) Cancelled Promyelocytes % (Man) Cancelled Blast Cells % (Manual) Cancelled Plasma Cell % (Manual) Cancelled Other Cells % Cancelled Nucleated RBC % Cancelled Neutrophils # (Manual) Cancelled Band Neutrophils # Cancelled Total Absolute Neuts Cancelled Lymphocytes # (Manual) Cancelled Prolymphocyte # Cancelled Reactive Lymphs # Cancelled Total Abs Lymphocytes Cancelled Monocytes # (Manual) Cancelled Eosinophils # (Manual) Cancelled Basophils # (Manual) Cancelled Metamyelocytes # (Man) Cancelled Myelocytes # (Manual) Cancelled Promyelocytes # (Man) Cancelled Blast Cells # (Man) Cancelled Plasma Cell # (Manual) Cancelled Other Cells # Cancelled Nucleated RBCs # (Man) Cancelled Hypersegmented Neuts Cancelled Hyposegmented Neuts Cancelled Hypogranular Neuts Cancelled Large Granular Lymphs Cancelled # Lrg Granular Lymphs Cancelled Hairy Cells Cancelled Smudge Cells Cancelled Toxic Granulation Cancelled Toxic Vacuolation Cancelled Dohle Bodies Cancelled Elicia Rods Cancelled Platelet Estimate Cancelled Hypogranular Platelets Cancelled Clumped Platelets Cancelled Giant Platelets Cancelled Platelet Satelliting Cancelled RBC Morphology Cancelled Polychromasia Cancelled Hypochromasia Cancelled Poikilocytosis Cancelled Basophilic Stippling Cancelled Anisocytosis Cancelled Microcytosis Cancelled Macrocytosis Cancelled Spherocytes Cancelled Pappenheimer Bodies Cancelled Sickle Cells Cancelled Target Cells Cancelled Tear Drop Cells Cancelled Ovalocytes Cancelled Stomatocytes Cancelled Bar-Struble Bodies Cancelled Echinocytes Cancelled Acanthocytes (Spur) Cancelled Rouleaux Cancelled RBC Agglutinates Cancelled Schistocytes Cancelled RBC Morph Comment Cancelled Sezary Cell Cancelled Sodium Potassium Chloride Carbon Dioxide Anion Gap BUN Creatinine Est Cr Clr Drug Dosing Est GFR ( Amer) Est GFR (Non-Af Amer) BUN/Creatinine Ratio Glucose Calcium 11/12/18 11/12/18 07:33 08:09 WBC 7.43 RBC 3.66 L Hgb 10.6 L Hct 33.2 L MCV 90.7 MCH 29.0 MCHC 31.9 L RDW Std Deviation 46.3 RDW Coeff of Neville 14.2 Plt Count 178 MPV 9.8 Immature Gran % (Auto) 0.1 Neut % (Auto) 74.6 Lymph % (Auto) 14.1 [place] % (Auto) 8.6 Eos % (Auto) 2.6 Baso % (Auto) 0.0 Immature Gran # (Auto) 0.01 Neut # (Auto) 5.54 Lymph # (Auto) 1.05 L [place] # (Auto) 0.64 H Eos # (Auto) 0.19 Baso # (Auto) 0.00 Absolute Nucleated RBC Nucleated RBC % (auto) Neutrophils % (Manual) Band Neutrophils % Lymphocytes % (Manual) Prolymphocyte % Reactive Lymphs % (Man) Monocytes % (Manual) Eosinophils % (Manual) Basophils % (Manual) Metamyelocytes % (Man) Myelocytes % (Man) Promyelocytes % (Man) Blast Cells % (Manual) Plasma Cell % (Manual) Other Cells % Nucleated RBC % Neutrophils # (Manual) Band Neutrophils # Total Absolute Neuts Lymphocytes # (Manual) Prolymphocyte # Reactive Lymphs # Total Abs Lymphocytes Monocytes # (Manual) Eosinophils # (Manual) Basophils # (Manual) Metamyelocytes # (Man) Myelocytes # (Manual) Promyelocytes # (Man) Blast Cells # (Man) Plasma Cell # (Manual) Other Cells # Nucleated RBCs # (Man) Hypersegmented Neuts Hyposegmented Neuts Hypogranular Neuts Large Granular Lymphs # Lrg Granular Lymphs Hairy Cells Smudge Cells Toxic Granulation Toxic Vacuolation Dohle Bodies Elicia Rods Platelet Estimate Hypogranular Platelets Clumped Platelets Giant Platelets Platelet Satelliting RBC Morphology Polychromasia Hypochromasia Poikilocytosis Basophilic Stippling Anisocytosis Microcytosis Macrocytosis Spherocytes Pappenheimer Bodies Sickle Cells Target Cells Tear Drop Cells Ovalocytes Stomatocytes Bar-Struble Bodies Echinocytes Acanthocytes (Spur) Rouleaux RBC Agglutinates Schistocytes RBC Morph Comment Sezary Cell Sodium 141 Potassium 3.7 Chloride 115 H Carbon Dioxide 19 L Anion Gap 7.0 BUN 23 H Creatinine 0.98 Est Cr Clr Drug Dosing 45.2 Est GFR ( Amer) 64.5 Est GFR (Non-Af Amer) 55.6 BUN/Creatinine Ratio 23.0 H Glucose 89 Calcium 8.1 L Medications Administered Current Inpatient Medications Calcium Carbonate (Os-Selvin 500) 1,250 mg PO DAILY NORMA Stop: 12/12/18 08:59 Last Admin: 11/12/18 11:17 Dose: Not Given Documented by: Escitalopram Oxalate (Lexapro Tab) 10 mg PO HS NORMA Stop: 12/11/18 20:59 Last Admin: 11/11/18 21:27 Dose: 10 mg Documented by: Ferrous Sulfate (Feosol) 325 mg PO DAILY NORMA Stop: 12/12/18 08:59 Last Admin: 11/12/18 11:18 Dose: 325 mg Documented by: Pantoprazole Sodium 40 mg/ (Dextrose) 100 mls @ 20 mls/hr IV Q5H NORMA Stop: 12/12/18 10:59 Last Admin: 11/12/18 07:12 Dose: 20 mls/hr Documented by: Sodium Chloride (Nss 1000ml) 1,000 mls @ 80 mls/hr IV .[id number] [facility] Stop: 12/11/18 14:16 Last Admin: 11/12/18 03:50 Dose: 80 mls/hr Documented by: Acetaminophen (Ofirmev) 1,000 mg in 100 mls @ 400 mls/hr IV Q8H PRN; Protocol PRN Reason: Pain Stop: 12/11/18 16:14 Last Infusion: 11/11/18 17:21 Dose: Infused Documented by: Lactobacillus Acidophilus (Floranex) 4 tab PO TID [facility] Stop: 12/11/18 20:59 Last Admin: 11/12/18 11:16 Dose: Not Given Documented by: Levothyroxine Sodium (Synthroid) 112 mcg PO DAILYBB [facility] Stop: 12/12/18 06:29 Last Admin: 11/12/18 06:18 Dose: 112 mcg Documented by: Lisinopril (Zestril) 5 mg PO QAM [facility] Stop: 12/11/18 16:14 Last Admin: 11/12/18 11:18 Dose: Not Given Documented by: Memantine (Namenda) 5 mg PO BID [facility] Stop: 12/11/18 20:59 Last Admin: 11/12/18 11:16 Dose: Not Given Documented by: Olanzapine (Zyprexa) 5 mg PO QAM [facility] Stop: 12/12/18 08:59 Last Admin: 11/12/18 11:18 Dose: Not Given Documented by: Olanzapine (Zyprexa) 7.5 mg PO HS [facility] Stop: 12/11/18 20:59 Last Admin: 11/11/18 21:29 Dose: 7.5 mg Documented by: Ondansetron HCl (Zofran) 4 mg IV Q6H PRN PRN Reason: Nausea Stop: 12/11/18 14:16 Ropinirole HCl (Requip) 0.25 mg PO HS [facility] Stop: 12/11/18 20:59 Last Admin: 11/11/18 21:28 Dose: 0.25 mg Documented by: Sucralfate (Carafate) 1 gm PO ACHS [facility] Stop: 12/12/18 11:29 Sumatriptan Succinate (Imitrex) 25 mg PO DAILY PRN PRN Reason: Migraine Headache Stop: 12/11/18 16:03 Vitamin D (Vitamin D3) 2,000 units PO DAILY [facility] Stop: 12/12/18 08:59 Last Admin: 11/12/18 11:18 Dose: Not Given Documented by: PG Care Time/CCT Total # of Minutes Spent Total Time Spent with Patient: Total time spent is greater than 50% in coordination of care (as documented) at patient's floor/unit and/or counseling patient: (1) Dementia Dementia type: associated with other underlying disease Dementia behavioral disturbance: with behavioral disturbance Qualified Code(s): F02.81 - Dementia in other diseases classified elsewhere with behavioral disturbance (2) Hypothyroidism Hypothyroidism type: acquired Qualified Code(s): E03.9 - Hypothyroidism, unspecified
[2018-11-12] MEDS: SUCRALFATE 1 GM/10 ML UDC PO SCH ×3 (13:15→21:57)
[2018-11-12] MEDS ORDERED: LORazepam 0.5 MG/1 ML VIAL IV PRN (16:52)
[2018-11-12] MEDS: LORazepam 0.5 MG/1 ML VIAL IV PRN ×2 (17:03→23:41)
[2018-11-12] MEDS ORDERED: fentaNYL 25 MCG/HR TDSY TD SCH (19:30)
[2018-11-12] MEDS: OLANZAPINE 2.5 MG TAB PO SCH (21:57)
[2018-11-12] MEDS: ESCITALOPRAM OXALATE 10 MG TAB PO SCH (21:57)
[2018-11-12] MEDS: ROPINIROLE HCL 0.25 MG TABLET PO SCH (21:57)
[2018-11-12] MEDS: CHECK FENTANYL PATCH PLACEMENT SCH (23:31)
[2018-11-13] MEDS: PANTOprazole 40 MG in DEXTROSE 5% 100 ML IV SCH ×2 (04:09→09:07)
[2018-11-13] MEDS: LEVOTHYROXINE SODIUM 112 MCG TABLET PO SCH (05:46)
[2018-11-13] MEDS: SODIUM CHLORIDE 0.9% 1000ML 1,000 ML IV SCH (05:46)
[2018-11-13 06:49] LABS: Appearance Urine Turbid (Clear); Bacteria Urine Automated 1+ (Negative); Bilirubin Urine Negative (Negative); Blood Urine 1+ (Negative); Color Urine Yellow; Epithelial Cell Urine Auto >30 /lpf (0-5); Glucose Urine UA Negative (Negative); Ketones Urine Negative (Negative); Leukocyte Esterase Urine 3+ (Negative); Nitrite Urine Negative (Negative); Protein Urine 1+ (Negative); Urobilinogen Urine Negative (Negative); WBC Urine Automated >30 /hpf (0-5)
[2018-11-13] MEDS: OLANZapine 5 MG TABLET PO SCH (08:09)
[2018-11-13] MEDS: LISINOPRIL 5 MG TAB PO SCH (08:10)
[2018-11-13] MEDS: SUCRALFATE 1 GM/10 ML UDC PO SCH ×2 (08:10→11:40)
[2018-11-13] MEDS: MEMANTINE HCL 5 MG TAB PO SCH (08:10)
[2018-11-13 08:29] LABS: Hematocrit (blood only) 32.6 % (37-47); Hemoglobin 10.4 g/dL (12.0-16.0)
[2018-11-13] MEDS: CHECK FENTANYL PATCH PLACEMENT SCH (09:00)
[2018-11-13] MEDS: CHOLECALCIFEROL 1,000 UNITS TAB PO SCH (09:01)
[2018-11-13] MEDS: FERROUS SULFATE 325 MG/7.4 ML UDP PO SCH (09:01)
[2018-11-13] MEDS: CALCIUM CARBONATE 1250MG TAB PO SCH (09:01)
[2018-11-13] MEDS: LACTOBACILLUS ACIDOPHILUS (FLORANEX) TAB PO SCH (09:01)
[2018-11-13 09:20] LABS: BUN Creatinine Ratio 15.4 (10-20); Calcium 7.9 mg/dl (8.5-10.1); Creatinine Clr Calc Pharmacy 47.1 ml/min; Est GFR (African American) 67.8; Est GFR (Non-African American) 58.5; Potassium 3.9 mmol/L (3.5-5.1)
--- NOTE | 2018-11-13 10:31 | Discharge Summary ---
Date of Service November 13, 2018 Admission HPI Per Admitting Provider Attending: Dr. Betts Is a 78-year-old female that resides at [facility] in [facility]. She has a past medical history which includes CKD stage III AAA, esophageal stenosis, history of pneumonia, restless leg syndrome, chronic and progressive dementia, depression, hypothyroidism, chronic sinus bradycardia, hiatal hernia, hypertension. The patient reports that over the last 2 to 3 days she had increased mild abdominal pain in the midepigastric region. Last evening she developed hematemesis as witnessed by the [facility] staff. This continued overnight and progressed to melena this morning. The patient was brought to the emergency department and had witnessed hematemesis and melena on arrival. The patient's hemoglobin is 13 and hematocrit is 39.9. Hemodynamically the patient is stable. She has no significant hypoxia. She has some pain to deep palpation in the midepigastric region but otherwise has no complaints of abdominal pain at this time. Gastroenterology has been consulted and is planning on taking the patient for EGD from the emergency department. Patient has been started on pantoprazole drip. Further management per gastroenterology Patient is able to give some history but also confirmed with daughter Leatha who is present with the patient. There is no reported fever, chills, sweats, rigors. No recent trauma or injury to the abdomen. No recent travel. No new foods have been introduced. The patient has no other acute complaints. Primary Care Provider: [facility] Principal Diagnosis GI bleed due to gastritis Discharge Exam Constitutional WD/WN, vitals as above Eyes PERRL, conjunctivae normal, anicteric sclerae ENMT external ear and nose normal, oropharynx normal Neck trachea midline, no thyromegaly Respiratory normal respiratory effort, lungs clear to auscultation Cardiovascular RRR, no murmur, no edema Gastrointestinal (Abdomen) normal bowel sounds, soft, nontender, no hepatosplenomegaly Musculoskeletal no cyanosis or clubbing, extremities motor strength 5/5 Skin no rashes, warm and dry Neurologic patellar DTR's 2+ bilat, sensation intact and PERRL, EOMI, accommodation nl, no face palsy, no dysarthria Psychiatric Orientation: alert, oriented to person and + guarded; + not oriented to place and + not oriented to time Affect: + irritable affect Mood: + irritable mood Lymphatic no cervical or axillary lymphadenopathy Discharge Data Allergies Allergy/AdvReac Type Severity Reaction Status Date / Time melon Allergy Intermediate [place]elope Verified 11/11/18 13:45 - Rash caffeine Allergy Unknown . Verified 11/11/18 09:46 desipramine Allergy Unknown . Verified 11/11/18 09:46 ergotamine Allergy Unknown . Verified 11/11/18 09:46 nitrofurantoin Allergy Unknown . Verified 11/11/18 09:46 watermelon Allergy Unknown UNKNOWN Verified 11/11/18 09:46 Consultations 11/11/18 10:07 ED Decision to Admit Stat 11/11/18 14:17 Consult Case Management - Discharge Planning Routine Consult Gastroenterology Routine Procedures Performed Operation Date: 11/11/18 08:50 Actual Procedures p Esophagogastroduodenoscopy(Not Applicable) - Felix Carmona Case, DO Hospital Course (1) Esophagitis: esophagitis and gastritis on EGD on 11/11 no active bleeding GI recommends Protonix BID and carafate QID continue the Protonix BID x 4 weeks then back to once a day PPI Carafate QID x 7-10 days and then back to BID (2) Gastritis: see above (3) Upper GI bleed: due to esophagitis and gastritis bleeding appears to be stopped, no further melena or hematemesis again, use Protonix BID x one month then daily, carafate QID x a week (4) Acute blood loss anemia: initial Hb was 13 on 11/11 dropped to 11 and then 10.3 on 11/12, BP stable, no further signs of bleeding Hb stable this morning at 10.4, again, no further hematemesis or melena, safe to discharge (5) Dementia: with behavioral issues refusing to take medications periodically responded well to Ativan IV discussed with daughter, likely to improve on return to [facility] she is in unfamiliar environment and always does worse from medical perspective she is stable feel like she will do better once back at [facility] (6) Chronic kidney disease, stage 3a: Cr stable at 0.98 (7) Restless legs syndrome: (8) HTN (hypertension): BP stable today (9) Hypothyroidism: ok to hold PO Synthroid for 7 days if she still refuses to take PO (10) DVT prophylaxis: SCD due to bleeding d/c to [facility] Total Time Total Time Spent Total Time Spent (In Minutes): 34 minutes Discharge Plan Discharge Items Patient Disposition: Transfer [facility] Living [facility] Reason For Visit: UGI BLEED Discharge Diagnosis: Hematemesis, GI bleed Gastritis and esophagitis Acute blood loss anemia Condition: Good Discharge Goals: Improve disease control and Improve function Activity: Resume your previous activity Non-emergency contact: Primary Care Provider Call non-emergency contact if: you have any medication questions, your symptoms worsen and you have a fever Follow-up/Referrals: OakleyVance [Primary Care Provider] - Diet: Regular Addtl Provider Instructions: Medications: - PROTONIX: use twice a day for a month and then down to once a day - CARAFATE: continue to use this four times a day, can stop after 7 days and and go back to twice a day Hematemesis, GI bleeding, gastritis and esophagitis on EGD on 11/[address] Montemayor Hb dropped slightly to 10.6 from 13.0 but no further evidence of bleeding may have a few more dark stools over next few days vitals stable GI recommends using Protonix twice a day for a month, then once a day continue on Carafate QID for the next week at least if she continues to have issues vomiting, can consider a scheduled dose of zofran prior to meals d/c to [facility], follow up with physician at [facility] in one week recommend checking H/H on Wednesday 11/15 Prescriptions: New pantoprazole 40 mg tablet,delayed release (DR/EC) 40 mg PO BID 30 Days Qty: 60 RF: 0 Continued calcium carbonate [Calcium 600] 600 mg calcium (1,500 mg) Tablet 600 mg PO DAILY RF: 0 cranberry extract 250 mg Capsule 250 mg PO DAILY RF: 0 ferrous sulfate 220 mg (44 mg iron)/5 mL Solution 7.3 ml PO DAILY RF: 0 levothyroxine 112 mcg tablet 112 mcg PO QAM RF: 0 escitalopram oxalate 10 mg tablet 10 mg PO HS RF: 0 lisinopril 5 mg tablet 5 mg PO QAM RF: 0 memantine 5 mg tablet 5 mg PO BID RF: 0 magnesium hydroxide [Milk of Magnesia] 400 mg/5 mL Suspension 30 ml PO DAILY PRN (Reason: Constipation) RF: 0 ondansetron HCl 4 mg Tablet 4 mg PO QID PRN (Reason: Nausea) RF: 0 ropinirole 0.25 mg Tablet 0.25 mg PO HS RF: 0 sennosides-docusate sodium [Senna Plus] 8.6-50 mg Tablet 2 tab PO DAILY RF: 0 sumatriptan succinate 25 mg tablet 25 mg PO DAILY PRN (Reason: Migraine Headache) RF: 0 cholecalciferol (vitamin D3) [Vitamin D3] 2,000 unit Tablet 2,000 unit PO DAILY RF: 0 olanzapine [Zyprexa] 5 mg Tablet 5 mg PO QAM RF: 0 olanzapine [Zyprexa] 7.5 mg Tablet 7.5 mg PO HS RF: 0 bisacodyl 10 mg Suppository 10 mg FL DAILY PRN (Reason: Constipation) RF: 0 Fleet Enema 19-7 gram/118 mL Enema 118 ml FL HS PRN (Reason: Constipation) RF: 0 Lactobacillus acidoph-L.bulgar [Floranex] 1 million cell Tablet 4 tab PO TID RF: 0 acetaminophen [Tylenol] 325 mg Tablet 650 mg PO QAM PRN (Reason: pain) Qty: 0 RF: 0 polyethylene glycol 3350 [Miralax] 17 gram powder in packet 17 gm PO DAILY PRN (Reason: constipation) Qty: 30 RF: 5 sucralfate [Carafate] 100 mg/mL Suspension 10 ml PO QID Qty: 0 RF: 0 fentanyl 25 mcg/hr patch 72 hour 25 mcg topical .Q3D Qty: 10 RF: 0 oxycodone 5 mg tablet 5 mg PO Q4H PRN (Reason: Pain) Qty: 15 RF: 0 sulfamethoxazole-trimethoprim 400-80 mg tablet 1 tab PO DAILY RF: 0 lorazepam 0.5 mg tablet 0.5 mg PO QID RF: 0 Discontinued lansoprazole 30 mg tablet,disintegrat, delay rel 30 mg PO BID RF: 0 Stand-Alone Forms: [facility] Discharge Orders: Discharge Order (Routine); Ordered 11/13/18 Ordered By: Willian Betts Skilled Items Patient informed of condition?: Yes DNR: Yes Discharge Level of Care: Skilled Communicable Disease: No Discharge Prognosis: Stable Admission Data Admit Date/Time: 11/12/18 12:35 Attending Provider: Willian Betts Admit Provider: Willian Betts Primary Care Provider: Vance Urena Other Providers: Felix Montemayor ; Willian Betts Service: Surgical Services
== END 2018-11-13 12:21 | DRG 378 ==
LOC: ED 09:21 → ENDO 11:53 → 3N 11:53
DX: Z90.710 Acquired absence of both cervix and uterus; D62 Acute posthemorrhagic anemia; E03.9 Hypothyroidism, unspecified; I12.9 Hypertensive chronic kidney disease with stage 1 through stage 4 chronic kidney disease, or unspecified chronic kidney disease; F02.81 Dementia in other diseases classified elsewhere, unspecified severity, with behavioral disturbance; N18.3 Chronic kidney disease, stage 3 (moderate); K92.2 Gastrointestinal hemorrhage, unspecified; G25.81 Restless legs syndrome; K20.9 Esophagitis, unspecified

== ENCOUNTER 2018-11-16 18:43 | Inpatient (IN) ==
[2018-11-16] MEDS ORDERED: ONDANSETRON INJ 2 MG/ML 2 ML VIAL IV STA ×2 (18:47→19:55)
[2018-11-16] MEDS ORDERED: FAMOTIDINE 20MG IV PUSH 20 MG/5 ML SYR IV STA (18:47)
[2018-11-16] MEDS ORDERED: SODIUM CHLORIDE 0.9% 1000ML 1,000 ML IV SCH (19:00)
[2018-11-16] MEDS ORDERED: SODIUM CHLORIDE 0.9% 500 ML IV SCH (19:00)
[2018-11-16] MEDS ORDERED: PANTOprazole 80 MG in DEXTROSE 5% 100 ML IV SCH (19:00)
--- NOTE | 2018-11-16 19:45 | XRay Report ---
XR chest 1V portable HISTORY: 78 years-old Female Gi bleed, vomiting acute GI bleed with vomiting COMPARISON: Chest radiograph 11/11/2018 TECHNIQUE: Portable AP view of the chest FINDINGS: Cardiac silhouette is enlarged, unchanged. Moderate hiatal hernia. No pneumothorax, or large pleural effusion or overt pulmonary edema. Mild blunting of the left costophrenic angle redemonstrated. Mild biapical pleural-parenchymal scarring is stable. Mild chronic interstitial coarsening. No lobar airsp john paul consolidation. Degenerative changes of the shoulders and spine. Surgical clips project over the e pigastric region. IMPRESSION: 1. Cardiomegaly without acute process. 2. Moderate hiatal hernia. The above report was generated using voice recognition software. It may contain grammatical, syntax o r spelling errors. Electronically signed by: Ramiro Hong M.D. 11/16/2018 7:43 PM
[2018-11-16] MEDS: PANTOprazole 40 MG in DEXTROSE 5% 100 ML IV SCH (19:46)
[2018-11-16] MEDS ORDERED: LORazepam 0.5 MG/1 ML VIAL IV STA (19:55)
[2018-11-16 19:59] LABS: iSTAT Creatinine 0.9 mg/dl (0.6-1.3); iSTAT Hemoglobin 10.9 g/dl (12.0-16.0); iSTAT Ionized Calcium 1.16 mmol/l (1.12-1.32); iSTAT Potassium 3.9 mEq/L (3.3-5.0)
[2018-11-16 20:34] LABS: Eosinophils # (auto) 0.04 K/uL (0-0.5); Eosinophils % (auto) 0.4 %; Hematocrit (blood only) 32.9 % (37-47); Hemoglobin 10.7 g/dL (12.0-16.0); Immature Granulocytes # (auto) 0.01 K/uL (0.00-0.02); Immature Granulocytes % (auto) 0.1 %; Lymphocytes # (auto) 0.91 K/uL (1.2-3.4); Lymphocytes % (auto) 10.2 %; Mean Corpuscular Hemoglobin 29.1 pg (25-34); Mean Corpuscular Hgb Conc 32.5 g/dL (32-36); Mean Corpuscular Volume 89.4 fL (80-100); Mean Platelet Volume 9.4 fL (7.4-10.4); Monocytes # (auto) 0.55 K/uL (0.11-0.59); Monocytes % (auto) 6.1 %; Neutrophils # (auto) 7.44 K/uL (1.4-6.5); Neutrophils % (auto) 83.2 %; Platelet Count 222 K/uL (130-400); RDW Coefficient of Variation 14.5 % (11.5-14.5); Red Blood Count 3.68 M/uL (4.2-5.4); White Blood Count 8.95 K/uL (4.8-10.8)
[2018-11-16 20:43] LABS: iSTAT Creatinine 0.9 mg/dl (0.6-1.3); iSTAT Hemoglobin 11.2 g/dl (12.0-16.0); iSTAT Ionized Calcium 1.1 mmol/l (1.12-1.32); iSTAT Potassium 3.8 mEq/L (3.3-5.0)
[2018-11-16 20:46] LABS: INR 1.1 (0.9-1.1); Partial Thromboplastin Ratio 0.9; Partial Thromboplastin Time 23.4 Seconds (21.0-31.0)
[2018-11-16 20:51] LABS: Alanine Aminotransferase 24 U/L (12-78); Albumin Level 3.1 gm/dl (3.4-5.0); Aspartate Aminotransferase 18 U/L (15-37); BUN Creatinine Ratio 23.1 (10-20); Blood Urea Nitrogen 23 mg/dl (7-18); Calcium 8.4 mg/dl (8.5-10.1); Carbon Dioxide 31 mmol/L (21-32); Chloride 106 mmol/L (98-107); Creatinine Clr Calc Pharmacy 43.2 ml/min; Est GFR (African American) 62.9; Est GFR (Non-African American) 54.3; Glucose 135 mg/dl (70-99); Potassium 3.8 mmol/L (3.5-5.1); Sodium 141 mmol/L (136-145)
[2018-11-16 20:56] LABS: Albumin Globulin Ratio 0.9 (0.9-2); Alkaline Phosphatase 103 U/L (45-117); Bilirubin,Total 0.4 mg/dl (0.2-1); Globulin 3.3 gm/dl (2.5-4.0); Total Protein 6.4 gm/dl (6.4-8.2); Troponin I < 0.015 ng/ml (0-0.045)
[2018-11-16] MEDS ORDERED: LORazepam 1 MG/2 ML VIAL IV STA (21:44)
--- NOTE | 2018-11-16 21:44 | History & Physical Report ---
Date of Service November 16, 2018 Assessment & Plan (1) Upper GI bleed: Patient with recurrent episode of coffee-ground emesis. Presently hemodynamically stable. Hemoglobin globin = 10.7, hematocrit = 32.9, approximately 1 g lower than discharge values from 11/15. Presently no nausea. Patient with [address] which was quite difficult to obtain. Patient has had recurrent episodes of coffee-ground emesis. She has history of hiatal hernia, history of esophageal stenosis. No NSAIDs or alcohol. No known liver disease. ?Mucosal irritation from mechanical trauma? H.pylori? -Admit to PCU -Check CBC every 8 hours. Transfuse for active bleed, symptomatic anemia, hemoglobin less than 7 -Check H. pylori -Continue Protonix drip -Continue sucralfate 4 times daily -Consult GI. Patient is known to Dr. Montemayor Present on Admission?: Yes (2) Chronic kidney disease, stage 3a: BUN and creatinine near baseline. Patient with adequate urine output -Avoid nephrotoxic agents -Monitor BUN, creatinine, electrolytes and urine output Present on Admission?: Yes (3) Depression: Chronic. -Continue Lexapro Present on Admission?: Yes (4) Hypothyroidism: Chronic. -Continue Synthroid 112 mcg daily Present on Admission?: Yes (5) Dementia: Patient repetitive, forgetful. Is unable to provide pertinent details of history. She does follow commands -Continue Namenda -Continue Ativan -Continue Zyprexa -Delirium prevention strategies -Patient may need one-to-one sitter Present on Admission?: Yes (6) HTN (hypertension): Blood pressure stable -Hold lisinopril in setting of acute bleed -Continue to monitor F/E/N -Hep-Lock. Monitor electrolytes. N.p.o. for now. Will hold vitamins and supplement Prophylaxis-SCDs to bilateral lower extremities Code-DNR/DNI per discussion with family Disposition-admit to PCU History of Present Illness Chief Complaint: Upper GI bleed, coffee-ground emesis Primary Care Provider: [facility] Kailey Hunt is a 78-year-old female with history of dementia, hypertension, CKD 3, esophageal stenosis and hiatal hernia presenting from [facility] with coffee-ground emesis. Patient with moderately severe dementia. Unable to provide pertinent details. History obtained through chart review and discussion with daughter at bedside. Patient was recently admitted from for upper GI bleed. She had an EGD performed by Dr. Montemayor on November 11 which revealed moderately severe esophagitis with no bleeding, medium size hiatal hernia, retained fluid in the greater curvature of the stomach, and moderate inflammation in the gastric antrum. While inpatient the patient was treated with IV Protonix and Carafate. She was discharged to [facility] on 11/13 with instructions to continue Protonix twice daily for 4 weeks then decrease to daily and increase Carafate to 4 times daily for 7 to 10 days then resume twice daily dosing. She return to [facility] in stable condition. Daughter reports that she was doing quite well and that it was a good transition back to the alf. She was eating well and taking her medications as prescribed. This morning patient had episode of nausea with subsequent coffee-ground emesis. She returned to [facility] emergency room where she had a witnessed episode of large-volume coffee-ground emesis. Patient remained hemodynamically stable. Patient takes scheduled Ativan at home. She did become mildly agitated while in the ER and was administered 2 doses of Ativan with improvement in symptoms. Of note, patient had an EGD performed on 07/20/2018 which revealed medium-sized hiatal hernia and gastritis ER course: Pepcid, Ativan, Zofran, Protonix, normal saline Allergies Allergy/AdvReac Type Severity Reaction Status Date / Time melon Allergy Intermediate Cantelope Verified 11/16/18 19:47 - Rash caffeine Allergy Unknown . Verified 11/16/18 19:47 desipramine Allergy Unknown . Verified 11/16/18 19:47 ergotamine Allergy Unknown . Verified 11/16/18 19:47 nitrofurantoin Allergy Unknown . Verified 11/16/18 19:47 watermelon Allergy Unknown UNKNOWN Verified 11/16/18 19:47 Home Medications Home Medications Medication Instructions Recorded Confirmed Type acetaminophen [Tylenol] 650 mg PO Q6 PRN 11/16/18 11/16/18 History calcium carbonate 600 mg PO DAILY 11/16/18 11/16/18 History cholecalciferol (vitamin D3) 2,000 unit PO QAM 11/16/18 11/16/18 History [Vitamin D3] cranberry extract 250 mg PO QAM 11/16/18 11/16/18 History escitalopram oxalate [Lexapro] 10 mg PO HS 11/16/18 11/16/18 History fentanyl [Duragesic] 25 mcg TOPICAL UD 11/16/18 11/16/18 History ferrous sulfate 325 mg PO DAILY 11/16/18 11/16/18 History levothyroxine 112 mcg PO DAILY 11/16/18 11/16/18 History lisinopril 5 mg PO QAM 11/16/18 11/16/18 History lorazepam [Ativan] 0.5 mg PO QID 11/16/18 11/16/18 History memantine [Namenda] 5 mg PO BID 11/16/18 11/16/18 History olanzapine [Zyprexa] 5 mg PO QAM 11/16/18 11/16/18 History olanzapine [Zyprexa] 7.5 mg PO HS 11/16/18 11/16/18 History ondansetron HCl [Zofran] 4 mg PO Q6 PRN 11/16/18 11/16/18 History oxycodone [Roxicodone] 5 mg PO Q4 PRN 11/16/18 11/16/18 History pantoprazole [Protonix] 40 mg PO AMHS 11/16/18 11/16/18 History polyethylene glycol 3350 17 g PO DAILY PRN 11/16/18 11/16/18 History promethazine 25 mg PO Q6H PRN 11/16/18 11/16/18 History promethazine [Phenergan] 25 mg IM Q6H PRN 11/16/18 11/16/18 History promethazine [Phenergan] 25 mg MD Q6H PRN 11/16/18 11/16/18 History ropinirole [Requip] 0.25 mg PO HS 11/16/18 11/16/18 History sennosides-docusate sodium [Senna 2 tab PO HS 11/16/18 11/16/18 History with Docusate Sodium] sucralfate [Carafate] 10 ml PO QID 11/16/18 11/16/18 History sulfamethoxazole-trimethoprim 1 tab PO QAM 11/16/18 11/16/18 History [Bactrim] sumatriptan succinate [Imitrex] 25 mg PO DAILY PRN 11/16/18 11/16/18 History Past Med/Surg History Medical History Dementia (Chronic) Female bladder prolapse (Resolved) Anemia Fracture of head of left humerus (Acute) Fracture of left olecranon process (Acute) Fracture, thoracic vertebra, compression (Acute) HTN (hypertension) (Chronic) Lumbar transverse process fracture (Acute) T12 compression fracture (Acute) Thoracic compression fracture (Acute) UTI (lower urinary tract infection) (Acute) Chronic scarring of esophagus Surgical History S/P breast biopsy S/P hysterectomy S/P shoulder surgery Status post Rudy fundoplication Family History Other Family history non-contributory Social History Preferred Language: Setswana Communication Ability: Impaired Quantitative Manager Required: No Beliefs That Will Affect Care: None marital status: Current Living Situation: Correction Current Living Situation Comment: [facility] current occupational status: retired Feels Safe at Home: Yes Smoking Status: Former smoker Second Hand Exposure: No ; Hx Alcohol Use: No Hx Substance Use: No Review of Systems Review of Systems: Unobtainable due to cognitive status Patient denies pain, nausea, shortness of breath Physical Exam Physical Exam: General: patient resting comfortably, NAD, non-toxic in appearance, AA&O to self. Answers some questions appropriately. Follows commands. Skin: warm, dry, intact, no rashes or lesions HEENT: NC/AT, PERRL, EOMI, anicteric sclera, conjunctiva without injection, external ear normal to inspection and nontender, nares patent, moist mucus membranes, dentures in place, no oropharyngeal lesions, neck supple, trachea midline, no LAD, no thyromegaly, no JVD Heart: +S1/S2, regular, no m/r/g Lungs: equal air entry bilaterally, no rales/rhonchi/wheezes Abd: +BS, soft, NT/ND, no masses/organomegaly/ascites Ext: warm, 2+ pulses in UE/LE bilaterally, no clubbing/cyanosis or edema Neuro: nonfocal, patient AA&O to self, speech intact, no facial droop, moving all extremities on command with equal strength 5/5 Results & Data Vital Signs (Past 12 Hours) Vital Signs Temp Pulse Pulse Resp BP BP Pulse Ox 11/16/18 21:00 64 20 95 11/16/18 19:49 62 18 176/95 H 98 11/16/18 19:29 77 22 189/76 H 98 11/16/18 19:04 86 20 93 11/16/18 19:00 37.3 C 86 20 179/73 H 93 Laboratory Results Lab Results 11/16/18 11/16/18 11/16/18 Range/Units 19:43 20:22 20:22 WBC 8.95 (4.8-10.8) K/uL RBC 3.68 L (4.2-5.4) M/uL Hgb 10.7 L (12.0-16.0) g/dL POC Hgb 10.9 L (12.0-16.0) g/dl Hct 32.9 L (37-47) % POC Hct 32 L (37-47) % MCV 89.4 (80-100) fL MCH 29.1 (25-34) pg MCHC 32.5 (32-36) g/dL RDW Std Deviation 47.0 H (36.4-46.3) fL RDW Coeff of Neville 14.5 (11.5-14.5) % Plt Count 222 (130-400) K/uL MPV 9.4 (7.4-10.4) fL Immature Gran % (Auto) 0.1 % Neut % (Auto) 83.2 % Lymph % (Auto) 10.2 % [place] % (Auto) 6.1 % Eos % (Auto) 0.4 % Baso % (Auto) 0.0 % Immature Gran # (Auto) 0.01 (0.00-0.02) K/uL Neut # (Auto) 7.44 H (1.4-6.5) K/uL Lymph # (Auto) 0.91 L (1.2-3.4) K/uL [place] # (Auto) 0.55 (0.11-0.59) K/uL Eos # (Auto) 0.04 (0-0.5) K/uL Baso # (Auto) 0.00 (0-0.2) K/uL PT 11.0 (9.0-12.0) Seconds INR 1.1 (0.9-1.1) APTT 23.4 (21.0-31.0) Seconds PTT Ratio 0.9 POC Sodium 139 (135-144) mEq/L Sodium (136-145) mmol/L POC Potassium 3.9 (3.3-5.0) mEq/L Potassium (3.5-5.1) mmol/L POC Chloride 102 (101-112) mEq/L Chloride (98-107) mmol/L Carbon Dioxide (21-32) mmol/L POC Total CO2 29 (24-31) mEq/l Anion Gap (3-11) POC Anion Gap 13.0 L (16-25) mmol/L POC BUN 25 H (7-18) mg/dl BUN (7-18) mg/dl Creatinine (0.6-1.2) mg/dl POC Creatinine 0.9 (0.6-1.3) mg/dl Est Cr Clr Drug Dosing ml/min Est GFR ( Amer) Est GFR (Non-Af Amer) BUN/Creatinine Ratio (10-20) Glucose (70-99) mg/dl POC Glucose (other) 116 H (70-99) mg/dl Calcium (8.5-10.1) mg/dl POC Ioniz Calcium Shawn 1.16 (1.12-1.32) mmol/l Total Bilirubin (0.2-1) mg/dl AST (15-37) U/L ALT (12-78) U/L Alkaline Phosphatase (45-117) U/L Troponin I (0-0.045) ng/ml Total Protein (6.4-8.2) gm/dl Albumin (3.4-5.0) gm/dl Globulin (2.5-4.0) gm/dl Albumin/Globulin Ratio (0.9-2) Blood Type Antibody Screen 11/16/18 11/16/18 11/16/18 Range/Units 20:22 20:22 20:28 WBC (4.8-10.8) K/uL RBC (4.2-5.4) M/uL Hgb (12.0-16.0) g/dL POC Hgb 11.2 L (12.0-16.0) g/dl Hct (37-47) % POC Hct 33 L (37-47) % MCV (80-100) fL MCH (25-34) pg MCHC (32-36) g/dL RDW Std Deviation (36.4-46.3) fL RDW Coeff of Neville (11.5-14.5) % Plt Count (130-400) K/uL MPV (7.4-10.4) fL Immature Gran % (Auto) % Neut % (Auto) % Lymph % (Auto) % [place] % (Auto) % Eos % (Auto) % Baso % (Auto) % Immature Gran # (Auto) (0.00-0.02) K/uL Neut # (Auto) (1.4-6.5) K/uL Lymph # (Auto) (1.2-3.4) K/uL [place] # (Auto) (0.11-0.59) K/uL Eos # (Auto) (0-0.5) K/uL Baso # (Auto) (0-0.2) K/uL PT (9.0-12.0) Seconds INR (0.9-1.1) APTT (21.0-31.0) Seconds PTT Ratio POC Sodium 140 (135-144) mEq/L Sodium 141 (136-145) mmol/L POC Potassium 3.8 (3.3-5.0) mEq/L Potassium 3.8 (3.5-5.1) mmol/L POC Chloride 100 L (101-112) mEq/L Chloride 106 (98-107) mmol/L Carbon Dioxide 31 (21-32) mmol/L POC Total CO2 27 (24-31) mEq/l Anion Gap 4.0 (3-11) POC Anion Gap 18.0 (16-25) mmol/L POC BUN 23 H (7-18) mg/dl BUN 23 H (7-18) mg/dl Creatinine 1.00 (0.6-1.2) mg/dl POC Creatinine 0.9 (0.6-1.3) mg/dl Est Cr Clr Drug Dosing 43.2 ml/min Est GFR ( Amer) 62.9 Est GFR (Non-Af Amer) 54.3 BUN/Creatinine Ratio 23.1 H (10-20) Glucose 135 H (70-99) mg/dl POC Glucose (other) 131 H (70-99) mg/dl Calcium 8.4 L (8.5-10.1) mg/dl POC Ioniz Calcium Shawn 1.10 L (1.12-1.32) mmol/l Total Bilirubin 0.4 (0.2-1) mg/dl AST 18 (15-37) U/L ALT 24 (12-78) U/L Alkaline Phosphatase 103 (45-117) U/L Troponin I < 0.015 (0-0.045) ng/ml Total Protein 6.4 (6.4-8.2) gm/dl Albumin 3.1 L (3.4-5.0) gm/dl Globulin 3.3 (2.5-4.0) gm/dl Albumin/Globulin Ratio 0.9 (0.9-2) Blood Type O Positive Antibody Screen NEGATIVE Diagnostic Findings XR chest 1V portable HISTORY: 78 years-old Female Gi bleed, vomiting acute GI bleed with vomiting COMPARISON: Chest radiograph 11/11/2018 TECHNIQUE: Portable AP view of the chest FINDINGS: Cardiac silhouette is enlarged, unchanged. Moderate hiatal hernia. No pneumothorax, or large pleural effusion or overt pulmonary edema. Mild blunting of the left costophrenic angle redemonstrated. Mild biapical pleural-parenchymal scarring is stable. Mild chronic interstitial coarsening. No lobar airspace consolidation. Degenerative changes of the shoulders and spine. Surgical clips project over the epigastric region. IMPRESSION: 1. Cardiomegaly without acute process. 2. Moderate hiatal hernia. The above report was generated using voice recognition software. It may contain grammatical, syntax or spelling errors. Electronically signed by: Ramiro Hong M.D. 11/16/2018 7:43 PM Dictated: 11/16/181941 Transcribed: 11/16/181941 ECG Additional Comments: The study shows normal sinus rhythm at 68 bpm, normal axis, MD = 158, QRS = 74, QTC = 476. No evidence of acute ischemia Code Status & VTE Plan Code Status DNR/DNI per discussion with family VTE Prophylaxis Plan VTE Prophylaxis will be ordered: Yes PG Care Time/CCT Total # of Minutes Spent Total Time Spent with Patient: Total time spent is greater than 50% in coordination of care (as documented) at patient's floor/unit and/or counseling patient: (1) Depression Depression Type: other depression Qualified Code(s): F32.89 - Other specified depressive episodes (2) Hypothyroidism Hypothyroidism type: acquired Qualified Code(s): E03.9 - Hypothyroidism, unspecified (3) Dementia Dementia type: associated with other underlying disease Dementia behavioral disturbance: with behavioral disturbance Qualified Code(s): F02.81 - Dementia in other diseases classified elsewhere with behavioral disturbance (4) HTN (hypertension) Hypertension type: essential hypertension Qualified Code(s): I10 - Essential (primary) hypertension
[2018-11-16] MEDS ORDERED: LORazepam 2 MG/ML VIAL (IM USE) ONE (21:54)
[2018-11-16] MEDS ORDERED: OXYCODONE HCL IR 5 MG TAB (IMMEDIATE RELEASE) PO PRN (22:48)
[2018-11-16] MEDS ORDERED: ACETAMINOPHEN 325 MG TAB PO PRN (22:48)
[2018-11-16] MEDS ORDERED: POLYETHYLENE (MIRALAX) 17 GM PACK PO PRN (22:48)
[2018-11-16] MEDS ORDERED: ONDANSETRON INJ 2 MG/ML 2 ML VIAL IV PRN (22:48)
[2018-11-16 23:14] LABS: Magnesium 2.1 mg/dl (1.8-2.4); Phosphorus 2.8 mg/dl (2.5-4.9)
[2018-11-16] MEDS: CHECK FENTANYL PATCH PLACEMENT SCH (23:36)
[2018-11-17] MEDS: PANTOprazole 40 MG in DEXTROSE 5% 100 ML IV SCH ×3 (00:17→10:31)
--- NOTE | 2018-11-17 00:48 | Emergency Department Note ---
Entered by Leann Ferguson acting as a scribe for ED Provider Note CHIEF COMPLAINT: Coffee ground emesis HISTORY OF PRESENT ILLNESS: The patient is a 78 year old female with a history of dementia who presents to the Emergency Room with complaints of blood in her vomit that started this morning. She arrived via EMS who reported that the patient was recently admitted on 11/11/18 for a GI bleed. She was [facility] to the shelter 3 days ago, with instructions to come back to the ED if her symptoms returned. The patient also has a history of pneumonia, esophagitis, and gastritis. History limited secondary to dementia. REVIEW OF SYSTEMS: See HPI for pertinent positives and negatives. ROS limited secondary to dementia. PMHx/PSHx: dementia pneumonia GI bleed esophagitis gastritis SOCIAL HISTORY: Patient lives at [facility]. History of smoking PHYSICAL EXAM: GENERAL: Awake, alert, moderate distress, vomiting, coffee ground emesis HENT: Normocephalic, atraumatic. Oropharynx unremarkable. EYES: PERRL. Normal conjunctiva. Sclera non-icteric. NECK: Inspection normal. Non-tender. Supple. No nuchal rigidity. FROM. No masses. RESPIRATORY: Coughing. No wheezes. No rales. Normal respiratory effort. CARDIAC: Tachycardic. Normal rhythm. No murmurs. No rubs. Extremities warm and well perfused. Pulses equal. No JVD. GI: Soft, non-distended. No tenderness to palpation. No rebound or guarding. No masses. RECTAL: Deferred. MUSCULOSKELETAL: Atraumatic. Chest examination reveals no tenderness. The back is symmetrical on inspection without obvious abnormality. There is no CVA tenderness to palpation. No joint edema. LOWER EXTREMITIES: There is 2+ edema on the left calf which is larger than the right at 1+ edema. No discoloration. NEURO: Demented sensorium. No sensory or motor deficits noted. SKIN: No rash or jaundice noted. EMERGENCY DEPARTMENT COURSE: 1844: Past medical records reviewed. The patient was evaluated in room B11B, and a complete history and physical examination were performed. 2014: I reassessed the patient and updated the family. I did an IV with ultra sound 2020: I spoke to Ce Madison, [facility] Hospitalist, who agreed to further evaluate the patient. 2100: I updated Dr. Madison about the family's request to give the patient Ativan if she become agitated. MEDICAL DECISION MAKING: B11 Prior records/ancillary studies reviewed. Patient was in the hospital and discharged on secondary to esophagitis and gastritis GI bleed. The patient did have acute blood loss anemia. Triage Nursing notes reviewed and agree them. Additional history obtained from the EMS. The patient's history was concerning for possible gastrointestinal bleeding. Differential diagnosis: Etiologies such as , gastritis, diverticulosis, AVM, coagulopathy, colitis, inflammatory bowel disease, malignancy,Bel-Anand tear, esophagitis, peptic ulcer disease, variceal bleed, epistaxis, fissure, hemorrhoids, as well as others were entertained. Physical exam: As above. Patient was vomiting coffee-ground emesis. ER treatment provided: IV normal saline IV Zofran IV Pepcid IV Protonix bolus and drip On reassessment the patient felt better. Diagnostics interpreted by me: ECG: No acute ischemic changes. The labs revealed a mild anemia on i-STAT of 10.9. This was consistent with patient's discharge hemoglobin. I-STAT electrolytes unremarkable. Anemia confirmed on CBC. Chemistry panel unremarkable. Imaging studies: Chest x-ray negative. The patient had multiple episodes of coffee-ground emesis. She was just treated for gastritis and esophagitis. She will need to be monitored in the hospital. Consultation: A consultation was placed with the hospitalist. The case was discussed and diagnostics were reviewed. The patient was evaluated in the ER for further treatment. PROCEDURE: PERIPHERAL IV INSERTION BY ULTRASOUND: Indication: Lack of adequate standard IV. Multiple attempts tried by nursing and IV team. An 18-gauge IV was placed in the patient's left antecubital fossa by me using the standard sterile technique under ultrasound guidance. No complications. The patient tolerated the procedure well. IMPRESSION: Upper GI bleed Anemia Vomiting PLAN: Admit The scribe's documentation has been prepared under my direction and personally reviewed by me in its entirety. I confirm that the note above accurately reflects all work, treatment, procedures, and medical decision making performed by me. Impression & Plan Acute upper gastrointestinal bleeding, Anemia, Vomiting Past Med/Surg History Medical History Dementia (Chronic) Female bladder prolapse (Resolved) Anemia Fracture of head of left humerus (Acute) Fracture of left olecranon process (Acute) Fracture, thoracic vertebra, compression (Acute) HTN (hypertension) (Chronic) Lumbar transverse process fracture (Acute) T12 compression fracture (Acute) Thoracic compression fracture (Acute) UTI (lower urinary tract infection) (Acute) Chronic scarring of esophagus Surgical History S/P breast biopsy S/P hysterectomy S/P shoulder surgery Status post Rudy fundoplication Family History Other Family history non-contributory Social History Preferred Language: German 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[employer] Landscape Required: No Beliefs That Will Affect Care: None marital status: Current Living Situation: Intermediate Current Living Situation Comment: [facility] current occupational status: retired Feels Safe at Home: Yes Smoking Status: Former smoker Second Hand Exposure: No ; Hx Alcohol Use: No Hx Substance Use: No Results & Data Vital Signs Vital Signs - 24 hr 11/16/18 19:00 11/16/18 19:04 11/16/18 19:29 Temperature 37.3 C Temperature Source Oral Sepsis Recent Fever Within 48 Hours No Sepsis New/Unexplained Change in Mental Status No Sepsis Action Taken by Nursing No Action Required Pulse Rate 86 86 Pulse Rate [Apical] 77 Pulse Rhythm Regular Regular Pulse Rhythm [Apical] Regular Pulse Strength Normal Pulse Strength [Apical] Normal Respiratory Rate 20 20 22 Respiratory Effort / Characteristics Non-Labored Non-Labored Respiratory Depth Normal Normal Respiratory Pattern Regular Blood Pressure 179/73 H Blood Pressure [Left Arm] 189/76 H Blood Pressure Mean 108 Blood Pressure Mean [Left Arm] 113 Blood Pressure Position Sitting Blood Pressure Position [Left Arm] Sitting Pulse Oximetry 93 93 98 Oxygen Delivery Method Room Air Room Air Room Air 11/16/18 19:49 11/16/18 21:00 Temperature Temperature Source Sepsis Recent Fever Within 48 Hours Sepsis New/Unexplained Change in Mental Status Sepsis Action Taken by Nursing Pulse Rate Pulse Rate [Apical] 62 64 Pulse Rhythm Pulse Rhythm [Apical] Regular Regular Pulse Strength Pulse Strength [Apical] Normal Normal Respiratory Rate 18 20 Respiratory Effort / Characteristics Non-Labored Non-Labored Respiratory Depth Normal Normal Respiratory Pattern Blood Pressure Blood Pressure [Left Arm] 176/95 H Blood Pressure Mean Blood Pressure Mean [Left Arm] 122 Blood Pressure Position Blood Pressure Position [Left Arm] Pulse Oximetry 98 95 Oxygen Delivery Method Room Air Room Air Home Medications Current Medication List: was personally reviewed by me Laboratory Data Attestation: I reviewed the patient's lab results. Result diagrams: 11/16/18 20:22 11/16/18 20:22 Lab Results 11/16/18 11/16/18 11/16/18 Range/Units 19:43 20:22 20:22 WBC 8.95 (4.8-10.8) K/uL RBC 3.68 L (4.2-5.4) M/uL Hgb 10.7 L (12.0-16.0) g/dL POC Hgb 10.9 L (12.0-16.0) g/dl Hct 32.9 L (37-47) % POC Hct 32 L (37-47) % MCV 89.4 (80-100) fL MCH 29.1 (25-34) pg MCHC 32.5 (32-36) g/dL RDW Std Deviation 47.0 H (36.4-46.3) fL RDW Coeff of Neville 14.5 (11.5-14.5) % Plt Count 222 (130-400) K/uL MPV 9.4 (7.4-10.4) fL Immature Gran % (Auto) 0.1 % Neut % (Auto) 83.2 % Lymph % (Auto) 10.2 % [place] % (Auto) 6.1 % Eos % (Auto) 0.4 % Baso % (Auto) 0.0 % Immature Gran # (Auto) 0.01 (0.00-0.02) K/uL Neut # (Auto) 7.44 H (1.4-6.5) K/uL Lymph # (Auto) 0.91 L (1.2-3.4) K/uL [place] # (Auto) 0.55 (0.11-0.59) K/uL Eos # (Auto) 0.04 (0-0.5) K/uL Baso # (Auto) 0.00 (0-0.2) K/uL PT 11.0 (9.0-12.0) Seconds INR 1.1 (0.9-1.1) APTT 23.4 (21.0-31.0) Seconds PTT Ratio 0.9 POC Sodium 139 (135-144) mEq/L Sodium (136-145) mmol/L POC Potassium 3.9 (3.3-5.0) mEq/L Potassium (3.5-5.1) mmol/L POC Chloride 102 (101-112) mEq/L Chloride (98-107) mmol/L Carbon Dioxide (21-32) mmol/L POC Total CO2 29 (24-31) mEq/l Anion Gap (3-11) POC Anion Gap 13.0 L (16-25) mmol/L POC BUN 25 H (7-18) mg/dl BUN (7-18) mg/dl Creatinine (0.6-1.2) mg/dl POC Creatinine 0.9 (0.6-1.3) mg/dl Est Cr Clr Drug Dosing ml/min Est GFR ( Amer) Est GFR (Non-Af Amer) BUN/Creatinine Ratio (10-20) Glucose (70-99) mg/dl POC Glucose (other) 116 H (70-99) mg/dl Calcium (8.5-10.1) mg/dl POC Ioniz Calcium Shawn 1.16 (1.12-1.32) mmol/l Phosphorus (2.5-4.9) mg/dl Magnesium (1.8-2.4) mg/dl Total Bilirubin (0.2-1) mg/dl AST (15-37) U/L ALT (12-78) U/L Alkaline Phosphatase (45-117) U/L Troponin I (0-0.045) ng/ml Total Protein (6.4-8.2) gm/dl Albumin (3.4-5.0) gm/dl Globulin (2.5-4.0) gm/dl Albumin/Globulin Ratio (0.9-2) Blood Type Antibody Screen 11/16/18 11/16/18 11/16/18 Range/Units 20:22 20:22 20:28 WBC (4.8-10.8) K/uL RBC (4.2-5.4) M/uL Hgb (12.0-16.0) g/dL POC Hgb 11.2 L (12.0-16.0) g/dl Hct (37-47) % POC Hct 33 L (37-47) % MCV (80-100) fL MCH (25-34) pg MCHC (32-36) g/dL RDW Std Deviation (36.4-46.3) fL RDW Coeff of Neville (11.5-14.5) % Plt Count (130-400) K/uL MPV (7.4-10.4) fL Immature Gran % (Auto) % Neut % (Auto) % Lymph % (Auto) % [place] % (Auto) % Eos % (Auto) % Baso % (Auto) % Immature Gran # (Auto) (0.00-0.02) K/uL Neut # (Auto) (1.4-6.5) K/uL Lymph # (Auto) (1.2-3.4) K/uL [place] # (Auto) (0.11-0.59) K/uL Eos # (Auto) (0-0.5) K/uL Baso # (Auto) (0-0.2) K/uL PT (9.0-12.0) Seconds INR (0.9-1.1) APTT (21.0-31.0) Seconds PTT Ratio POC Sodium 140 (135-144) mEq/L Sodium 141 (136-145) mmol/L POC Potassium 3.8 (3.3-5.0) mEq/L Potassium 3.8 (3.5-5.1) mmol/L POC Chloride 100 L (101-112) mEq/L Chloride 106 (98-107) mmol/L Carbon Dioxide 31 (21-32) mmol/L POC Total CO2 27 (24-31) mEq/l Anion Gap 4.0 (3-11) POC Anion Gap 18.0 (16-25) mmol/L POC BUN 23 H (7-18) mg/dl BUN 23 H (7-18) mg/dl Creatinine 1.00 (0.6-1.2) mg/dl POC Creatinine 0.9 (0.6-1.3) mg/dl Est Cr Clr Drug Dosing 43.2 ml/min Est GFR ( Amer) 62.9 Est GFR (Non-Af Amer) 54.3 BUN/Creatinine Ratio 23.1 H (10-20) Glucose 135 H (70-99) mg/dl POC Glucose (other) 131 H (70-99) mg/dl Calcium 8.4 L (8.5-10.1) mg/dl POC Ioniz Calcium Shawn 1.10 L (1.12-1.32) mmol/l Phosphorus 2.8 (2.5-4.9) mg/dl Magnesium 2.1 (1.8-2.4) mg/dl Total Bilirubin 0.4 (0.2-1) mg/dl AST 18 (15-37) U/L ALT 24 (12-78) U/L Alkaline Phosphatase 103 (45-117) U/L Troponin I < 0.015 (0-0.045) ng/ml Total Protein 6.4 (6.4-8.2) gm/dl Albumin 3.1 L (3.4-5.0) gm/dl Globulin 3.3 (2.5-4.0) gm/dl Albumin/Globulin Ratio 0.9 (0.9-2) Blood Type O Positive Antibody Screen NEGATIVE Administered Medications Pantoprazole Sodium 40 mg/ (Dextrose) 100 mls @ 20 mls/hr IV Q5H [facility] Stop: 12/16/18 19:19 Last Admin: 11/17/18 00:17 Dose: 20 mls/hr Documented by: [id number] Infusion: 11/17/18 00:17 Dose: 20 mls/hr Documented by: [id number] Admin: 11/16/18 19:46 Dose: 20 mls/hr Documented by: [id number] Miscellaneous (Fentanyl Patch Check Placement) 1 ea N/A QS [facility] Stop: 12/17/18 00:00 Last Admin: 11/16/18 23:36 Dose: 1 ea Documented by: [id number] Discontinued Medications Pantoprazole Sodium 80 mg/ (Dextrose) 120 mls @ 480 mls/hr IV TODAY@1900 [facility] Stop: 11/16/18 19:14 Last Infusion: 11/16/18 21:13 Dose: 0 mls/hr Documented by: [id number] Admin: 11/16/18 19:43 Dose: 480 mls/hr Documented by: [id number] Famotidine (Pepcid 20mg Iv Push) 20 mg in 5 mls @ 2.5 mls/min IV NOW STA Stop: 11/16/18 18:48 Last Admin: 11/16/18 19:07 Dose: 2.5 mls/min Documented by: [id number] Sodium Chloride (Nss 1000ml) 1,000 mls @ 100 mls/hr IV .Q10H [facility] Stop: 11/17/18 04:59 Last Admin: 11/16/18 20:30 Dose: 100 mls/hr Documented by: [id number] Sodium Chloride (Nss) 500 mls @ 999 mls/hr IV .Q31M [facility] Stop: 11/16/18 19:30 Last Infusion: 11/16/18 21:13 Dose: 0 mls/hr Documented by: [id number] Infusion: 11/16/18 21:13 Dose: 0 mls/hr Documented by: [id number] Admin: 11/16/18 19:22 Dose: 999 mls/hr Documented by: [id number] Lorazepam (Ativan) 0.5 mg in 1 mls @ 1 mls/min IV NOW STA Stop: 11/16/18 19:56 Last Admin: 11/16/18 20:05 Dose: 1 mls/min Documented by: [id number] Lorazepam (Ativan) 1 mg in 2 mls @ 2 mls/min IV NOW STA Stop: 11/16/18 21:45 Last Admin: 11/16/18 23:36 Dose: 2 mls/min Documented by: [id number] Lorazepam (Ativan) Confirm Administered Dose 2 mg .ROUTE .STK-MED ONE Stop: 11/16/18 21:55 Last Admin: 11/16/18 22:05 Dose: 1 mg Documented by: [id number] Ondansetron HCl (Zofran) 4 mg IV ONE STA Stop: 11/16/18 18:48 Last Admin: 11/16/18 19:06 Dose: 4 mg Documented by: [id number] Ondansetron HCl (Zofran) 4 mg IV NOW STA Stop: 11/16/18 19:56 Last Admin: 11/16/18 20:05 Dose: 4 mg Documented by: [id number] Imaging Data Radiologist's Impression: Radiology results as stated below per my review and the radiologist's interpretation: XR chest 1V portable HISTORY: 78 years-old Female Gi bleed, vomiting acute GI bleed with vomiting COMPARISON: Chest radiograph 11/11/2018 TECHNIQUE: Portable AP view of the chest FINDINGS: Cardiac silhouette is enlarged, unchanged. Moderate hiatal hernia. No pneumothorax, or large pleural effusion or overt pulmonary edema. Mild blunting of the left costophrenic angle redemonstrated. Mild biapical pleural-parenchymal scarring is stable. Mild chronic interstitial coarsening. No lobar airspace consolidation. Degenerative changes of the shoulders and spine. Surgical clips project over the epigastric region. IMPRESSION: 1. Cardiomegaly without acute process. 2. Moderate hiatal hernia. The above report was generated using voice recognition software. It may contain grammatical, syntax or spelling errors. Electronically signed by: Ramiro Hong M.D. 11/16/2018 7:43 PM ECG Data Attestation: I personally reviewed and interpreted this ECG as follows: Indication: vomiting Rate (beats per minute): 68 Rhythm: normal sinus Findings: no PAC, no PVC, no ST depression and no ST elevation Blood Pressure Blood Pressure Findings: Elevated blood pressure Blood Pressure Disposition: further management by hospitalist Discharge Plan Visit Data *Final* Discharge Date/Time: 11/16/18 22:37 Chief Complaint: GI Bleed Stated Complaint: GI BLEED ED Provider: Mau Gentile Discharge Problem: Acute upper gastrointestinal bleeding, Anemia, Vomiting Patient Disposition: Admitted As Inpatient Discharge Instructions Interventions: ED Discharge Assessment Last Done: 11/16/18 22:37 Discharge Problem: Anemia Qualifiers: Anemia type: unspecified type Qualified Code(s): D64.9 - Anemia, unspecified Vomiting Qualifiers: Vomiting type: unspecified Vomiting Intractability: unspecified Nausea presence: unspecified Qualified Code(s): R11.10 - Vomiting, unspecified The scribe's documentation has been prepared under my direction and personally reviewed by me in its entirety. I confirm that the note above accurately reflects all work, treatment, procedures, and medical decision making performed by me.
[2018-11-17 07:53] LABS: BUN Creatinine Ratio 19.6 (10-20); Calcium 7.5 mg/dl (8.5-10.1); Creatinine Clr Calc Pharmacy 47.1 ml/min; Est GFR (African American) 70.5; Est GFR (Non-African American) 60.9; Potassium 3.9 mmol/L (3.5-5.1)
[2018-11-17 07:57] LABS: Eosinophils # (auto) 0.25 K/uL (0-0.5); Eosinophils % (auto) 3.7 %; Hematocrit (blood only) 28.5 % (37-47); Hemoglobin 9.3 g/dL (12.0-16.0); Immature Granulocytes # (auto) 0.02 K/uL (0.00-0.02); Immature Granulocytes % (auto) 0.3 %; Lymphocytes # (auto) 1.48 K/uL (1.2-3.4); Mean Corpuscular Hgb Conc 32.6 g/dL (32-36); Mean Corpuscular Volume 88.8 fL (80-100); Mean Platelet Volume 10.3 fL (7.4-10.4); Monocytes # (auto) 0.78 K/uL (0.11-0.59); Monocytes % (auto) 11.6 %; Neutrophils # (auto) 4.19 K/uL (1.4-6.5); Neutrophils % (auto) 62.4 %; Platelet Count 194 K/uL (130-400); Platelet Estimate Normal (Normal); RDW Coefficient of Variation 14.6 % (11.5-14.5); RDW Standard Deviation 47.5 fL (36.4-46.3); Red Blood Count 3.21 M/uL (4.2-5.4); White Blood Count 6.72 K/uL (4.8-10.8)
--- NOTE | 2018-11-17 09:47 | Gastrointestinal Consultation ---
Date of Consultation November 17, 2018 Assessment & Plan (1) Upper GI bleed: (2) Hematemesis: 1. No plan for repeat EGD as just performed one week ago. 2. Continue PPI ggt. 3. If concern for ongoing bleeding, could consider GI bleeding scan. 4. Supportive medical management. 5. Recommend consideration of hospice and discussion about care goals given frequent admissions. Supervising Physician Co-Signing Physician Notes Agree with AUSTIN Block as above Abd: Soft, NT, ND May switch to twice daily Protonix 40 mg prior to breakfast and dinner Agree with Palliative consult. History of Present Illness Reason for Consultation: Coffee-ground emesis Requesting Physician: Dr. Madison Attending Physician: Jessica Mcmillan MD History of Present Illness Patient is a 78 year-old female with a history of esophagitis and gastritis (found on EGD performed by Dr. Montemayor) admitted to the hospital last week due to hematemesis and now re-admitted for the same symptoms. The patient does have dementia and is not able to provide any history at this time. History is obtained from record review. The patient has been nonadherent with Carafate and [facility] although the H&P states that her daughter had reported the patient was not refusing medications since her last discharge. Hemoglobin was noted to be 10.7 last evening but 9.3 this morning. Patient is on a PPI ggt at this time. Allergies Allergy/AdvReac Type Severity Reaction Status Date / Time melon Allergy Intermediate Cantelope Verified 11/16/18 19:47 - Rash caffeine Allergy Unknown . Verified 11/16/18 19:47 desipramine Allergy Unknown . Verified 11/16/18 19:47 ergotamine Allergy Unknown . Verified 11/16/18 19:47 nitrofurantoin Allergy Unknown . Verified 11/16/18 19:47 watermelon Allergy Unknown UNKNOWN Verified 11/16/18 19:47 Home Medications Home Medications Medication Instructions Recorded Confirmed Type acetaminophen [Tylenol] 650 mg PO Q6 PRN 11/16/18 11/16/18 History calcium carbonate 600 mg PO DAILY 11/16/18 11/16/18 History cholecalciferol (vitamin D3) 2,000 unit PO QAM 11/16/18 11/16/18 History [Vitamin D3] cranberry extract 250 mg PO QAM 11/16/18 11/16/18 History escitalopram oxalate [Lexapro] 10 mg PO HS 11/16/18 11/16/18 History fentanyl [Duragesic] 25 mcg TOPICAL UD 11/16/18 11/16/18 History ferrous sulfate 325 mg PO DAILY 11/16/18 11/16/18 History levothyroxine 112 mcg PO DAILY 11/16/18 11/16/18 History lisinopril 5 mg PO QAM 11/16/18 11/16/18 History lorazepam [Ativan] 0.5 mg PO QID 11/16/18 11/16/18 History memantine [Namenda] 5 mg PO BID 11/16/18 11/16/18 History olanzapine [Zyprexa] 5 mg PO QAM 11/16/18 11/16/18 History olanzapine [Zyprexa] 7.5 mg PO HS 11/16/18 11/16/18 History ondansetron HCl [Zofran] 4 mg PO Q6 PRN 11/16/18 11/16/18 History oxycodone [Roxicodone] 5 mg PO Q4 PRN 11/16/18 11/16/18 History pantoprazole [Protonix] 40 mg PO AMHS 11/16/18 11/16/18 History polyethylene glycol 3350 17 g PO DAILY PRN 11/16/18 11/16/18 History promethazine 25 mg PO Q6H PRN 11/16/18 11/16/18 History promethazine [Phenergan] 25 mg IM Q6H PRN 11/16/18 11/16/18 History promethazine [Phenergan] 25 mg SD Q6H PRN 11/16/18 11/16/18 History ropinirole [Requip] 0.25 mg PO HS 11/16/18 11/16/18 History sennosides-docusate sodium [Senna 2 tab PO HS 11/16/18 11/16/18 History with Docusate Sodium] sucralfate [Carafate] 10 ml PO QID 11/16/18 11/16/18 History sulfamethoxazole-trimethoprim 1 tab PO QAM 11/16/18 11/16/18 History [Bactrim] sumatriptan succinate [Imitrex] 25 mg PO DAILY PRN 11/16/18 11/16/18 History Patient History Medical History Dementia (Chronic) Female bladder prolapse (Resolved) Anemia Fracture of head of left humerus (Acute) Fracture of left olecranon process (Acute) Fracture, thoracic vertebra, compression (Acute) HTN (hypertension) (Chronic) Lumbar transverse process fracture (Acute) T12 compression fracture (Acute) Thoracic compression fracture (Acute) UTI (lower urinary tract infection) (Acute) Chronic scarring of esophagus Surgical History S/P breast biopsy S/P hysterectomy S/P shoulder surgery Status post Rudy fundoplication Family History Other Family history non-contributory Social History Preferred Language: Martiniquais Communication Ability: Impaired Equip Maint Eng Required: No Beliefs That Will Affect Care: None marital status: Current Living Situation: Prison Current Living Situation Comment: [facility] current occupational status: retired Feels Safe at Home: Yes Smoking Status: Former smoker Second Hand Exposure: No ; Hx Alcohol Use: No Hx Substance Use: No Review of Systems Review of Systems: Unobtainable due to cognitive status Physical Exam Constitutional: WD/WN, vitals as above Respiratory: no respiratory distress Auscultation: + diminished lung sounds Cardiovascular: Rate/Rhythm: regular rate and regular rhythm Heart Sounds: + murmur Gastrointestinal (Abdomen): Inspection/Auscultation: normal bowel sounds Percussion/Palpation: abdomen soft Musculoskeletal: no pedal edema Skin: no rashes, warm and dry Psychiatric: obtunded Results & Data Vital Signs (Past 12 Hours) Vital Signs Temp Pulse Pulse Resp BP BP Pulse Ox 11/17/18 08:02 36.4 C L 62 17 143/76 H 94 11/17/18 04:58 36.6 C 69 16 135/71 95 11/16/18 22:49 37.0 C 84 20 142/62 H 96 11/16/18 22:48 11/16/18 22:32 62 20 189/79 H 98 Pulse Ox 11/17/18 08:02 11/17/18 04:58 11/16/18 22:49 11/16/18 22:48 96 11/16/18 22:32 Laboratory Results Abnormal lab results 11/16/18 11/16/18 11/16/18 Range/Units 19:43 20:22 20:22 RBC 3.68 L (4.2-5.4) M/uL Hgb 10.7 L (12.0-16.0) g/dL POC Hgb 10.9 L (12.0-16.0) g/dl Hct 32.9 L (37-47) % POC Hct 32 L (37-47) % RDW Std Deviation 47.0 H (36.4-46.3) fL RDW Coeff of Neville (11.5-14.5) % Neut # (Auto) 7.44 H (1.4-6.5) K/uL Lymph # (Auto) 0.91 L (1.2-3.4) K/uL Ashley # (Auto) (0.11-0.59) K/uL POC Chloride (101-112) mEq/L Chloride (98-107) mmol/L POC Anion Gap 13.0 L (16-25) mmol/L POC BUN 25 H (7-18) mg/dl BUN 23 H (7-18) mg/dl BUN/Creatinine Ratio 23.1 H (10-20) Glucose 135 H (70-99) mg/dl POC Glucose (other) 116 H (70-99) mg/dl Calcium 8.4 L (8.5-10.1) mg/dl POC Ioniz Calcium Shawn (1.12-1.32) mmol/l Albumin 3.1 L (3.4-5.0) gm/dl 11/16/18 11/17/18 11/17/18 Range/Units 20:28 07:12 07:12 RBC 3.21 L (4.2-5.4) M/uL Hgb 9.3 L (12.0-16.0) g/dL POC Hgb 11.2 L (12.0-16.0) g/dl Hct 28.5 L (37-47) % POC Hct 33 L (37-47) % RDW Std Deviation 47.5 H (36.4-46.3) fL RDW Coeff of Neville 14.6 H (11.5-14.5) % Neut # (Auto) (1.4-6.5) K/uL Lymph # (Auto) (1.2-3.4) K/uL Ashley # (Auto) 0.78 H (0.11-0.59) K/uL POC Chloride 100 L (101-112) mEq/L Chloride 112 H (98-107) mmol/L POC Anion Gap (16-25) mmol/L POC BUN 23 H (7-18) mg/dl BUN (7-18) mg/dl BUN/Creatinine Ratio (10-20) Glucose (70-99) mg/dl POC Glucose (other) 131 H (70-99) mg/dl Calcium 7.5 L (8.5-10.1) mg/dl POC Ioniz Calcium Shawn 1.10 L (1.12-1.32) mmol/l Albumin (3.4-5.0) gm/dl PG Care Time/CCT Total # of Minutes Spent Total Time Spent with Patient: Total time spent is greater than 50% in coordination of care (as documented) at patient's floor/unit and/or counseling patient: (1) Hematemesis Nausea presence: unspecified Qualified Code(s): K92.0 - Hematemesis
[2018-11-17] MEDS: OLANZapine 5 MG TABLET PO SCH (10:15)
[2018-11-17] MEDS: MEMANTINE HCL 5 MG TAB PO SCH ×2 (10:15→21:24)
[2018-11-17] MEDS: LORazepam 0.5 MG TAB PO SCH ×4 (10:15→21:24)
[2018-11-17] MEDS: FERROUS SULFATE 325 MG TAB PO SCH (10:16)
[2018-11-17] MEDS: SULFA/TRIMETH 400/80MG TAB PO SCH (10:16)
[2018-11-17] MEDS: LEVOTHYROXINE SODIUM 112 MCG TABLET PO SCH (10:16)
[2018-11-17] MEDS: SUCRALFATE 1 GM/10 ML UDC PO SCH ×4 (10:16→21:24)
[2018-11-17] MEDS: CHECK FENTANYL PATCH PLACEMENT SCH ×2 (10:16→16:23)
--- NOTE | 2018-11-17 10:53 | Family Medicine Progress Note ---
Date of Service November 17, 2018 Assessment & Plan (1) Acute upper gastrointestinal bleeding: Ms. Hunt is a 78yo with a Hx of Dementia, HTN, hypothyroidism, depression, CKD who presents from [facility] with multiple episodes of GI bleed after being admitted for the same ~a week ago. Upper GI Bleed in setting of recurrent extensive history of hiatal hernia with repair in past and esophageal stricture and recurrent bleeds and EGD -Likely recurrent due to missed sucralfate/protonix doses per family (state pt had refused meds at [facility]) -currently stable, Hgb 9, BP stable withOUT tachycardia. -transition from IV protonix drip to on Protonix 40mg BID. -COntinue sucralfate 4 times daily -continue q8h CBC checks for now -Per GI, * -will not re-scope. Last EGD showed esophagitis, gastritis. * -H. pylori pending, * -will consider GI bleed scan should there be an indication for continued bleeding. * -consider palliative care consult. -consulted palliative care HTN -continue to hold lisinopril due to GI bleeding -BP currently within normal range -will continue to monitor CKD Stage 3 -stable -Cr level within normal limits Hypothyroidism -continue home synthroid Depression -continue home Lexapro Dementia -stable -continue home Namenda, Ativan, Zyprexa Hx of prolapse -per daughter, causes frequent UTIs -on chronic Bactrim -continue FEN/GI: NPO for GI rest/bleed DVT proph: SCDs CODE STATUS: DNR/DNI Dispo: currently back to [facility] once bleeding resolved; Supervising Physician Co-Signing Physician Notes Resident Physician Supervision Note: I independently interviewed and examined the patient and verified the chavis history and physical, reviewed labs and image studies, discussed the case with the resident Dr. Santos and agree with the findings and care plan. Subjective Ms. Hunt was resting in bed this AM, sleeping in no acute distress. Family was not present at the bedside at that time. Review of Systems Review of Systems: Unobtainable due to cognitive status Physical Exam Physical Exam: General: Laying in bed in no acute distress HEENT: NC/AT Chest: Nontender to palpation. CV: RRR, Normal s1, s2. No murmurs appreciated Resp: Breath sounds clear bilaterally on front, no increased effort of breathing. Abdomen: Soft, nontender, nondistended. No guarding. No organomegaly appreciated. Extremities: Trace edema in lower extremities bilaterally. Results & Data Vital Signs (Past 12 Hours) Vital Signs Temp Pulse Resp BP Pulse Ox 11/17/18 08:02 36.4 C L 62 17 143/76 H 94 11/17/18 04:58 36.6 C 69 16 135/71 95 Laboratory Results Laboratory Results - last 24 hr 11/16/18 11/16/18 11/16/18 19:43 20:22 20:22 WBC 8.95 RBC 3.68 L Hgb 10.7 L POC Hgb 10.9 L Hct 32.9 L POC Hct 32 L MCV 89.4 MCH 29.1 MCHC 32.5 RDW Std Deviation 47.0 H RDW Coeff of Neville 14.5 Plt Count 222 MPV 9.4 Immature Gran % (Auto) 0.1 Neut % (Auto) 83.2 Lymph % (Auto) 10.2 [place] % (Auto) 6.1 Eos % (Auto) 0.4 Baso % (Auto) 0.0 Immature Gran # (Auto) 0.01 Neut # (Auto) 7.44 H Lymph # (Auto) 0.91 L [place] # (Auto) 0.55 Eos # (Auto) 0.04 Baso # (Auto) 0.00 Platelet Estimate PT 11.0 INR 1.1 APTT 23.4 PTT Ratio 0.9 POC Sodium 139 Sodium POC Potassium 3.9 Potassium POC Chloride 102 Chloride Carbon Dioxide POC Total CO2 29 Anion Gap POC Anion Gap 13.0 L POC BUN 25 H BUN Creatinine POC Creatinine 0.9 Est Cr Clr Drug Dosing Est GFR ( Amer) Est GFR (Non-Af Amer) BUN/Creatinine Ratio Glucose POC Glucose (other) 116 H Calcium POC Ioniz Calcium Shawn 1.16 Phosphorus Magnesium Total Bilirubin AST ALT Alkaline Phosphatase Troponin I Total Protein Albumin Globulin Albumin/Globulin Ratio Nasal Screen MRSA (PCR) Blood Type Antibody Screen 11/16/18 11/16/18 11/16/18 20:22 20:22 20:28 WBC RBC Hgb POC Hgb 11.2 L Hct POC Hct 33 L MCV MCH MCHC RDW Std Deviation RDW Coeff of [place] Plt Count MPV Immature Gran % (Auto) Neut % (Auto) Lymph % (Auto) [place] % (Auto) Eos % (Auto) Baso % (Auto) Immature Gran # (Auto) Neut # (Auto) Lymph # (Auto) [place] # (Auto) Eos # (Auto) Baso # (Auto) Platelet Estimate PT INR APTT PTT Ratio POC Sodium 140 Sodium 141 POC Potassium 3.8 Potassium 3.8 POC Chloride 100 L Chloride 106 Carbon Dioxide 31 POC Total CO2 27 Anion Gap 4.0 POC Anion Gap 18.0 POC BUN 23 H BUN 23 H Creatinine 1.00 POC Creatinine 0.9 Est Cr Clr Drug Dosing 43.2 Est GFR ( Amer) 62.9 Est GFR (Non-Af Amer) 54.3 BUN/Creatinine Ratio 23.1 H Glucose 135 H POC Glucose (other) 131 H Calcium 8.4 L POC Ioniz Calcium Shawn 1.10 L Phosphorus 2.8 Magnesium 2.1 Total Bilirubin 0.4 AST 18 ALT 24 Alkaline Phosphatase 103 Troponin I < 0.015 Total Protein 6.4 Albumin 3.1 L Globulin 3.3 Albumin/Globulin Ratio 0.9 Nasal Screen MRSA (PCR) Blood Type O Positive Antibody Screen NEGATIVE 11/16/18 11/17/18 11/17/18 23:15 07:12 07:12 WBC 6.72 RBC 3.21 L Hgb 9.3 L POC Hgb Hct 28.5 L POC Hct MCV 88.8 MCH 29.0 MCHC 32.6 RDW Std Deviation 47.5 H RDW Coeff of [place] 14.6 H Plt Count 194 MPV 10.3 Immature Gran % (Auto) 0.3 Neut % (Auto) 62.4 Lymph % (Auto) 22.0 [place] % (Auto) 11.6 Eos % (Auto) 3.7 Baso % (Auto) 0.0 Immature Gran # (Auto) 0.02 Neut # (Auto) 4.19 Lymph # (Auto) 1.48 [place] # (Auto) 0.78 H Eos # (Auto) 0.25 Baso # (Auto) 0.00 Platelet Estimate Normal PT INR APTT PTT Ratio POC Sodium Sodium 144 POC Potassium Potassium 3.9 POC Chloride Chloride 112 H Carbon Dioxide 24 POC Total CO2 Anion Gap 8.0 POC Anion Gap POC BUN BUN 18 Creatinine 0.91 POC Creatinine Est Cr Clr Drug Dosing 47.1 Est GFR ( Amer) 70.5 Est GFR (Non-Af Amer) 60.9 BUN/Creatinine Ratio 19.6 Glucose 92 POC Glucose (other) Calcium 7.5 L POC Ioniz Calcium Shawn Phosphorus Magnesium Total Bilirubin AST ALT Alkaline Phosphatase Troponin I Total Protein Albumin Globulin Albumin/Globulin Ratio Nasal Screen MRSA (PCR) Negative Blood Type Antibody Screen Medications Administered Home Medications acetaminophen [Tylenol] 650 mg PO Q6 PRN 11/16/18 [History Confirmed 11/16/18] calcium carbonate 600 mg PO DAILY 11/16/18 [History Confirmed 11/16/18] cholecalciferol (vitamin D3) [Vitamin D3] 2,000 unit PO QAM 11/16/18 [History Confirmed 11/16/18] cranberry extract 250 mg PO QAM 11/16/18 [History Confirmed 11/16/18] escitalopram oxalate [Lexapro] 10 mg PO HS 11/16/18 [History Confirmed 11/16/18] fentanyl [Duragesic] 25 mcg TOPICAL UD 11/16/18 [History Confirmed 11/16/18] ferrous sulfate 325 mg PO DAILY 11/16/18 [History Confirmed 11/16/18] levothyroxine 112 mcg PO DAILY 11/16/18 [History Confirmed 11/16/18] lisinopril 5 mg PO QAM 11/16/18 [History Confirmed 11/16/18] lorazepam [Ativan] 0.5 mg PO QID 11/16/18 [History Confirmed 11/16/18] memantine [Namenda] 5 mg PO BID 11/16/18 [History Confirmed 11/16/18] olanzapine [Zyprexa] 5 mg PO QAM 11/16/18 [History Confirmed 11/16/18] olanzapine [Zyprexa] 7.5 mg PO HS 11/16/18 [History Confirmed 11/16/18] ondansetron HCl [Zofran] 4 mg PO Q6 PRN 11/16/18 [History Confirmed 11/16/18] oxycodone [Roxicodone] 5 mg PO Q4 PRN 11/16/18 [History Confirmed 11/16/18] pantoprazole [Protonix] 40 mg PO AMHS 11/16/18 [History Confirmed 11/16/18] polyethylene glycol 3350 17 g PO DAILY PRN 11/16/18 [History Confirmed 11/16/18] promethazine 25 mg PO Q6H PRN 11/16/18 [History Confirmed 11/16/18] promethazine [Phenergan] 25 mg IM Q6H PRN 11/16/18 [History Confirmed 11/16/18] promethazine [Phenergan] 25 mg MD Q6H PRN 11/16/18 [History Confirmed 11/16/18] ropinirole [Requip] 0.25 mg PO HS 11/16/18 [History Confirmed 11/16/18] sennosides-docusate sodium [Senna with Docusate Sodium] 2 tab PO HS 11/16/18 [History Confirmed 11/16/18] sucralfate [Carafate] 10 ml PO QID 11/16/18 [History Confirmed 11/16/18] sulfamethoxazole-trimethoprim [Bactrim] 1 tab PO QAM 11/16/18 [History Confirmed 11/16/18] sumatriptan succinate [Imitrex] 25 mg PO DAILY PRN 11/16/18 [History Confirmed 11/16/18] Active Medications Acetaminophen (Tylenol) 650 mg PO Q6 PRN PRN Reason: Fever Or Pain Stop: 12/16/18 22:47 Escitalopram Oxalate (Lexapro Tab) 10 mg PO [facility] Stop: 12/17/18 20:59 Fentanyl (Duragesic) 25 mcg TD Q3D@1700 [facility] Stop: 12/02/18 16:59 Ferrous Sulfate (Feosol) 325 mg PO DAILY [facility] Stop: 12/17/18 08:59 Last Admin: 11/17/18 10:16 Dose: 325 mg Documented by: Levothyroxine Sodium (Synthroid) 112 mcg PO DAILYBB [facility] Stop: 12/17/18 06:29 Last Admin: 11/17/18 10:16 Dose: 112 mcg Documented by: Lorazepam (Ativan) 0.5 mg PO QID [facility] Stop: 12/17/18 08:59 Last Admin: 11/17/18 13:16 Dose: 0.5 mg Documented by: Memantine (Namenda) 5 mg PO BID [facility] Stop: 12/17/18 08:59 Last Admin: 11/17/18 10:15 Dose: 5 mg Documented by: Miscellaneous (Fentanyl Patch Check Placement) 1 ea N/A QS [facility] Stop: 12/17/18 00:00 Last Admin: 11/17/18 10:16 Dose: 1 ea Documented by: Miscellaneous (Fentanyl Patch Remove & Waste) 1 ea N/A Q3D@1659 [facility] Stop: 12/18/18 16:58 Olanzapine (Zyprexa) 5 mg PO QAM [facility] Stop: 12/17/18 08:59 Last Admin: 11/17/18 10:15 Dose: 5 mg Documented by: Olanzapine (Zyprexa) 7.5 mg PO HS [facility] Stop: 12/17/18 20:59 Ondansetron HCl (Zofran) 4 mg IV Q6H PRN PRN Reason: Nausea Stop: 12/16/18 22:47 Oxycodone HCl (Roxicodone Immediate Rel) 5 mg PO Q4 PRN PRN Reason: moderate pain Stop: 11/30/18 22:47 Pantoprazole Sodium (Protonix) 40 mg PO BID [facility] Stop: 12/17/18 20:59 Polyethylene Glycol (Miralax Powder Packet) 17 gm PO DAILY PRN PRN Reason: Constipation Stop: 12/16/18 22:47 Ropinirole HCl (Requip) 0.25 mg PO [facility] Stop: 12/17/18 20:59 Senna/Docusate Sodium (Senokot S) 2 tab PO HS [facility] Stop: 12/17/18 20:59 Sucralfate (Carafate) 1 gm PO ACHS [facility] Stop: 12/17/18 07:29 Last Admin: 11/17/18 13:08 Dose: 1 gm Documented by: Trimethoprim/Sulfamethoxazole (Septra 400/80mg Tab) 1 tab PO QAM [facility] Stop: 12/17/18 08:59 Last Admin: 11/17/18 10:16 Dose: 1 tab Documented by: PG Care Time/CCT Total # of Minutes Spent Total Time Spent with Patient: Total time spent is greater than 50% in coordination of care (as documented) at patient's floor/unit and/or counseling patient: Resident Activity Tracking Resident Involvement: Resident Care Provided Care Provided: Adult Hospital Medicine
[2018-11-17 15:44] LABS: Basophils # (auto) 0.01 K/uL (0-0.2); Basophils % (auto) 0.2 %; Eosinophils # (auto) 0.26 K/uL (0-0.5); Hemoglobin 8.8 g/dL (12.0-16.0); Immature Granulocytes # (auto) 0.01 K/uL (0.00-0.02); Immature Granulocytes % (auto) 0.2 %; Lymphocytes # (auto) 1.55 K/uL (1.2-3.4); Lymphocytes % (auto) 23.8 %; Mean Corpuscular Hemoglobin 28.9 pg (25-34); Mean Corpuscular Hgb Conc 32.6 g/dL (32-36); Mean Corpuscular Volume 88.5 fL (80-100); Mean Platelet Volume 9.7 fL (7.4-10.4); Monocytes % (auto) 10.8 %; Neutrophils # (auto) 3.97 K/uL (1.4-6.5); Platelet Count 193 K/uL (130-400); RDW Coefficient of Variation 14.6 % (11.5-14.5); RDW Standard Deviation 47.2 fL (36.4-46.3); Red Blood Count 3.05 M/uL (4.2-5.4)
[2018-11-17] MEDS: ESCITALOPRAM OXALATE 10 MG TAB PO SCH (21:24)
[2018-11-17] MEDS: DOCUSATE SODIUM/SENNA 50/8.6MG TAB PO SCH (21:25)
[2018-11-17] MEDS: OLANZAPINE 2.5 MG TAB PO SCH (21:25)
[2018-11-17] MEDS: PANTOprazole 40 MG TAB PO SCH (21:25)
[2018-11-17] MEDS: ROPINIROLE HCL 0.25 MG TABLET PO SCH (21:25)
[2018-11-17 22:54] LABS: Basophils # (auto) 0.01 K/uL (0-0.2); Basophils % (auto) 0.2 %; Eosinophils # (auto) 0.29 K/uL (0-0.5); Eosinophils % (auto) 4.6 %; Hematocrit (blood only) 28.7 % (37-47); Hemoglobin 9.3 g/dL (12.0-16.0); Immature Granulocytes # (auto) 0.01 K/uL (0.00-0.02); Immature Granulocytes % (auto) 0.2 %; Lymphocytes # (auto) 1.24 K/uL (1.2-3.4); Lymphocytes % (auto) 19.7 %; Mean Corpuscular Hemoglobin 28.8 pg (25-34); Mean Corpuscular Hgb Conc 32.4 g/dL (32-36); Mean Corpuscular Volume 88.9 fL (80-100); Mean Platelet Volume 9.8 fL (7.4-10.4); Monocytes # (auto) 0.58 K/uL (0.11-0.59); Monocytes % (auto) 9.2 %; Neutrophils # (auto) 4.16 K/uL (1.4-6.5); Neutrophils % (auto) 66.1 %; Platelet Count 171 K/uL (130-400); RDW Coefficient of Variation 14.5 % (11.5-14.5); RDW Standard Deviation 47.7 fL (36.4-46.3); Red Blood Count 3.23 M/uL (4.2-5.4); White Blood Count 6.29 K/uL (4.8-10.8)
[2018-11-18] MEDS: CHECK FENTANYL PATCH PLACEMENT SCH ×4 (00:36→23:16)
[2018-11-18 07:07] LABS: Eosinophils # (auto) 0.24 K/uL (0-0.5); Eosinophils % (auto) 4.1 %; Hematocrit (blood only) 30.7 % (37-47); Hemoglobin 9.8 g/dL (12.0-16.0); Immature Granulocytes # (auto) 0.01 K/uL (0.00-0.02); Immature Granulocytes % (auto) 0.2 %; Lymphocytes # (auto) 1.45 K/uL (1.2-3.4); Mean Corpuscular Hemoglobin 29.1 pg (25-34); Mean Corpuscular Hgb Conc 31.9 g/dL (32-36); Mean Corpuscular Volume 91.1 fL (80-100); Mean Platelet Volume 9.5 fL (7.4-10.4); Monocytes # (auto) 0.69 K/uL (0.11-0.59); Monocytes % (auto) 11.9 %; Neutrophils % (auto) 58.8 %; Platelet Count 188 K/uL (130-400); RDW Coefficient of Variation 14.6 % (11.5-14.5); RDW Standard Deviation 48.1 fL (36.4-46.3); Red Blood Count 3.37 M/uL (4.2-5.4); White Blood Count 5.79 K/uL (4.8-10.8)
[2018-11-18 07:48] LABS: Albumin Level 2.7 gm/dl (3.4-5.0); BUN Creatinine Ratio 14.9 (10-20); Calcium 8.1 mg/dl (8.5-10.1); Creatinine Clr Calc Pharmacy 38.8 ml/min; Est GFR (African American) 56.7; Est GFR (Non-African American) 48.9
[2018-11-18 07:51] LABS: Albumin Globulin Ratio 0.9 (0.9-2); Bilirubin,Total 0.6 mg/dl (0.2-1); Globulin 2.9 gm/dl (2.5-4.0); Total Protein 5.6 gm/dl (6.4-8.2)
[2018-11-18] MEDS: LORazepam 0.5 MG TAB PO SCH ×4 (08:52→20:16)
[2018-11-18] MEDS: OLANZapine 5 MG TABLET PO SCH (08:52)
[2018-11-18] MEDS: MEMANTINE HCL 5 MG TAB PO SCH ×2 (09:01→20:19)
[2018-11-18] MEDS: SULFA/TRIMETH 400/80MG TAB PO SCH (09:01)
[2018-11-18] MEDS: SUCRALFATE 1 GM/10 ML UDC PO SCH ×4 (09:01→20:18)
[2018-11-18] MEDS: PANTOprazole 40 MG TAB PO SCH ×2 (09:02→20:18)
[2018-11-18] MEDS: FERROUS SULFATE 325 MG TAB PO SCH (09:02)
[2018-11-18] MEDS: LEVOTHYROXINE SODIUM 112 MCG TABLET PO SCH (10:01)
[2018-11-18] MEDS ORDERED: LORazepam 0.5 MG/1 ML VIAL IV STA ×2 (10:58→17:05)
--- NOTE | 2018-11-18 16:28 | Palliative Care Consultation ---
Date of Consultation November 18, 2018 Assessment & Plan (1) Goals of care, counseling/discussion: -78 year old female with PMH dementia, hypertension, CKD 3, esophageal stenosis and hiatal hernia presenting from [facility] with coffee-ground emesis. Patient was recently admitted to [facility] from for upper GI bleed. She had an EGD performed by Dr. Montemayor on 11/11 which revealed "moderately severe esophagitis with no bleeding, medium size hiatal hernia, retained fluid in the greater curvature of the stomach, and moderate inflammation in the gastric antrum." While inpatient the patient was treated with IV Protonix and Carafate. She was discharged to [facility] on 11/13 with instructions to continue Protonix twice daily for 4 weeks then decrease to daily and increase Carafate to 4 times daily for 7 to 10 days then resume twice daily dosing. Patient returned to [facility] and daughter reports that she was doing quite well, but there is question of whether or not she was taking her carafate. There was some report of patient refusing some medications. Patient is with significant dementia, moderately severe per FAST scale. She is hemodynamically stable, hgb 9.3. Admitted telemetry and seen by GI. GI states there is no need for re-scope, as she just had EGD a week ago. They recommend supportive care and possibly hospice/comfort care. Palliative care is consulted. -Met with patient, her daughter Estela, and Remi Caldera." Patient is awake and alert, oriented to person and place. Forgetful with some confusion at baseline. No distress or complaints. -Discussed patient's medical condition and why she returned to the hospital. Family understands that she is back to hospital with the same issue. However, daughter has many questions about whether or not patient needs esophageal dilatation again. I explained that at the current time, GI team's recommendatio ns are for continued medical and supportive care, and to discuss goals. Estela and Vinh both agree that overarching goal is for comfort, but they want to be sure there are no further procedures that could help the patient. I also explained that further procedures may have more burden than benefit, and that is something they need to discuss based on what the patient's wishes would be at this point given her recurrent hospitalizations and advanced dementia. -We did discuss the option of hospice care at [facility]. The family is not ready to make a decision yet. I will follow up tomorrow and see if they had a chance to discuss and whether or not they were able to discuss with hospitalist or GI team. I did update hospitalist/resident team and stated the family had some further questions. -PPS 40%, FAST score 6c. (2) Hematemesis: (3) Acute upper gastrointestinal bleeding: (4) Esophagitis: (5) Gastritis: (6) Dementia: Dementia type: associated with other underlying disease Dementia behavioral disturbance: with behavioral disturbance Qualified Code(s): F02.81 - Dementia in other diseases classified elsewhere with behavioral disturbance History of Present Illness Reason for Consultation: Goals of care Requesting Physician: Dr. Santos Attending Physician: Jessica Mcmillan MD History of Present Illness This 78 year old female with PMH dementia, hypertension, CKD 3, esophageal stenosis and hiatal hernia presenting from [facility] with coffee-ground emesis. Patient was recently admitted to [facility] from for upper GI bleed. She had an EGD performed by Dr. Montemayor on 11/11 which revealed "moderately severe esophagitis with no bleeding, medium size hiatal hernia, retained fluid in the greater curvature of the stomach, and moderate inflammation in the gastric antrum." While inpatient the patient was treated with IV Protonix and Carafate. She was discharged to [facility] on 11/13 with instructions to continue Protonix twice daily for 4 weeks then decrease to daily and increase Carafate to 4 times daily for 7 to 10 days then resume twice daily dosing. Patient returned to [facility] and daughter reports that she was doing quite well, but there is question of whether or not she was taking her carafate. There was some report of patient refusing some medications. Patient is with significant dementia, moderately severe per FAST scale. She is hemodynamically stable, hgb 9.3. Admitted telemetry and seen by GI. GI states there is no need for re-scope, as she just had EGD a week ago. They recommend supportive care and possibly hospice/comfort care. Palliative care is consulted. Thank you kindly for this consult. Palliative care team will follow as needed. Allergies Allergy/AdvReac Type Severity Reaction Status Date / Time melon Allergy Intermediate [place] Verified 11/16/18 19:47 - Rash caffeine Allergy Unknown . Verified 11/16/18 19:47 desipramine Allergy Unknown . Verified 11/16/18 19:47 ergotamine Allergy Unknown . Verified 11/16/18 19:47 nitrofurantoin Allergy Unknown . Verified 11/16/18 19:47 watermelon Allergy Unknown UNKNOWN Verified 11/16/18 19:47 Home Medications Home Medications Medication Instructions Recorded Confirmed Type acetaminophen [Tylenol] 650 mg PO Q6 PRN 11/16/18 11/16/18 History calcium carbonate 600 mg PO DAILY 11/16/18 11/16/18 History cholecalciferol (vitamin D3) 2,000 unit PO QAM 11/16/18 11/16/18 History [Vitamin D3] cranberry extract 250 mg PO QAM 11/16/18 11/16/18 History escitalopram oxalate [Lexapro] 10 mg PO HS 11/16/18 11/16/18 History fentanyl [Duragesic] 25 mcg TOPICAL UD 11/16/18 11/16/18 History ferrous sulfate 325 mg PO DAILY 11/16/18 11/16/18 History levothyroxine 112 mcg PO DAILY 11/16/18 11/16/18 History lisinopril 5 mg PO QAM 11/16/18 11/16/18 History lorazepam [Ativan] 0.5 mg PO QID 11/16/18 11/16/18 History memantine [Namenda] 5 mg PO BID 11/16/18 11/16/18 History olanzapine [Zyprexa] 5 mg PO QAM 11/16/18 11/16/18 History olanzapine [Zyprexa] 7.5 mg PO HS 11/16/18 11/16/18 History ondansetron HCl [Zofran] 4 mg PO Q6 PRN 11/16/18 11/16/18 History oxycodone [Roxicodone] 5 mg PO Q4 PRN 11/16/18 11/16/18 History pantoprazole [Protonix] 40 mg PO AMHS 11/16/18 11/16/18 History polyethylene glycol 3350 17 g PO DAILY PRN 11/16/18 11/16/18 History promethazine 25 mg PO Q6H PRN 11/16/18 11/16/18 History promethazine [Phenergan] 25 mg IM Q6H PRN 11/16/18 11/16/18 History promethazine [Phenergan] 25 mg NC Q6H PRN 11/16/18 11/16/18 History ropinirole [Requip] 0.25 mg PO HS 11/16/18 11/16/18 History sennosides-docusate sodium [Senna 2 tab PO HS 11/16/18 11/16/18 History with Docusate Sodium] sucralfate [Carafate] 10 ml PO QID 11/16/18 11/16/18 History sulfamethoxazole-trimethoprim 1 tab PO QAM 11/16/18 11/16/18 History [Bactrim] sumatriptan succinate [Imitrex] 25 mg PO DAILY PRN 11/16/18 11/16/18 History Patient History Medical History Dementia (Chronic) Female bladder prolapse (Resolved) Anemia Fracture of head of left humerus (Acute) Fracture of left olecranon process (Acute) Fracture, thoracic vertebra, compression (Acute) HTN (hypertension) (Chronic) Lumbar transverse process fracture (Acute) T12 compression fracture (Acute) Thoracic compression fracture (Acute) UTI (lower urinary tract infection) (Acute) Chronic scarring of esophagus Surgical History S/P breast biopsy S/P hysterectomy S/P shoulder surgery Status post Rudy fundoplication Family History Other Family history non-contributory Social History Preferred Language: Cuban Communication Ability: Impaired Handy Man Required: No Beliefs That Will Affect Care: None marital status: Current Living Situation: Correction Current Living Situation Comment: [employer] current occupational status: retired Feels Safe at Home: Yes Smoking Status: Former smoker Second Hand Exposure: No ; Hx Alcohol Use: No Hx Substance Use: No Review of Systems Ear, Nose, Mouth, Throat: no dysphagia Respiratory: no cough and no dyspnea Cardiovascular: no chest pain Gastrointestinal: no hematemesis (none at this time) Neurologic: + confusion (baseline) Physical Exam Constitutional: no acute distress ENMT: external ear and nose normal, oropharynx normal Neck: normal visual inspection Respiratory: normal respiratory effort, lungs clear to auscultation Cardiovascular: RRR, no murmur, no edema Neurologic: moves all extremities and awake Psychiatric: Orientation: alert, oriented to person and oriented to place Results & Data Vital Signs (Past 12 Hours) Vital Signs Temp Pulse Pulse Resp BP Pulse Ox 11/18/18 16:16 36.0 C L 72 18 177/73 H 94 11/18/18 10:44 36.6 C 61 19 172/69 H 92 11/18/18 08:00 48 L 11/18/18 07:48 36.3 C L 18 146/72 H 95 PG Care Time/CCT Total # of Minutes Spent Total Time Spent with Patient: Total time spent is greater than 50% in coordination of care (as documented) at patient's floor/unit and/or counseling patient: Time Spent Midlevel 70 minutes with >50% of the time spent at bedside with patient and family discussing condition and GOC.
[2018-11-18] MEDS ORDERED: fentaNYL 25 MCG/HR TDSY TD SCH (17:00)
--- NOTE | 2018-11-18 17:18 | Family Medicine Progress Note ---
Date of Service November 18, 2018 Assessment & Plan (1) Acute upper gastrointestinal bleeding: Ms. Hunt is a 78yo with a Hx of Dementia, HTN, hypothyroidism, depression, CKD who presents from [facility] with multiple episodes of GI bleed after being admitted for the same ~a week ago. Upper GI Bleed in setting of recurrent extensive history of hiatal hernia with repair in past and esophageal stricture and recurrent bleeds and EGD -Likely recurrent due to missed sucralfate/protonix doses per family (state pt had refused meds at [facility]) -currently stable, Hgb 9, vitals stable -transition from IV protonix drip to on Protonix 40mg BID. -COntinue sucralfate 4 times daily -cbc checks qAM -Per GI, -will not re-scope. Last EGD showed esophagitis, gastritis. -H. pylori pending, -will consider GI bleed scan should there be an indication for continued bl eeding. -consider palliative care consult. -consulted palliative care- awaiting recs HTN -continue to hold lisinopril due to GI bleeding -BP currently within normal range -will continue to monitor Agitation with underlying dementia - Extra dose of lorazepam given. - continue home dose zyprexa -continue home Namenda, Ativan, Zyprexa CKD Stage 3 -stable -Cr level within normal limits Hypothyroidism -continue home synthroid Depression -continue home Lexapro Hx of prolapse -per daughter, causes frequent UTIs -on chronic Bactrim -continue FEN/GI: HH diet started 11/18, minced and moist DVT proph: SCDs CODE STATUS: DNR/DNI Dispo: currently back to [facility] once bleeding resolved; Supervising Physician Co-Signing Physician Notes Resident Physician Supervision Note: I independently interviewed and examined the patient and verified the chavis history and physical, reviewed labs and image studies, discussed the case with the resident Dr. Santos and agree with the findings and care plan. Subjective Ms. Hunt was resting in bed comfortably this AM, taking her meds. present at the bedside at that time. Review of Systems Review of Systems: Unobtainable due to cognitive status Physical Exam Physical Exam: General: Laying in bed in no acute distress HEENT: NC/AT Chest: Nontender to palpation. CV: RRR, Normal s1, s2. No murmurs appreciated Resp: Breath sounds clear bilaterally on front, no increased effort of breathing. Abdomen: Soft, nontender, nondistended. No guarding. No organomegaly appreciated. Extremities: Trace edema in lower extremities bilaterally. Results & Data Vital Signs (Past 12 Hours) Vital Signs Temp Pulse Pulse Resp BP Pulse Ox 11/18/18 16:16 36.0 C L 72 18 177/73 H 94 11/18/18 10:44 36.6 C 61 19 172/69 H 92 11/18/18 08:00 48 L 11/18/18 07:48 36.3 C L 18 146/72 H 95 Laboratory Results Laboratory Results - last 24 hr 11/17/18 11/18/18 11/18/18 22:43 06:33 06:33 WBC 6.29 5.79 RBC 3.23 L 3.37 L Hgb 9.3 L 9.8 L Hct 28.7 L 30.7 L MCV 88.9 91.1 MCH 28.8 29.1 MCHC 32.4 31.9 L RDW Std Deviation 47.7 H 48.1 H RDW Coeff of Neville 14.5 14.6 H Plt Count 171 188 MPV 9.8 9.5 Immature Gran % (Auto) 0.2 0.2 Neut % (Auto) 66.1 58.8 Lymph % (Auto) 19.7 25.0 Izard % (Auto) 9.2 11.9 Eos % (Auto) 4.6 4.1 Baso % (Auto) 0.2 0.0 Immature Gran # (Auto) 0.01 0.01 Neut # (Auto) 4.16 3.40 Lymph # (Auto) 1.24 1.45 Izard # (Auto) 0.58 0.69 H Eos # (Auto) 0.29 0.24 Baso # (Auto) 0.01 0.00 Sodium 144 Potassium 4.0 Chloride 112 H Carbon Dioxide 26 Anion Gap 6.0 BUN 16 Creatinine 1.09 Est Cr Clr Drug Dosing 38.8 Est GFR ( Amer) 56.7 Est GFR (Non-Af Amer) 48.9 BUN/Creatinine Ratio 14.9 Glucose 82 Calcium 8.1 L Total Bilirubin 0.6 AST 17 ALT 18 Alkaline Phosphatase 92 Total Protein 5.6 L Albumin 2.7 L Globulin 2.9 Albumin/Globulin Ratio 0.9 Medications Administered Home Medications acetaminophen [Tylenol] 650 mg PO Q6 PRN 11/16/18 [History Confirmed 11/16/18] calcium carbonate 600 mg PO DAILY 11/16/18 [History Confirmed 11/16/18] cholecalciferol (vitamin D3) [Vitamin D3] 2,000 unit PO QAM 11/16/18 [History Confirmed 11/16/18] cranberry extract 250 mg PO QAM 11/16/18 [History Confirmed 11/16/18] escitalopram oxalate [Lexapro] 10 mg PO HS 11/16/18 [History Confirmed 11/16/18] fentanyl [Duragesic] 25 mcg TOPICAL UD 11/16/18 [History Confirmed 11/16/18] ferrous sulfate 325 mg PO DAILY 11/16/18 [History Confirmed 11/16/18] levothyroxine 112 mcg PO DAILY 11/16/18 [History Confirmed 11/16/18] lisinopril 5 mg PO QAM 11/16/18 [History Confirmed 11/16/18] lorazepam [Ativan] 0.5 mg PO QID 11/16/18 [History Confirmed 11/16/18] memantine [Namenda] 5 mg PO BID 11/16/18 [History Confirmed 11/16/18] olanzapine [Zyprexa] 5 mg PO QAM 11/16/18 [History Confirmed 11/16/18] olanzapine [Zyprexa] 7.5 mg PO HS 11/16/18 [History Confirmed 11/16/18] ondansetron HCl [Zofran] 4 mg PO Q6 PRN 11/16/18 [History Confirmed 11/16/18] oxycodone [Roxicodone] 5 mg PO Q4 PRN 11/16/18 [History Confirmed 11/16/18] pantoprazole [Protonix] 40 mg PO AMHS 11/16/18 [History Confirmed 11/16/18] polyethylene glycol 3350 17 g PO DAILY PRN 11/16/18 [History Confirmed 11/16/18] promethazine 25 mg PO Q6H PRN 11/16/18 [History Confirmed 11/16/18] promethazine [Phenergan] 25 mg IM Q6H PRN 11/16/18 [History Confirmed 11/16/18] promethazine [Phenergan] 25 mg GA Q6H PRN 11/16/18 [History Confirmed 11/16/18] ropinirole [Requip] 0.25 mg PO HS 11/16/18 [History Confirmed 11/16/18] sennosides-docusate sodium [Senna with Docusate Sodium] 2 tab PO HS 11/16/18 [History Confirmed 11/16/18] sucralfate [Carafate] 10 ml PO QID 11/16/18 [History Confirmed 11/16/18] sulfamethoxazole-trimethoprim [Bactrim] 1 tab PO QAM 11/16/18 [History Confirmed 11/16/18] sumatriptan succinate [Imitrex] 25 mg PO DAILY PRN 11/16/18 [History Confirmed 11/16/18] Active Medications Acetaminophen (Tylenol) 650 mg PO Q6 PRN PRN Reason: Fever Or Pain Stop: 12/16/18 22:47 Escitalopram Oxalate (Lexapro Tab) 10 mg PO [facility] Stop: 12/17/18 20:59 Last Admin: 11/17/18 21:24 Dose: 10 mg Documented by: Fentanyl (Duragesic) 25 mcg TD Q3D@1700 [facility] Stop: 12/02/18 16:59 Last Admin: 11/18/18 17:01 Dose: 25 mcg Documented by: Ferrous Sulfate (Feosol) 325 mg PO DAILY [facility] Stop: 12/17/18 08:59 Last Admin: 11/18/18 09:02 Dose: 325 mg Documented by: Levothyroxine Sodium (Synthroid) 112 mcg PO DAILYBB [facility] Stop: 12/17/18 06:29 Last Admin: 11/18/18 10:01 Dose: Not Given Documented by: Lorazepam (Ativan) 0.5 mg PO QID [facility] Stop: 12/17/18 08:59 Last Admin: 11/18/18 16:05 Dose: 0.5 mg Documented by: Memantine (Namenda) 5 mg PO BID [facility] Stop: 12/17/18 08:59 Last Admin: 11/18/18 09:01 Dose: 5 mg Documented by: Miscellaneous (Fentanyl Patch Check Placement) 1 ea N/A QS [facility] Stop: 12/17/18 00:00 Last Admin: 11/18/18 16:05 Dose: 1 ea Documented by: Miscellaneous (Fentanyl Patch Remove & Waste) 1 ea N/A Q3D@1659 [facility] Stop: 12/18/18 16:58 Last Admin: 11/18/18 17:01 Dose: 1 ea Documented by: Olanzapine (Zyprexa) 5 mg PO QAM [facility] Stop: 12/17/18 08:59 Last Admin: 11/18/18 08:52 Dose: 5 mg Documented by: Olanzapine (Zyprexa) 7.5 mg PO HS [facility] Stop: 12/17/18 20:59 Last Admin: 11/17/18 21:25 Dose: 7.5 mg Documented by: Ondansetron HCl (Zofran) 4 mg IV Q6H PRN PRN Reason: Nausea Stop: 12/16/18 22:47 Oxycodone HCl (Roxicodone Immediate Rel) 5 mg PO Q4 PRN PRN Reason: moderate pain Stop: 11/30/18 22:47 Pantoprazole Sodium (Protonix) 40 mg PO BID [facility] Stop: 12/17/18 20:59 Last Admin: 11/18/18 09:02 Dose: 40 mg Documented by: Polyethylene Glycol (Miralax Powder Packet) 17 gm PO DAILY PRN PRN Reason: Constipation Stop: 12/16/18 22:47 Ropinirole HCl (Requip) 0.25 mg PO [facility] Stop: 12/17/18 20:59 Last Admin: 11/17/18 21:25 Dose: 0.25 mg Documented by: Senna/Docusate Sodium (Senokot S) 2 tab PO HS [facility] Stop: 12/17/18 20:59 Last Admin: 11/17/18 21:25 Dose: 2 tab Documented by: Sucralfate (Carafate) 1 gm PO ACHS [facility] Stop: 12/17/18 07:29 Last Admin: 11/18/18 16:05 Dose: 1 gm Documented by: Trimethoprim/Sulfamethoxazole (Septra 400/80mg Tab) 1 tab PO QAM [facility] Stop: 12/17/18 08:59 Last Admin: 11/18/18 09:01 Dose: 1 tab Documented by: PG Care Time/CCT Total # of Minutes Spent Total Time Spent with Patient: Total time spent is greater than 50% in coordination of care (as documented) at patient's floor/unit and/or counseling patient: Resident Activity Tracking Resident Involvement: Resident Care Provided Care Provided: Adult [facility] Medicine
[2018-11-18] MEDS: DOCUSATE SODIUM/SENNA 50/8.6MG TAB PO SCH (20:16)
[2018-11-18] MEDS: OLANZAPINE 2.5 MG TAB PO SCH (20:17)
[2018-11-18] MEDS: ESCITALOPRAM OXALATE 10 MG TAB PO SCH (20:18)
[2018-11-18] MEDS: ROPINIROLE HCL 0.25 MG TABLET PO SCH (20:19)
[2018-11-18] MEDS ORDERED: HALOPERIDOL LACTATE 5 MG/ML 1 ML VIAL IV STA (23:29)
[2018-11-19] MEDS: LEVOTHYROXINE SODIUM 112 MCG TABLET PO SCH (06:12)
[2018-11-19] MEDS: SUCRALFATE 1 GM/10 ML UDC PO SCH ×2 (07:46→11:30)
[2018-11-19] MEDS: CHECK FENTANYL PATCH PLACEMENT SCH (07:47)
[2018-11-19] MEDS: FERROUS SULFATE 325 MG TAB PO SCH (07:48)
[2018-11-19] MEDS: PANTOprazole 40 MG TAB PO SCH (07:48)
[2018-11-19] MEDS: MEMANTINE HCL 5 MG TAB PO SCH (07:48)
[2018-11-19] MEDS: SULFA/TRIMETH 400/80MG TAB PO SCH (07:49)
[2018-11-19] MEDS: OLANZapine 5 MG TABLET PO SCH (07:49)
[2018-11-19 08:07] LABS: Albumin Level 3.2 gm/dl (3.4-5.0); BUN Creatinine Ratio 12.6 (10-20); Creatinine Clr Calc Pharmacy 35.8 ml/min; Est GFR (African American) 56.7; Est GFR (Non-African American) 48.9
[2018-11-19 08:10] LABS: Albumin Globulin Ratio 0.9 (0.9-2); Bilirubin,Total 0.4 mg/dl (0.2-1); Globulin 3.5 gm/dl (2.5-4.0); Total Protein 6.7 gm/dl (6.4-8.2)
[2018-11-19] MEDS: LORazepam 0.5 MG TAB PO SCH ×2 (09:01→14:02)
--- NOTE | 2018-11-19 15:02 | Discharge Summary ---
Date of Service November 19, 2018 Admission HPI Per Admitting Provider Kailey Hunt is a 78-year-old female with history of dementia, hypertension, CKD 3, esophageal stenosis and hiatal hernia presenting from [facility] with coffee-ground emesis. Patient with moderately severe dementia. Unable to provide pertinent details. History obtained through chart review and discussion with daughter at bedside. Patient was recently admitted from for upper GI bleed. She had an EGD performed by Dr. Montemayor on November 11 which revealed moderately severe esophagitis with no bleeding, medium size hiatal hernia, retained fluid in the greater curvature of the stomach, and moderate inflammation in the gastric antrum. While inpatient the patient was treated with IV Protonix and Carafate. She was discharged to [facility] on 11/13 with instructions to continue Pr otonix twice daily for 4 weeks then decrease to daily and increase Carafate to 4 times daily for 7 to 10 days then resume twice daily dosing. She return to [facility] in stable condition. Daughter reports that she was doing quite well and that it was a good transition back to the correction. She was eating well and taking her medications as prescribed. This morning patient had episode of nausea with subsequent coffee-ground emesis. She returned to [facility] emergency room where she had a witnessed episode of large-volume coffee-ground emesis. Patient remained hemodynamically stable. Patient takes scheduled Ativan at home. She did become mildly agitated while in the ER and was administered 2 doses of Ativan with improvement in symptoms. Of note, patient had an EGD performed on 07/20/2018 which revealed medium-sized hiatal hernia and gastritis ER course: Pepcid, Ativan, Zofran, Protonix, normal saline Admission Exam Per Admitting Provider General: patient resting comfortably, NAD, non-toxic in appearance, AA&O to self. Answers some questions appropriately. Follows commands. Skin: warm, dry, intact, no rashes or lesions HEENT: NC/AT, PERRL, EOMI, anicteric sclera, conjunctiva without injection, external ear normal to inspection and nontender, nares patent, moist mucus membranes, dentures in place, no oropharyngeal lesions, neck supple, trachea midline, no LAD, no thyromegaly, no JVD Heart: +S1/S2, regular, no m/r/g Lungs: equal air entry bilaterally, no rales/rhonchi/wheezes Abd: +BS, soft, NT/ND, no masses/organomegaly/ascites Ext: warm, 2+ pulses in UE/LE bilaterally, no clubbing/cyanosis or edema Neuro: nonfocal, patient AA&O to self, speech intact, no facial droop, moving all extremities on command with equal strength 5/5 Principal Diagnosis Upper GI Bleed Discharge Exam General: Laying in bed in no acute distress. AAOx1 (name only) HEENT: NC/AT Chest: Nontender to palpation. CV: RRR, Normal s1, s2. No murmurs appreciated Resp: Breath sounds clear bilaterally on front, no increased effort of breathing. Abdomen: Soft, nontender, nondistended. No guarding. No organomegaly appreciated. Extremities: Trace edema in lower extremities bilaterally. Discharge Data Allergies Allergy/AdvReac Type Severity Reaction Status Date / Time melon Allergy Intermediate Cantelope Verified 11/16/18 19:47 - Rash caffeine Allergy Unknown . Verified 11/16/18 19:47 desipramine Allergy Unknown . Verified 11/16/18 19:47 ergotamine Allergy Unknown . Verified 11/16/18 19:47 nitrofurantoin Allergy Unknown . Verified 11/16/18 19:47 watermelon Allergy Unknown UNKNOWN Verified 11/16/18 19:47 Consultations 11/16/18 20:46 ED Decision to Admit Stat 11/16/18 22:48 Consult Gastroenterology Routine 11/17/18 13:35 Consult Palliative Care Routine Hospital Course (1) Acute upper gastrointestinal bleeding: Ms. Hunt is a 78yo with a Hx of Dementia, HTN, hypothyroidism, depression, CKD who presents from [facility] with multiple episodes of GI bleed after being admitted for the same ~a week ago. Upper GI Bleed in setting of recurrent extensive history of hiatal hernia with repair in past and esophageal stricture and recurrent bleeds and EGD Acute blood loss anemia -Likely recurrent due to missed sucralfate/protonix doses per family (state pt had refused meds at [facility]) -currently stable, Hgb 9.8, vitals stable on discharge -transitioned from IV protonix drip on admission to Protonix 40mg BID on discharge. -Continue sucralfate 4 times daily -Per GI, this admission: -will not re-scope. Last EGD showed esophagitis, gastritis. No sign of persistent blood loss -H. pylori pending, -consider palliative care consult. -consulted palliative care-family with no definitive wish; there was question of further family discussion of hospice care at [facility] HTN -held lisinopril due to GI bleeding -Can restart on discharge. Agitation with underlying dementia - Extra dose of lorazepam given IV while hospitalized. - continue home dose zyprexa -continue home Namenda, Ativan, Zyprexa CKD Stage 3 -stable -Cr level within normal limits Hypothyroidism -continue home synthroid Depression -continue home Lexapro Hx of prolapse -per daughter, causes frequent UTIs -on chronic Bactrim -continue (2) Acute blood loss anemia: (3) Chronic kidney disease, stage 3a: (4) Dementia: Total Time Total Time Spent Total Time Spent (In Minutes): 60 Discharge Plan Discharge Items Patient Disposition: Transfer [facility] Fac Reason For Visit: UGIB Discharge Diagnosis: Upper GI Bleed Discharge Goals: Decrease discomfort and Improve function Activity: Per 'Additional Instructions' section Non-emergency contact: Primary Care Provider Call non-emergency contact if: your symptoms worsen and you have a fever Follow-up/Referrals: [facility] [Primary Care Provider] - Diet: Heart Healthy Add Provider Instructions: Ms. Hunt was readmitted for what appears to be a recurrent GI bleed likely from refusing her medications. Upper GI Bleed Per GI consult from previous stay, continue doing below: -Continue Protonix 40 mg BID. Take 30 minutes prior to breakfast & dinner. -Carafate 1 gm four times daily before meals and at bedtime. -If records from [facility] indicate the patient is vomiting regularly, consider a standing prophylactic dose of Zofran 1-2 times daily. -Patient's daughter would like to be notified by the correction each time her mother refuses her GI meds. -No acidic foods per request of family to include orange juice, tomatoes, etc. Sitting up after eating. -Consider [facility] -Hgb on discharge stable around 9, at 9.8. HTN -continue to hold lisinopril due to GI bleeding -BP currently within normal range -will continue to monitor CKD Stage 3 -stable -Cr level within normal limits Hypothyroidism -continue home synthroid Depression -continue home Lexapro Dementia -stable -continue home Namenda, Ativan, Zyprexa Hx of prolapse -per daughter, causes frequent UTIs -on chronic Bactrim -continue Prescriptions: Continued sulfamethoxazole-trimethoprim [Bactrim] 400-80 mg tablet 1 tab PO QAM RF: 0 sucralfate [Carafate] 100 mg/mL suspension 10 ml PO QID RF: 0 calcium carbonate 600 mg calcium (1,500 mg) Tablet 600 mg PO DAILY RF: 0 acetaminophen [Tylenol] 325 mg Tablet 650 mg PO Q6 PRN (Reason: Fever Or Pain) RF: 0 polyethylene glycol 3350 17 gram Powder In Packet 17 g PO DAILY PRN (Reason: Constipation) RF: 0 promethazine [Phenergan] 25 mg Suppository 25 mg [place] Q6H PRN (Reason: Nausea) RF: 0 sumatriptan succinate [Imitrex] 25 mg tablet 25 mg PO DAILY PRN (Reason: Migraine Headache) RF: 0 ondansetron HCl [Zofran] 4 mg tablet 4 mg PO Q6 PRN (Reason: Nausea) RF: 0 sennosides-docusate sodium [Senna with Docusate Sodium] 8.6-50 mg Tablet 2 tab PO HS RF: 0 olanzapine [Zyprexa] 5 mg tablet 5 mg PO QAM RF: 0 olanzapine [Zyprexa] 7.5 mg tablet 7.5 mg PO HS RF: 0 cranberry extract 250 mg Capsule 250 mg PO QAM RF: 0 lorazepam [Ativan] 0.5 mg tablet 0.5 mg PO QID RF: 0 ropinirole [Requip] 0.25 mg tablet 0.25 mg PO HS RF: 0 pantoprazole [Protonix] 40 mg tablet,delayed release (DR/EC) 40 mg PO AMHS RF: 0 ferrous sulfate 325 mg (65 mg iron) Tablet 325 mg PO DAILY RF: 0 promethazine [Phenergan] 25 mg/mL Solution 25 mg IM Q6H PRN (Reason: Nausea) RF: 0 promethazine 25 mg Tablet 25 mg PO Q6H PRN (Reason: Nausea) RF: 0 lisinopril 5 mg tablet 5 mg PO QAM RF: 0 fentanyl [Duragesic] 25 mcg/hr patch 72 hour 25 mcg topical UD RF: 0 levothyroxine 112 mcg tablet 112 mcg PO DAILY RF: 0 oxycodone [Roxicodone] 5 mg tablet 5 mg PO Q4 PRN (Reason: moderate pain) RF: 0 escitalopram oxalate [Lexapro] 10 mg tablet 10 mg PO HS RF: 0 memantine [Namenda] 5 mg tablet 5 mg PO BID RF: 0 cholecalciferol (vitamin D3) [Vitamin D3] 2,000 unit Capsule 2,000 unit PO QAM RF: 0 Stand-Alone Forms: [facility] Discharge Orders: Discharge Order (Routine); Ordered 11/19/18 Ordered By: Mirela Santos Skilled Items Patient informed of condition?: Yes DNR: Yes Discharge Level of Care: Skilled Communicable Disease: No Discharge Prognosis: Stable Admission Data Admit Date/Time: 11/16/18 21:33 Attending Provider: Jessica Mcmillan Admit Provider: Naomy Madison Primary Care Provider: [facility] Urena Other Providers: Naomy Madison ; Felix Montemayor ; Anjelica Street Service: Telemetry Other Interventions: Discharge Summary Assessment (RN) Last Done: 11/19/18 13:50 DC Date/Time DO NOT enter until pt leaves facility: 11/19/18 15:17 Supervising Physician Co-Signing Physician Notes Resident Physician Supervision Note: I independently interviewed and examined the patient and verified the chavis history and physical, reviewed labs and image studies, discussed the case with the resident Dr. Santos and agree with the findings and care plan. Time spent in discharge 35 min Resident Activity Tracking Resident Involvement: Resident Care Provided Care Provided: Adult Hospital Medicine
== END 2018-11-19 15:17 | DRG 378 ==
LOC: ED 18:43 → SUATTDRO 21:33 → 2S 21:33

== ENCOUNTER 2018-12-02 22:30 | Inpatient (IN) ==
[2018-12-02] MEDS ORDERED: ONDANSETRON INJ 2 MG/ML 2 ML VIAL IV STA (23:01)
[2018-12-02] MEDS ORDERED: FAMOTIDINE 20MG/5ML IV PUSH IV STA (23:02)
[2018-12-02] MEDS ORDERED: SODIUM CHLORIDE 0.9% 500 ML IV SCH (23:15)
[2018-12-03 00:15] LABS: Eosinophils # (auto) 0.08 K/uL (0-0.5); Eosinophils % (auto) 0.7 %; Hematocrit (blood only) 37.6 % (37-47); Immature Granulocytes # (auto) 0.02 K/uL (0.00-0.02); Immature Granulocytes % (auto) 0.2 %; Lymphocytes # (auto) 0.99 K/uL (1.2-3.4); Lymphocytes % (auto) 8.8 %; Mean Corpuscular Hgb Conc 31.9 g/dL (32-36); Mean Corpuscular Volume 90.4 fL (80-100); Mean Platelet Volume 10.1 fL (7.4-10.4); Monocytes # (auto) 0.74 K/uL (0.11-0.59); Monocytes % (auto) 6.6 %; Neutrophils # (auto) 9.46 K/uL (1.4-6.5); Neutrophils % (auto) 83.7 %; Platelet Count 327 K/uL (130-400); RDW Coefficient of Variation 14.5 % (11.5-14.5); RDW Standard Deviation 47.4 fL (36.4-46.3); Red Blood Count 4.16 M/uL (4.2-5.4); White Blood Count 11.29 K/uL (4.8-10.8)
[2018-12-03] MEDS ORDERED: SODIUM CHLORIDE 0.9% 250 ML IV PRN (00:24)
[2018-12-03] MEDS ORDERED: PANTOprazole 80 MG in DEXTROSE 5% 100 ML IV STA (00:24)
[2018-12-03 00:53] LABS: Albumin Globulin Ratio 0.7 (0.9-2); Albumin Level 3.3 gm/dl (3.4-5.0); Bilirubin,Total 0.4 mg/dl (0.2-1); Calcium 9.3 mg/dl (8.5-10.1); Creatinine Clr Calc Pharmacy 36.5 ml/min; Est GFR (African American) 50.5; Est GFR (Non-African American) 43.6; Globulin 4.4 gm/dl (2.5-4.0); Total Protein 7.7 gm/dl (6.4-8.2)
[2018-12-03] MEDS ORDERED: LORazepam 2 MG/4 ML VIAL ONE (01:16)
[2018-12-03] MEDS: SODIUM CHLORIDE 0.9% 1000ML 1,000 ML IV SCH ×3 (01:59→21:32)
[2018-12-03] MEDS: PANTOprazole 40 MG in DEXTROSE 5% 100 ML IV SCH ×5 (02:22→23:31)
[2018-12-03 02:57] LABS: Hematocrit (blood only) 29.5 % (37-47); Hemoglobin 9.4 g/dL (12.0-16.0)
--- NOTE | 2018-12-03 03:09 | Emergency Department Note ---
Entered by Odin Garcia acting as a scribe for History of Present Illness General Chief complaint: Abdominal Pain Stated complaint: abd pain/vomit blood Time Seen by Provider: 12/02/18 22:50 Source: patient and family () Limitations: other (dementia) History of Present Illness Onset (ago): day(s) (2099 today) Location: abdomen Pain Consistency: + other (persistent) Maximum Pain Intensity: 10 Quality: + other (hematemesis) Associated symptoms: + other (Positive for chest pain and rectal pain.) The patient is a 78 year old female who presents to the emergency department with complaints of persistent hematemesis beginning around 2099 today. Per , the patient is a resident at [facility]. He states that he received a call around 2099 that informed him that the patient has been having persistent hematemesis. The patient also complains of chest pain and pain in her rectum. Per , the patient currently has a bladder infection and he notes that she has frequent upper GI bleeds. HPI limited secondary to dementia. Home Medications Home Medications Medication Instructions Recorded Confirmed Type acetaminophen [Tylenol] 650 mg PO Q6 PRN 11/16/18 12/02/18 History calcium carbonate 600 mg PO QAM 11/16/18 12/02/18 History cholecalciferol (vitamin D3) 2,000 unit PO QAM 11/16/18 12/02/18 History [Vitamin D3] cranberry extract 250 mg PO QAM 11/16/18 12/02/18 History escitalopram oxalate [Lexapro] 10 mg PO HS 11/16/18 12/02/18 History fentanyl [Duragesic] 25 mcg TOPICAL .Q72 HRS 11/16/18 12/02/18 History ferrous sulfate 325 mg PO QAM 11/16/18 12/02/18 History levothyroxine 112 mcg PO QAM 11/16/18 12/02/18 History lisinopril 5 mg PO QAM 11/16/18 12/02/18 History lorazepam [Ativan] 0.5 mg PO QID 11/16/18 12/02/18 History memantine [Namenda] 5 mg PO BID17 11/16/18 12/02/18 History olanzapine [Zyprexa] 5 mg PO QAM 11/16/18 12/02/18 History olanzapine [Zyprexa] 7.5 mg PO HS 11/16/18 12/02/18 History ondansetron HCl [Zofran] 4 mg PO Q6 PRN 11/16/18 12/02/18 History oxycodone [Roxicodone] 5 mg PO Q4 PRN 11/16/18 12/02/18 History pantoprazole [Protonix] 40 mg PO AMHS 11/16/18 12/02/18 History polyethylene glycol 3350 17 g PO DAILY PRN 11/16/18 12/02/18 History promethazine 25 mg PO Q6H PRN 11/16/18 12/02/18 History promethazine [Phenergan] 25 mg IM Q6H PRN 11/16/18 12/02/18 History promethazine [Phenergan] 25 mg LA Q6H PRN 11/16/18 12/02/18 History ropinirole [Requip] 0.25 mg PO HS 11/16/18 12/02/18 History sennosides-docusate sodium [Senna 2 tab PO HS 11/16/18 12/02/18 History with Docusate Sodium] sucralfate [Carafate] 10 ml PO QID 11/16/18 12/02/18 History sulfamethoxazole-trimethoprim 1 tab PO QAM 11/16/18 12/02/18 History [Bactrim] sumatriptan succinate [Imitrex] 25 mg PO DAILY PRN 11/16/18 12/02/18 History multivitamin with minerals 1 tab PO QAM 12/02/18 12/02/18 History Allergies Allergy/AdvReac Type Severity Reaction Status Date / Time melon Allergy Intermediate [place]elope Verified 12/02/18 23:19 - Rash caffeine Allergy Unknown ON CENTRE Verified 12/02/18 23:19 CREST LIST desipramine Allergy Unknown ON CENTRE Verified 12/02/18 23:19 CREST LIST ergotamine Allergy Unknown ON CENTRE Verified 12/02/18 23:19 CREST LIST nitrofurantoin Allergy Unknown ON CENTRE Verified 12/02/18 23:19 CREST LIST watermelon Allergy Unknown UNKNOWN Verified 12/02/18 23:19 Past Med/Surg History Medical History Upper GI bleed (Acute) Chronic kidney disease, stage 3a Depression Hypothyroidism Dementia (Chronic) Female bladder prolapse (Resolved) Anemia Fracture of head of left humerus (Acute) Fracture of left olecranon process (Acute) Fracture, thoracic vertebra, compression (Acute) HTN (hypertension) (Chronic) Lumbar transverse process fracture (Acute) Rapidly progressive dementia (Acute) T12 compression fracture (Acute) Thoracic compression fracture (Acute) UTI (lower urinary tract infection) (Acute) Urinary tract infection (Resolved) Bladder infection Chronic scarring of esophagus Surgical History S/P breast biopsy S/P hysterectomy S/P shoulder surgery Status post Rudy fundoplication Social History Preferred Language: Slovenian Communication Ability: Impaired Assistant Service Manager Required: No Beliefs That Will Affect Care: None marital status: Current Living Situation: Long-Term Current Living Situation Comment: [facility] current occupational status: retired Feels Safe at Home: Yes Smoking Status: Former smoker Second Hand Exposure: No ; Hx Alcohol Use: No Hx Substance Use: No Review of Systems ROS limited secondary to dementia. Physical Exam Vital Signs Vital Signs - 24 hr 12/02/18 22:33 12/02/18 22:38 12/02/18 22:39 Temperature 37 C Temperature Source Oral Sepsis Recent Fever Within 48 Hours No Sepsis New/Unexplained Change in Mental Status No Sepsis Action Taken by Nursing No Action Required Pulse Rate 79 78 78 Pulse Rate from SpO2 Sensor 80 79 Respiratory Rate 27 H 22 18 Respiratory Effort / Characteristics Non-Labored Spontaneous Respiratory Depth Normal Respiratory Pattern Regular Blood Pressure 151/81 H 151/81 H Blood Pressure Mean 104 104 Blood Pressure Position Lying Pulse Oximetry 95 96 96 Oxygen Delivery Method Room Air 12/02/18 23:00 12/02/18 23:05 12/02/18 23:30 Temperature Temperature Source Sepsis Recent Fever Within 48 Hours Sepsis New/Unexplained Change in Mental Status Sepsis Action Taken by Nursing Pulse Rate 75 75 Pulse Rate from SpO2 Sensor 74 Respiratory Rate 25 H 21 Respiratory Effort / Characteristics Respiratory Depth Respiratory Pattern Blood Pressure Blood Pressure Mean Blood Pressure Position Pulse Oximetry 95 95 Oxygen Delivery Method Room Air 12/03/18 00:00 12/03/18 00:30 12/03/18 01:00 Temperature Temperature Source Sepsis Recent Fever Within 48 Hours Sepsis New/Unexplained Change in Mental Status Sepsis Action Taken by Nursing Pulse Rate 75 83 89 Pulse Rate from SpO2 Sensor 89 Respiratory Rate 26 H 20 23 Respiratory Effort / Characteristics Respiratory Depth Respiratory Pattern Blood Pressure 168/76 H Blood Pressure Mean 106 Blood Pressure Position Pulse Oximetry 93 Oxygen Delivery Method 12/03/18 01:12 12/03/18 01:30 12/03/18 01:47 Temperature Temperature Source Sepsis Recent Fever Within 48 Hours Sepsis New/Unexplained Change in Mental Status Sepsis Action Taken by Nursing Pulse Rate Pulse Rate from SpO2 Sensor Respiratory Rate 21 20 21 Respiratory Effort / Characteristics Respiratory Depth Respiratory Pattern Blood Pressure 91/73 L Blood Pressure Mean 79 Blood Pressure Position Pulse Oximetry 92 Oxygen Delivery Method 12/03/18 02:00 12/03/18 02:30 12/03/18 02:31 Temperature Temperature Source Sepsis Recent Fever Within 48 Hours Sepsis New/Unexplained Change in Mental Status Sepsis Action Taken by Nursing Pulse Rate 87 85 91 H Pulse Rate from SpO2 Sensor 88 Respiratory Rate 24 22 15 Respiratory Effort / Characteristics Respiratory Depth Respiratory Pattern Blood Pressure Blood Pressure Mean Blood Pressure Position Pulse Oximetry 92 Oxygen Delivery Method 12/03/18 02:52 Temperature Temperature Source Sepsis Recent Fever Within 48 Hours Sepsis New/Unexplained Change in Mental Status Sepsis Action Taken by Nursing Pulse Rate 84 Pulse Rate from SpO2 Sensor Respiratory Rate 17 Respiratory Effort / Characteristics Respiratory Depth Respiratory Pattern Blood Pressure 123/65 Blood Pressure Mean 84 Blood Pressure Position Pulse Oximetry Oxygen Delivery Method Vital signs reviewed. General: Elderly and chronically ill appearing female, in no significant distress. HEENT: No scleral icterus, PERRLA, neck supple. Atraumatic. Cardiovascular: Regular rate and rhythm, no extra sounds. Pulmonary: Clear to auscultation bilaterally, normal work of breathing. Abdomen: Soft, nondistended, positive bowel sounds, diffuse abdominal tenderness, positive guarding, negative tympany to percussion. Musculoskeletal: Atraumatic, no peripheral edema. Neurologic: Awake, alert, confused, not able to answer questions appropriately. Skin: Warm, dry, no rash Procedures Free Text Procedures Central Venous Catheter Indication: GI bleed and poor access Catheter type: Triple lumen Location: Left femoral vein Verbal consent was obtained after the risks and benefits were explained, including but not limited to pneumothorax, hemothorax, vessel injury, bleeding, scarring, infection, pain, and bone/joint/nerve damage. At this time, the risks of the procedure are less than the risks of NOT performing the procedure. A time out was taken and the correct patient and site identified. The patient was placed in the supine position and the skin was prepped in the standard fashion with chlorhexidine and full sterile drapes applied. The proper landmarks were identified with ultrasound, anesthetized with 1% lidocaine without epinephrine, and the needle was inserted through the skin in the standard fashion. The nee dle was carefully advanced into blood vessel lumen under ultrasound guidance. The guidewire was placed uneventfully. The vessel is dilated and the catheter was placed. It was sutured into position. There was good blood return from all ports. The patient tolerated the procedure well and there were no complications. Course 2257: The patient was evaluated in room C3. A complete history and physical exam was performed. 2311: Per EMR, the patient had an EGD on 11/11/2018 which showed moderately severe esophagitis with no bleeding. It also showed a medium sized hiatal hernia. 0022: The patient started to vomit a black liquid. She is getting Protonix. Nursing cannot get good IV access on the patient. 0101: I discussed the patient's case with JESSICA Cisneros. He agrees with central line placement. 0112: I placed a central line in the patient. 0153: I discussed the patient's case with JESSICA Lam. He is aware of the patient. 0212: Upon reevaluation, the patient is stable. I discussed the findings and the treatment plan with the patient. She expresses agreement and understanding. I s poke with JESSICA Mckenzie. She will be evaluated for further management. Consultations Consultation #1: I discussed the patient's case with JESSICA Cisneros. He agrees with central line placement. Time: 01:01 Consultation #2: I discussed the patient's case with JESISCA Lam. He is aware of the patient. Time: 01:53 Time: 02:12 Additional Consultation(s): I reviewed the patient's case with JESSICA Mckenzie. He will evaluate the patient for further management. Administered Medications Sodium Chloride (Nss 1000ml) 1,000 mls @ 100 mls/hr IV .Q10H NORMA Stop: 01/01/19 23:14 Last Admin: 12/03/18 01:59 Dose: 150 mls/hr Documented by: [id number] Pantoprazole Sodium 40 mg/ (Dextrose) 100 mls @ 20 mls/hr IV Q5H NORMA Stop: 12/03/18 05:29 Last Admin: 12/03/18 02:22 Dose: 20 mls/hr Documented by: [id number] Discontinued Medications Famotidine (Pepcid 20mg Iv Push) 20 mg IV ONE STA Stop: 12/02/18 23:03 Last Admin: 12/03/18 02:07 Dose: Not Given Documented by: [id number] Sodium Chloride (Nss) 500 mls @ 999 mls/hr IV .Q31M NORMA Stop: 12/02/18 23:45 Last Infusion: 12/03/18 02:00 Dose: 0 mls/hr Documented by: [id number] Admin: 12/03/18 00:39 Dose: 999 mls/hr Documented by: [id number] Pantoprazole Sodium 80 mg/ (Dextrose) 120 mls @ 480 mls/hr IV NOW STA Stop: 12/03/18 00:38 Last Infusion: 12/03/18 02:35 Dose: 0 mls/hr Documented by: [id number] Admin: 12/03/18 02:00 Dose: 480 mls/hr Documented by: [id number] Lorazepam (Ativan) Confirm Administered Dose 2 mg .ROUTE .STK-MED ONE Stop: 12/03/18 01:17 Last Admin: 12/03/18 01:19 Dose: 1 mg Documented by: [id number] Ondansetron HCl (Zofran) 4 mg IV NOW STA Stop: 12/02/18 23:02 Last Admin: 12/03/18 00:39 Dose: 4 mg Documented by: [id number] Medical Decision Making Differential Diagnosis Differential diagnosis: Etiologies such as gastroenteritis, food borne illness, infections, appendicitis, diverticulitis, inflammatory bowel disease, obstruction, GI bleed, biliary pathology, cardiac process, intracranial process, as well as others were entertained. Medical Records Attestation: I reviewed the patient's medical records. Home Medications Current Medication List: was personally reviewed by me Laboratory Data Attestation: I reviewed the patient's lab results. Result diagrams: 12/03/18 02:51 12/03/18 01:42 Lab Results 12/03/18 12/03/18 12/03/18 Range/Units 00:03 00:03 00:37 WBC 11.29 H (4.8-10.8) K/uL RBC 4.16 L (4.2-5.4) M/uL Hgb 12.0 (12.0-16.0) g/dL Hct 37.6 (37-47) % MCV 90.4 (80-100) fL MCH 28.8 (25-34) pg MCHC 31.9 L (32-36) g/dL RDW Std Deviation 47.4 H (36.4-46.3) fL RDW Coeff of Neville 14.5 (11.5-14.5) % Plt Count 327 (130-400) K/uL MPV 10.1 (7.4-10.4) fL Immature Gran % (Auto) 0.2 % Neut % (Auto) 83.7 % Lymph % (Auto) 8.8 % [place] % (Auto) 6.6 % Eos % (Auto) 0.7 % Baso % (Auto) 0.0 % Immature Gran # (Auto) 0.02 (0.00-0.02) K/uL Neut # (Auto) 9.46 H (1.4-6.5) K/uL Lymph # (Auto) 0.99 L (1.2-3.4) K/uL [place] # (Auto) 0.74 H (0.11-0.59) K/uL Eos # (Auto) 0.08 (0-0.5) K/uL Baso # (Auto) 0.00 (0-0.2) K/uL Sodium 140 (136-145) mmol/L Potassium (3.5-5.1) mmol/L Chloride 103 (98-107) mmol/L Carbon Dioxide 32 (21-32) mmol/L Anion Gap 5.0 (3-11) BUN 36 H (7-18) mg/dl Creatinine 1.20 (0.6-1.2) mg/dl Est Cr Clr Drug Dosing 36.5 ml/min Est GFR ( Amer) 50.5 Est GFR (Non-Af Amer) 43.6 BUN/Creatinine Ratio 30.0 H (10-20) Glucose 127 H (70-99) mg/dl Calcium 9.3 (8.5-10.1) mg/dl Total Bilirubin 0.4 (0.2-1) mg/dl AST (15-37) U/L ALT 21 (12-78) U/L Alkaline Phosphatase 116 (45-117) U/L Total Protein 7.7 (6.4-8.2) gm/dl Albumin 3.3 L (3.4-5.0) gm/dl Globulin 4.4 H (2.5-4.0) gm/dl Albumin/Globulin Ratio 0.7 L (0.9-2) Lipase 57 L (73-393) U/L Blood Type O Positive Antibody Screen NEGATIVE Crossmatch See Detail 12/03/18 12/03/18 Range/Units 01:42 02:51 WBC (4.8-10.8) K/uL RBC (4.2-5.4) M/uL Hgb 9.4 L (12.0-16.0) g/dL Hct 29.5 L (37-47) % MCV (80-100) fL MCH (25-34) pg MCHC (32-36) g/dL RDW Std Deviation (36.4-46.3) fL RDW Coeff of Neville (11.5-14.5) % Plt Count (130-400) K/uL MPV (7.4-10.4) fL Immature Gran % (Auto) % Neut % (Auto) % Lymph % (Auto) % [place] % (Auto) % Eos % (Auto) % Baso % (Auto) % Immature Gran # (Auto) (0.00-0.02) K/uL Neut # (Auto) (1.4-6.5) K/uL Lymph # (Auto) (1.2-3.4) K/uL [place] # (Auto) (0.11-0.59) K/uL Eos # (Auto) (0-0.5) K/uL Baso # (Auto) (0-0.2) K/uL Sodium (136-145) mmol/L Potassium 4.0 (3.5-5.1) mmol/L Chloride (98-107) mmol/L Carbon Dioxide (21-32) mmol/L Anion Gap (3-11) BUN (7-18) mg/dl Creatinine (0.6-1.2) mg/dl Est Cr Clr Drug Dosing ml/min Est GFR ( Amer) Est GFR (Non-Af Amer) BUN/Creatinine Ratio (10-20) Glucose (70-99) mg/dl Calcium (8.5-10.1) mg/dl Total Bilirubin (0.2-1) mg/dl AST 18 (15-37) U/L ALT (12-78) U/L Alkaline Phosphatase (45-117) U/L Total Protein (6.4-8.2) gm/dl Albumin (3.4-5.0) gm/dl Globulin (2.5-4.0) gm/dl Albumin/Globulin Ratio (0.9-2) Lipase (73-393) U/L Blood Type Antibody Screen Crossmatch Imaging Data Attestation: I personally reviewed and interpreted this imaging study as follows: My Impression: KUB X-RAY: Formed stool throughout the colon. No obstruction. No free air. ECG Data Attestation: I personally reviewed and interpreted this ECG as follows: Indication: abdominal pain Rate (beats per minute): 78 Rhythm: normal sinus Findings: no PAC, no PVC and no acute ischemic change Blood Pressure Blood Pressure Findings: Low blood pressure Blood Pressure Disposition: further management by hospitalist MDM Narrative This patient was evaluated and appeared to be in no significant distress. IV access was obtained and laboratory work was drawn. IV hydration was initiated although the patient had a 24-gauge IV in her right hand. Multiple attempts at peripheral access were made unsuccessfully. A right EJ was attempted by me, also unsuccessfully. A second smaller IV was placed in the foot by IV team. Patient did have several episodes of a dark black/red liquid emesis. Patient also had a greenish melanotic appearing stool. Central IV line was placed in the left groin after failed attempt at right femoral catheter placement. Patient's initial hemoglobin is 12. She did become somewhat agitated with some tachycardia in the emergency department. IV hydration was continued. Patient was started on IV Protonix bolus and drip. Case was discussed with the hospitalist service, Dr. Holm as well as Dr. Montemayor of gastroenterology. The patient has multiple comorbidities and is a DNR. Palliative care medicine consulted on her last admission. Patient will be evaluated by the hospitalist service for further management. Impression & Plan Upper gastrointestinal bleed Discharge Plan Visit Data *Final* Discharge Date/Time: 12/03/18 03:35 Chief Complaint: Abdominal Pain Stated Complaint: abd pain/vomit blood ED Provider: Luciana Santos Discharge Problem: Upper gastrointestinal bleed Patient Disposition: Admitted As Inpatient Discharge Instructions Interventions: ED Discharge Assessment Last Done: 12/03/18 03:35 The scribe's documentation has been prepared under my direction and personally reviewed by me in its entirety. I confirm that the note above accurately reflects all work, treatment, procedures, and medical decision making performed by me.
--- NOTE | 2018-12-03 03:14 | History & Physical Report ---
Date of Service December 03, 2018 Assessment & Plan (1) Upper gastrointestinal bleed: Mrs. Hunt is a 78-year-old female with a past medical history of GI bleeds, dementia, hypothyroidism, hypertension, CKD 3, esophageal stenosis and hiatal hernia presenting from [facility] with coffee-ground emesis. ED Course: 500 mL normal saline bolus, Protonix drip, 4 mg IV Zofran, 20 mg IV Pepcid, 1 L normal saline at maintenance rate Upper GI Bleed -Recurrent, patient has had several admissions for the same -Prior EGDs have shown moderately severe esophagitis, medium size hiatal hernia, and moderate inflammation in the gastric antrum -Continue IV Protonix drip, and Carafate 4 times daily -N.p.o. with maintenance IVF ordered -GI consulted -Recommend revisiting the idea of hospice care to family, given recurrent admissions for the same Acute blood loss anemia -Hemoglobin dropped acutely from 12 to 9.4 while in the emergency department -Patient currently hemodynamically stable -Type and screen completed, with 2 units on hold -Transfuse for hemoglobin less than 7 -Repeat CBC in a.m. Hypertension -held lisinopril due to GI bleeding -Can restart on discharge CKD Stage 3 -stable, creatinine level within normal limits Hypothyroidism -continue home synthroid Depression/Dementia -continue home Lexapro, Zyprexa, Namenda, Ativan, History of bladder prolapse/frequent UTIs -Continue prophylactic Bactrim Chronic pain -Continue home fentanyl patch, and as needed oxycodone Restless leg syndrome -Continue home ropinirole CODE STATUS: DNR/DNI per discussion with family DVT prophylaxis: Contraindicated in the setting of GI bleed Disposition: Admit to telemetry. Patient from [facility] (2) Anemia: (3) Vomiting: (4) Acute blood loss anemia: (5) Hematemesis: (6) Chronic kidney disease, stage 3a: (7) Restless legs syndrome: (8) Depression: (9) Chronic pain: (10) Hypothyroidism: (11) Dementia: (12) HTN (hypertension): History of Present Illness Chief Complaint: GI bleed Primary Care Provider: [facility] Mrs. Hunt is a 78-year-old female with a past medical history of GI bleeds, dementia, hypothyroidism, hypertension, CKD 3, esophageal stenosis and hiatal hernia presenting from [facility] with coffee-ground emesis. Patient with dementia - history obtained from , who was at the bedside. Mrs. Hunt had an acute episode of coffee-ground emesis at 10:30 PM today. She had an additional episode approximately 1 hour prior to my evaluation. Mrs. Hunt has a history of recurrent hospital admissions due to the same - she was recently admitted from for upper GI bleed, and again from 11/16-11/19. She had an EGD performed by Dr. Montemayor on November 11 which revealed moderately severe esophagitis with no bleeding, medium size hiatal hernia, and moderate inflammation in the gastric antrum. During her more recent admission, she was once again seen by GI who recommended continuing her protonix drip, and considering discussion of hospice care given frequent admissions for GI bleeding. The patient and her family were seen by the palliative care team, however they were not ready to make a decision about switching to hospice care. She was discharged to [facility] in stable condition, to continue Protonix and Carafate. Allergies Allergy/AdvReac Type Severity Reaction Status Date / Time melon Allergy Intermediate Cantelope Verified 12/02/18 23:19 - Rash caffeine Allergy Unknown ON CENTRE Verified 12/02/18 23:19 [facility] LIST desipramine Allergy Unknown ON CENTRE Verified 12/02/18 23:19 [facility] LIST ergotamine Allergy Unknown ON CENTRE Verified 12/02/18 23:19 [facility] LIST nitrofurantoin Allergy Unknown ON CENTRE Verified 12/02/18 23:19 [facility] LIST watermelon Allergy Unknown UNKNOWN Verified 12/02/18 23:19 Home Medications Home Medications Medication Instructions Recorded Confirmed Type acetaminophen [Tylenol] 650 mg PO Q6 PRN 11/16/18 12/02/18 History calcium carbonate 600 mg PO QAM 11/16/18 12/02/18 History cholecalciferol (vitamin D3) 2,000 unit PO QAM 11/16/18 12/02/18 History [Vitamin D3] cranberry extract 250 mg PO QAM 11/16/18 12/02/18 History escitalopram oxalate [Lexapro] 10 mg PO HS 11/16/18 12/02/18 History fentanyl [Duragesic] 25 mcg TOPICAL .Q72 HRS 11/16/18 12/02/18 History ferrous sulfate 325 mg PO QAM 11/16/18 12/02/18 History levothyroxine 112 mcg PO QAM 11/16/18 12/02/18 History lisinopril 5 mg PO QAM 11/16/18 12/02/18 History lorazepam [Ativan] 0.5 mg PO QID 11/16/18 12/02/18 History memantine [Namenda] 5 mg PO BID17 11/16/18 12/02/18 History olanzapine [Zyprexa] 5 mg PO QAM 11/16/18 12/02/18 History olanzapine [Zyprexa] 7.5 mg PO HS 11/16/18 12/02/18 History ondansetron HCl [Zofran] 4 mg PO Q6 PRN 11/16/18 12/02/18 History oxycodone [Roxicodone] 5 mg PO Q4 PRN 11/16/18 12/02/18 History pantoprazole [Protonix] 40 mg PO AMHS 11/16/18 12/02/18 History polyethylene glycol 3350 17 g PO DAILY PRN 11/16/18 12/02/18 History promethazine 25 mg PO Q6H PRN 11/16/18 12/02/18 History promethazine [Phenergan] 25 mg IM Q6H PRN 11/16/18 12/02/18 History promethazine [Phenergan] 25 mg ND Q6H PRN 11/16/18 12/02/18 History ropinirole [Requip] 0.25 mg PO HS 11/16/18 12/02/18 History sennosides-docusate sodium [Senna 2 tab PO HS 11/16/18 12/02/18 History with Docusate Sodium] sucralfate [Carafate] 10 ml PO QID 11/16/18 12/02/18 History sulfamethoxazole-trimethoprim 1 tab PO QAM 11/16/18 12/02/18 History [Bactrim] sumatriptan succinate [Imitrex] 25 mg PO DAILY PRN 11/16/18 12/02/18 History multivitamin with minerals 1 tab PO QAM 12/02/18 12/02/18 History Past Med/Surg History Medical History Upper GI bleed (Acute) Chronic kidney disease, stage 3a Depression Hypothyroidism Dementia (Chronic) Female bladder prolapse (Resolved) Anemia Fracture of head of left humerus (Acute) Fracture of left olecranon process (Acute) Fracture, thoracic vertebra, compression (Acute) HTN (hypertension) (Chronic) Lumbar transverse process fracture (Acute) Rapidly progressive dementia (Acute) T12 compression fracture (Acute) Thoracic compression fracture (Acute) UTI (lower urinary tract infection) (Acute) Urinary tract infection (Resolved) Bladder infection Chronic scarring of esophagus Surgical History S/P breast biopsy S/P hysterectomy S/P shoulder surgery Status post Rudy fundoplication Social History Preferred Language: Luxembourgish Communication 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 Beliefs That Will Affect Care: None marital status: Current Living Situation: Half-Way Current Living Situation Comment: [place] current occupational status: retired Other Information That Helps Us Care for You: No Feels Safe at Home: Yes Safety Concerns: Feels Safe At This Time Smoking Status: Former smoker Do You Dip or Chew Tobacco: No ; Second Hand Exposure: No ; Hx Alcohol Use: No Hx Substance Use: No Review of Systems Review of Systems: Unobtainable due to cognitive status Physical Exam Constitutional: WD/WN, vitals as above comfortable Fatigue, frequently falling asleep Eyes: PERRL, conjunctivae normal, anicteric sclerae ENMT: external ear and nose normal, oropharynx normal Respiratory: normal respiratory effort, lungs clear to auscultation Cardiovascular: RRR, no murmur, no edema Gastrointestinal (Abdomen): Patient pushes away my hand when I attempt to examine her abdomen, suggesting diffuse tenderness Skin: no rashes, warm and dry Neurologic: 5/5 power in UE and LE Psychiatric: Orientation: alert, oriented to person, oriented to place and cooperative; + not oriented to time Results & Data Vital Signs (Past 12 Hours) Vital Signs Temp Pulse Resp BP Pulse Ox 12/03/18 02:52 84 17 123/65 12/03/18 02:31 91 H 15 12/03/18 02:30 85 22 12/03/18 02:00 87 24 92 12/03/18 01:47 21 91/73 L 92 12/03/18 01:30 20 12/03/18 01:12 21 12/03/18 01:00 89 23 168/76 H 93 12/03/18 00:30 83 20 12/03/18 00:00 75 26 H 12/02/18 23:30 75 21 12/02/18 23:05 95 12/02/18 23:00 75 25 H 95 12/02/18 22:39 37 C 78 18 151/81 H 96 12/02/18 22:38 78 22 96 12/02/18 22:33 79 27 H 151/81 H 95 Code Status & VTE Plan VTE Prophylaxis Plan VTE Prophylaxis will be ordered: No Supervising Physician Co-Signing Physician Notes Patient was seen and examined by me personally. I reviewed the chart, the orders and discussed the case in detail with Dr. Hola Arrington MD. I read this H&P and agree with its contents to entirety. PG Care Time/CCT Total # of Minutes Spent Total Time Spent with Patient: Total time spent is greater than 50% in coordination of care (as documented) at patient's floor/unit and/or counseling patient: Resident Activity Tracking Resident Involvement: Resident Care Provided Care Provided: Adult Hospital Medicine (1) Anemia Anemia type: unspecified type Qualified Code(s): D64.9 - Anemia, unspecified (2) Dementia Dementia behavioral disturbance: with behavioral disturbance Dementia type: associated with other underlying disease Qualified Code(s): F02.81 - Dementia in other diseases classified elsewhere with behavioral disturbance (3) Depression Depression Type: other depression Qualified Code(s): F32.89 - Other specified depressive episodes (4) Hypothyroidism Hypothyroidism type: acquired Qualified Code(s): E03.9 - Hypothyroidism, unspecified (5) Hematemesis Nausea presence: unspecified Qualified Code(s): K92.0 - Hematemesis (6) HTN (hypertension) Hypertension type: essential hypertension Qualified Code(s): I10 - Essential (primary) hypertension (7) Vomiting Nausea presence: unspecified Vomiting Intractability: unspecified Vomiting type: unspecified Qualified Code(s): R11.10 - Vomiting, unspecified
[2018-12-03] MEDS ORDERED: OXYCODONE HCL IR 5 MG TAB (IMMEDIATE RELEASE) PO PRN (04:05)
[2018-12-03] MEDS: LEVOTHYROXINE SODIUM 112 MCG TABLET PO SCH (06:29)
[2018-12-03 06:47] LABS: Eosinophils # (auto) 0.06 K/uL (0-0.5); Eosinophils % (auto) 0.6 %; Hematocrit (blood only) 29.7 % (37-47); Hemoglobin 9.4 g/dL (12.0-16.0); Immature Granulocytes # (auto) 0.01 K/uL (0.00-0.02); Immature Granulocytes % (auto) 0.1 %; Lymphocytes % (auto) 15.7 %; Mean Corpuscular Hgb Conc 31.6 g/dL (32-36); Mean Corpuscular Volume 90.5 fL (80-100); Mean Platelet Volume 9.6 fL (7.4-10.4); Monocytes # (auto) 0.88 K/uL (0.11-0.59); Monocytes % (auto) 9.2 %; Neutrophils # (auto) 7.13 K/uL (1.4-6.5); Neutrophils % (auto) 74.4 %; Platelet Count 268 K/uL (130-400); RDW Coefficient of Variation 14.5 % (11.5-14.5); RDW Standard Deviation 48.4 fL (36.4-46.3); Red Blood Count 3.28 M/uL (4.2-5.4); White Blood Count 9.58 K/uL (4.8-10.8)
[2018-12-03 07:17] LABS: BUN Creatinine Ratio 27.7 (10-20); Calcium 8.3 mg/dl (8.5-10.1); Creatinine Clr Calc Pharmacy 35.9 ml/min; Est GFR (African American) 56.1; Est GFR (Non-African American) 48.4; Potassium 4.3 mmol/L (3.5-5.1)
--- NOTE | 2018-12-03 09:03 | XRay Report ---
XR KUB/Abdomen 1 view CLINICAL HISTORY: SBO, hematemesis pain COMPARISON STUDY: 11/11/2018 FINDINGS: Nonobstructive bowel pattern. Mild increase in fecal load ascending colon. A bladder suspen lashawn device is present. IMPRESSION: Nonobstructive bowel pattern. The above report was generated using voice recognition software. It may contain grammatical, syntax or spelling errors. Electronically signed by: Duke Rosario M.D. 12/03/2018 6:13 AM
--- NOTE | 2018-12-03 09:50 | Gastrointestinal Consultation ---
Date of Consultation December 03, 2018 Assessment & Plan (1) Upper gastrointestinal bleed: Patient has undergone multiple EGDs for this same issue, most recent being on 11/11/2018 and indicated esophagitis. The patient consistently improves on BID PPI therapy and Carafate 1 gm four times daily while admitted, however is repeatedly readmitted for the same issue. I am unsure where the breakdown is--whether this is refusal of meds vs persistent symptoms despite appropriate therapy, however I do believe that the most appropriate intervention at present is another discussion with palliative care. In the interim, there are no plans for repeat endoscopic intervention, I would advise continuation of Protonix 40 mg BID, Carafate 1 gm four times daily before meals and at bedtime, utilizing zofran 4 mg q 6 hr to prevent emesis. Continue to monitor H/H. Thank you for allowing us to participate in the care of this patient. If you should have any further questions or concerns, do not hesitate to contact us at [phone] or [phone]. Present on Admission?: Yes Supervising Physician Co-Signing Physician Notes Agree with JOAN Chadwick as above Abd: Soft, NT, ND Continue current therapy No plans for invasive workup. Family in agreement. Discussed with at bedside. History of Present Illness Reason for Consultation: GI bleed Attending Physician: Dafne Villagomez MD History of Present Illness Patient is a 78 yo female with an overall poor clinical picture with a PMH of significant dementia, anemia, CKD 3, recurrent pneumonia, depression, RLS, chronic pain, hypothyroidism, & repeated admissions for upper GI bleeding identified to be coming from esophagitis. The patient consistently improves while hospitalized--hematemesis stops with Protonix 40 mg BID & Carafate 1 gm four times daily. However she is often readmitted with the same symptoms and it is unclear where the breakdown is. During the last admission daughter reported that the patient often refuses her meds and per [place] guidelines patient is allowed to do so. When she presented this time to the ED, her labs appeared to be concentrated as her starting hemoglobin is significantly higher than her baseline has been for quite some time (was 12). Repeat labs indicated a hemoglobin of 9.4 which is most consistent with the hemoglobin during her recent admission. Her last EGD was during the last admission for the same issue on 11/11 and indicated esophagitis. At the time of my visit, patient was resting peacefully. Bedside nursing clerk staff reported no episodes of vomiting since being brought to the floor. It appears that during her last admission, palliative care was appropriately consulted but family was not ready to make any decisions in this regard. Allergies Allergy/AdvReac Type Severity Reaction Status Date / Time melon Allergy Intermediate Cantelope Verified 12/02/18 23:19 - Rash caffeine Allergy Unknown ON CENTRE Verified 12/02/18 23:19 [facility] LIST desipramine Allergy Unknown ON CENTRE Verified 12/02/18 23:19 [facility] LIST ergotamine Allergy Unknown ON CENTRE Verified 12/02/18 23:19 [facility] LIST nitrofurantoin Allergy Unknown ON CENTRE Verified 12/02/18 23:19 [facility] LIST watermelon Allergy Unknown UNKNOWN Verified 12/02/18 23:19 Home Medications Home Medications Medication Instructions Recorded Confirmed Type acetaminophen [Tylenol] 650 mg PO Q6 PRN 11/16/18 12/03/18 History calcium carbonate 600 mg PO QAM 11/16/18 12/03/18 History cholecalciferol (vitamin D3) 2,000 unit PO QAM 11/16/18 12/03/18 History [Vitamin D3] cranberry extract 250 mg PO QAM 11/16/18 12/03/18 History escitalopram oxalate [Lexapro] 10 mg PO HS 11/16/18 12/03/18 History fentanyl [Duragesic] 25 mcg TOPICAL .Q72 HRS 11/16/18 12/03/18 History ferrous sulfate 325 mg PO QAM 11/16/18 12/03/18 History levothyroxine 112 mcg PO QAM 11/16/18 12/03/18 History lisinopril 5 mg PO QAM 11/16/18 12/03/18 History lorazepam [Ativan] 0.5 mg PO QID 11/16/18 12/03/18 History memantine [Namenda] 5 mg PO BID17 11/16/18 12/03/18 History olanzapine [Zyprexa] 5 mg PO QAM 11/16/18 12/03/18 History olanzapine [Zyprexa] 7.5 mg PO HS 11/16/18 12/03/18 History ondansetron HCl [Zofran] 4 mg PO Q6 PRN 11/16/18 12/03/18 History oxycodone [Roxicodone] 5 mg PO Q4 PRN 11/16/18 12/03/18 History pantoprazole [Protonix] 40 mg PO AMHS 11/16/18 12/03/18 History polyethylene glycol 3350 17 g PO DAILY PRN 11/16/18 12/03/18 History promethazine 25 mg PO Q6H PRN 11/16/18 12/03/18 History promethazine [Phenergan] 25 mg IM Q6H PRN 11/16/18 12/03/18 History promethazine [Phenergan] 25 mg [place] Q6H PRN 11/16/18 12/03/18 History ropinirole [Requip] 0.25 mg PO HS 11/16/18 12/03/18 History sennosides-docusate sodium [Senna 2 tab PO HS 11/16/18 12/03/18 History with Docusate Sodium] sucralfate [Carafate] 10 ml PO QID 11/16/18 12/03/18 History sulfamethoxazole-trimethoprim 1 tab PO QAM 11/16/18 12/03/18 History [Bactrim] sumatriptan succinate [Imitrex] 25 mg PO DAILY PRN 11/16/18 12/03/18 History multivitamin with minerals 1 tab PO QAM 12/02/18 12/03/18 History sodium phosphates [place] 12/03/18 12/03/18 History Patient History Medical History Upper GI bleed (Acute) Chronic kidney disease, stage 3a Depression Hypothyroidism Dementia (Chronic) Female bladder prolapse (Resolved) Anemia Fracture of head of left humerus (Acute) Fracture of left olecranon process (Acute) Fracture, thoracic vertebra, compression (Acute) HTN (hypertension) (Chronic) Lumbar transverse process fracture (Acute) Rapidly progressive dementia (Acute) T12 compression fracture (Acute) Thoracic compression fracture (Acute) UTI (lower urinary tract infection) (Acute) Urinary tract infection (Resolved) Bladder infection Chronic scarring of esophagus Surgical History S/P breast biopsy S/P hysterectomy S/P shoulder surgery Status post Rudy fundoplication Social History Preferred Language: Spanish Communication Ability: Unable Director Of Physical Security Required: No Beliefs That Will Affect Care: None marital status: Current Living Situation: Skilled Nursing Current Living Situation Comment: [place] current occupational status: retired Feels Safe at Home: Yes Smoking Status: Former smoker Second Hand Exposure: No ; Hx Alcohol Use: No Hx Substance Use: No Review of Systems Review of Systems: Unobtainable due to cognitive status Physical Exam Constitutional: + frail appearing no acute distress, appears chronically ill Respiratory: normal respiratory effort, lungs clear to auscultation Cardiovascular: Rate/Rhythm: regular rate and regular rhythm Gastrointestinal (Abdomen): Inspection/Auscultation: normal bowel sounds Percussion/Palpation: + abdomen tender and abdomen soft Musculoskeletal: no cyanosis or clubbing Skin: no acute rashes or lesions Psychiatric: Patient remained sleeping throughout visit, significant dementia at baseline Results & Data Vital Signs (Past 12 Hours) Vital Signs Temp Pulse Pulse Resp BP BP Pulse Ox 12/03/18 07:00 37.4 C 80 17 119/68 91 12/03/18 04:06 37.1 C 88 20 120/74 95 12/03/18 03:35 69 16 146/78 H 96 12/03/18 02:52 84 17 123/65 12/03/18 02:31 91 H 15 12/03/18 02:30 85 22 12/03/18 02:00 87 24 92 12/03/18 01:47 21 91/73 L 92 12/03/18 01:30 20 12/03/18 01:12 21 12/03/18 01:00 89 23 168/76 H 93 12/03/18 00:30 83 20 12/03/18 00:00 75 26 H 12/02/18 23:30 75 21 12/02/18 23:05 95 12/02/18 23:00 75 25 H 95 12/02/18 22:39 37 C 78 18 151/81 H 96 12/02/18 22:38 78 22 96 12/02/18 22:33 79 27 H 151/81 H 95 PG Care Time/CCT Total # of Minutes Spent Total Time Spent with Patient: Total time spent is greater than 50% in coordination of care (as documented) at patient's floor/unit and/or counseling patient:
--- NOTE | 2018-12-03 10:57 | Palliative Care Consultation ---
Date of Consultation December 03, 2018 Assessment & Plan (1) Goals of care, counseling/discussion: -78 year old female with PMH dementia, hypertension, CKD 3, esophageal stenosis and hiatal hernia presenting from [facility] with coffee-ground emesis. Patient was recently admitted to [facility] from for upper GI bleed. She had an EGD performed by Dr. Montemayor on 11/11 which revealed "moderately severe esophagitis with no bleeding, medium size hiatal hernia, retained fluid in the greater curvature of the stomach, and moderate inflammation in the gastric antrum." While inpatient the patient was treated with IV Protonix and Carafate. She was discharged to [facility] on 11/13 with instructions to continue Protonix twice daily for 4 weeks then decrease to daily and increase Carafate to 4 times daily for 7 to 10 days then resume twice daily dosing. Patient returned then on 11/16-11/19 for same issue. There was question of whether or not patient was taking medications as prescribed, but ultimately was sent back on same medication regimen. Palliative care team saw patient during that admission and followed up a week after she returned to [facility]. At [facility], there was no coffee ground emesis until yesterday when patient came back to the hospital. She returns again with coffee-ground emesis. GI was consulted again and state there is no role for further EGD and recommended having discussion about goals of care and/or hospice. -Met with patient in room 221. She is sleeping soundly with 1:1 sitting at bedside. Called patient's , Vinh. -Vinh states that patient seemed to be doing well at until this episode. He is feeling somewhat saddened that this issue continues to occur despite patient taking her prescribed medications. He understands that there is no further role for procedures or intervention, and supportive care is all that can be offered. -Daughter, Estela, who is quite involved in patient's care, is current vacationing in [place]. She just left yesterday. -Will meet with Vinh in patient's room this afternoon to discuss plans. Update: -Met with patient's Remi Caldera" at bedside. We discussed goals of care. He is interested in discussing hospice and keeping patient comfortable at [facility]. However, he does not want to make any decisions withoutEstela. She is in [place] for two weeks. -Palliative care will follow with patient once back to [facility]. I will meet with patient's next 12/09 at 1pm at . -F/U hgb 8.3. Once medically stable, she will be returning to SNF. (2) Upper gastrointestinal bleed: (3) Dementia: Dementia behavioral disturbance: with behavioral disturbance Dementia type: associated with other underlying disease Qualified Code(s): F02.81 - Dementia in other diseases classified elsewhere with behavioral disturbance History of Present Illness Attending Physician: Dafne Villagomez MD History of Present Illness This 78 year old female with PMH dementia, hypertension, CKD 3, esophageal stenosis and hiatal hernia presenting from [facility] with coffee-ground emesis. Patient was recently admitted to [facility] from for upper GI bleed. She had an EGD performed by Dr. Montemayor on 11/11 which revealed "moderately severe esophagitis with no bleeding, medium size hiatal hernia, retained fluid in the greater curvature of the stomach, and moderate inflammation in the gastric antrum." While inpatient the patient was treated with IV Protonix and Carafate. She was discharged to [facility] on 11/13 with instructions to continue Protonix twice daily for 4 weeks then decrease to daily and increase Carafate to 4 times daily for 7 to 10 days then resume twice daily dosing. Patient returned then on 11/16-11/19 for same issue. There was question of whether or not patient was taking medications as prescribed, but ultimately was sent back on same medication regimen. Palliative care team saw patient during that admission and followed up a week after she returned to [facility]. At [facility], there was no coffee ground emesis until yesterday when patient came back to the hospital. She returns again with coffee-ground emesis. GI was consulted again and state there is no role for further EGD and recommended having discussion about goals of care and/or hospice. Thank you kindly for this consult. Palliative care team will follow as needed. Allergies Allergy/AdvReac Type Severity Reaction Status Date / Time melon Allergy Intermediate Cantelope Verified 12/02/18 23:19 - Rash caffeine Allergy Unknown ON CENTRE Verified 12/02/18 23:19 [facility] LIST desipramine Allergy Unknown ON CENTRE Verified 12/02/18 23:19 [facility] LIST ergotamine Allergy Unknown ON CENTRE Verified 12/02/18 23:19 [facility] LIST nitrofurantoin Allergy Unknown ON CENTRE Verified 12/02/18 23:19 [facility] LIST watermelon Allergy Unknown UNKNOWN Verified 12/02/18 23:19 Home Medications Home Medications Medication Instructions Recorded Confirmed Type acetaminophen [Tylenol] 650 mg PO Q6 PRN 11/16/18 12/03/18 History calcium carbonate 600 mg PO QAM 11/16/18 12/03/18 History cholecalciferol (vitamin D3) 2,000 unit PO QAM 11/16/18 12/03/18 History [Vitamin D3] cranberry extract 250 mg PO QAM 11/16/18 12/03/18 History escitalopram oxalate [Lexapro] 10 mg PO HS 11/16/18 12/03/18 History fentanyl [Duragesic] 25 mcg TOPICAL .Q72 HRS 11/16/18 12/03/18 History ferrous sulfate 325 mg PO QAM 11/16/18 12/03/18 History levothyroxine 112 mcg PO QAM 11/16/18 12/03/18 History lisinopril 5 mg PO QAM 11/16/18 12/03/18 History lorazepam [Ativan] 0.5 mg PO QID 11/16/18 12/03/18 History memantine [Namenda] 5 mg PO BID17 11/16/18 12/03/18 History olanzapine [Zyprexa] 5 mg PO QAM 11/16/18 12/03/18 History olanzapine [Zyprexa] 7.5 mg PO HS 11/16/18 12/03/18 History ondansetron HCl [Zofran] 4 mg PO Q6 PRN 11/16/18 12/03/18 History oxycodone [Roxicodone] 5 mg PO Q4 PRN 11/16/18 12/03/18 History pantoprazole [Protonix] 40 mg PO AMHS 11/16/18 12/03/18 History polyethylene glycol 3350 17 g PO DAILY PRN 11/16/18 12/03/18 History promethazine 25 mg PO Q6H PRN 11/16/18 12/03/18 History promethazine [Phenergan] 25 mg IM Q6H PRN 11/16/18 12/03/18 History promethazine [Phenergan] 25 mg SD Q6H PRN 11/16/18 12/03/18 History ropinirole [Requip] 0.25 mg PO HS 11/16/18 12/03/18 History sennosides-docusate sodium [Senna 2 tab PO HS 11/16/18 12/03/18 History with Docusate Sodium] sucralfate [Carafate] 10 ml PO QID 11/16/18 12/03/18 History sulfamethoxazole-trimethoprim 1 tab PO QAM 11/16/18 12/03/18 History [Bactrim] sumatriptan succinate [Imitrex] 25 mg PO DAILY PRN 11/16/18 12/03/18 History multivitamin with minerals 1 tab PO QAM 12/02/18 12/03/18 History sodium phosphates SD 12/03/18 12/03/18 History Patient History Medical History Upper GI bleed (Acute) Chronic kidney disease, stage 3a Depression Hypothyroidism Dementia (Chronic) Female bladder prolapse (Resolved) Anemia Fracture of head of left humerus (Acute) Fracture of left olecranon process (Acute) Fracture, thoracic vertebra, compression (Acute) HTN (hypertension) (Chronic) Lumbar transverse process fracture (Acute) Rapidly progressive dementia (Acute) T12 compression fracture (Acute) Thoracic compression fracture (Acute) UTI (lower urinary tract infection) (Acute) Urinary tract infection (Resolved) Bladder infection Chronic scarring of esophagus Surgical History S/P breast biopsy S/P hysterectomy S/P shoulder surgery Status post Rudy fundoplication Social History Preferred Language: Luxembourgish Communication Ability: Unable 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: No Beliefs That Will Affect Care: None marital status: Current Living Situation: Assisted Current Living Situation Comment: [facility] current occupational status: retired Feels Safe at Home: Yes Smoking Status: Former smoker Second Hand Exposure: No ; Hx Alcohol Use: No Hx Substance Use: No Review of Systems Review of Systems: unable to obtain at this time due to patient sleeping soundly Physical Exam Physical Exam: Constitutional no acute distress ENMT external ear and nose normal, oropharynx normal Neck normal visual inspection Respiratory normal respiratory effort, lungs clear to auscultation Cardiovascular RRR, no murmur, no edema Neurologic moves all extremities Psychiatric Orientation: alert, oriented to person and oriented to place Results & Data Vital Signs (Past 12 Hours) Vital Signs Temp Pulse Pulse Resp BP BP Pulse Ox 12/03/18 07:00 37.4 C 80 17 119/68 91 12/03/18 04:06 37.1 C 88 20 120/74 95 12/03/18 03:35 69 16 146/78 H 96 12/03/18 02:52 84 17 123/65 12/03/18 02:31 91 H 15 12/03/18 02:30 85 22 12/03/18 02:00 87 24 92 12/03/18 01:47 21 91/73 L 92 12/03/18 01:30 20 12/03/18 01:12 21 12/03/18 01:00 89 23 168/76 H 93 12/03/18 00:30 83 20 12/03/18 00:00 75 26 H 12/02/18 23:30 75 21 12/02/18 23:05 95 12/02/18 23:00 75 25 H 95 Time Spent Midlevel 70 minutes with >50% of the time spent at bedside with patient and family discussing condition and GOC.
[2018-12-03] MEDS: ONDANSETRON INJ 2 MG/ML 2 ML VIAL IV SCH ×2 (11:45→16:55)
[2018-12-03] MEDS: MEMANTINE HCL 5 MG TAB PO SCH ×2 (12:49→17:00)
[2018-12-03] MEDS: LORazepam 0.5 MG TAB PO SCH ×4 (12:49→20:14)
[2018-12-03] MEDS: SULFA/TRIMETH 400/80MG TAB PO SCH (12:49)
[2018-12-03] MEDS: SUCRALFATE 1 GM/10 ML UDC PO SCH ×4 (12:49→20:18)
[2018-12-03] MEDS: OLANZapine 5 MG TABLET PO SCH (12:50)
[2018-12-03] MEDS: fentaNYL 25 MCG/HR TDSY TD SCH (13:11)
[2018-12-03 14:35] LABS: Hemoglobin 8.3 g/dL (12.0-16.0); Mean Corpuscular Hgb Conc 31.9 g/dL (32-36); Mean Corpuscular Volume 90.9 fL (80-100); Platelet Count 249 K/uL (130-400); RDW Coefficient of Variation 14.8 % (11.5-14.5); RDW Standard Deviation 49.5 fL (36.4-46.3); Red Blood Count 2.86 M/uL (4.2-5.4); White Blood Count 7.11 K/uL (4.8-10.8)
[2018-12-03] MEDS: CHECK FENTANYL PATCH PLACEMENT SCH ×2 (16:52→23:30)
--- NOTE | 2018-12-03 20:04 | Hospitalist Progress Note ---
Date of Service December 03, 2018 Assessment & Plan (1) Upper gastrointestinal bleed: Mrs. Hunt is a 78-year-old female with a past medical history of GI bleeds, dementia, hypothyroidism, hypertension, CKD 3, esophageal stenosis and hiatal hernia presenting from [facility] with coffee-ground emesis. ED Course: 500 mL normal saline bolus, Protonix drip, 4 mg IV Zofran, 20 mg IV Pepcid, 1 L normal saline at maintenance rate Upper GI Bleed -Recurrent, patient has had several admissions for the same -Prior EGDs have shown moderately severe esophagitis, medium size hiatal hernia, and moderate inflammation in the gastric antrum -seen by GI and no plans for intervention at this point as she usually improves with taking PPI and carafate-vick reports she has [facility] -Continue IV Protonix drip, and Carafate 4 times daily, convert back to po PPI tomorrow Hgb slight drop today which could also be hemodilutional, down to 8.3 -advance diet to full liquids -consulted Palliative Care and is interested in transitioning to Hospice but wants to wait to do so until their dauhgter returns from a trip to [place] in 2 weeks Acute blood loss anemia -Hemoglobin dropped acutely from 12 to 9.4 , however her baseline just 1-2 weeks ago was 9--> likely was hemoconcentrated. Now drop slightly to 8.3 as above, likely had some small blood loss Hemodynamically stable -Type and screen completed, with 2 units on hold -Transfuse for hemoglobin less than 7 -Repeat CBC in a.m. Hypertension -held lisinopril due to GI bleeding -Can restart on discharge CKD Stage 3 -stable, creatinine level within normal limits Hypothyroidism -continue home synthroid Depression/Dementia -continue home Lexapro, Zyprexa, Namenda, Ativan -plans to enroll in Hospice as per History of bladder prolapse/frequent UTIs -Continue prophylactic Bactrim Chronic pain -Continue home fentanyl patch, and as needed oxycodone Restless leg syndrome -Continue home ropinirole CODE STATUS: DNR/DNI per discussion with family DVT prophylaxis: Contraindicated in the setting of GI bleed Disposition: continued stay on telemetry. Patient from [facility]--> plan to return to [place] tomorrow if Hgb stable in the AM and no further GI bleeding (2) Anemia: (3) Vomiting: (4) Acute blood loss anemia: (5) Hematemesis: (6) Chronic kidney disease, stage 3a: (7) Restless legs syndrome: (8) Depression: (9) Chronic pain: (10) Hypothyroidism: (11) Dementia: (12) HTN (hypertension): Subjective Pt sleeping and was not woken up. SHe hs been refusing some of her pills here. Discussed case with Palliative Care No plans for GI workup Continues on IV PPI No further hematemesis Tele with NSR, rates 70-90s, PVCs Review of Systems Review of Systems: Unobtainable due to cognitive status Physical Exam Constitutional: average body habitus; no acute distress sleeping Neck: trachea midline, no thyromegaly Respiratory: normal respiratory effort, lungs clear to auscultation Cardiovascular: RRR, no murmur, no edema Musculoskeletal: Extremities: extremities normal to inspection; no cyanosis and no clubbing Skin: no rashes, warm and dry Results & Data Vital Signs (Past 12 Hours) Vital Signs Temp Pulse Resp BP Pulse Ox 12/03/18 19:01 36.4 C L 65 19 137/81 94 12/03/18 15:03 36.2 C L 64 17 158/77 H 97 12/03/18 11:15 36.7 C 70 18 105/68 94 Laboratory Results 12/03/18 12/03/18 12/03/18 Range/Units 14:05 06:31 06:31 WBC 7.11 9.58 (4.8-10.8) K/uL RBC 2.86 L 3.28 L (4.2-5.4) M/uL Hgb 8.3 L 9.4 L (12.0-16.0) g/dL Hct 26.0 L 29.7 L (37-47) % MCV 90.9 90.5 (80-100) fL MCH 29.0 28.7 (25-34) pg MCHC 31.9 L 31.6 L (32-36) g/dL RDW Std Deviation 49.5 H 48.4 H (36.4-46.3) fL RDW Coeff of Neville 14.8 H 14.5 (11.5-14.5) % Plt Count 249 268 (130-400) K/uL MPV 10.0 9.6 (7.4-10.4) fL Immature Gran % (Auto) 0.1 % Neut % (Auto) 74.4 % Lymph % (Auto) 15.7 % Bucks % (Auto) 9.2 % Eos % (Auto) 0.6 % Baso % (Auto) 0.0 % Immature Gran # (Auto) 0.01 (0.00-0.02) K/uL Neut # (Auto) 7.13 H (1.4-6.5) K/uL Lymph # (Auto) 1.50 (1.2-3.4) K/uL Bucks # (Auto) 0.88 H (0.11-0.59) K/uL Eos # (Auto) 0.06 (0-0.5) K/uL Baso # (Auto) 0.00 (0-0.2) K/uL Sodium 144 (136-145) mmol/L Potassium 4.3 (3.5-5.1) mmol/L Chloride 109 H (98-107) mmol/L Carbon Dioxide 29 (21-32) mmol/L Anion Gap 5.0 (3-11) BUN 31 H (7-18) mg/dl Creatinine 1.10 (0.6-1.2) mg/dl Est Cr Clr Drug Dosing 35.9 ml/min Est GFR ( Amer) 56.1 Est GFR (Non-Af Amer) 48.4 BUN/Creatinine Ratio 27.7 H (10-20) Glucose 122 H (70-99) mg/dl Calcium 8.3 L (8.5-10.1) mg/dl Total Bilirubin (0.2-1) mg/dl AST (15-37) U/L ALT (12-78) U/L Alkaline Phosphatase (45-117) U/L Total Protein (6.4-8.2) gm/dl Albumin (3.4-5.0) gm/dl Globulin (2.5-4.0) gm/dl Albumin/Globulin Ratio (0.9-2) Lipase (73-393) U/L Nasal Screen MRSA (PCR) (Negative) Blood Type Antibody Screen Crossmatch 12/03/18 12/03/18 12/03/18 Range/Units 05:10 02:51 01:42 WBC (4.8-10.8) K/uL RBC (4.2-5.4) M/uL Hgb 9.4 L (12.0-16.0) g/dL Hct 29.5 L (37-47) % MCV (80-100) fL MCH (25-34) pg MCHC (32-36) g/dL RDW Std Deviation (36.4-46.3) fL RDW Coeff of Neville (11.5-14.5) % Plt Count (130-400) K/uL MPV (7.4-10.4) fL Immature Gran % (Auto) % Neut % (Auto) % Lymph % (Auto) % Bucks % (Auto) % Eos % (Auto) % Baso % (Auto) % Immature Gran # (Auto) (0.00-0.02) K/uL Neut # (Auto) (1.4-6.5) K/uL Lymph # (Auto) (1.2-3.4) K/uL Bucks # (Auto) (0.11-0.59) K/uL Eos # (Auto) (0-0.5) K/uL Baso # (Auto) (0-0.2) K/uL Sodium (136-145) mmol/L Potassium 4.0 (3.5-5.1) mmol/L Chloride (98-107) mmol/L Carbon Dioxide (21-32) mmol/L Anion Gap (3-11) BUN (7-18) mg/dl Creatinine (0.6-1.2) mg/dl Est Cr Clr Drug Dosing ml/min Est GFR ( Amer) Est GFR (Non-Af Amer) BUN/Creatinine Ratio (10-20) Glucose (70-99) mg/dl Calcium (8.5-10.1) mg/dl Total Bilirubin (0.2-1) mg/dl AST 18 (15-37) U/L ALT (12-78) U/L Alkaline Phosphatase (45-117) U/L Total Protein (6.4-8.2) gm/dl Albumin (3.4-5.0) gm/dl Globulin (2.5-4.0) gm/dl Albumin/Globulin Ratio (0.9-2) Lipase (73-393) U/L Nasal Screen MRSA (PCR) Negative (Negative) Blood Type Antibody Screen Crossmatch 12/03/18 12/03/18 12/03/18 Range/Units 00:37 00:03 00:03 WBC 11.29 H (4.8-10.8) K/uL RBC 4.16 L (4.2-5.4) M/uL Hgb 12.0 (12.0-16.0) g/dL Hct 37.6 (37-47) % MCV 90.4 (80-100) fL MCH 28.8 (25-34) pg MCHC 31.9 L (32-36) g/dL RDW Std Deviation 47.4 H (36.4-46.3) fL RDW Coeff of Neville 14.5 (11.5-14.5) % Plt Count 327 (130-400) K/uL MPV 10.1 (7.4-10.4) fL Immature Gran % (Auto) 0.2 % Neut % (Auto) 83.7 % Lymph % (Auto) 8.8 % Bucks % (Auto) 6.6 % Eos % (Auto) 0.7 % Baso % (Auto) 0.0 % Immature Gran # (Auto) 0.02 (0.00-0.02) K/uL Neut # (Auto) 9.46 H (1.4-6.5) K/uL Lymph # (Auto) 0.99 L (1.2-3.4) K/uL Bucks # (Auto) 0.74 H (0.11-0.59) K/uL Eos # (Auto) 0.08 (0-0.5) K/uL Baso # (Auto) 0.00 (0-0.2) K/uL Sodium 140 (136-145) mmol/L Potassium (3.5-5.1) mmol/L Chloride 103 (98-107) mmol/L Carbon Dioxide 32 (21-32) mmol/L Anion Gap 5.0 (3-11) BUN 36 H (7-18) mg/dl Creatinine 1.20 (0.6-1.2) mg/dl Est Cr Clr Drug Dosing 36.5 ml/min Est GFR ( Amer) 50.5 Est GFR (Non-Af Amer) 43.6 BUN/Creatinine Ratio 30.0 H (10-20) Glucose 127 H (70-99) mg/dl Calcium 9.3 (8.5-10.1) mg/dl Total Bilirubin 0.4 (0.2-1) mg/dl AST (15-37) U/L ALT 21 (12-78) U/L Alkaline Phosphatase 116 (45-117) U/L Total Protein 7.7 (6.4-8.2) gm/dl Albumin 3.3 L (3.4-5.0) gm/dl Globulin 4.4 H (2.5-4.0) gm/dl Albumin/Globulin Ratio 0.7 L (0.9-2) Lipase 57 L (73-393) U/L Nasal Screen MRSA (PCR) (Negative) Blood Type O Positive Antibody Screen NEGATIVE Crossmatch See Detail PG Care Time/CCT Total # of Minutes Spent Total Time Spent with Patient: Total time spent is greater than 50% in coordination of care (as documented) at patient's floor/unit and/or counseling patient: (1) Anemia Anemia type: unspecified type Qualified Code(s): D64.9 - Anemia, unspecified (2) Vomiting Nausea presence: unspecified Vomiting Intractability: unspecified Vomiting type: unspecified Qualified Code(s): R11.10 - Vomiting, unspecified (3) Hematemesis Nausea presence: unspecified Qualified Code(s): K92.0 - Hematemesis (4) Depression Depression Type: other depression Qualified Code(s): F32.89 - Other specified depressive episodes (5) Hypothyroidism Hypothyroidism type: acquired Qualified Code(s): E03.9 - Hypothyroidism, unspecified (6) Dementia Dementia type: associated with other underlying disease Dementia behavioral disturbance: with behavioral disturbance Qualified Code(s): F02.81 - Dementia in other diseases classified elsewhere with behavioral disturbance (7) HTN (hypertension) Hypertension type: essential hypertension Qualified Code(s): I10 - Essential (primary) hypertension
[2018-12-03] MEDS: ESCITALOPRAM OXALATE 10 MG TAB PO SCH (20:18)
[2018-12-03] MEDS: OLANZAPINE 2.5 MG TAB PO SCH (20:20)
[2018-12-03] MEDS: ROPINIROLE HCL 0.25 MG TABLET PO SCH (22:28)
[2018-12-04] MEDS: ONDANSETRON INJ 2 MG/ML 2 ML VIAL IV SCH ×5 (01:45→21:03)
[2018-12-04] MEDS: PANTOprazole 40 MG in DEXTROSE 5% 100 ML IV SCH ×2 (05:03→09:52)
[2018-12-04] MEDS: LEVOTHYROXINE SODIUM 112 MCG TABLET PO SCH (05:29)
[2018-12-04 05:55] LABS: Eosinophils # (auto) 0.19 K/uL (0-0.5); Eosinophils % (auto) 2.5 %; Hematocrit (blood only) 28.2 % (37-47); Hemoglobin 8.7 g/dL (12.0-16.0); Immature Granulocytes # (auto) 0.02 K/uL (0.00-0.02); Immature Granulocytes % (auto) 0.3 %; Lymphocytes # (auto) 1.41 K/uL (1.2-3.4); Lymphocytes % (auto) 18.4 %; Mean Corpuscular Hgb Conc 30.9 g/dL (32-36); Mean Corpuscular Volume 93.1 fL (80-100); Mean Platelet Volume 10.4 fL (7.4-10.4); Monocytes % (auto) 9.2 %; Neutrophils # (auto) 5.33 K/uL (1.4-6.5); Neutrophils % (auto) 69.6 %; Platelet Count 224 K/uL (130-400); RDW Coefficient of Variation 14.9 % (11.5-14.5); RDW Standard Deviation 50.6 fL (36.4-46.3); Red Blood Count 3.03 M/uL (4.2-5.4); White Blood Count 7.65 K/uL (4.8-10.8)
[2018-12-04 06:30] LABS: BUN Creatinine Ratio 18.9 (10-20); Calcium 8.1 mg/dl (8.5-10.1); Creatinine Clr Calc Pharmacy 40.3 ml/min; Est GFR (African American) 63.7; Potassium 4.5 mmol/L (3.5-5.1)
[2018-12-04] MEDS: SUCRALFATE 1 GM/10 ML UDC PO SCH ×4 (08:09→21:02)
[2018-12-04] MEDS: CHECK FENTANYL PATCH PLACEMENT SCH ×2 (08:09→16:08)
[2018-12-04] MEDS: MEMANTINE HCL 5 MG TAB PO SCH ×2 (08:11→17:21)
[2018-12-04] MEDS: SULFA/TRIMETH 400/80MG TAB PO SCH (08:11)
[2018-12-04] MEDS: OLANZapine 5 MG TABLET PO SCH (08:12)
[2018-12-04] MEDS: LORazepam 0.5 MG TAB PO SCH ×4 (08:15→21:02)
[2018-12-04] MEDS: SODIUM CHLORIDE 0.9% 1000ML 1,000 ML IV SCH (09:57)
--- NOTE | 2018-12-04 14:55 | Hospitalist Progress Note ---
Date of Service December 04, 2018 Assessment & Plan (1) Upper gastrointestinal bleed: Mrs. Hunt is a 78-year-old female with a past medical history of GI bleeds, dementia, hypothyroidism, hypertension, CKD 3, esophageal stenosis and hiatal hernia presenting from [facility] with coffee-ground emesis. ED Course: 500 mL normal saline bolus, Protonix drip, 4 mg IV Zofran, 20 mg IV Pepcid, 1 L normal saline at maintenance rate Upper GI Bleed -Recurrent, patient has had several admissions for the same Now resolved, no further hematemesis and hgb has trended back upward to 8.7 -Prior EGDs have shown moderately severe esophagitis, medium size hiatal hernia, and moderate inflammation in the gastric antrum -seen by GI and no plans for intervention at this point as she usually improves with taking PPI and carafate-vick reports she has been compliant with meds at the assisted -convert PPI gtt to PPI po bid, and continue Carafate 4 times daily -dc IVFs -advance diet to minced and moist -consulted Palliative Care and is interested in transitioning to Hospice but wants to wait to do so until their daughter returns from a trip to [place] in 2 weeks Acute blood loss anemia -Hemoglobin dropped acutely from 12 to 9.4 on admission , however her baseline just 1-2 weeks ago was 9--> likely was hemoconcentrated. Now up to 8.7 as above, likely had some small blood loss Hemodynamically stable -Type and screen completed, with 2 units on hold -Transfuse for hemoglobin less than 7 -Repeat CBC in a.m. Hypertension -held lisinopril due to GI bleeding -Can restart for tomorrow CKD Stage 3 -stable, creatinine level within normal limits Hypothyroidism -continue home synthroid Depression/Dementia -continue home Lexapro, Zyprexa, Namenda, Ativan -plans to enroll in Hospice as per History of bladder prolapse/frequent UTIs- reports she was dxd with a UTI the day prior to admission and was started on an antibiotic. Reports she was having increased confsuion and hallucinations as presenting symptom--> could just be her dementia We do not have a UA or Ur cx here to go off of -mariangel increase her Bactrim to DS bid x 3 day course empirically and then return to prophylactic dosing Mental status seems at baseline to me as I have taken care of her previously Chronic pain -Continue home fentanyl patch, and as needed oxycodone Restless leg syndrome -Continue home ropinirole CODE STATUS: DNR/DNI per discussion with family DVT prophylaxis: Contraindicated in the setting of GI bleed Disposition: stable for discharge to [facility] but they ewon't take her today due to being understaffed dc to [facility] tomorrow Remove right femoral line today trnsfer to medical floor (2) Anemia: (3) Vomiting: (4) Acute blood loss anemia: (5) Hematemesis: (6) Chronic kidney disease, stage 3a: (7) Restless legs syndrome: (8) Depression: (9) Chronic pain: (10) Hypothyroidism: (11) Dementia: (12) HTN (hypertension): Subjective No complaints, confused. Is refusing some of her meds today. More awake. at bedside Tele with SB in the 50s No further vomiting since admission Review of Systems Review of Systems: All systems reviewed & are unremarkable except as noted in HPI & below Physical Exam Constitutional: average body habitus; no acute distress Eyes: + anicteric sclerae Neck: trachea midline, no thyromegaly Respiratory: normal respiratory effort, lungs clear to auscultation Cardiovascular: RRR, no murmur, no edema Right inguinal region with femoral line in place, no erythema Musculoskeletal: Extremities: extremities normal to inspection; no cyanosis and no clubbing Skin: no rashes, warm and dry Neurologic: moves all extremities, awake and + confused Motor/Sensory: no tremor Results & Data Vital Signs (Past 12 Hours) Vital Signs Temp Pulse Resp BP Pulse Ox 12/04/18 07:55 36.2 C L 62 18 125/70 96 12/04/18 04:33 36.8 C 67 15 111/67 94 Laboratory Results Hgb 8.7 PG Care Time/CCT Total # of Minutes Spent Total Time Spent with Patient: Total time spent is greater than 50% in coordination of care (as documented) at patient's floor/unit and/or counseling patient: (1) Anemia Anemia type: unspecified type Qualified Code(s): D64.9 - Anemia, unspecified (2) Dementia Dementia behavioral disturbance: with behavioral disturbance Dementia type: associated with other underlying disease Qualified Code(s): F02.81 - Dementia in other diseases classified elsewhere with behavioral disturbance (3) Depression Depression Type: other depression Qualified Code(s): F32.89 - Other specified depressive episodes (4) Hypothyroidism Hypothyroidism type: acquired Qualified Code(s): E03.9 - Hypothyroidism, unspecified (5) Hematemesis Nausea presence: unspecified Qualified Code(s): K92.0 - Hematemesis (6) HTN (hypertension) Hypertension type: essential hypertension Qualified Code(s): I10 - Essential (primary) hypertension (7) Vomiting Nausea presence: unspecified Vomiting Intractability: unspecified Vomiting type: unspecified Qualified Code(s): R11.10 - Vomiting, unspecified
[2018-12-04] MEDS: OLANZAPINE 2.5 MG TAB PO SCH (21:02)
[2018-12-04] MEDS: ESCITALOPRAM OXALATE 10 MG TAB PO SCH (21:02)
[2018-12-04] MEDS: SULFAMETHOXAZOLE/TRIMETHOPRIM DS 800/160MG TAB PO SCH (21:02)
[2018-12-04] MEDS: ROPINIROLE HCL 0.25 MG TABLET PO SCH (21:02)
[2018-12-04] MEDS: PANTOprazole 40 MG TAB PO SCH (21:02)
[2018-12-05] MEDS: CHECK FENTANYL PATCH PLACEMENT SCH ×2 (02:55→08:40)
[2018-12-05] MEDS: LEVOTHYROXINE SODIUM 112 MCG TABLET PO SCH (05:58)
[2018-12-05] MEDS ORDERED: ONDANSETRON 4 MG OD TAB PO PRN (06:03)
[2018-12-05] MEDS: fentaNYL 25 MCG/HR TDSY TD SCH (06:09)
[2018-12-05] MEDS: LORazepam 0.5 MG TAB PO SCH ×2 (07:30→12:00)
[2018-12-05] MEDS: SULFAMETHOXAZOLE/TRIMETHOPRIM DS 800/160MG TAB PO SCH (08:38)
[2018-12-05] MEDS: SUCRALFATE 1 GM/10 ML UDC PO SCH ×2 (08:38→14:08)
[2018-12-05] MEDS: MEMANTINE HCL 5 MG TAB PO SCH (08:39)
[2018-12-05] MEDS: OLANZapine 5 MG TABLET PO SCH (08:39)
[2018-12-05] MEDS: PANTOprazole 40 MG TAB PO SCH (08:40)
[2018-12-05 08:49] LABS: Eosinophils # (auto) 0.26 K/uL (0-0.5); Eosinophils % (auto) 3.6 %; Hematocrit (blood only) 28.4 % (37-47); Immature Granulocytes # (auto) 0.02 K/uL (0.00-0.02); Immature Granulocytes % (auto) 0.3 %; Lymphocytes # (auto) 0.92 K/uL (1.2-3.4); Lymphocytes % (auto) 12.8 %; Mean Corpuscular Hgb Conc 31.7 g/dL (32-36); Mean Corpuscular Volume 90.4 fL (80-100); Mean Platelet Volume 9.5 fL (7.4-10.4); Monocytes # (auto) 0.66 K/uL (0.11-0.59); Monocytes % (auto) 9.2 %; Neutrophils # (auto) 5.31 K/uL (1.4-6.5); Neutrophils % (auto) 74.1 %; Platelet Count 241 K/uL (130-400); RDW Coefficient of Variation 14.6 % (11.5-14.5); Red Blood Count 3.14 M/uL (4.2-5.4); White Blood Count 7.17 K/uL (4.8-10.8)
[2018-12-05] MEDS ORDERED: FERROUS SULFATE 325 MG TAB PO SCH (09:00)
[2018-12-05] MEDS ORDERED: LISINOPRIL 5 MG TAB PO SCH (09:00)
[2018-12-05] MEDS ORDERED: CEROVITE ADV FORMULA TAB PO SCH (09:00)
[2018-12-05] MEDS: PANTOprazole 40 MG in DEXTROSE 5% 100 ML IV SCH (10:39)
--- NOTE | 2018-12-05 14:02 | Discharge Summary ---
Date of Service December 05, 2018 Admission HPI Per Admitting Provider Mrs. Hunt is a 78-year-old female with a past medical history of GI bleeds, dementia, hypothyroidism, hypertension, CKD 3, esophageal stenosis and hiatal hernia presenting from [facility] with coffee-ground emesis. Patient with dementia - history obtained from , who was at the bedside. Mrs. Hunt had an acute episode of coffee-ground emesis at 10:30 PM today. She had an additional episode approximately 1 hour prior to my evaluation. Mrs. Hunt has a history of recurrent hospital admissions due to the same - she was recently admitted from for upper GI bleed, and again from 11/16-11/19. She had an EGD performed by Dr. Montemayor on November 11 which revealed moderately severe esophagitis with no bleeding, medium size hiatal hernia, and moderate inflammation in the gastric antrum. During her more recent admission, she was once again seen by GI who recommended continuing her protonix drip, and considering discussion of hospice care given frequent admissions for GI bleeding. The patient and her family were seen by the palliative care team, however they were not ready to make a decision about switching to hospice care. She was discharged to [facility] in stable condition, to continue Protonix and Carafate. Principal Diagnosis Upper GI Bleed Discharge Exam Constitutional average body habitus; no acute distress Eyes + anicteric sclerae Neck trachea midline, no thyromegaly Respiratory normal respiratory effort, lungs clear to auscultation Cardiovascular RRR, no murmur, no edema Musculoskeletal Extremities: extremities normal to inspection; no cyanosis and no clubbing Skin no rashes, warm and dry Neurologic moves all extremities, awake and + confused Motor/Sensory: no tremor Discharge Data Allergies Allergy/AdvReac Type Severity Reaction Status Date / Time melon Allergy Intermediate Cantelope Verified 12/02/18 23:19 - Rash caffeine Allergy Unknown ON CENTRE Verified 12/02/18 23:19 CREST LIST desipramine Allergy Unknown ON CENTRE Verified 12/02/18 23:19 CREST LIST ergotamine Allergy Unknown ON CENTRE Verified 12/02/18 23:19 CREST LIST nitrofurantoin Allergy Unknown ON CENTRE Verified 12/02/18 23:19 CREST LIST watermelon Allergy Unknown UNKNOWN Verified 12/02/18 23:19 Consultations 12/03/18 02:16 ED Decision to Admit Stat 12/03/18 04:05 Consult Case Management - Discharge Planning Routine Consult Gastroenterology Routine 12/03/18 17:26 Consult Palliative Care Routine Hospital Course (1) Upper gastrointestinal bleed: Mrs. Hunt is a 78-year-old female with a past medical history of GI bleeds, dementia, hypothyroidism, hypertension, CKD 3, esophageal stenosis and hiatal hernia presenting from [facility] with coffee-ground emesis. ED Course: 500 mL normal saline bolus, Protonix drip, 4 mg IV Zofran, 20 mg IV Pepcid, 1 L normal saline at maintenance rate Upper GI Bleed -Recurrent, patient has had several admissions for the same Now resolved, no further hematemesis and hgb has trended back upward to 9.0 -Prior EGDs have shown moderately severe esophagitis, medium size hiatal hernia, and moderate inflammation in the gastric antrum -seen by GI and no plans for intervention at this point as she usually improves with taking PPI and carafate- reports she has been compliant with meds at the long term -converted PPI gtt to PPI po bid, and continue Carafate 4 times daily -continue diet of low fiber, minced and moist -consulted Palliative Care and is interested in transitioning to Hospice but wants to wait to do so until their daughter returns from a trip to [place] in 2 weeks-Palliative Care plans on meeting with the family in 2 weeks at [facility] Acute blood loss anemia -Hemoglobin dropped acutely from 12 to 9.4 on admission , however her baseline just 1-2 weeks ago was 9--> likely was hemoconcentrated. Now up to 9.0 as above, likely had some small blood loss Hemodynamically stable no need for transfusion Hypertension -continure lisinopril CKD Stage 3 -stable, creatinine level within normal limits Hypothyroidism -continue home synthroid Depression/Dementia -continue home Lexapro, Zyprexa, Namenda, Ativan -plans to enroll in Hospice as per History of bladder prolapse/frequent UTIs- reports she was dxd with a UTI the day prior to admission and was started on an antibiotic. Reports she was having increased confusion and hallucinations as presenting symptom--> could just be her dementia We do not have a UA or Ur cx here to go off of -will increase her Bactrim to DS bid x 3 day course empirically and then return to prophylactic dosing Mental status seems at baseline to me as I have taken care of her previously Chronic pain -Continue home fentanyl patch, and as needed oxycodone Restless leg syndrome -Continue home ropinirole CODE STATUS: DNR/DNI per discussion with family DVT prophylaxis: Contraindicated in the setting of GI bleed Disposition: stable for discharge to [facility] today (2) Anemia: (3) Vomiting: (4) Acute blood loss anemia: (5) Hematemesis: (6) Chronic kidney disease, stage 3a: (7) Restless legs syndrome: (8) Depression: (9) Chronic pain: (10) Hypothyroidism: (11) Dementia: (12) HTN (hypertension): Total Time Total Time Spent Total Time Spent (In Minutes): >30 min Discharge Plan Discharge Items Patient Disposition: Transfer Nursing Home Fac Reason For Visit: GI BLEED Discharge Diagnosis: GI Bleed Condition on Discharge: Fair Activity: Resume your previous activity Bathing: No limitations Non-emergency contact: Primary Care Provider Call non-emergency contact if: you have any medication questions and your symptoms worsen [facility] - Diet: Low Fiber Diet Comment: Minced and moist Addtl Attending Provider Instructions: Continue same medications as before for her GI bleeding. No procedures done by GI. Recommending Palliative Consultation at [facility] to be arranged after her daughter returns from vacation to [place] in 2 weeks. Pending Studies at Discharge: No Stand-Alone Forms: Call Back Authorization, [facility] Skilled Items Patient informed of condition?: Yes DNR: Yes Discharge Level of Care: Skilled Communicable Disease: No Discharge Prognosis: Improving Lines: None Urinary Catheter: No Medications and DC Order Prescriptions: No Action sodium phosphates ND RF: 0 sulfamethoxazole-trimethoprim [Bactrim] 400-80 mg tablet 1 tab PO QAM RF: 0 sucralfate [Carafate] 100 mg/mL suspension 10 ml PO QID RF: 0 calcium carbonate 600 mg calcium (1,500 mg) Tablet 600 mg PO QAM RF: 0 acetaminophen [Tylenol] 325 mg Tablet 650 mg PO Q6 PRN (Reason: Fever Or Pain) RF: 0 polyethylene glycol 3350 17 gram Powder In Packet 17 g PO DAILY PRN (Reason: Constipation) RF: 0 promethazine [Phenergan] 25 mg Suppository 25 mg ND Q6H PRN (Reason: Nausea) RF: 0 sumatriptan succinate [Imitrex] 25 mg tablet 25 mg PO DAILY PRN (Reason: Migraine Headache) RF: 0 ondansetron HCl [Zofran] 4 mg tablet 4 mg PO Q6 PRN (Reason: Nausea) RF: 0 sennosides-docusate sodium [Senna with Docusate Sodium] 8.6-50 mg Tablet 2 tab PO HS RF: 0 olanzapine [Zyprexa] 5 mg tablet 5 mg PO QAM RF: 0 olanzapine [Zyprexa] 7.5 mg tablet 7.5 mg PO HS RF: 0 cranberry extract 250 mg Capsule 250 mg PO QAM RF: 0 lorazepam [Ativan] 0.5 mg tablet 0.5 mg PO QID RF: 0 ropinirole [Requip] 0.25 mg tablet 0.25 mg PO HS RF: 0 pantoprazole [Protonix] 40 mg tablet,delayed release (DR/EC) 40 mg PO AMHS RF: 0 ferrous sulfate 325 mg (65 mg iron) Tablet 325 mg PO QAM RF: 0 promethazine [Phenergan] 25 mg/mL Solution 25 mg IM Q6H PRN (Reason: Nausea) RF: 0 promethazine 25 mg Tablet 25 mg PO Q6H PRN (Reason: Nausea) RF: 0 lisinopril 5 mg tablet 5 mg PO QAM RF: 0 fentanyl [Duragesic] 25 mcg/hr patch 72 hour 25 mcg topical .Q72 HRS RF: 0 levothyroxine 112 mcg tablet 112 mcg PO QAM RF: 0 oxycodone [Roxicodone] 5 mg tablet 5 mg PO Q4 PRN (Reason: moderate pain) RF: 0 escitalopram oxalate [Lexapro] 10 mg tablet 10 mg PO HS RF: 0 memantine [Namenda] 5 mg tablet 5 mg PO BID17 RF: 0 cholecalciferol (vitamin D3) [Vitamin D3] 2,000 unit Capsule 2,000 unit PO QAM RF: 0 multivitamin with minerals Tablet 1 tab PO QAM RF: 0 Discharge Orders: Discharge Order (Routine); Ordered 12/05/18 Ordered By: Dafne Villagomez Admission Data Admit Date/Time: 12/03/18 03:13 Attending Provider: Dafne Villagomez Admit Provider: Hola Arrington Primary Care Provider: Vance Urena Other Providers: Abdirahman Holm ; Felix Montemayor ; Anjelica Street
== END 2018-12-05 15:20 | DRG 378 ==
LOC: ED 22:30 → SUATTDRO 12-03 03:13 → 2S 12-03 03:13 → 2W 12-04 14:51

== ENCOUNTER 2019-03-17 14:58 | Inpatient (IN) ==
[2019-03-17] MEDS ORDERED: SODIUM CHLORIDE 0.9% 1000ML 1,000 ML IV STA (16:04)
[2019-03-17] MEDS ORDERED: FAMOTIDINE 20MG IV PUSH 20 MG/5 ML SYR IV STA (16:15)
[2019-03-17] MEDS ORDERED: ONDANSETRON INJ 2 MG/ML 2 ML VIAL IV STA (16:15)
[2019-03-17 16:43] LABS: Basophils # (auto) 0.01 K/uL (0-0.2); Basophils % (auto) 0.1 %; Hematocrit (blood only) 39.2 % (37-47); Hemoglobin 12.5 g/dL (12.0-16.0); Immature Granulocytes # (auto) 0.06 K/uL (0.00-0.02); Immature Granulocytes % (auto) 0.4 %; Lymphocytes # (auto) 0.59 K/uL (1.2-3.4); Lymphocytes % (auto) 3.7 %; Mean Corpuscular Hemoglobin 28.4 pg (25-34); Mean Corpuscular Hgb Conc 31.9 g/dL (32-36); Mean Corpuscular Volume 89.1 fL (80-100); Mean Platelet Volume 10.5 fL (7.4-10.4); Monocytes # (auto) 1.02 K/uL (0.11-0.59); Monocytes % (auto) 6.4 %; Neutrophils # (auto) 14.23 K/uL (1.4-6.5); Neutrophils % (auto) 89.4 %; Platelet Count 338 K/uL (130-400); RDW Coefficient of Variation 14.1 % (11.5-14.5); RDW Standard Deviation 45.7 fL (36.4-46.3); White Blood Count 15.91 K/uL (4.8-10.8)
--- NOTE | 2019-03-17 16:51 | XRay Report ---
SINGLE VIEW CHEST CLINICAL HISTORY: Vomiting. FINDINGS: An AP, portable, upright chest radiograph is compared to study dated 11/16/2018. The examina tion is degraded by portable technique and patient rotation. The heart is mildly enlarged noting athe rosclerotic calcification of the thoracic aorta. The pulmonary vasculature is noncongested. Scarring/ atelectasis is noted at the lung bases. No airspace consolidation or large pleural effusion is identi fied. No pneumothorax is seen. The skeletal structures are osteopenic. There are healed left-sided ri b fractures and chronic posttraumatic deformity of the left humerus. Surgical clips project over the left upper quadrant. IMPRESSION: Mild cardiomegaly with no acute cardiopulmonary abnormality. ACT 112: Negative or not required by law. Electronically signed by: Prince Pathak M.D. 03/17/2019 4:49 PM
[2019-03-17 16:52] LABS: INR 1.1 (0.9-1.1); Partial Thromboplastin Ratio 0.9; Partial Thromboplastin Time 23.1 Seconds (21.0-31.0); Prothrombin Time 10.9 Seconds (9.0-12.0)
[2019-03-17] MEDS ORDERED: PANTOprazole 40 MG in SYRINGE 0 ML IV STA (16:56)
--- NOTE | 2019-03-17 17:17 | CT Scan Report ---
CT SCAN OF THE ABDOMEN AND PELVIS WITHOUT IV CONTRAST CLINICAL HISTORY: Vomiting. COMPARISON STUDY: Abdominal CT dated 07/27/2018. TECHNIQUE: CT scan of the abdomen and pelvis is performed from the lung bases to the proximal femora. Images are reviewed in the axial, sagittal, and coronal planes. IV contrast was not administered for this examination as per the referring clinician. Note that the examination was performed in suboptim al fashion without oral and IV contrast. The examination is also degraded by motion artifact, as well as by streak artifact from the arms which could not be elevated above the abdomen. A dose lowering t echnique was utilized adhering to the principles of ALARA. CT DOSE: 847.08 mGycm FINDINGS: Lung bases: The heart is normal in size and without pericardial effusion. Patchy airspace consolidati on is present at both lung bases. This is not well assessed due to motion artifact. No pleural effusi on is identified. There is a moderate hiatal hernia which is filled with fluid. Liver: The unenhanced liver is normal in size, contour, and attenuation. There is no intrahepatic salvador iary ductal dilatation. Gallbladder: Unremarkable. Spleen: Normal in size and attenuation. Pancreas: The unenhanced pancreas is atrophic and grossly unremarkable. Adrenal glands: Unremarkable. Kidneys: The unenhanced kidneys are atrophic and without hydronephrosis. There are no renal calculi i dentified. There is no evidence of contour deforming renal mass lesion. Abdominal vasculature: The abdominal aorta is normal in course and caliber noting moderate atheroscle rotic calcification. Bowel: There are scattered colonic diverticula without CT evidence of acute diverticulitis. No bowel obstruction is identified. The appendix is not visualized. Peritoneum: There is a small volume of abdominopelvic ascites. No intraperitoneal free air is seen. T here is extensive peritoneal nodularity. Lymphadenopathy: There are numerous prominent retroperitoneal and left iliac chain lymph nodes. These measure up to 8 mm in short axis. Pelvic viscera: The bladder is normal as visualized. The uterus is heterogeneous. No adnexal lesion i s seen. A vaginal pessary is in place. Skeletal structures: The skeletal structures are osteopenic. There is a chronic superior endplate com pression deformity of T12. Moderate lumbosacral spondylosis is observed. No lytic or blastic lesions are seen. IMPRESSION: 1. Suboptimal examination without oral and IV contrast. The examination is also degraded by streak an d motion artifact. 2. There is a moderate hiatal hernia which is filled with fluid. 3. Patchy airspace consolidation is present at both lung bases. Correlate clinically for evidence of pneumonia/aspiration pneumonitis. 4. No bowel obstruction is seen. 5. There is a small volume of abdominopelvic ascites as well as extensive peritoneal nodularity. The appearance is highly concerning for carcinomatosis. 6. The uterus is heterogeneous and a gynecologic neoplasm is suspected. Pelvic ultrasound is recommen ded for further assessment. 7. There are prominent retroperitoneal and left iliac chain lymph nodes. Neoplastic involvement is no t excluded. 8. Additional findings as above. ACT 112: Positive. There are findings on this exam that require communication between the performing entity and the patient following Patient Test Result Information Act ([place] Act 112) guidelines. Electronically signed by: Prince Pathak M.D. 03/17/2019 5:15 PM
[2019-03-17] MEDS ORDERED: PIPERACILLIN/TAZOBACTAM 4.5 GM/120 ML BAG IV ONE (17:29)
[2019-03-17] MEDS ORDERED: PIPERACILL/TAZOBAC CONSULT ACTIVE PRN ×3 (17:29→22:48)
[2019-03-17 18:48] LABS: Albumin Level 2.9 gm/dl (3.4-5.0); BUN Creatinine Ratio 34.6 (10-20); Creatinine Clr Calc Pharmacy 38.9 ml/min; Est GFR (African American) 56.7; Est GFR (Non-African American) 48.9; Potassium 3.4 mmol/L (3.5-5.1)
[2019-03-17 18:51] LABS: Albumin Globulin Ratio 0.7 (0.9-2); Bilirubin,Total 0.4 mg/dl (0.2-1); Globulin 4.1 gm/dl (2.5-4.0)
--- NOTE | 2019-03-17 21:12 | Emergency Department Note ---
Entered by Riya Ortiz acting as a scribe for Mau Gentile MD ED Provider Note CHIEF COMPLAINT: vomiting HISTORY OF PRESENT ILLNESS: The patient is a 78 year old F who presents to the Emergency Room with complaints of worsening vomiting that started prior to arrival. The HPI was primarily provided by the ED nurse note. The note states that the patient resides at [facility]. The note adds that the patient was sent into the ED by the nursing facility staff due to the patient experiencing coffee-ground emesis and coffee-ground stools. The note states that the patient also refused to take her medications today. The patients states that the patient had a scope done recently by Dr. Montemayor, gastroenterology, [place], [place] which revealed scar tissue in the esophagus. He adds that the scar tissue is thought to be bleeding today. The patient states that she is currently experiencing epigastric abdominal pain, back pain, and leg pain. The patients denies that the patient has a h istory of nose bleeds. HPI is limited due to patients history of dementia REVIEW OF SYSTEMS: See HPI for pertinent positives and negatives. The ROS is limited due to patients history of dementia. PMHx/PSHx: Anemia, dementia, HTN, hypothyroidism, depression, UTI, hysterectomy SOCIAL HISTORY: [facility]. PHYSICAL EXAM: GENERAL: Awake, alert, well-appearing, in no distress HENT: Normocephalic, atraumatic. Oropharynx unremarkable. EYES: PERRL. Normal conjunctiva. Sclera non-icteric. NECK: Inspection normal. Non-tender. Supple. No nuchal rigidity. FROM. No masses. RESPIRATORY: Clear to auscultation. No wheezes. No rales. Normal respiratory effort. CARDIAC: Normal rate. Normal rhythm. No murmurs. No rubs. Extremities warm and well perfused. Pulses equal. No JVD. GI: Soft, non-distended. Epigastric tenderness to palpation. No rebound or guarding. No masses. RECTAL: Deferred. MUSCULOSKELETAL: Atraumatic. Chest examination reveals no tenderness. The back is symmetrical on inspection without obvious abnormality. There is no CVA tenderness to palpation. No joint edema. LOWER EXTREMITIES: Calves are equal size bilaterally and non-tender. No edema. No discoloration. NEURO: Demented sensorium. No sensory or motor deficits noted. SKIN: No rash or jaundice noted. EMERGENCY DEPARTMENT COURSE: 1609: The patient was evaluated in room B12A, and a complete history and physical examination were performed. 1653: The patient vomited coffee-ground emesis at CAT scan. Reassessed when she returned and patient is hemodynamically stable. 1932: I reviewed the patient's case with Dr. Baljeet Brown, [facility] Hospitalist. He will evaluate the patient for further management. MEDICAL DECISION MAKING: Prior records/ancillary studies reviewed. Triage Nursing notes reviewed and agree them. Additional history obtained from the patient's . The patient's history was concerning for possible gastrointestinal bleeding. Differential diagnosis: Etiologies such as esophagitis, peptic ulcer disease, variceal bleed, gastritis, epistaxis, diverticulosis, AVM, coagulopathy, colitis, inflammatory bowel disease, malignancy,Bel-Anand tear, fissure, hemorrhoids, as well as others were entertained. Physical exam: As above. ER treatment provided: Supplemental oxygen IV Pepcid IV Protonix IV Zosyn On reassessment the patient was stable. Diagnostics interpreted by me: ECG: No acute ischemia The labs revealed a mild leukocytosis on CBC. Chemistry panel revealed mild dehydration. Imaging studies: Chest x-ray was negative for acute process. CT scan of the abdomen pelvis raise concerns about aspiration pneumonia. Consultation: A consultation was placed with the hospitalist. The case was discussed and di agnostics were reviewed. The patient was evaluated in the ER for further treatment. IMPRESSION: GI bleed, aspiration pneumonia, metastatic cancer, dementia PLAN: Admitted as inpatient. The scribe's documentation has been prepared under my direction and personally reviewed by me in its entirety. I confirm that the note above accurately reflects all work, treatment, procedures, and medical decision making performed by me. Impression & Plan GI bleed, Dementia, Aspiration pneumonia, Metastatic cancer Past Med/Surg History Medical History Anemia Bladder infection Chronic kidney disease, stage 3a Chronic scarring of esophagus Cystocele (Chronic) Dementia (Chronic) Depression Female bladder prolapse (Resolved) Fracture of head of left humerus (Acute) Fracture of left olecranon process (Acute) Fracture, thoracic vertebra, compression (Acute) HTN (hypertension) (Chronic) Hypothyroidism Lumbar transverse process fracture (Acute) Rapidly progressive dementia (Acute) T12 compression fracture (Acute) Thoracic compression fracture (Acute) Upper GI bleed (Acute) Urinary tract infection (Resolved) UTI (lower urinary tract infection) (Acute) Surgical History S/P breast biopsy S/P hysterectomy S/P shoulder surgery Status post Rudy fundoplication Family History Other Family history non-contributory Social History Preferred Language: Mongolian 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 current occupational status: retired Other Information That Helps Us Care for You: No Feels Safe at Home: Yes Safety Concerns: Feels Safe At This Time Smoking Status: Never smoker Do You Dip or Chew Tobacco: No ; Second Hand Exposure: No ; Hx Alcohol Use: No Hx Substance Use: No Results & Data Vital Signs Vital Signs - 24 hr 03/17/19 15:16 03/17/19 15:21 03/17/19 16:27 Temperature 37.0 C Temperature Source Oral Oral Pulse Rate 67 Pulse Rate [Finger] Respiratory Rate 18 Respiratory Effort / Characteristics Respiratory Depth Blood Pressure 178/73 H Blood Pressure [Left Arm] Blood Pressure Mean 108 Blood Pressure Mean [Left Arm] Pulse Oximetry 94 97 Oxygen Delivery Method Room Air Room Air Oxygen Flow Rate Sepsis Recent Fever Within 48 Hours No Sepsis Action Taken by Nursing No Action Required 03/17/19 17:09 03/17/19 17:28 03/17/19 18:36 Temperature Temperature Source Pulse Rate Pulse Rate [Finger] 81 84 Respiratory Rate 16 20 18 Respiratory Effort / Characteristics Non-Labored Non-Labored Respiratory Depth Normal Normal Blood Pressure Blood Pressure [Left Arm] 146/63 H 129/80 Blood Pressure Mean Blood Pressure Mean [Left Arm] 90 96 Pulse Oximetry 93 93 94 Oxygen Delivery Method Nasal Cannula Nasal Cannula Nasal Cannula Oxygen Flow Rate 2 2 2 Sepsis Recent Fever Within 48 Hours Sepsis Action Taken by Nursing 03/17/19 19:44 03/17/19 20:41 Temperature Temperature Source Pulse Rate Pulse Rate [Finger] 90 88 Respiratory Rate 20 20 Respiratory Effort / Characteristics Respiratory Depth Blood Pressure Blood Pressure [Left Arm] 120/90 141/64 H Blood Pressure Mean Blood Pressure Mean [Left Arm] 100 89 Pulse Oximetry 98 98 Oxygen Delivery Method Oxygen Flow Rate Sepsis Recent Fever Within 48 Hours Sepsis Action Taken by [facility] Medications Current Medication List: was personally reviewed by me Laboratory Data Attestation: I reviewed the patient's lab results. Result diagrams: 03/17/19 16:25 03/18/19 05:40 Lab Results 03/17/19 03/17/19 03/17/19 Range/Units 16:25 16:25 16:25 WBC 15.91 H (4.8-10.8) K/uL RBC 4.40 (4.2-5.4) M/uL Hgb 12.5 (12.0-16.0) g/dL Hct 39.2 (37-47) % MCV 89.1 (80-100) fL MCH 28.4 (25-34) pg MCHC 31.9 L (32-36) g/dL RDW Std Deviation 45.7 (36.4-46.3) fL RDW Coeff of Neville 14.1 (11.5-14.5) % Plt Count 338 (130-400) K/uL MPV 10.5 H (7.4-10.4) fL Immature Gran % (Auto) 0.4 % Neut % (Auto) 89.4 % Lymph % (Auto) 3.7 % [place] % (Auto) 6.4 % Eos % (Auto) 0.0 % Baso % (Auto) 0.1 % Immature Gran # (Auto) 0.06 H (0.00-0.02) K/uL Neut # (Auto) 14.23 H (1.4-6.5) K/uL Lymph # (Auto) 0.59 L (1.2-3.4) K/uL [place] # (Auto) 1.02 H (0.11-0.59) K/uL Eos # (Auto) 0.00 (0-0.5) K/uL Baso # (Auto) 0.01 (0-0.2) K/uL PT 10.9 (9.0-12.0) Seconds INR 1.1 (0.9-1.1) APTT 23.1 (21.0-31.0) Seconds PTT Ratio 0.9 Sodium Cancelled Potassium Cancelled Chloride Cancelled Carbon Dioxide Cancelled Anion Gap Cancelled BUN Cancelled Creatinine Cancelled Est Cr Clr Drug Dosing Cancelled Est GFR ( Amer) Cancelled Est GFR (Non-Af Amer) Cancelled BUN/Creatinine Ratio Cancelled Glucose Cancelled Calcium Cancelled Total Bilirubin Cancelled AST Cancelled ALT Cancelled Alkaline Phosphatase Cancelled Troponin I Cancelled Total Protein Cancelled Albumin Cancelled Globulin Cancelled Albumin/Globulin Ratio Cancelled Blood Type Antibody Screen 03/17/19 03/17/19 03/17/19 Range/Units 16:25 18:15 18:15 WBC (4.8-10.8) K/uL RBC (4.2-5.4) M/uL Hgb (12.0-16.0) g/dL Hct (37-47) % MCV (80-100) fL MCH (25-34) pg MCHC (32-36) g/dL RDW Std Deviation (36.4-46.3) fL RDW Coeff of Neville (11.5-14.5) % Plt Count (130-400) K/uL MPV (7.4-10.4) fL Immature Gran % (Auto) % Neut % (Auto) % Lymph % (Auto) % [place] % (Auto) % Eos % (Auto) % Baso % (Auto) % Immature Gran # (Auto) (0.00-0.02) K/uL Neut # (Auto) (1.4-6.5) K/uL Lymph # (Auto) (1.2-3.4) K/uL [place] # (Auto) (0.11-0.59) K/uL Eos # (Auto) (0-0.5) K/uL Baso # (Auto) (0-0.2) K/uL PT (9.0-12.0) Seconds INR (0.9-1.1) APTT (21.0-31.0) Seconds PTT Ratio Sodium 144 Potassium 3.4 L Chloride 105 Carbon Dioxide 31 Anion Gap 8.0 BUN 38 H Creatinine 1.09 Est Cr Clr Drug Dosing 38.9 Est GFR ( Amer) 56.7 Est GFR (Non-Af Amer) 48.9 BUN/Creatinine Ratio 34.6 H Glucose 161 H Calcium 9.0 Total Bilirubin 0.4 AST 18 ALT 12 Alkaline Phosphatase 106 Troponin I < 0.015 Total Protein 7.0 Albumin 2.9 L Globulin 4.1 H Albumin/Globulin Ratio 0.7 L Blood Type Cancelled Antibody Screen Cancelled 03/17/19 Range/Units 18:15 WBC (4.8-10.8) K/uL RBC (4.2-5.4) M/uL Hgb (12.0-16.0) g/dL Hct (37-47) % MCV (80-100) fL MCH (25-34) pg MCHC (32-36) g/dL RDW Std Deviation (36.4-46.3) fL RDW Coeff of Neville (11.5-14.5) % Plt Count (130-400) K/uL MPV (7.4-10.4) fL Immature Gran % (Auto) % Neut % (Auto) % Lymph % (Auto) % [place] % (Auto) % Eos % (Auto) % Baso % (Auto) % Immature Gran # (Auto) (0.00-0.02) K/uL Neut # (Auto) (1.4-6.5) K/uL Lymph # (Auto) (1.2-3.4) K/uL [place] # (Auto) (0.11-0.59) K/uL Eos # (Auto) (0-0.5) K/uL Baso # (Auto) (0-0.2) K/uL PT (9.0-12.0) Seconds INR (0.9-1.1) APTT (21.0-31.0) Seconds PTT Ratio Sodium Potassium Chloride Carbon Dioxide Anion Gap BUN Creatinine Est Cr Clr Drug Dosing Est GFR ( Amer) Est GFR (Non-Af Amer) BUN/Creatinine Ratio Glucose Calcium Total Bilirubin AST ALT Alkaline Phosphatase Troponin I Total Protein Albumin Globulin Albumin/Globulin Ratio Blood Type O Positive Antibody Screen NEGATIVE Administered Medications Fentanyl (Duragesic) 25 mcg TD Q3D NORMA Stop: 03/31/19 22:59 Last Admin: 03/17/19 23:34 Dose: 25 mcg Documented by: [id number] Potassium Chloride/Sodium Chloride (Normal Saline W/20 Meq Kcl) 20 meq in 1,000 mls @ 100 mls/hr IV .Q10H NORMA Stop: 04/16/19 22:37 Last Admin: 03/18/19 08:36 Dose: 100 mls/hr Documented by: [id number] Infusion: 03/18/19 08:36 Dose: 100 mls/hr Documented by: [id number] Admin: 03/17/19 23:34 Dose: 100 mls/hr Documented by: [id number] Piperacillin Sod/Tazobactam (Sod 3.375 gm/ Dextrose) 115 mls @ 28.75 mls/hr IV Q8H [facility]; Protocol Stop: 03/27/19 22:59 Last Infusion: 03/18/19 10:03 Dose: 0 mls/hr Documented by: [id number] Admin: 03/18/19 06:03 Dose: 28.8 mls/hr Documented by: [id number] Infusion: 03/18/19 03:35 Dose: 0 mls/hr Documented by: [id number] Admin: 03/17/19 23:34 Dose: 28.8 mls/hr Documented by: [id number] Famotidine 20 mg/ Syringe 5 mls @ 2.5 mls/min IV Q12H [facility] Stop: 04/16/19 22:59 Last Admin: 03/18/19 10:29 Dose: 2.5 mls/min Documented by: [id number] Admin: 03/17/19 23:34 Dose: 2.5 mls/min Documented by: [id number] Lorazepam (Ativan) 0.5 mg in 1 mls @ 1 mls/min IV Q6H PRN PRN Reason: Anxiety Stop: 04/16/19 22:50 Last Admin: 03/18/19 01:23 Dose: 1 mls/min Documented by: [id number] Levothyroxine Sodium (Synthroid) 112 mcg PO DAILYBB [facility] Stop: 04/17/19 06:29 Last Admin: 03/18/19 03:49 Dose: Not Given Documented by: [id number] Miscellaneous (Fentanyl Patch Check Placement) 1 ea N/A QS [facility] Stop: 04/17/19 00:00 Last Admin: 03/18/19 08:36 Dose: 1 ea Documented by: [id number] Admin: 03/17/19 23:56 Dose: 1 ea Documented by: [id number] Ondansetron HCl (Zofran) 4 mg IV Q6H PRN PRN Reason: Nausea Stop: 04/16/19 22:37 Last Admin: 03/18/19 08:36 Dose: 4 mg Documented by: [id number] Admin: 03/17/19 23:46 Dose: 4 mg Documented by: [id number] Discontinued Medications Sodium Chloride (Nss 1000ml) 1,000 mls @ 125 mls/hr IV .Q8H [facility] Stop: 03/18/19 00:03 Last Infusion: 03/17/19 23:02 Dose: 0 mls/hr Documented by: [id number] Admin: 03/17/19 17:02 Dose: 125 mls/hr Documented by: [id number] Famotidine (Pepcid 20mg Iv Push) 20 mg in 5 mls @ 2.5 mls/min IV NOW STA Stop: 03/17/19 16:16 Last Admin: 03/17/19 17:02 Dose: 2.5 mls/min Documented by: [id number] Pantoprazole Sodium 40 mg/ (Syringe) 10 mls @ 5 mls/min IV NOW STA Stop: 03/17/19 16:57 Last Admin: 03/17/19 17:35 Dose: 5 mls/min Documented by: [id number] Piperacillin Sod/Tazobactam Sod (Zosyn) 4.5 gm in 120 mls @ 240 mls/hr IV NOW ONE Stop: 03/17/19 17:58 Last Infusion: 03/17/19 18:49 Dose: 0 mls/hr Documented by: [id number] Admin: 03/17/19 17:44 Dose: 240 mls/hr Documented by: [id number] Ondansetron HCl (Zofran) 4 mg IV NOW STA Stop: 03/17/19 16:16 Last Admin: 03/17/19 17:02 Dose: 4 mg Documented by: [id number] Imaging Data Radiologist's Impression: Radiology results as stated below per my review and the radiologist's interpretation: CT SCAN OF THE ABDOMEN AND PELVIS WITHOUT IV CONTRAST CLINICAL HISTORY: Vomiting. COMPARISON STUDY: Abdominal CT dated 07/27/2018. TECHNIQUE: CT scan of the abdomen and pelvis is performed from the lung bases to the proximal femora. Images are reviewed in the axial, sagittal, and coronal planes. IV contrast was not administered for this examination as per the referring clinician. Note that the examination was performed in suboptimal fashion without oral and IV contrast. The examination is also degraded by motion artifact, as well as by streak artifact from the arms which could not be elevate d above the abdomen. A dose lowering technique was utilized adhering to the principles of ALARA. CT DOSE: 847.08 mGycm FINDINGS: Lung bases: The heart is normal in size and without pericardial effusion. Patchy airspace consolidation is present at both lung bases. This is not well assessed due to motion artifact. No pleural effusion is identified. There is a moderate hiatal hernia which is filled with fluid. Liver: The unenhanced liver is normal in size, contour, and attenuation. There is no intrahepatic biliary ductal dilatation. Gallbladder: Unremarkable. Spleen: Normal in size and attenuation. Pancreas: The unenhanced pancreas is atrophic and grossly unremarkable. Adrenal glands: Unremarkable. Kidneys: The unenhanced kidneys are atrophic and without hydronephrosis. There are no renal calculi identified. There is no evidence of contour deforming renal mass lesion. Abdominal vasculature: The abdominal aorta is normal in course and caliber noting moderate atherosclerotic calcification. Bowel: There are scattered colonic diverticula without CT evidence of acute diverticulitis. No bowel obstruction is identified. The appendix is not visualized. Peritoneum: There is a small volume of abdominopelvic ascites. No intraperitoneal free air is seen. There is extensive peritoneal nodularity. Lymphadenopathy: There are numerous prominent retroperitoneal and left iliac chain lymph nodes. These measure up to 8 mm in short axis. Pelvic viscera: The bladder is normal as visualized. The uterus is heterogeneous. No adnexal lesion is seen. A vaginal pessary is in place. Skeletal structures: The skeletal structures are osteopenic. There is a chronic superior endplate compression deformity of T12. Moderate lumbosacral spondylosis is observed. No lytic or blastic lesions are seen. IMPRESSION: 1. Suboptimal examination without oral and IV contrast. The examination is also degraded by streak and motion artifact. 2. There is a moderate hiatal hernia which is filled with fluid. 3. Patchy airspace consolidation is present at both lung bases. Correlate clinically for evidence of pneumonia/aspiration pneumonitis. 4. No bowel obstruction is seen. 5. There is a small volume of abdominopelvic ascites as well as extensive peritoneal nodularity. The appearance is highly concerning for carcinomatosis. 6. The uterus is heterogeneous and a gynecologic neoplasm is suspected. Pelvic ultrasound is recommended for further assessment. 7. There are prominent retroperitoneal and left iliac chain lymph nodes. Neoplastic involvement is not excluded. 8. Additional findings as above. ACT 112: Positive. There are findings on this exam that require communication between the performing entity and the patient following Patient Test Result Information Act ([place] Act 112) guidelines. Electronically signed by: Prince Pathak M.D. 03/17/2019 5:15 PM SINGLE VIEW CHEST CLINICAL HISTORY: Vomiting. FINDINGS: An AP, portable, upright chest radiograph is compared to study dated 11/16/2018. The examination is degraded by portable technique and patient rotation. The heart is mildly enlarged noting atherosclerotic calcification of the thoracic aorta. The pulmonary vasculature is noncongested. Scarring/atelectasis is noted at the lung bases. No airspace consolidation or large pleural effusion is identified. No pneumothorax is seen. The skeletal structures are osteopenic. There are healed left-sided rib fractures and chronic posttraumatic deformity of the left humerus. Surgical clips project over the left upper quadrant. IMPRESSION: Mild cardiomegaly with no acute cardiopulmonary abnormality. ACT 112: Negative or not required by law. Electronically signed by: Prince Pathak M.D. 03/17/2019 4:49 PM ECG Data Attestation: I personally reviewed and interpreted this ECG as follows: Indication: + vomiting Rate (beats per minute): 72 Rhythm: normal sinus ECG Intervals/blocks: + Normal QRS ECG [place]: + Normal ECG ST segments: + T-wave inversions (Anterior); no ST elevation Blood Pressure Blood Pressure Findings: Elevated blood pressure Blood Pressure Disposition: further management by hospitalist Discharge Plan Visit Data *Final* Discharge Date/Time: 03/17/19 21:56 Chief Complaint: Vomiting Stated Complaint: VOMITING ED Provider: Mau Gentile Discharge Problem: GI bleed, Dementia, Aspiration pneumonia, Metastatic cancer Patient Disposition: Admitted As Inpatient Discharge Instructions Interventions: ED Discharge Assessment Last Done: 03/17/19 21:56 Discharge Problem: GI bleed Qualifiers: GI bleed type/associated pathology: unspecified gastrointestinal hemorrhage type Qualified Code(s): K92.2 - Gastrointestinal hemorrhage, unspecified Dementia Qualifiers: Dementia type: unspecified type Dementia behavioral disturbance: without behavioral disturbance Qualified Code(s): F03.90 - Unspecified dementia without behavioral disturbance Aspiration pneumonia Qualifiers: Aspiration pneumonia type: unspecified Laterality: bilateral Lung location: lower lobe of lung Qualified Code(s): J69.0 - Pneumonitis due to inhalation of food and vomit The scribe's documentation has been prepared under my direction and personally reviewed by me in its entirety. I confirm that the note above accurately reflects all work, treatment, procedures, and medical decision making performed by me.
[2019-03-17] MEDS ORDERED: PIPERACILLIN/TAZOBACTAM 4.5 GM in DEXTROSE 5% 100 ML IV STA (22:48)
--- NOTE | 2019-03-17 23:20 | History & Physical Report ---
Date of Service March 17, 2019 Assessment & Plan (1) Aspiration pneumonia due to gastric secretions: Patient presents with aspiration pneumonia/fluid-filled esophagus/esophageal stenosis/history of upper GI bleeding- NPO NSS + KCl 20 mEq at 100 mils per hour. Famotidine 20 mg IV every 12 hours. Zosyn 4.5 g IV every 8 hours Present on Admission?: Yes (2) Esophageal stenosis: CT examination shows fluid-filled esophagus/hiatal hernia and associated aspiration pneumonia. N.p.o. Consult her chute man Dr. Montemayor for possible EGD. If symptoms cannot be controlled this evening, and NG tube to low intermittent suction will be placed. 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 We will consult oncology Dr. Felipe Present on Admission?: Yes (4) Carcinomatosis peritonei: See above Present on Admission?: Yes (5) Uterine neoplasm: See above Present on Admission?: Yes (6) Chronic kidney disease, stage 3a: (7) Vomiting: Symptomatic treatment with Zofran 4 mg IV every 6 hours as needed. Likely has associated aspiration pneumonia. If symptoms symptoms do not control with Zofran and/or Compazine, will place NG tube to low intermittent suction. Otherwise fluid in esophagus may be removed during EGD. Present on Admission?: Yes (8) Upper gastrointestinal bleed: History of upper GI bleed. Patient is noted to have esophageal scarring. She will be kept n.p.o., and will be seen by gastroenterology Dr. Montemayor. Uncertain if what the nurses at [facility] are reporting are actually coffee- grounds or just food particles floating in the esophagus. Present on Admission?: Yes (9) Dementia: provides most of the information. Present on Admission?: Yes History of Present Illness Chief Complaint: The patient presents to the emergency department from [facility] with complaint of worsening nausea and vomiting that began earlier in the day prior to arrival. Nurses at the facility, felt the patient may be experiencing coffee-ground emesis and coffee-ground stools. Primary Care Provider: [facility] The patient is a 78-year-old female with a past medical history including history of upper GI bleeding, anemia, gastritis, esophagitis, chronic kidney disease stage III OA, pneumonia, esophageal stenosis requiring dilatation, restless leg syndrome, depression, hypothyroidism, bladder prolapse and dementia. The patient presents as noted above with worsening nausea vomiting began earlier in the day prior to arrival, per , had begun the day previously as well. Patient has been seen by Dr. Felix Montemayor, gastroenterology who has performed dilatation of her esophagus in the past. Her reports that he has been told there is been scarring in the esophagus which is led to issues with difficulty swallowing. Allergies Allergy/AdvReac Type Severity Reaction Status Date / Time melon Allergy Intermediate Cantelope Verified 03/17/19 15:23 - Rash caffeine Allergy Unknown ON CENTRE Verified 03/17/19 15:23 CREST LIST desipramine Allergy Unknown ON CENTRE Verified 03/17/19 15:23 CREST LIST ergotamine Allergy Unknown ON CENTRE Verified 03/17/19 15:23 CREST LIST nitrofurantoin Allergy Unknown ON CENTRE Verified 03/17/19 15:23 CREST LIST watermelon Allergy Unknown UNKNOWN Verified 03/17/19 15:23 Home Medications Home Medications Medication Instructions Recorded Confirmed Type acetaminophen [Tylenol] 650 mg PO Q6 PRN 11/16/18 03/17/19 History calcium carbonate 600 mg PO QAM 11/16/18 03/17/19 History cholecalciferol (vitamin D3) 2,000 unit PO QAM 11/16/18 03/17/19 History [Vitamin D3] cranberry extract 250 mg PO QAM 11/16/18 03/17/19 History escitalopram oxalate [Lexapro] 10 mg PO HS 11/16/18 03/17/19 History ferrous sulfate 325 mg PO QAM 11/16/18 03/17/19 History levothyroxine 112 mcg PO QAM 11/16/18 03/17/19 History lisinopril 5 mg PO QAM 11/16/18 03/17/19 History memantine [Namenda] 5 mg PO BID17 11/16/18 03/17/19 History olanzapine [Zyprexa] 5 mg PO QAM 11/16/18 03/17/19 History olanzapine [Zyprexa] 7.5 mg PO HS 11/16/18 03/17/19 History ondansetron HCl [Zofran] 4 mg PO Q6 PRN 11/16/18 03/17/19 History pantoprazole [Protonix] 40 mg PO AMHS 11/16/18 03/17/19 History polyethylene glycol 3350 17 g PO DAILY PRN 11/16/18 03/17/19 History promethazine [Phenergan] 25 mg LA Q6H PRN 11/16/18 03/17/19 History ropinirole [Requip] 0.25 mg PO HS 11/16/18 03/17/19 History sennosides-docusate sodium [Senna 2 tab PO HS 11/16/18 03/17/19 History with Docusate Sodium] sucralfate [Carafate] 10 ml PO QID 11/16/18 03/17/19 History sulfamethoxazole-trimethoprim 1 tab PO QAM 11/16/18 03/17/19 History [Bactrim] sumatriptan succinate [Imitrex] 25 mg PO DAILY PRN 11/16/18 03/17/19 History multivitamin with minerals 1 tab PO QAM 12/02/18 03/17/19 History lorazepam [Ativan] 0.5 mg PO QID #8 tab 12/05/18 03/17/19 Rx oxycodone [Roxicodone] 5 mg PO Q4 PRN #3 tab 12/05/18 03/17/19 Rx amoxicillin 250 mg PO TID 03/17/19 03/17/19 History ascorbic acid (vitamin C) 500 mg PO DAILY 03/17/19 03/17/19 History famotidine 20 mg PO QAM 03/17/19 03/17/19 History fentanyl [Duragesic] 25 mcg TOPICAL Q72H 03/17/19 03/17/19 History Past Med/Surg History Medical History (Updated 03/18/19 @ 04:15 by Baljeet Brown MD) Anemia Bladder infection Chronic kidney disease, stage 3a Chronic scarring of esophagus Cystocele (Chronic) Dementia (Chronic) Depression Female bladder prolapse (Resolved) Fracture of head of left humerus (Acute) Fracture of left olecranon process (Acute) Fracture, thoracic vertebra, compression (Acute) HTN (hypertension) (Chronic) Hypothyroidism Lumbar transverse process fracture (Acute) Rapidly progressive dementia (Acute) T12 compression fracture (Acute) Thoracic compression fracture (Acute) Upper GI bleed (Acute) Urinary tract infection (Resolved) UTI (lower urinary tract infection) (Acute) Surgical History S/P breast biopsy S/P hysterectomy S/P shoulder surgery Status post Rudy fundoplication Social History Preferred Language: Latvian Communication Ability: Effective Dock Loader Required: No Beliefs That Will Affect Care: None marital status: Current Living Situation: Residential Current Living Situation Comment: resides at [facility] current occupational status: retired Other Information That Helps Us Care for You: No Feels Safe at Home: Yes Safety Concerns: Feels Safe At This Time Smoking Status: Never smoker Do You Dip or Chew Tobacco: No ; Second Hand Exposure: No ; Hx Alcohol Use: No Hx Substance Use: No Review of Systems Review of Systems: Unobtainable due to cognitive status HPI and review of systems as per , who is with the patient in the ED. Physical Exam Physical Exam: The patient is awake, and alert, normocephalic and atraumatic, lying in bed and in no acute distress. HEENT--PERRL, EOMI, mucous membranes and oropharynx dry. Neck--supple. No JVD. No bruits. Thyroid normal, trachea midline, no adenopathy. Heart--normal S1 and S2. No murmurs, rubs or gallops. Lungs--clear bilaterally, no respiratory distress, no accessory muscle use. Abdomen--normal bowel sounds and soft. Nontender. Mildly distended and tympanitic. Extremities--no cyanosis or clubbing. No edema. Dermatologic--normal skin turgor, normal color, no rash. Neurologic--cranial nerves II through XII grossly intact. Rheumatologic--normal range of motion. Psychiatric--normal affect. Results & Data Vital Signs (Past 12 Hours) Vital Signs Temp Pulse Pulse Resp BP BP Pulse Ox 03/17/19 21:39 78 18 164/78 H 98 03/17/19 20:41 88 20 141/64 H 98 03/17/19 19:44 90 20 120/90 98 03/17/19 18:36 84 18 129/80 94 03/17/19 17:28 20 93 03/17/19 17:09 81 16 146/63 H 93 03/17/19 16:27 97 03/17/19 15:16 98.6 F 67 18 178/73 H 94 Laboratory Results Laboratory Results WBC 15.91 K/uL (4.8-10.8) H 03/17/19 16:25 RBC 4.40 M/uL (4.2-5.4) 03/17/19 16:25 Hgb 12.5 g/dL (12.0-16.0) 03/17/19 16:25 Hct 39.2 % (37-47) 03/17/19 16:25 MCV 89.1 fL (80-100) 03/17/19 16:25 MCH 28.4 pg (25-34) 03/17/19 16:25 MCHC 31.9 g/dL (32-36) L 03/17/19 16:25 RDW Std Deviation 45.7 fL (36.4-46.3) 03/17/19 16:25 RDW Coeff of Neville 14.1 % (11.5-14.5) 03/17/19 16:25 Plt Count 338 K/uL (130-400) 03/17/19 16:25 MPV 10.5 fL (7.4-10.4) H 03/17/19 16:25 Immature Gran % (Auto) 0.4 % 03/17/19 16:25 Neut % (Auto) 89.4 % 03/17/19 16:25 Lymph % (Auto) 3.7 % 03/17/19 16:25 [place] % (Auto) 6.4 % 03/17/19 16:25 Eos % (Auto) 0.0 % 03/17/19 16:25 Baso % (Auto) 0.1 % 03/17/19 16:25 Immature Gran # (Auto) 0.06 K/uL (0.00-0.02) H 03/17/19 16:25 Neut # (Auto) 14.23 K/uL (1.4-6.5) H 03/17/19 16:25 Lymph # (Auto) 0.59 K/uL (1.2-3.4) L 03/17/19 16:25 [place] # (Auto) 1.02 K/uL (0.11-0.59) H 03/17/19 16:25 Eos # (Auto) 0.00 K/uL (0-0.5) 03/17/19 16:25 Baso # (Auto) 0.01 K/uL (0-0.2) 03/17/19 16:25 PT 10.9 Seconds (9.0-12.0) 03/17/19 16:25 INR 1.1 (0.9-1.1) 03/17/19 16:25 APTT 23.1 Seconds (21.0-31.0) 03/17/19 16:25 PTT Ratio 0.9 03/17/19 16:25 Sodium 144 mmol/L (136-145) 03/17/19 18:15 Potassium 3.4 mmol/L (3.5-5.1) L 03/17/19 18:15 Chloride 105 mmol/L (98-107) 03/17/19 18:15 Carbon Dioxide 31 mmol/L (21-32) 03/17/19 18:15 Anion Gap 8.0 (3-11) 03/17/19 18:15 BUN 38 mg/dl (7-18) H 03/17/19 18:15 Creatinine 1.09 mg/dl (0.6-1.2) 03/17/19 18:15 Est Cr Clr Drug Dosing 38.9 ml/min 03/17/19 18:15 Est GFR ( Amer) 56.7 03/17/19 18:15 Est GFR (Non-Af Amer) 48.9 03/17/19 18:15 BUN/Creatinine Ratio 34.6 (10-20) H 03/17/19 18:15 Glucose 161 mg/dl (70-99) H 03/17/19 18:15 Calcium 9.0 mg/dl (8.5-10.1) 03/17/19 18:15 Total Bilirubin 0.4 mg/dl (0.2-1) 03/17/19 18:15 AST 18 U/L (15-37) 03/17/19 18:15 ALT 12 U/L (12-78) 03/17/19 18:15 Alkaline Phosphatase 106 U/L (45-117) 03/17/19 18:15 Troponin I < 0.015 ng/ml (0-0.045) 03/17/19 18:15 Total Protein 7.0 gm/dl (6.4-8.2) 03/17/19 18:15 Albumin 2.9 gm/dl (3.4-5.0) L 03/17/19 18:15 Globulin 4.1 gm/dl (2.5-4.0) H 03/17/19 18:15 Albumin/Globulin Ratio 0.7 (0.9-2) L 03/17/19 18:15 Nasal Screen MRSA (PCR) Negative (Negative) 03/17/19 23:30 Blood Type O Positive 03/17/19 18:15 Antibody Screen NEGATIVE 03/17/19 18:15 Diagnostic Findings [place], [place] [phone] CT Scan Report Patient: ADILENE JALLOH Date: 03/17/19 MR#: [id number]: [address] Acct ID:[id number]: [facility] Date: 1940[facility] Zip: [place] [address] Age: 78Location: ED Sex: F Room/Bed: Att Phy:Diagnosis: VOMITING Elly [facility]: [facility] Fam Phy:Interpreting Phy: Prince Pathak MD Admit Phy: Ordering Phy: Mau Gentile MD cc: ~ CT SCAN OF THE ABDOMEN AND PELVIS WITHOUT IV CONTRAST CLINICAL HISTORY: Vomiting. COMPARISON STUDY: Abdominal CT dated 07/27/2018. TECHNIQUE: CT scan of the abdomen and pelvis is performed from the lung bases to the proximal femora. Images are reviewed in the axial, sagittal, and coronal planes. IV contrast was not administered for this examination as per the referring clinician. Note that the examination was performed in suboptimal fashion without oral and IV contrast. The examination is also degraded by motion artifact, as well as by streak artifact from the arms which could not be elevated above the abdomen. A dose lowering technique was utilized adhering to the principles of ALARA. CT DOSE: 847.08 mGycm FINDINGS: Lung bases: The heart is normal in size and without pericardial effusion. Patchy airspace consolidation is present at both lung bases. This is not well assessed due to motion artifact. No pleural effusion is identified. There is a moderate hiatal hernia which is filled with fluid. Liver: The unenhanced liver is normal in size, contour, and attenuation. There is no intrahepatic biliary ductal dilatation. Gallbladder: Unremarkable. Spleen: Normal in size and attenuation. Pancreas: The unenhanced pancreas is atrophic and grossly unremarkable. Adrenal glands: Unremarkable. Kidneys: The unenhanced kidneys are atrophic and without hydronephrosis. There are no renal calculi identified. There is no evidence of contour deforming renal mass lesion. Abdominal vasculature: The abdominal aorta is normal in course and caliber noting moderate atherosclerotic calcification. Bowel: There are scattered colonic diverticula without CT evidence of acute diverticulitis. No bowel obstruction is identified. The appendix is not visualized. Peritoneum: There is a small volume of abdominopelvic ascites. No intraperitoneal free air is seen. There is extensive peritoneal nodularity. Lymphadenopathy: There are numerous prominent retroperitoneal and left iliac chain lymph nodes. These measure up to 8 mm in short axis. Pelvic viscera: The bladder is normal as visualized. The uterus is hetero geneous. No adnexal lesion is seen. A vaginal pessary is in place. Skeletal structures: The skeletal structures are osteopenic. There is a chronic superior endplate compression deformity of T12. Moderate lumbosacral spondylosis is observed. No lytic or blastic lesions are seen. IMPRESSION: 1. Suboptimal examination without oral and IV contrast. The examination is also degraded by streak and motion artifact. 2. There is a moderate hiatal hernia which is filled with fluid. 3. Patchy airspace consolidation is present at both lung bases. Correlate clinically for evidence of pneumonia/aspiration pneumonitis. 4. No bowel obstruction is seen. 5. There is a small volume of abdominopelvic ascites as well as extensive peritoneal nodularity. The appearance is highly concerning for carcinomatosis. 6. The uterus is heterogeneous and a gynecologic neoplasm is suspected. Pelvic ultrasound is recommended for further assessment. 7. There are prominent retroperitoneal and left iliac chain lymph nodes. Neoplastic involvement is not excluded. 8. Additional findings as above. ACT 112: Positive. There are findings on this exam that require communication between the performing entity and the patient following Patient Test Result Information Act ([place] Act 112) guidelines. Electronically signed by: Prince Pathak M.D. 03/17/2019 5:15 PM Dictated: 03/17/19 1705 Transcribed: 03/17/191704 [facility], [place] [phone] XRay Report Patient: ADILENE JALLOH Date: 03/17/19 MR#: [id number]: [address] Acct ID:[id number]: [facility] Zip: [place] [address] Age: 78Location: ED Sex: F Room/Bed: Att Phy:Diagnosis: VOMITING Elly Phy: [facility] Date: 03/17/19 Fam Phy:Interpreting Phy: Prince Pathak MD Admit Phy: Ordering Phy: Mau Gentile MD cc: ~ SINGLE VIEW CHEST CLINICAL HISTORY: Vomiting. FINDINGS: An AP, portable, upright chest radiograph is compared to study dated 11/16/2018. The examination is degraded by portable technique and patient rotation. The heart is mildly enlarged noting atherosclerotic calcification of the thoracic aorta. The pulmonary vasculature is noncongested. Scarring/atelectasis is noted at the lung bases. No airspace consolidation or large pleural effusion is identified. No pneumothorax is seen. The skeletal structures are osteopenic. There are healed left-sided rib fractures and chronic posttraumatic deformity of the left humerus. Surgical clips project over the left upper quadrant. IMPRESSION: Mild cardiomegaly with no acute cardiopulmonary abnormality. ACT 112: Negative or not required by law. Electronically signed by: Prince Pathak M.D. 03/17/2019 4:49 PM Dictated: 03/17/198 Transcribed: 03/17/191647 Code Status & VTE Plan Code Status Full code VTE Prophylaxis Plan VTE Prophylaxis will be ordered: Yes PG Care Time/CCT Total # of Minutes Spent Total Time Spent with Patient: Total time spent is greater than 50% in coordination of care (as documented) at patient's floor/unit and/or counseling patient: (1) Dementia Dementia behavioral disturbance: without behavioral disturbance Dementia type: unspecified type Qualified Code(s): F03.90 - Unspecified dementia without behavioral disturbance (2) Vomiting Nausea presence: unspecified Vomiting Intractability: unspecified Vomiting type: unspecified Qualified Code(s): R11.10 - Vomiting, unspecified
[2019-03-17] MEDS: NSS + 20MEQ KCL 20 MEQ/1,000 ML BAG IV SCH (23:34)
[2019-03-17] MEDS: FAMOTIDINE 20 MG in SYRINGE 3 ML IV SCH (23:34)
[2019-03-17] MEDS: PIPERACILLIN/TAZOBACTAM 3.375 GM in DEXTROSE 5% 100 ML IV SCH (23:34)
[2019-03-17] MEDS: fentaNYL 25 MCG/HR TDSY TD SCH (23:34)
[2019-03-17] MEDS: ONDANSETRON INJ 2 MG/ML 2 ML VIAL IV PRN (23:46)
[2019-03-17] MEDS: CHECK FENTANYL PATCH PLACEMENT SCH (23:56)
[2019-03-18] MEDS: LORazepam 0.5 MG/1 ML VIAL IV PRN ×2 (01:23→15:06)
[2019-03-18] MEDS: LEVOTHYROXINE SODIUM 112 MCG TABLET PO SCH (03:49)
[2019-03-18] MEDS: PIPERACILLIN/TAZOBACTAM 3.375 GM in DEXTROSE 5% 100 ML IV SCH ×3 (06:03→22:19)
[2019-03-18 06:39] LABS: Est GFR (African American) 40.5; Est GFR (Non-African American) 34.9
[2019-03-18] MEDS: ONDANSETRON INJ 2 MG/ML 2 ML VIAL IV PRN (08:36)
[2019-03-18] MEDS: NSS + 20MEQ KCL 20 MEQ/1,000 ML BAG IV SCH ×2 (08:36→19:50)
[2019-03-18] MEDS: CHECK FENTANYL PATCH PLACEMENT SCH ×2 (08:36→19:02)
--- NOTE | 2019-03-18 08:53 | Consultation Report ---
DATE OF CONSULTATION: 03/18/2019 REASON FOR CONSULTATION: Suspected metastatic disease seen on CAT scan. HISTORY OF PRESENT ILLNESS: Kailey is a very pleasant demented 78-year-old female who was admitted to [facility] last night with subacute onset coffee-ground emesis and blood latent stools. The patient currently resides at [facility] where she has been for the past 4 years. Fortunately, her was at bedside imparting most of the clinical information provided in today's note. This patient has struggled with dementia as well as multiple other comorbid issues for several years. She has a patient/doctor relationship with Dr. Montemayor because of esophageal issues, particularly stricture and hiatal hernia. She has been dilated in the past. reports coffee-ground emesis yesterday as well as subacute onset bloody stools. According to clinical records, patient has diagnosis of uterine cancer; however, her disputes this notion. On admission, CT scan of the abdomen and pelvis was performed, unfortunately a suboptimal examination without oral and IV contrast. There is a moderate hiatal hernia with presence of fluid. Small volume of abdominal ascites with extensive peritoneal nodularity. The appearance is highly concerning for carcinomatosis. There are prominent retroperitoneal and left iliac chain lymph nodes and the interpreting radiologist believes the uterus has an appearance of perhaps a gynecologic neoplasm. Again, formal diagnosis has never been established. PAST MEDICAL HISTORY: Positive for chronic anemia, recurrent urinary tract infection, chronic kidney disease stage IIIA, esophageal scarring, cystocele, dementia, depression, bladder prolapse, fracture of the head of the left humerus, fracture of the left olecranon, fracture of thoracic vertebra, hypothyroidism, T12 compression fracture, upper GI bleeding. PAST SURGICAL HISTORY: Includes breast biopsy, hysterectomy, shoulder surgery, Rudy fundoplication. MEDICATIONS: Prior to admission include fentanyl 25 mcg topically q.72 hours, famotidine 20 mg p.o. daily, vitamin C 500 mg p.o. daily, amoxicillin 250 mg p.o. t.i.d., oxycodone 5 mg p.o. q.4 hours p.r.n., Ativan 0.5 mg p.o. q.i.d. p.r.n., multivitamin 1 p.o. daily, Imitrex 25 mg p.o. daily for migraine headaches, Bactrim 1 tablet p.o. daily, Carafate 10 mL p.o. q.i.d., senna 2 tablets p.o. at bedtime p.r.n., Requip 0.25 mg p.o. at bedtime, Phenergan 25 mg p.o. q.6 hours p.r.n., Protonix 40 mg p.o. daily, Zofran 4 mg p.o. q.6 hours p.r.n., Zyprexa 5 mg in the morning and 7.5 mg at bedtime, Namenda 5 mg p.o. b.i.d., lisinopril 5 mg p.o. daily, levothyroxine 112 mcg p.o. daily, ferrous sulfate 325 mg p.o. daily, Lexapro 10 mg p.o. at bedtime, cranberry extract 250 mg p.o. daily, cholecalciferol 2000 units p.o. daily, calcium carbonate 600 mg p.o. daily, Tylenol p.r.n. ALLERGIES: MELON FRUIT, CAFFEINE, DESIPRAMINE, ERGOTAMINE, NITROFURANTOIN. SOCIAL HISTORY: The patient has resided in [facility] for the past 4 years. She is a nonsmoker, nondrinker, nonsubstance abuser. FAMILY HISTORY: Unobtainable. REVIEW OF SYSTEMS: Unobtainable because of the patient's mental status. PHYSICAL EXAMINATION: GENERAL: Pleasant, awake, alert; however, disoriented 78-year-old female, in no acute distress. VITAL SIGNS: Temperature 37, pulse 63, respiratory rate 18, blood pressure 167/72. SKIN: Warm, dry, noncyanotic without petechia, rash or ecchymosis. HEENT: Atraumatic, normocephalic. Eyes: PERRLA, EOMI. Sclerae nonicteric. Nares are patent without rhinorrhea or discharge. Throat is clear. Tongue midline. Mucous membranes are moist. She is edentulous. No buccal lesions or ulcerations. NECK: Supple without JVD or thyromegaly. HEART: Regular rate and rhythm. LUNGS: Diminished breath sounds in the right posterior base. No rhonchi or wheezing, otherwise heard. ABDOMEN: Soft, nontender, nondistended, without palpable hepatosplenomegaly. EXTREMITIES: Strength testing not done. Pulses are equal in all 4 quadrants. No clubbing, cyanosis or edema. NEUROLOGIC: She is awake and alert. Again, mental status testing not done. Cranial nerves not tested. LABORATORY DATA: WBC count 15,910, hemoglobin 12.5, platelet count 338,000. Sodium 144, potassium 3.4, chloride 105, carbon dioxide 31, creatinine 1.44, BUN 38, albumin 2.9. IMPRESSION: 1. Suspected peritoneal carcinomatosis. 2. Small volume abdominal ascites. 3. Coffee-ground emesis with melena stools. 4. Dementia. 5. Chronic kidney disease. 6. Leukocytosis, predominant neutrophilia. PLAN: I have been asked to see Kailey to evaluate her for radiographic findings as above. According to the , the patient has no formal cancer diagnosis and underwent hysterectomy by clinical record. Perhaps, biopsy could be performed on one of these peritoneal nodules to confirm diagnosis. Appropriately, gastroenterology has been consulted to look into the coffee-ground emesis. This patient is on chronic iron which could be reflected in her stools. From a hematologic standpoint, leukocytosis with predominant neutrophilia is present and again not surprising as the patient has an active urinary tract infection. Her hemoglobin is in the low normal range. At this juncture, I have nothing further to add, but would be happy to reengage once a formal diagnosis is established. I answered the 's questions to satisfaction and agreed to return to see her when appropriate to do so. HAILEY
[2019-03-18] MEDS: FAMOTIDINE 20 MG in SYRINGE 3 ML IV SCH ×2 (10:29→22:18)
--- NOTE | 2019-03-18 11:44 | Anesthesiology Consultation ---
Date of Service March 18, 2019 Assessment & Plan Chart Review Chart Review: Acceptable Risk for Surgery and Patient NOT seen in Pre Admission Testing Consults Requested none History Surgery Operation Date: 03/17/19 07:00 Proposed Procedures p Esophagogastroduodenoscopy - Gallo Castillo MD Height/Weight Height: 5 ft Weight: 57.4 kg Allergies Allergy/AdvReac Type Severity Reaction Status Date / Time melon Allergy Intermediate Cantelope Verified 03/17/19 15:23 - Rash caffeine Allergy Unknown ON CENTRE Verified 03/17/19 15:23 CREST LIST desipramine Allergy Unknown ON CENTRE Verified 03/17/19 15:23 CREST LIST ergotamine Allergy Unknown ON CENTRE Verified 03/17/19 15:23 CREST LIST nitrofurantoin Allergy Unknown ON CENTRE Verified 03/17/19 15:23 CREST LIST watermelon Allergy Unknown UNKNOWN Verified 03/17/19 15:23 Medications Home Medications Medication Instructions Recorded Confirmed Last Taken acetaminophen [Tylenol] 650 mg PO Q6 PRN 11/16/18 03/17/19 03/12/19 11:05 650 mg calcium carbonate 600 mg PO QAM 11/16/18 03/17/19 03/12/19 08:30 cholecalciferol (vitamin D3) 2,000 unit PO QAM 11/16/18 03/17/19 03/14/19 08:30 [Vitamin D3] cranberry extract 250 mg PO QAM 11/16/18 03/17/19 03/12/19 08:30 escitalopram oxalate [Lexapro] 10 mg PO HS 11/16/18 03/17/19 03/16/19 20:30 ferrous sulfate 325 mg PO QAM 11/16/18 03/17/19 03/12/19 levothyroxine 112 mcg PO QAM 11/16/18 03/17/19 03/17/19 lisinopril 5 mg PO QAM 11/16/18 03/17/19 03/14/19 08:30 memantine [Namenda] 5 mg PO BID17 11/16/18 03/17/19 03/16/19 16:30 olanzapine [Zyprexa] 5 mg PO QAM 11/16/18 03/17/19 03/14/19 08:30 olanzapine [Zyprexa] 7.5 mg PO HS 11/16/18 03/17/1919 20:30 ondansetron HCl [Zofran] 4 mg PO Q6 PRN 11/16/18 03/17/19 03/16/19 06:04 pantoprazole [Protonix] 40 mg PO AMHS 11/16/18 03/17/19 03/16/19 20:30 polyethylene glycol 3350 17 g PO DAILY PRN 11/16/18 03/17/19 Unknown promethazine [Phenergan] 25 mg MA Q6H PRN 11/16/18 03/17/19 03/17/19 03:46 ropinirole [Requip] 0.25 mg PO HS 11/16/18 03/17/19 03/16/19 20:30 sennosides-docusate sodium [Senna 2 tab PO HS 11/16/18 03/17/19 03/16/19 20:30 with Docusate Sodium] sucralfate [Carafate] 10 ml PO QID 11/16/18 03/17/19 03/17/19 08:30 sulfamethoxazole-trimethoprim 1 tab PO QAM 11/16/18 03/17/19 03/12/19 08:30 [Bactrim] sumatriptan succinate [Imitrex] 25 mg PO DAILY PRN 11/16/18 03/17/19 Unknown multivitamin with minerals 1 tab PO QAM 12/02/18 03/17/19 03/12/19 08:30 lorazepam [Ativan] 0.5 mg PO QID #8 tab 12/05/18 03/17/19 03/16/19 20:30 oxycodone [Roxicodone] 5 mg PO Q4 PRN #3 tab 12/05/18 03/17/19 03/13/19 13:53 amoxicillin 250 mg PO TID 03/17/19 03/17/19 03/16/19 16:30 ascorbic acid (vitamin C) 500 mg PO DAILY 03/17/19 03/17/19 03/12/19 famotidine 20 mg PO QAM 03/17/19 03/17/19 03/14/19 fentanyl [Duragesic] 25 mcg TOPICAL Q72H 03/17/19 03/17/19 03/14/19 19:33 Active Medications Generic Name Dose Route Start Last Admin Trade Name Freq PRN Reason Stop Dose Admin Fentanyl 25 mcg 03/17/19 23:00 03/17/19 23:34 Duragesic TD 03/31/19 22:59 25 mcg Q3D NORMA Administration Potassium Chloride/Sodium Chloride 20 meq in 1,000 mls @ 100 mls/hr 03/17/19 22:38 03/18/19 08:36 Normal Saline W/20 Meq Kcl IV 04/16/19 22:37 100 mls/hr .Q10H NORMA Administration Piperacillin Sod/Tazobactam 115 mls @ 28.75 mls/hr 03/17/19 23:00 03/18/19 10:03 Sod 3.375 gm/ Dextrose IV 03/27/19 22:59 Infused Q8H NORMA Infusion Protocol Famotidine 20 mg/ Syringe 5 mls @ 2.5 mls/min 03/17/19 23:00 03/18/19 10:29 IV 04/16/19 22:59 2.5 mls/min Q12H NORMA Administration Lorazepam 0.5 mg in 1 mls @ 1 mls/min 03/17/19 22:51 03/18/19 01:23 Ativan IV 04/16/19 22:50 1 mls/min Q6H PRN Administration Anxiety Levothyroxine Sodium 112 mcg 03/18/19 06:30 03/18/19 03:49 Synthroid PO 04/17/19 06:29 Not Given DAILYBB NORMA Miscellaneous 1 ea 03/18/19 00:00 03/18/19 08:36 Fentanyl Patch Check Placement N/A 04/17/19 00:00 1 ea QS NORMA Administration Ondansetron HCl 4 mg 03/17/19 22:38 03/18/19 08:36 Zofran IV 04/16/19 22:37 4 mg Q6H PRN Administration Nausea NPO Date Last Intake of Fluids: 03/15/19 Date Last Intake of Solids: 03/14/19 Past Medical History Medical History Anemia Bladder infection Chronic kidney disease, stage 3a Chronic scarring of esophagus Cystocele (Chronic) Dementia (Chronic) Depression Female bladder prolapse (Resolved) Fracture of head of left humerus (Acute) Fracture of left olecranon process (Acute) Fracture, thoracic vertebra, compression (Acute) HTN (hypertension) (Chronic) Hypothyroidism Lumbar transverse process fracture (Acute) Rapidly progressive dementia (Acute) T12 compression fracture (Acute) Thoracic compression fracture (Acute) Upper GI bleed (Acute) Urinary tract infection (Resolved) UTI (lower urinary tract infection) (Acute) Past Family History Family History Other Family history non-contributory Past Surgical History Surgical History S/P breast biopsy S/P hysterectomy S/P shoulder surgery Status post Rudy fundoplication Social History Smoking Status: Never smoker Do You Dip or Chew Tobacco: No Hx Alcohol Use: No Hx Substance Use: No substance use type: does not use Physical Exam Vital Signs Last Vital Signs Temp 36.1 C L 03/18/19 11:22 Pulse 63 03/18/19 11:22 Resp 16 03/18/19 11:22 BP 170/66 H 03/18/19 11:22 Pulse Ox 92 03/18/19 11:22 Testing Laboratory Results 03/17/19 16:25 03/18/19 05:40 PT 10.9 Seconds (9.0-12.0) 03/17/19 16:25 INR 1.1 (0.9-1.1) 03/17/19 16:25 APTT 23.1 Seconds (21.0-31.0) 03/17/19 16:25 Blood Type O Positive 03/17/19 18:15 Antibody Screen NEGATIVE 03/17/19 18:15
--- NOTE | 2019-03-18 12:19 | Gastrointestinal Consultation ---
Date of Consultation March 18, 2019 Assessment & Plan (1) Vomiting: (2) Esophageal stenosis: likely stricture causing vomiting and aspiration pneumonia subsequently. Proceed with EGD and possible dilation risks/benefits and procedure discussed with patient/POA, who agrees to proceed History of Present Illness Attending Physician: Baljeet Brown MD 78 yo female here with vomiting and subsequent aspiration pneumonia. GI consulted for hiatal hernia, vomiting, and esophageal stenosis. Imaging showed a fluid filled esophagus and hiatal hernia. She has had multiple EGD's with dilations done in the past, last EGD was approximately 6 months ago. Currently afebrile, no abdominal pains, diarrhea, constipation. Hgb wnl. Persistent vomiting is noted. Labs show leukocytosis and mild NIKKY, imaging/CT as above. EGD as above. Allergies Allergy/AdvReac Type Severity Reaction Status Date / Time melon Allergy Intermediate [place]elope Verified 03/17/19 15:23 - Rash caffeine Allergy Unknown ON CENTRE Verified 03/17/19 15:23 CREST LIST desipramine Allergy Unknown ON CENTRE Verified 03/17/19 15:23 CREST LIST ergotamine Allergy Unknown ON CENTRE Verified 03/17/19 15:23 CREST LIST nitrofurantoin Allergy Unknown ON CENTRE Verified 03/17/19 15:23 CREST LIST watermelon Allergy Unknown UNKNOWN Verified 03/17/19 15:23 Home Medications Home Medications Medication Instructions Recorded Confirmed Type acetaminophen [Tylenol] 650 mg PO Q6 PRN 11/16/18 03/17/19 History calcium carbonate 600 mg PO QAM 11/16/18 03/17/19 History cholecalciferol (vitamin D3) 2,000 unit PO QAM 11/16/18 03/17/19 History [Vitamin D3] cranberry extract 250 mg PO QAM 11/16/18 03/17/19 History escitalopram oxalate [Lexapro] 10 mg PO HS 11/16/18 03/17/19 History ferrous sulfate 325 mg PO QAM 11/16/18 03/17/19 History levothyroxine 112 mcg PO QAM 11/16/18 03/17/19 History lisinopril 5 mg PO QAM 11/16/18 03/17/19 History memantine [Namenda] 5 mg PO BID17 11/16/18 03/17/19 History olanzapine [Zyprexa] 5 mg PO QAM 11/16/18 03/17/19 History olanzapine [Zyprexa] 7.5 mg PO HS 11/16/18 03/17/19 History ondansetron HCl [Zofran] 4 mg PO Q6 PRN 11/16/18 03/17/19 History pantoprazole [Protonix] 40 mg PO AMHS 11/16/18 03/17/19 History polyethylene glycol 3350 17 g PO DAILY PRN 11/16/18 03/17/19 History promethazine [Phenergan] 25 mg MD Q6H PRN 11/16/18 03/17/19 History ropinirole [Requip] 0.25 mg PO HS 11/16/18 03/17/19 History sennosides-docusate sodium [Senna 2 tab PO HS 11/16/18 03/17/19 History with Docusate Sodium] sucralfate [Carafate] 10 ml PO QID 11/16/18 03/17/19 History sulfamethoxazole-trimethoprim 1 tab PO QAM 11/16/18 03/17/19 History [Bactrim] sumatriptan succinate [Imitrex] 25 mg PO DAILY PRN 11/16/18 03/17/19 History multivitamin with minerals 1 tab PO QAM 12/02/18 03/17/19 History lorazepam [Ativan] 0.5 mg PO QID #8 tab 12/05/18 03/17/19 Rx oxycodone [Roxicodone] 5 mg PO Q4 PRN #3 tab 12/05/18 03/17/19 Rx amoxicillin 250 mg PO TID 03/17/19 03/17/19 History ascorbic acid (vitamin C) 500 mg PO DAILY 03/17/19 03/17/19 History famotidine 20 mg PO QAM 03/17/19 03/17/19 History fentanyl [Duragesic] 25 mcg TOPICAL Q72H 03/17/19 03/17/19 History Patient History Medical History Anemia Bladder infection Chronic kidney disease, stage 3a Chronic scarring of esophagus Cystocele (Chronic) Dementia (Chronic) Depression Female bladder prolapse (Resolved) Fracture of head of left humerus (Acute) Fracture of left olecranon process (Acute) Fracture, thoracic vertebra, compression (Acute) HTN (hypertension) (Chronic) Hypothyroidism Lumbar transverse process fracture (Acute) Rapidly progressive dementia (Acute) T12 compression fracture (Acute) Thoracic compression fracture (Acute) Upper GI bleed (Acute) Urinary tract infection (Resolved) UTI (lower urinary tract infection) (Acute) Surgical History S/P breast biopsy S/P hysterectomy S/P shoulder surgery Status post Rudy fundoplication Family History Other Family history non-contributory Social History Preferred Language: Arabic Communication Ability: Impaired Arabic Professor Required: No Beliefs That Will Affect Care: None marital status: Current Living Situation: Intermediate Current Living Situation Comment: resides at [place] current occupational status: retired Other Information That Helps Us Care for You: No Feels Safe at Home: Yes Safety Concerns: Feels Safe At This Time Smoking Status: Never smoker Do You Dip or Chew Tobacco: No ; Second Hand Exposure: No ; Hx Alcohol Use: No Hx Substance Use: No Review of Systems Constitutional: no fever, no chills and no weight loss Eyes: as per Subjective / HPI Ear, Nose, Mouth, Throat: as per Subjective / HPI Respiratory: no dyspnea and no dyspnea on exertion Cardiovascular: no chest pain and no palpitations Gastrointestinal: as per Subjective / HPI Musculoskeletal: no joint pain and no swelling Integumentary: no rash and no lesions Neurologic: no numbness and no paresthesia Psychiatric: no depression and no anxiety Endocrine: no fatigue Hematologic / Lymphatic: no easy bleeding and no easy bruising Physical Exam Constitutional: WD/WN, vitals as above Eyes: EOM intact bilaterally Neck: normal visual inspection Respiratory: normal respiratory effort, lungs clear to auscultation Cardiovascular: RRR, no murmur, no edema Gastrointestinal (Abdomen): Inspection/Auscultation: abdomen normal to inspection; abdomen not distended Percussion/Palpation: abdomen soft; abdomen nontender and no hepatosplenomegaly Musculoskeletal: Extremities: no cyanosis Gait: normal gait Skin: no rashes, warm and dry Neurologic: moves all extremities Psychiatric: A+Ox3, euthymic affect Results & Data Vital Signs (Past 12 Hours) Vital Signs Temp Pulse Resp BP BP Pulse Ox 03/18/19 11:22 36.1 C L 63 16 170/66 H 92 03/18/19 08:06 37.0 C 63 18 167/72 H 96 03/18/19 01:20 36.8 C 64 19 150/76 H 90 PG Care Time/CCT Total # of Minutes Spent Total Time Spent with Patient: Total time spent is greater than 50% in coordination of care (as documented) at patient's floor/unit and/or counseling patient: (1) Vomiting Nausea presence: unspecified Vomiting Intractability: unspecified Vomiting type: unspecified Qualified Code(s): R11.10 - Vomiting, unspecified
[2019-03-18] MEDS ORDERED: fentaNYL citrate 100 MCG/2 ML VIAL ONE (14:43)
[2019-03-18] MEDS ORDERED: METOPROLOL TARTRATE 1 MG/ML VIAL IV ONE ×2 (15:01→15:32)
[2019-03-18] MEDS: METOPROLOL TARTRATE 1 MG/ML VIAL IV ONE ×2 (15:06→15:26)
--- NOTE | 2019-03-18 15:15 | Communication Note ---
Date of Service: March 18, 2019 GI brief note: patient noted to be in rapid afib in preop prior to going to the OR. Given that the procedure was being done to dilate an esophageal stricture and assess her stenosis in the setting of aspiration pneumonia, the afib should first be controlled and resolved. Discussed with anesthesia and decision made to cancel procedure today. Will work on correcting afib and plan for EGD likely wednesday 03/21 if her afib is resolved/controlled. Gallo Castillo MD Gastroenterology
[2019-03-18] MEDS ORDERED: SUCCINYLCHOLINE CHLORIDE 20 MG/ML 10 ML VIAL ONE (15:19)
[2019-03-18] MEDS ORDERED: ROCURONIUM BROMIDE 10 MG/ML 5 ML VIAL ONE (15:19)
[2019-03-18] MEDS ORDERED: PROPOFOL IV EMULSION 10 MG/ML 20 ML VIAL IV ONE (15:19)
[2019-03-18] MEDS ORDERED: LIDOCAINE HCL 2% 2 ML VIAL/AMP(20MG/ML) INFIL ONE (15:19)
[2019-03-18 15:25] LABS: Hematocrit (blood only) 35.8 % (37-47); Hemoglobin 11.4 g/dL (12.0-16.0); Mean Corpuscular Hemoglobin 28.5 pg (25-34); Mean Corpuscular Volume 89.5 fL (80-100); Mean Platelet Volume 10.1 fL (7.4-10.4); Platelet Count 302 K/uL (130-400); RDW Coefficient of Variation 14.2 % (11.5-14.5); RDW Standard Deviation 46.8 fL (36.4-46.3); White Blood Count 16.04 K/uL (4.8-10.8)
--- NOTE | 2019-03-18 15:41 | Anesthesiology Progress Note ---
Date of Service March 18, 2019 Subjective Patient arrived in preop with plan to proceed with EGD. On attaching the jose tors, the patient was found to be in afib with RVR with a rate of 130-160. Other vital signs appropriate and patient is otherwise hemodynamically stable. STAT EKG confirmed afib with RVR. Patient is agitated, but has a past history of dementia. Patients IV access from the floor is not functioning at this time. New access acquired and the patient was given 0.5 mg of ativan for agitation and 5 mg of metoprolol for heart rate. STAT H/H showed slight drop in Hgb to 11.4, but no signs of active GI bleed at this time. I discussed the case with Dr. Castillo and decision made to postpone the case until heart rate more stabilized. Primary hospitalist team contacted and notified about the change in patients status. Cardiology consulted to evaluate patient for new onset RVR with afib. Team to transfer patient to telemetry for cardiac monitoring. Physical Exam Vital Signs: Last Vital Signs Temp 36.9 C 03/18/19 14:52 Pulse 123 H 03/18/19 15:26 Resp 20 03/18/19 14:52 BP 136/106 H 03/18/19 15:26 Pulse Ox 96 03/18/19 14:52 Results & Data Medications Administered Fentanyl (Duragesic) 25 mcg TD Q3D NORMA Stop: 03/31/19 22:59 Last Admin: 03/17/19 23:34 Dose: 25 mcg Documented by: [id number] Potassium Chloride/Sodium Chloride (Normal Saline W/20 Meq Kcl) 20 meq in 1,000 mls @ 100 mls/hr IV .Q10H NORMA Stop: 04/16/19 22:37 Last Admin: 03/18/19 08:36 Dose: 100 mls/hr Documented by: [id number] Infusion: 03/18/19 08:36 Dose: 100 mls/hr Documented by: [id number] Admin: 03/17/19 23:34 Dose: 100 mls/hr Documented by: [id number] Piperacillin Sod/Tazobactam (Sod 3.375 gm/ Dextrose) 115 mls @ 28.75 mls/hr IV Q8H NORMA; Protocol Stop: 03/27/19 22:59 Last Admin: 03/18/19 14:25 Dose: 28.8 mls/hr Documented by: [id number] Infusion: 03/18/19 10:03 Dose: 0 mls/hr Documented by: [id number] Admin: 03/18/19 06:03 Dose: 28.8 mls/hr Documented by: [id number] Infusion: 03/18/19 03:35 Dose: 0 mls/hr Documented by: [id number] Admin: 03/17/19 23:34 Dose: 28.8 mls/hr Documented by: [id number] Famotidine 20 mg/ Syringe 5 mls @ 2.5 mls/min IV Q12H NORMA Stop: 04/16/19 22:59 Last Admin: 03/18/19 10:29 Dose: 2.5 mls/min Documented by: [id number] Admin: 03/17/19 23:34 Dose: 2.5 mls/min Documented by: [id number] Lorazepam (Ativan) 0.5 mg in 1 mls @ 1 mls/min IV Q6H PRN PRN Reason: Anxiety Stop: 04/16/19 22:50 Last Admin: 03/18/19 15:06 Dose: 1 mls/min Documented by: [id number] Admin: 03/18/19 01:23 Dose: 1 mls/min Documented by: [id number] Levothyroxine Sodium (Synthroid) 112 mcg PO DAILYBB [facility] Stop: 04/17/19 06:29 Last Admin: 03/18/19 03:49 Dose: Not Given Documented by: [id number] Miscellaneous (Fentanyl Patch Check Placement) 1 ea N/A QS [facility] Stop: 04/17/19 00:00 Last Admin: 03/18/19 08:36 Dose: 1 ea Documented by: [id number] Admin: 03/17/19 23:56 Dose: 1 ea Documented by: [id number] Ondansetron HCl (Zofran) 4 mg IV Q6H PRN PRN Reason: Nausea Stop: 04/16/19 22:37 Last Admin: 03/18/19 08:36 Dose: 4 mg Documented by: [id number] Admin: 03/17/19 23:46 Dose: 4 mg Documented by: [id number]
[2019-03-18] MEDS ORDERED: LORazepam 0.5 MG/1 ML VIAL IV ONE (15:45)
[2019-03-18] MEDS ORDERED: POTASSIUM CHLORIDE 20 MEQ in SODIUM CHLORIDE 0.9% 1000ML 1,000 ML IV SCH ×2 (16:00→18:15)
[2019-03-18 16:01] LABS: Mean Corpuscular Hgb Conc 31.8 g/dL (32-36)
[2019-03-18] MEDS ORDERED: AMIODARONE IV BOLUS / DRIP IV STA (17:08)
[2019-03-18] MEDS ORDERED: AMIODARONE / D5W 150 MG/100 ML BAG IV ONE (17:15)
[2019-03-18] MEDS ORDERED: AMIODARONE / D5W 360 MG/200 ML BAG IV SCH ×2 (17:25→23:25)
--- NOTE | 2019-03-18 17:58 | Cardiology Consultation ---
Date of Consultation March 18, 2019 Assessment & Plan (1) Atrial fibrillation with RVR: (2) Upper GI bleed: (3) Sinus bradycardia: (4) HTN (hypertension): ASSESSMENT/PLAN: 1. AFib with RVR: Diagnosis was discussed at the bedside with her . Episode less than 24 hours in duration given the fact that she had an ECG on 03/17/2019 demonstrating sinus rhythm. Anticoagulation is contraindicated currently as she presented with GI bleeding and also has a history of GI bleeding. As she appears to be azotemic, recommend IV fluids. If she does not convert to sinus rhythm or have improved heart rate after fluid administration, recommend amiodarone 150 mg IV x1 followed by amiodarone drip to try to achieve rhythm control. Must monitor heart rate closely however given prior sinus bradycardia reports by EP in June of 2018. Could potentially use amiodarone during the short term, and possibly long-term if needed. This can be reassessed as the hospitalization progresses. 2. Upper GI bleed: As per primary service and GI. 3. Hypokalemia: Recommend potassium supplementation given AFib with RVR. 4. Sinus bradycardia: Reportedly had issues with heart rates as low as the 30s while resting/sleeping in June 2018 during hospitalization. Monitor closely, especially while on amiodarone. 5. Hypertension: Blood pressure mildly elevated.Episodes of normotension as well. As per primary service. 6. Disposition: I will be away from the hospital for the next 5 days. Please do not hesitate to call the on-call finisher cold rolling, Dr. Saldana, over the weekend. Otherwise, Dr. Peace will be rounding next week and he has followed her during hospitalization in the past. Plan of care discussed with Janine Morgan for the primary hospitalist service. Thank you for allowing me to participate in the care of your patient. Please call for any other questions or concerns. Sincerely, Brijesh Multani M.D. History of Present Illness Reason for Consultation: New onset AFib with RVR Requesting Physician: Dr. Headley Attending Physician: Baljeet Brown MD History of Present Illness Mrs. Hunt is a 78-year-old female with dementia, prior stroke, hypertension, who was hospitalized on 03/17/2019 with aspiration pneumonia, esophageal stenosis, andcoffee-ground emesis. She formally was seen by Dr. Peace on 07/17/2018 for chest pain and sinus bradycardia. It was noted at that time that when sleeping or resting her sinus rate can be in the 30s which he believed to be physiological. During this hospitalization, she had a CT scan which was concerning for peritoneal carcinomatosis. She was taken to the OR area to undergo EGD today and when she was placed on the monitor, she was noted to be in atrial fibrillation with rapid ventricular response. Anesthesiology consult to Cardiology to assist in her care. She was given 5 mg of IV metoprolol prior to my arrival, with no significant effect per report. The EGD was canceled. She is largely nonverbal according to her and is unable to provide history. She has not been diagnosed with atrial fibrillation in the past as far as he knows. He states that she has indicated some abdominal pain, but no chest pain. She has not appeared dyspneic. He states that she has not had any significant p.o. intake over the past few days. Review of systems: As above and otherwise unobtainable due to patient's chronic mental status. Family history: No known premature CAD. Social history: She does not smoke. No alcohol. She resides at a [facility]. She is . Her was present at her bedside. Allergies Allergy/AdvReac Type Severity Reaction Status Date / Time melon Allergy Intermediate [place]elope Verified 03/17/19 15:23 - Rash caffeine Allergy Unknown ON CENTRE Verified 03/17/19 15:23 CREST LIST desipramine Allergy Unknown ON CENTRE Verified 03/17/19 15:23 CREST LIST ergotamine Allergy Unknown ON CENTRE Verified 03/17/19 15:23 CREST LIST nitrofurantoin Allergy Unknown ON CENTRE Verified 03/17/19 15:23 CREST LIST watermelon Allergy Unknown UNKNOWN Verified 03/17/19 15:23 Home Medications Home Medications Medication Instructions Recorded Confirmed Type acetaminophen [Tylenol] 650 mg PO Q6 PRN 11/16/18 03/17/19 History calcium carbonate 600 mg PO QAM 11/16/18 03/17/19 History cholecalciferol (vitamin D3) 2,000 unit PO QAM 11/16/18 03/17/19 History [Vitamin D3] cranberry extract 250 mg PO QAM 11/16/18 03/17/19 History escitalopram oxalate [Lexapro] 10 mg PO HS 11/16/18 03/17/19 History ferrous sulfate 325 mg PO QAM 11/16/18 03/17/19 History levothyroxine 112 mcg PO QAM 11/16/18 03/17/19 History lisinopril 5 mg PO QAM 11/16/18 03/17/19 History memantine [Namenda] 5 mg PO BID17 11/16/18 03/17/19 History olanzapine [Zyprexa] 5 mg PO QAM 11/16/18 03/17/19 History olanzapine [Zyprexa] 7.5 mg PO HS 11/16/18 03/17/19 History ondansetron HCl [Zofran] 4 mg PO Q6 PRN 11/16/18 03/17/19 History pantoprazole [Protonix] 40 mg PO AMHS 11/16/18 03/17/19 History polyethylene glycol 3350 17 g PO DAILY PRN 11/16/18 03/17/19 History promethazine [Phenergan] [address] Q6H PRN 11/16/18 03/17/19 History ropinirole [Requip] 0.25 mg PO HS 11/16/18 03/17/19 History sennosides-docusate sodium [Senna 2 tab PO HS 11/16/18 03/17/19 History with Docusate Sodium] sucralfate [Carafate] 10 ml PO QID 11/16/18 03/17/19 History sulfamethoxazole-trimethoprim 1 tab PO QAM 11/16/18 03/17/19 History [Bactrim] sumatriptan succinate [Imitrex] 25 mg PO DAILY PRN 11/16/18 03/17/19 History multivitamin with minerals 1 tab PO QAM 12/02/18 03/17/19 History lorazepam [Ativan] 0.5 mg PO QID #8 tab 12/05/18 03/17/19 Rx oxycodone [Roxicodone] 5 mg PO Q4 PRN #3 tab 12/05/18 03/17/19 Rx amoxicillin 250 mg PO TID 03/17/19 03/17/19 History ascorbic acid (vitamin C) 500 mg PO DAILY 03/17/19 03/17/19 History famotidine 20 mg PO QAM 03/17/19 03/17/19 History fentanyl [Duragesic] 25 mcg TOPICAL Q72H 03/17/19 03/17/19 History Patient History Medical History Anemia Bladder infection Chronic kidney disease, stage 3a Chronic scarring of esophagus Cystocele (Chronic) Dementia (Chronic) Depression Female bladder prolapse (Resolved) Fracture of head of left humerus (Acute) Fracture of left olecranon process (Acute) Fracture, thoracic vertebra, compression (Acute) HTN (hypertension) (Chronic) Hypothyroidism Lumbar transverse process fracture (Acute) Rapidly progressive dementia (Acute) T12 compression fracture (Acute) Thoracic compression fracture (Acute) Upper GI bleed (Acute) Urinary tract infection (Resolved) UTI (lower urinary tract infection) (Acute) Surgical History S/P breast biopsy S/P hysterectomy S/P shoulder surgery Status post Rudy fundoplication Family History Other Family history non-contributory Social History Preferred Language: Malay Communication Ability: Impaired 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 She did not answer questions, but was awake. HEENT: Anicteric sclera. Neck: No JVD. No bruits. Normal carotid upstrokes bilaterally. Cardiac: PMI was nondisplaced. No ventricular heave. Irregularly irregular and tachycardic. Normal S1-S2. No murmurs, rubs, or gallops. Pulmonary: Clear to auscultation bilaterally without wheezes, rales, or rhonchi. Abdomen: Soft, nontender, nondistended, with normoactive bowel sounds. No bruits noted. Extremities: 2+ radial pulses bilaterally. 2+ posterior tibialis pulses bilaterally. Trace bilateral lower extremity edema. No cyanosis. Results & Data Vital Signs (Past 12 Hours) Vital Signs Temp Pulse Pulse Resp BP BP BP 03/18/19 16:26 125 H 20 142/110 H 03/18/19 16:11 132 H 16 125/88 03/18/19 16:00 135 H 16 105/90 03/18/19 15:40 137/105 H 03/18/19 15:26 123 H 136/106 H 03/18/19 15:23 140 H 146/96 H 03/18/19 15:00 140 H 105/91 03/18/19 14:52 36.9 C 145 H 20 149/93 H 03/18/19 14:42 36.3 C L 61 16 149/76 H 03/18/19 11:22 36.1 C L 63 16 170/66 H 03/18/19 08:06 37.0 C 63 18 167/72 H Pulse Ox 03/18/19 16:26 100 03/18/19 16:11 93 03/18/19 16:00 99 03/18/19 15:40 03/18/19 15:26 03/18/19 15:23 03/18/19 15:00 03/18/19 14:52 96 03/18/19 14:42 03/18/19 11:22 92 03/18/19 08:06 96 Laboratory Results Laboratory Results - last 24 hr 03/17/19 03/17/19 03/17/19 18:15 18:15 18:15 WBC RBC Hgb Hct MCV MCH MCHC RDW Std Deviation RDW Coeff of Neville Plt Count MPV Sodium 144 Potassium 3.4 L Chloride 105 Carbon Dioxide 31 Anion Gap 8.0 BUN 38 H Creatinine 1.09 Est Cr Clr Drug Dosing 38.9 Est GFR ( Amer) 56.7 Est GFR (Non-Af Amer) 48.9 BUN/Creatinine Ratio 34.6 H Glucose 161 H Calcium 9.0 Total Bilirubin 0.4 AST 18 ALT 12 Alkaline Phosphatase 106 Troponin I < 0.015 Total Protein 7.0 Albumin 2.9 L Globulin 4.1 H Albumin/Globulin Ratio 0.7 L Nasal Screen MRSA (PCR) POC Stool Occult Blood Blood Type O Positive Antibody Screen NEGATIVE 12/03/18/19 03/18/19 23:30 05:35 05:40 WBC RBC Hgb Hct MCV MCH MCHC RDW Std Deviation RDW Coeff of Neville Plt Count MPV Sodium Potassium Chloride Carbon Dioxide Anion Gap BUN Creatinine 1.44 H D Est Cr Clr Drug Dosing 26.0 Est GFR ( Amer) 40.5 Est GFR (Non-Af Amer) 34.9 BUN/Creatinine Ratio Glucose Calcium Total Bilirubin AST ALT Alkaline Phosphatase Troponin I Total Protein Albumin Globulin Albumin/Globulin Ratio Nasal Screen MRSA (PCR) Negative POC Stool Occult Blood Cancelled Blood Type Antibody Screen 03/18/19 15:16 WBC 16.04 H RBC 4.00 L Hgb 11.4 L Hct 35.8 L MCV 89.5 MCH 28.5 MCHC 31.8 L RDW Std Deviation 46.8 H RDW Coeff of Neville 14.2 Plt Count 302 MPV 10.1 Sodium Potassium Chloride Carbon Dioxide Anion Gap BUN Creatinine Est Cr Clr Drug Dosing Est GFR ( Amer) Est GFR (Non-Af Amer) BUN/Creatinine Ratio Glucose Calcium Total Bilirubin AST ALT Alkaline Phosphatase Troponin I Total Protein Albumin Globulin Albumin/Globulin Ratio Nasal Screen MRSA (PCR) POC Stool Occult Blood Blood Type Antibody Screen Diagnostic Findings Telemetry reviewed at the bedside: Atrial fibrillation with rapid ventricular response. ECGs personally reviewed: ECG 03/17/2019 at 5:05 p.m.: Sinus rhythm 72 bpm. ECG 03/18/2019: AFib with RVR [address]/T-wave abnormality. CT abdomen pelvis 03/17/2019: Moderate fluid filled hiatal hernia. Patchy airspace consolidation bilateral lung base. Small volume abdominopelvic ascites with extensive peritoneal nodularity, highly concerning for carcinomatosis. Uterus is heterogeneous, suspicious for neoplasm. Prominent retroperitoneal and left iliac chain lymph nodes. Medications Administered Current Inpatient Medications Fentanyl (Duragesic) 25 mcg TD Q3D [facility] Stop: 03/31/19 22:59 Last Admin: 03/17/19 23:34 Dose: 25 mcg Documented by: Piperacillin Sod/Tazobactam (Sod 3.375 gm/ Dextrose) 115 mls @ 28.75 mls/hr IV Q8H [facility]; Protocol Stop: 03/27/19 22:59 Last Admin: 03/18/19 14:25 Dose: 28.8 mls/hr Documented by: Famotidine 20 mg/ Syringe 5 mls @ 2.5 mls/min IV Q12H [facility] Stop: 04/16/19 22:59 Last Admin: 03/18/19 10:29 Dose: 2.5 mls/min Documented by: Lorazepam (Ativan) 0.5 mg in 1 mls @ 1 mls/min IV Q6H PRN PRN Reason: Anxiety Stop: 04/16/19 22:50 Last Admin: 03/18/19 15:06 Dose: 1 mls/min Documented by: Amiodarone HCl/Dextrose (Nexterone / D5w) 360 mg in 200 mls @ 33.333 mls/hr IV .Q6H [facility] Stop: 03/18/19 23:24 Last Admin: 03/18/19 18:00 Dose: 1 mg/min, 33.3 mls/hr Documented by: Amiodarone HCl/Dextrose (Nexterone / D5w) 360 mg in 200 mls @ 16.667 mls/hr IV .Q12H [facility] Stop: 04/17/19 23:24 Levothyroxine Sodium (Synthroid) 112 mcg PO DAILYBB [facility] Stop: 04/17/19 06:29 Last Admin: 03/18/19 03:49 Dose: Not Given Documented by: Miscellaneous (Fentanyl Patch Remove & Waste) 1 ea N/A Q3D [facility] Stop: 04/19/19 22:59 Miscellaneous (Fentanyl Patch Check Placement) 1 ea N/A QS [facility] Stop: 04/17/19 00:00 Last Admin: 03/18/19 08:36 Dose: 1 ea Documented by: Miscellaneous Information (Consult) 1 ea N/A UD PRN PRN Reason: Consult Stop: 04/16/19 22:44 Ondansetron HCl (Zofran) 4 mg IV Q6H PRN PRN Reason: Nausea Stop: 04/16/19 22:37 Last Admin: 03/18/19 08:36 Dose: 4 mg Documented by: PG Care Time/CCT Total # of Minutes Spent Total Time Spent with Patient: Total time spent is greater than 50% in coordination of care (as documented) at patient's floor/unit and/or counseling patient: (1) HTN (hypertension) Hypertension type: essential hypertension Qualified Code(s): I10 - Essential (primary) hypertension
--- NOTE | 2019-03-18 18:12 | Hospitalist Progress Note ---
Date of Service March 18, 2019 Assessment & Plan (1) Atrial fibrillation with RVR: - New onset - likely in the setting of dehydration from emesis - On 03/18 in pre-op she developed A Fib RVR - HR ranging from 120-160 appears comfortable but communication is limited due to advanced dementia. Was discussed with anesthesiology who did utilize BB therapy but no longstanding improvement with HR - Discussed with cardiology - Dr. Multani - plan to give fluids given degree of dehydration and assess for response - Due to continue A Fib RVR will initiate Amiodarone bolus/drip and monitor - EKG without A Fib on admission and therefore within window to possibly convert rhythm if able -- Has history of bradycardia in the past thought to be physiological but will need to monitor in setting of managing HR - Defer on anticoagulation at this time given concern for GI bleed; depending on course of hospital stay may consider event monitor to assess for possible chronicity of this rhythm to make sure appropriate stroke prevention measures are taken Cardiology following - appreciate input (2) Aspiration pneumonia due to gastric secretions: - CT with patchy airspace consolidation in both lung bases - possibility of aspiration; CXR unremarkable -- Given the amount of emesis an aspiration component is possible - Place NPO at this time until vomiting improves/EGD; may need [employer] consultation however last eval without aspiration and likely this is due to vomiting -- Normally on mechanical soft diet with thin liquids at [place] - Continue Zosyn (3) Esophageal stenosis: - states this is her typical presentation when she needs to esophagus dilated and normally fixes the issue; H/O esophageal scarring - CT with moderate hiatal hernia that is fluid filled - emesis seemed to improve through the day - If continued issues with emesis can consider NG tube - GI following - unable to complete EGD due to A Fib RVR (4) Vomiting: - This is likely in the setting esophageal stricture/hiatal hernia/slow motility - Symptomatic treatment with anti-emetics; if ongoing issues consider NGT (5) Metastatic cancer: - 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 Reports H/O hysterectomy probably 40 years ago. Reviewed previous imaging which suggested possible partial hysterectomy as it appears there was some uterine material on scan however no mention of current scans findings - Discussed doing a pelvic ultrasound to further assess - will await stabilization from acute matters and ultimately could be completed as outpatient if necessary - Patient does have a GYNE she follows with - Oncology consulted - discussed with Dr. Felipe - no current input at current time and can assess pending identification of mass (6) Chronic kidney disease, stage 3a: - Currently with acute kidney injury superimposed - likely prerenal in setting of dehydration; Baseline appears 0.8-1.1 - Continue IVF and monitor; avoid nephrotoxins (7) Upper gastrointestinal bleed: - History of upper GI bleed; reporting coffee ground emesis and similar appearing stools x 4 days - Hgb currently at 11.4 and only minimally dropped from admission labs which is 12.5 - baseline appears to be 8-10 (8) Hypothyroidism: - Last TSH elevated but no free T4 - Will check TSH/T4 to assess current level - if still elevated unlikely contributing to A Fib but if possibly overcorrected could be playing a role in presentation (9) Dementia: - Advanced but stable - Will resume medications when NPO status lifted; Ativan IV PRN - states normally has x 4 daily as it is scheduled at home Disposition: Resident of [facility]; at bedside who supplied details for patient due to her advanced dementia; 1:1 per nurses discretion when not at bedside Supervising Physician Co-Signing Physician Notes Pt chart reviewed and discussed with PA Agree with plan as outlined above PNA, possible aspiration, on zosyn h/o esophageal dilation requirements and swallowing issues when esophagus needs dilated Planning for OR for this new onset afib/RVR in the setting of dehydration and infection PA d/w cardiology ?? of uterine mass, not seen on prior CT Pt will likely need US for further evaluation if there are plans to pursue workup/tx Subjective Limited discussion with patient due to advanced dementia. Was alert this AM and able to report feeling unwell but could not really elaborate. states she presents this way every time she needs her esophagus stretched and it fixes the vomiting/discomfort. It appears she likely did aspirate when looking at imaging. Was oxygenating appropriately on RA. Due to concern for possible coffee ground emesis the plan was to go to OR for EGD. However was found to have developed A F ib RVR and could not undergo procedure. was at bedside. Review of Systems Review of Systems: Unobtainable due to cognitive status Physical Exam Constitutional: + frail appearing; no acute distress Eyes: sclerae not anicteric Neck: trachea midline Respiratory: normal respiratory effort Auscultation: + crackles limited exam due to not following commands for deep breaths Cardiovascular: Vessels: no JVD was RRR in AM; on reassessment in OR pre-op was irregularly irregular with rapid rates Gastrointestinal (Abdomen): Inspection/Auscultation: normal bowel sounds Percussion/Palpation: abdomen soft; abdomen nontender Musculoskeletal: Head/Neck/Chest: normocephalic and head atraumatic Extremities: no cyanosis Skin: no rashes, warm and dry Psychiatric: Orientation: alert Results & Data Vital Signs (Past 12 Hours) Vital Signs Temp Pulse Pulse Resp BP BP BP 03/18/19 16:26 125 H 20 142/110 H 03/18/19 16:11 132 H 16 125/88 03/18/19 16:00 135 H 16 105/90 03/18/19 15:40 137/105 H 03/18/19 15:26 123 H 136/106 H 03/18/19 15:23 140 H 146/96 H 03/18/19 15:00 140 H 105/91 03/18/19 14:52 36.9 C 145 H 20 149/93 H 03/18/19 14:42 36.3 C L 61 16 149/76 H 03/18/19 11:22 36.1 C L 63 16 170/66 H 03/18/19 08:06 37.0 C 63 18 167/72 H Pulse Ox 03/18/19 16:26 100 03/18/19 16:11 93 03/18/19 16:00 99 03/18/19 15:40 03/18/19 15:26 03/18/19 15:23 03/18/19 15:00 03/18/19 14:52 96 03/18/19 14:42 03/18/19 11:22 92 03/18/19 08:06 96 PG Care Time/CCT Total # of Minutes Spent Total Time Spent with Patient: Total time spent is greater than 50% in coordination of care (as documented) at patient's floor/unit and/or counseling patient: (1) Dementia Dementia behavioral disturbance: without behavioral disturbance Dementia type: unspecified type Qualified Code(s): F03.90 - Unspecified dementia without behavioral disturbance (2) Hypothyroidism Hypothyroidism type: acquired Qualified Code(s): E03.9 - Hypothyroidism, unspecified (3) Vomiting Nausea presence: unspecified Vomiting Intractability: unspecified Vomiting type: unspecified Qualified Code(s): R11.10 - Vomiting, unspecified
[2019-03-18 19:50] LABS: Hematocrit (blood only) 36.6 % (37-47); Hemoglobin 11.4 g/dL (12.0-16.0); Mean Corpuscular Hemoglobin 28.2 pg (25-34); Mean Corpuscular Hgb Conc 31.1 g/dL (32-36); Mean Corpuscular Volume 90.6 fL (80-100); Mean Platelet Volume 9.8 fL (7.4-10.4); Platelet Count 319 K/uL (130-400); RDW Coefficient of Variation 14.2 % (11.5-14.5); Red Blood Count 4.04 M/uL (4.2-5.4)
[2019-03-19] MEDS: CHECK FENTANYL PATCH PLACEMENT SCH ×4 (00:42→23:58)
[2019-03-19] MEDS: LORazepam 0.5 MG/1 ML VIAL IV PRN (03:07)
[2019-03-19] MEDS: NSS + 20MEQ KCL 20 MEQ/1,000 ML BAG IV SCH (05:59)
[2019-03-19] MEDS: PIPERACILLIN/TAZOBACTAM 3.375 GM in DEXTROSE 5% 100 ML IV SCH ×3 (06:07→22:04)
[2019-03-19] MEDS: LEVOTHYROXINE SODIUM 112 MCG TABLET PO SCH (06:14)
[2019-03-19 07:40] LABS: Hematocrit (blood only) 39.6 % (37-47); Hemoglobin 12.3 g/dL (12.0-16.0); Mean Corpuscular Hemoglobin 28.3 pg (25-34); Mean Corpuscular Hgb Conc 31.1 g/dL (32-36); Mean Platelet Volume 10.4 fL (7.4-10.4); Platelet Count 324 K/uL (130-400); RDW Coefficient of Variation 14.4 % (11.5-14.5); RDW Standard Deviation 48.5 fL (36.4-46.3); Red Blood Count 4.35 M/uL (4.2-5.4); White Blood Count 17.65 K/uL (4.8-10.8)
[2019-03-19 08:30] LABS: BUN Creatinine Ratio 23.6 (10-20); Calcium 8.5 mg/dl (8.5-10.1); Creatinine Clr Calc Pharmacy 27.3 ml/min; Est GFR (African American) 40.8; Est GFR (Non-African American) 35.2; Thyroid Stimulating Hormone 5.86 uIu/ml (0.300-4.500)
--- NOTE | 2019-03-19 08:39 | Cardiology Progress Note ---
Date of Service March 19, 2019 Assessment & Plan (1) Atrial fibrillation with RVR: (2) Sinus bradycardia: (3) HTN (hypertension): ASSESSMENT/PLAN: 1. AFib with RVR: She converted to sinus rhythm last evening on amiodarone, currently that is discontinued due to sinus bradycardia. 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 2. Sinus bradycardia: She has a history of sinus bradycardia and her heart rate was low prompting discontinuation of amiodarone. I agree with this, we can observe for recurrence of her arrhythmia. 3. Hypertension: Blood pressure is quite elevated this morning. I would try to avoid medications which slow heart rate but her blood pressure clearly needs improved treatment. Subjective She is relaxed and minimally responsive, her is at her bedside Physical Exam Physical Exam: Constitutional: Alert, cooperative and in no distress. Pulmonary: Clear to auscultation bilaterally. Cardiac: Regular rhythm with no murmur, gallop or rub. Abdomen: Soft, nontender with normal bowel sounds. Extremities: No edema. Skin: No rash, ecchymoses or petechiae. Results & Data Vital Signs (Past 12 Hours) Vital Signs Temp Pulse Pulse Resp BP BP Pulse Ox 03/19/19 02:55 36.3 C L 57 L 20 171/75 H 100 03/19/19 00:26 60 03/18/19 23:22 36.3 C L 60 18 153/73 H 95 03/18/19 22:30 61 31 H 98 03/18/19 22:15 60 18 99 03/18/19 22:00 57 L 20 99 03/18/19 21:45 58 L 21 99 03/18/19 21:30 71 21 97 03/18/19 21:15 59 L 22 99 03/18/19 21:00 45 L 18 99 03/18/19 20:45 57 L 19 99 03/18/19 20:42 53 L 21 123/65 100 Laboratory Results Abnormal lab results 03/18/19 03/18/19 03/19/19 Range/Units 15:16 19:36 05:53 WBC 16.04 H 17.90 H (4.8-10.8) K/uL RBC 4.00 L 4.04 L (4.2-5.4) M/uL Hgb 11.4 L 11.4 L (12.0-16.0) g/dL Hct 35.8 L 36.6 L (37-47) % MCHC 31.8 L 31.1 L (32-36) g/dL RDW Std Deviation 46.8 H 47.0 H (36.4-46.3) fL Sodium (136-145) mmol/L Chloride (98-107) mmol/L BUN (7-18) mg/dl Creatinine (0.6-1.2) mg/dl BUN/Creatinine Ratio (10-20) Glucose (70-99) mg/dl TSH (0.300-4.500) uIu/ml Stool Occult Bld Scrn Positive A (Negative) 03/19/19 03/19/19 Range/Units 07:27 07:27 WBC 17.65 H (4.8-10.8) K/uL RBC (4.2-5.4) M/uL Hgb (12.0-16.0) g/dL Hct (37-47) % MCHC 31.1 L (32-36) g/dL RDW Std Deviation 48.5 H (36.4-46.3) fL Sodium 150 H (136-145) mmol/L Chloride 119 H (98-107) mmol/L BUN 34 H (7-18) mg/dl Creatinine 1.43 H (0.6-1.2) mg/dl BUN/Creatinine Ratio 23.6 H (10-20) Glucose 145 H (70-99) mg/dl TSH 5.860 H (0.300-4.500) uIu/ml Stool Occult Bld Scrn (Negative) PG Care Time/CCT Total # of Minutes Spent Total Time Spent with Patient: Total time spent is greater than 50% in coordination of care (as documented) at patient's floor/unit and/or counseling patient: (1) HTN (hypertension) Hypertension type: essential hypertension Qualified Code(s): I10 - Essential (primary) hypertension
[2019-03-19 08:50] LABS: T4 Free Thyroxine 1.1 ng/dl (0.8-1.6)
[2019-03-19] MEDS ORDERED: HydrALAZINE HCL 20 MG/ML VIAL IV PRN (09:22)
[2019-03-19] MEDS: MoRPHine SULFATE 2 MG/ML CARP IV PRN (09:44)
[2019-03-19] MEDS: FAMOTIDINE 20 MG in SYRINGE 3 ML IV SCH ×2 (09:44→22:04)
[2019-03-19] MEDS: SODIUM CHLORIDE 0.45 % 1,000 ML IV SCH ×2 (10:43→21:26)
[2019-03-19] MEDS: LORazepam 0.5 MG/1 ML VIAL IV SCH ×3 (10:43→22:03)
--- NOTE | 2019-03-19 17:15 | Hospitalist Progress Note ---
Date of Service March 19, 2019 Assessment & Plan (1) Atrial fibrillation with RVR: - New onset - likely in the setting of dehydration from emesis -- On 03/18 in pre-op she developed A Fib RVR - HR ranging from 120-160 appears comfortable but communication is limited due to advanced dementia. Was discussed with anesthesiology who did utilize BB therapy but no longstanding improvement with HR. No response with increased fluids. Started Amio bolus/drip which resulted in rhythm conversion but subsequent bradycardia. 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 - cardiology plans to treat conservatively - Defer on anticoagulation at this time given concern for GI bleed; depending on course of hospital stay may consider event monitor to assess for possible chronicity of this rhythm to make sure appropriate stroke prevention measures are taken -- Given stable H&H this is unlikely GI bleed Cardiology following - appreciate input (2) Aspiration pneumonia due to gastric secretions: - CT with patchy airspace consolidation in both lung bases - possibility of aspiration; CXR unremarkable -- Given the amount of emesis an aspiration component is possible - Place NPO at this time until vomiting improves/EGD; may need TELECOMMUNICATIONS FIELD TECHNICIAN consultation however last eval without aspiration and likely this is due to vomiting -- Normally on mechanical soft diet with thin liquids at [facility] - Continue Zosyn (3) Esophageal stenosis: - states this is her typical presentation when she needs her esophagus dilated and normally fixes the issue; H/O esophageal scarring - CT with moderate hiatal hernia that is fluid filled - emesis seemed to improve through the day - If continued issues with emesis can consider NG tube - GI following - unable to complete EGD due to A Fib RVR - planning on Thursday if rhythm stable (4) Vomiting: - This is likely in the setting of esophageal stricture/hiatal hernia/slow motility - Symptomatic treatment with anti-emetics; if ongoing issues consider NGT (5) Metastatic cancer: - 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 Reports H/O hysterectomy probably 40 years ago. Reviewed previous imaging which suggested possible partial hysterectomy as it appears there was some uterine material on scan however no mention of current scans findings - Discussed doing a pelvic ultrasound to further assess - will await stabilization from acute matters and ultimately could be completed as outpatient if necessary - Patient does have a GYNE she follows with - Oncology consulted - discussed with Dr. Felipe - no current input at current time and can assess pending identification of mass (6) Chronic kidney disease, stage 3a: - Currently with acute kidney injury superimposed - likely prerenal in setting of dehydration; Baseline appears 0.8-1.1 - Continue IVF and monitor; avoid nephrotoxins - Cr currently at 1.43 (7) Upper gastrointestinal bleed: - History of upper GI bleed; reporting coffee ground emesis and similar appearing stools x 4 days - Hgb currently stable and only minimally dropped from admission labs which is 12.5 - baseline appears to be 8-10 (8) Hypothyroidism: - TSH is still slightly elevated but much improved from previous - normal T4 - given acute illness this may be mildly elevated on a reactive basis - and may be best to hold further adjustments at this time -- Given elevation unlikely contributing to A Fib (9) Dementia: - Advanced; some acute delirium superimposed at current time and will monitor - Will resume medications when NPO status lifted; Ativan IV NORMA - states normally has x 4 daily as it is scheduled at home but hold for sedation Disposition: Resident of [facility]; and daughter at bedside who supplied details for patient due to her advanced dementia; 1:1 per nurses discretion when not at bedside Subjective Patient more confused today compared to yesterday. More restless. Keeps repeating phrases that are hard to understand. When asked if she was having pain she would shake her head yes and pointed to the bladder region. However most ROS is not obtainable. HR is improved and currently in NSR. Was having bradycardia while on Amio which has been D/Cd. Making minimal urine at this time and will continue hydration and monitor. Renal function mildly elevated. Review of Systems Review of Systems: Unobtainable due to cognitive status Shakes head yes to pain and point to suprapubic region but unable to obtain any other ROS Physical Exam Constitutional: + acute distress (restless/confused) and + frail appearing Eyes: sclerae not anicteric ENMT: seems to have a dry mouth as she is mumbling but does not open mouth to instruction to assess. The little bit of tongue I can see does not appear significant dry Neck: trachea midline Respiratory: normal respiratory effort Auscultation: + diminished lung sounds and + crackles Cardiovascular: Rate/Rhythm: regular rate and regular rhythm Vessels: no JVD Gastrointestinal (Abdomen): Inspection/Auscultation: normal bowel sounds Percussion/Palpation: abdomen soft; abdomen nontender Musculoskeletal: Head/Neck/Chest: normocephalic and head atraumatic Extremities: no cyanosis Skin: no rashes, warm and dry Neurologic: moves all extremities Psychiatric: Orientation: alert intermittent eye contact; mostly mumbling incomprehensible words Results & Data Vital Signs (Past 12 Hours) Vital Signs Temp Pulse Resp BP Pulse Ox 03/19/19 13:35 58 L 165/74 H 03/19/19 13:17 36.7 C 49 L 16 173/79 H 100 PG Care Time/CCT Total # of Minutes Spent Total Time Spent with Patient: Total time spent is greater than 50% in coordination of care (as documented) at patient's floor/unit and/or counseling patient: (1) Dementia Dementia behavioral disturbance: without behavioral disturbance Dementia type: unspecified type Qualified Code(s): F03.90 - Unspecified dementia without behavioral disturbance (2) Hypothyroidism Hypothyroidism type: acquired Qualified Code(s): E03.9 - Hypothyroidism, unspecified (3) Vomiting Nausea presence: unspecified Vomiting Intractability: unspecified Vomiting type: unspecified Qualified Code(s): R11.10 - Vomiting, unspecified
[2019-03-20] MEDS: LORazepam 0.5 MG/1 ML VIAL IV SCH ×4 (03:26→21:45)
[2019-03-20] MEDS: ONDANSETRON INJ 2 MG/ML 2 ML VIAL IV PRN ×2 (03:27→10:57)
[2019-03-20] MEDS: HydrALAZINE HCL 20 MG/ML VIAL IV PRN (04:33)
[2019-03-20] MEDS: LEVOTHYROXINE SODIUM 112 MCG TABLET PO SCH (05:24)
[2019-03-20] MEDS: PIPERACILLIN/TAZOBACTAM 3.375 GM in DEXTROSE 5% 100 ML IV SCH ×3 (07:28→21:46)
[2019-03-20] MEDS: CHECK FENTANYL PATCH PLACEMENT SCH ×3 (07:30→23:47)
[2019-03-20 07:45] LABS: Hematocrit (blood only) 43.5 % (37-47); Mean Corpuscular Hemoglobin 28.6 pg (25-34); Mean Corpuscular Hgb Conc 32.2 g/dL (32-36); Mean Corpuscular Volume 88.8 fL (80-100); Mean Platelet Volume 10.2 fL (7.4-10.4); Platelet Count 356 K/uL (130-400); RDW Coefficient of Variation 14.3 % (11.5-14.5); RDW Standard Deviation 47.1 fL (36.4-46.3); White Blood Count 16.93 K/uL (4.8-10.8)
[2019-03-20 08:38] LABS: BUN Creatinine Ratio 22.3 (10-20); Calcium 8.6 mg/dl (8.5-10.1); Creatinine Clr Calc Pharmacy 31.2 ml/min; Est GFR (African American) 48.1; Est GFR (Non-African American) 41.5; Potassium 2.9 mmol/L (3.5-5.1)
[2019-03-20] MEDS: SODIUM CHLORIDE 0.45 % 1,000 ML IV SCH (09:10)
[2019-03-20] MEDS: POTASSIUM CHLORIDE / WTR 10 MEQ/100 ML PLCT IV SCH ×4 (09:50→16:25)
[2019-03-20] MEDS: FAMOTIDINE 20 MG in SYRINGE 3 ML IV SCH ×2 (11:30→21:46)
[2019-03-20] MEDS: MoRPHine SULFATE 2 MG/ML CARP IV PRN ×3 (12:19→23:25)
--- NOTE | 2019-03-20 13:21 | XRay Report ---
XR chest 1V not portable HISTORY: 78 years-old Female SOB/tachypnea acute shortness of breath with tachypnea COMPARISON: Chest radiograph and CT abdomen and pelvis 03/17/2019 TECHNIQUE: Portable AP view of the chest FINDINGS: Cardiac silhouette is enlarged, unchanged. Calcified plaque of the thoracic aortic arch. Development of trace pleural effusions with right greater than left bibasilar alveolar opacities. Pulmonary vascu lar congestion with mild asymmetric interstitial coarsening throughout the right lung. No pneumothora x. Degenerative changes of the shoulders and spine. Moderate hiatal hernia. Healed remote left-sided rib fractures. IMPRESSION: 1. Cardiomegaly with pulmonary vascular congestion and interval development of mild asymmetric inters titial opacities of the right lung suggestive of asymmetric pulmonary edema versus pneumonitis. 2. Trace pleural effusions with right greater than left bibasilar opacities suggestive of pneumonia v ersus aspiration pneumonitis. 3. Moderate hiatal hernia. ACT 112: Negative or not required by law. The above report was generated using voice recognition software. It may contain grammatical, syntax o r spelling errors. Electronically signed by: Ramiro Hong M.D. 03/20/2019 1:19 PM
--- NOTE | 2019-03-20 13:45 | CT Scan Report ---
ABDOMEN AND PELVIS CT WITHOUT CONTRAST CT DOSE: 746.62 mGy.cm HISTORY: Acute generalized abdominal pain with vomiting Ongoing abdominal pain; Vomiting TECHNIQUE: Multiaxial CT images of the abdomen and pelvis were performed without contrast. A dose lo wering technique was utilized adhering to the principles of ALARA. COMPARISON STUDY: CT abdomen and pelvis 03/17/2019, CT abdomen and pelvis 07/27/2018. FINDINGS: Interval development of small moderate bilateral pleural effusions with progressive bibasilar patchy groundglass and consolidative opacities. Dependent consolidation suggests compressive atelectasis. St udy is mildly motion degraded. Limited exam without the use of contrast. There is no pneumatosis or p neumoperitoneum. Imaged inferior cardiac chambers are enlarged. Coronary arterial calcifications are noted. Trace pericardial effusion. The unenhanced liver, spleen and adrenal glands are unremarkable. Moderate to severe generalized pancreatic atrophy. Unremarkable gallbladder. Mild nonspecific bilater al perinephric stranding. No hydronephrosis. Mild nonspecific urinary bladder wall thickening. Pessar y device noted within the vagina. Again noted is heterogeneity and prominence of the uterine fundus/f undal endometrium. Indeterminate 12 mm cystic focus of the left adnexum. Calcified plaque of the abdo sammi aorta without aneurysm. Prominent left iliac chain and retroperitoneal lymph nodes measuring up to 8 mm are redemonstrated. S mall to moderate abdominal pelvic ascites has also increased from comparison. Diffuse omental/mesente asiya nodularity is redemonstrated. Diastases recti with tiny fat filled periumbilical hernia. No bowel obstruction or bowel wall thickening identified. Moderate hiatal hernia. Appendix not visualized def initively. Generalized body wall edema has progressed from comparison. Degenerative changes of the sp ine, pelvis and hips. Remote T12 compression deformity. IMPRESSION: 1. Limited exam without the use of contrast and also secondary to mild motion artifact. 2. Interval development of [id number] bilateral pleural effusions with progressive bibasilar g roundglass and consolidative opacities suggestive of admixture of atelectasis with pneumonia or aspir ation pneumonitis. 3. Small to moderate abdominopelvic ascites with diffuse omental/peritoneal nodules suggestive of car cinomatosis. 4. Prominence and heterogeneity of the uterine fundus/fundal endometrium is better seen on comparison contrast-enhanced study. Correlation with hysteroscopy and gynecologic consultation recommended to e xclude neoplasm. 5. No bowel obstruction or bowel wall thickening identified. 6. Moderate hiatal hernia. 7. Diffuse body wall edema has also progressed from comparison. Correlate clinically to exclude volum e overload. ACT 112: Negative or not required by law. The above report was generated using voice recognition software. It may contain grammatical, syntax o r spelling errors. Electronically signed by: Ramiro Hong M.D. 03/20/2019 1:43 PM
[2019-03-20 15:42] LABS: Basophils # (auto) 0.01 K/uL (0-0.2); Basophils % (auto) 0.1 %; Eosinophils # (auto) 0.02 K/uL (0-0.5); Eosinophils % (auto) 0.1 %; Hematocrit (blood only) 42.7 % (37-47); Hemoglobin 13.6 g/dL (12.0-16.0); Immature Granulocytes # (auto) 0.21 K/uL (0.00-0.02); Immature Granulocytes % (auto) 1.4 %; Lymphocytes # (auto) 1.31 K/uL (1.2-3.4); Lymphocytes % (auto) 8.4 %; Mean Corpuscular Hemoglobin 28.3 pg (25-34); Mean Corpuscular Volume 88.8 fL (80-100); Mean Platelet Volume 10.2 fL (7.4-10.4); Monocytes # (auto) 1.63 K/uL (0.11-0.59); Monocytes % (auto) 10.5 %; Neutrophils # (auto) 12.37 K/uL (1.4-6.5); Neutrophils % (auto) 79.5 %; Platelet Count 353 K/uL (130-400); RDW Coefficient of Variation 14.4 % (11.5-14.5); RDW Standard Deviation 46.8 fL (36.4-46.3); Red Blood Count 4.81 M/uL (4.2-5.4); White Blood Count 15.55 K/uL (4.8-10.8)
[2019-03-20 15:46] LABS: Mean Corpuscular Hgb Conc 31.9 g/dL (32-36)
[2019-03-20 15:59] LABS: Albumin Level 2.3 gm/dl (3.4-5.0); BUN Creatinine Ratio 19.6 (10-20); C Reactive Protein 5.71 mg/dl (0-0.29); Calcium 8.2 mg/dl (8.5-10.1); Creatinine Clr Calc Pharmacy 29.1 ml/min; Est GFR (African American) 44.2; Est GFR (Non-African American) 38.1; Potassium 3.9 mmol/L (3.5-5.1)
[2019-03-20 16:04] LABS: Albumin Globulin Ratio 0.6 (0.9-2); Bilirubin,Total 0.6 mg/dl (0.2-1); Globulin 3.9 gm/dl (2.5-4.0); Total Protein 6.2 gm/dl (6.4-8.2)
[2019-03-20 16:12] LABS: Base Excess ABG -2.8 mEq/L (-9-1.8); HCO3 ABG 20 mmol/L (19-24); Oxygen Saturation ABG 93.7 % (90-95); PCO2 ABG 28 mmHg (35-46); PO2 ABG 65 mm/Hg (80-95); pH ABG 7.47 (7.35-7.45)
[2019-03-20 16:13] LABS: Allen Test POS (Pos)
[2019-03-20] MEDS ORDERED: SODIUM CHLOR 0.45% + 20MEQ KCL 20 MEQ/1,000 ML BAG IV SCH (18:00)
[2019-03-20] MEDS ORDERED: POTASSIUM CHLORIDE 20 MEQ in SODIUM CHLORIDE 0.45 % 1,000 ML IV SCH (18:00)
[2019-03-20] MEDS: SODIUM CHLOR 0.45% + 20MEQ KCL 20 MEQ/1,000 ML BAG IV SCH (18:20)
--- NOTE | 2019-03-20 18:37 | Hospitalist Progress Note ---
Date of Service March 20, 2019 Assessment & Plan (1) Atrial fibrillation with RVR: - New onset - likely in the setting of dehydration from emesis -- On 03/18 in pre-op she developed A Fib RVR - HR ranging from 120-160 appears comfortable but communication is limited due to advanced dementia. Was discussed with anesthesiology who did utilize BB therapy but no longstanding improvement with HR. No response with increased fluids. Started Amio bolus/drip which resulted in rhythm conversion but subsequent bradycardia. 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 - cardiology plans to treat conservatively - Defer on anticoagulation at this time given concern for GI bleed; depending on course of hospital stay may consider event monitor to assess for possible chronicity of this rhythm to make sure appropriate stroke prevention measures are taken -- Given stable H&H this is unlikely GI bleed Cardiology following - appreciate input (2) Aspiration pneumonia due to gastric secretions: - CT (on admission) with patchy airspace consolidation in both lung bases - possibility of aspiration; CXR unremarkable -- Given the amount of emesis an aspiration component is possible - Repeat CXR - cardiomegaly with pulmonary vascular congestion and development of mild asymmetric interstitial opacities of R lung suggestive of pulm edema vs pneumonitis; R > L bibasilar opacities suggestive of pneumonia vs pneumonitis - surprisingly continues to have good saturations on RA -- Given the abdominal mass and carcinomatosis - question of pulmonary metastasis? - ABG reveals a mild respiratory alkalosis - respiratory status improved through the day; Lactic is 4 - Will place very gentle hydration given lactic acid - again concern of maybe these opacities having relation to the carcinomatosis of the abdomen? -- Appears to be developing some third spacing; compressive atelectasis likely contributing to issues but due to dementia incentive spirometry would be difficult to perform - repeat lactic in AM and possible D/C fluids however may further complicate if unable to perform dilation as feeding may lead to further issues and if not eating will lead to further decline - Place NPO at this time until vomiting improves/EGD; may need LABORER SHELLFISH PROCESSING consultation however last eval without aspiration and likely this is due to vomiting -- Normally on mechanical soft diet with thin liquids at [facility] - Continue Zosyn - WBC is trending down; remains afebrile - CT suggests these may be small to mod pleural effusion - may benefit from a tap and maybe assess for cancer cells? (3) Esophageal stenosis: - states this is her typical presentation when she needs her esophagus dilated and normally fixes the issue; H/O esophageal scarring - CT (admission) with moderate hiatal hernia that is fluid filled - emesis seemed to improve through the day - If continued issues with emesis can consider NG tube but may be rather tortuous for patient given her dementia and tendency to pull IVs/etc - Given ongoing vomiting and reports of stool like emesis did repeat CT - CT on 03/20 - abdominopelvic ascities with diffuse omental/peritoneal nodules suggestive of carcinomatosis; heterogeneity of uterine fundus/fundal endometrium; no bowel obstruction; moderate hernia; diffuse body wall edema - GI following - unable to complete EGD due to A Fib RVR - planning on Thursday if rhythm stable (4) Vomiting: - This is likely in the setting of esophageal stricture/hiatal hernia/slow motility - Given initial CT findings likely is related to this; however given carcinomatosis suggestion could consider MRI to R/O brain mets? 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 Reports H/O hysterectomy probably 40 years ago. Reviewed previous imaging which suggested possible partial hysterectomy as it appears there was some uterine material on scan however no mention of current scans findings - Long discussion with family and Dr. Betts - given these findings cancer is likely and she would not do well with the treatments this would entail - Discussed doing a pelvic ultrasound to further assess - will await stabilization from acute matters and ultimately could be completed as outpatient if necessary - Patient does have a GYNE she follows with - Oncology consulted - discussed with Dr. Felipe on admission - no current input at current time and can assess pending identification of mass (6) Chronic kidney disease, stage 3a: - Currently with acute kidney injury superimposed - likely prerenal in setting of dehydration; Baseline appears 0.8-1.1 - Continue IVF and monitor; avoid nephrotoxins - Cr currently at 1.34 (7) Upper gastrointestinal bleed: - History of upper GI bleed; reporting coffee ground emesis and similar appearing stools x 4 days prior to admission - Hgb currently stable - baseline appears to be 8-10 - however recent labs are running higher then this (8) Hypothyroidism: - TSH is still slightly elevated but much improved from previous - normal T4 - given acute illness this may be mildly elevated on a reactive basis - and may be best to hold further adjustments at this time -- Given elevation unlikely contributing to A Fib (9) Dementia: - Advanced; mentation is closer to baseline today - Will resume medications when NPO status lifted; Ativan IV NORMA - states normally has x 4 daily as it is scheduled at home but hold for sedation Disposition: Resident of [facility]; and daughter at bedside who supplied details for patient due to her advanced dementia; 1:1 per nurses discretion when not at bedside -- Discussion had with family given multiple co-morbidities and suspected metastatic CA which treatment likely would not be tolerated by patient. Her respiratory status is stable but CXR with multiple findings and therefore anesthesia for scope may be risky so this will need re-evaluated tomorrow and can discuss with cardiology as well. After discussion with family, code status has been changed to DNR/DNI. They would like to continue with current plan with Abx/fluids but should she deteriorate then the ultimate goal would be for comfort. Consideration for goals of care/palliative on Thursday Supervising Physician Co-Signing Physician Notes Patient seen and examined with Janine MURPHY. I agree with their exam findings, review of systems, assessment and plan. I personally reviewed the lab work and imaging as well. patient was getting more agitated and anxious today, working to breath a little more than in the past she has a few vomiting episodes checked CT abdomen pelvis that did not show any obstruction, it again showed carcinomatosis in the abdomen, ascites, pleural effusions checked stat labs in the afternoon, lactic acid 4.0, WBC 15, ABG with respiratory alkalosis with pCO2 28 and PaO2 65 Cr holding at 1.34 ESR and CRP both elevated procalcitonin only 0.11 long discussion with patient's , daughter, son in law at the bedside discussed that the situation with the patients abdomen is not good, she has metastatic cancer explained that whatever type of cancer she has, the treatment would be palliative furthermore, she could never withstand any chemotherapy, it would likely shorten her life discussed that I am not certain she will get better this admission, there is a good chance she could get worse asked about a living will, they said that she had stated she would not want intubated family agreed that she should be changed to a DNR status if her heart would stop or she went into respiratory failure also, she would not want intubated or ventilated plan: continue fluids, antibiotics, check labs in the morning if she remains stable then we will continue treatment if she declines then will make her comfortable explained that it is unlikely she will get an EGD given her respiratory status anesthesia would need to re-evaluate her spent 45 minutes with the patient today, this is in addition to any time spent by Janine Galicia Subjective Patient is a little more aware today. When asked how she is feeling she says terrible and making better eye contact. Cannot point to what hurts today. Continues to vomit. Per nursing staff it has a stool-like appearance. Unable to generate any other ROS. Multiple conversations had with myself/Dr. Betts and and daughter. Code status was discussed and she is now DNR/DNI. Would like to continue with current treatment plan however if she would decline further they would not want extreme measures. Review of Systems Review of Systems: Unobtainable due to cognitive status Only states she feels terrible Physical Exam Constitutional: + frail appearing; no acute distress Eyes: sclerae not anicteric Neck: trachea midline Respiratory: + labored breathing (mild - taking shallow frequent breaths) Auscultation: + diminished lung sounds lung [place] difficult to assess due to breathing status and cooperation Cardiovascular: Rate/Rhythm: regular rate and regular rhythm Vessels: no JVD Gastrointestinal (Abdomen): Inspection/Auscultation: normal bowel sounds Percussion/Palpation: abdomen soft; abdomen nontender Musculoskeletal: Head/Neck/Chest: normocephalic and head atraumatic Extremities: no cyanosis Skin: no rashes, warm and dry Neurologic: moves all extremities Psychiatric: Orientation: alert Results & Data Vital Signs (Past 12 Hours) Vital Signs Temp Pulse Pulse Resp BP Pulse Ox 03/20/19 16:26 36.5 C 83 22 140/87 93 03/20/19 11:00 36.0 C L 78 32 H 160/96 H 99 03/20/19 07:32 153/81 H 03/20/19 07:06 36.2 C L 75 26 H 171/79 H 93 PG Care Time/CCT Total # of Minutes Spent Total Time Spent with Patient: Total time spent is greater than 50% in coordination of care (as documented) at patient's floor/unit and/or counseling patient: (1) Dementia Dementia behavioral disturbance: without behavioral disturbance Dementia type: unspecified type Qualified Code(s): F03.90 - Unspecified dementia without behavioral disturbance (2) Hypothyroidism Hypothyroidism type: acquired Qualified Code(s): E03.9 - Hypothyroidism, unspecified (3) Vomiting Nausea presence: unspecified Vomiting Intractability: unspecified Vomiting type: unspecified Qualified Code(s): R11.10 - Vomiting, unspecified
[2019-03-20] MEDS: fentaNYL 25 MCG/HR TDSY TD SCH (21:45)
[2019-03-21] MEDS: LEVOTHYROXINE SODIUM 112 MCG TABLET PO SCH (04:29)
[2019-03-21] MEDS: LORazepam 0.5 MG/1 ML VIAL IV SCH ×4 (04:29→21:20)
[2019-03-21 05:26] LABS: Hemoglobin 11.8 g/dL (12.0-16.0); Mean Corpuscular Hemoglobin 28.1 pg (25-34); Mean Corpuscular Hgb Conc 31.9 g/dL (32-36); Mean Corpuscular Volume 88.1 fL (80-100); Mean Platelet Volume 10.2 fL (7.4-10.4); Platelet Count 291 K/uL (130-400); RDW Coefficient of Variation 14.5 % (11.5-14.5); RDW Standard Deviation 46.5 fL (36.4-46.3); White Blood Count 12.28 K/uL (4.8-10.8)
[2019-03-21 05:52] LABS: Albumin Level 1.8 gm/dl (3.4-5.0); BUN Creatinine Ratio 20.9 (10-20); Calcium 7.9 mg/dl (8.5-10.1); Est GFR (African American) 47.6; Est GFR (Non-African American) 41.1; Potassium 3.8 mmol/L (3.5-5.1)
[2019-03-21 05:57] LABS: Albumin Globulin Ratio 0.6 (0.9-2); Bilirubin,Total 0.4 mg/dl (0.2-1); Globulin 3.2 gm/dl (2.5-4.0)
[2019-03-21] MEDS: SODIUM CHLOR 0.45% + 20MEQ KCL 20 MEQ/1,000 ML BAG IV SCH ×2 (08:01→21:19)
[2019-03-21] MEDS: PIPERACILLIN/TAZOBACTAM 3.375 GM in DEXTROSE 5% 100 ML IV SCH ×3 (08:02→22:44)
[2019-03-21] MEDS: CHECK FENTANYL PATCH PLACEMENT SCH ×2 (08:03→16:13)
--- NOTE | 2019-03-21 09:05 | Gastroenterology Progress Note ---
Date of Service March 21, 2019 Assessment & Plan (1) Aspiration pneumonia due to gastric secretions: Patient is a 78 yo female with aspiration pneumonia suspected to be related to aspiration. She continues to have cardiopulmonary risk factors for anesthesia. -Agree with hospitalists--would hold off on EGD given worsening pulmonary course. Would continue to reevaluate clinically as well as reevaluate goals of care with family in light of recent findings of likely JANITOR HEAD malignancy. -Given her history of significant esophagitis, this patient should be on PPI therapy. I have added Prevacid solutabs, however I agree with a formal MASTER CERTIFIED RV TECHNICIAN evaluation. If deemed to require strictly NPO status, would change to IV PPI therapy as patient has had multiple readmissions for anemia & hematemesis due to her underlying esophagitis. -Will continue to follow clinical course Thank you for allowing us to participate in the care of this patient. If you should have any further questions or concerns, do not hesitate to contact us at extension [phone] or [phone]. Present on Admission?: Yes Supervising Physician Co-Signing Physician Notes I personally evaluated the patient and agree with the findings as documented by Kylah Maria, PAC Exam: abd: soft, moderate umbilical tenderness, nd Recs: continue with IV pepcid, would hold off on PO antacid meds in the setting of asp iration pneumonia. no plans for EGD at this time. Ideally would like IV PPI but protonix is on backorder. Subjective Patient is a 78 yo female with multiple medical comorbidities. GI was consulted for findings of a "fluid-filled" esophagus and concern for aspiration. The patient was to undergo an EGD on 03/18, unfortunately she went into Atrial F ibrillation and the procedure was cancelled. She was evaluated by cardiology over the weekend. 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 Unfortunately, on 03/20, the patient did experience worsening respiratory issues related to her pneumonia. She is saturating ok, however she does have imaging findings of worsening pneumonitis and pleural effusions. She continues on IV Zosyn. Her acknowledges that it is safer to hold off on EGD until she has respiratory improvement. Her H/H is 11.8/37, BUN 26, Cr 1.26. Patient is resting comfortably throughout the visit. at bedside to provide additional information. Reports vomiting yesterday. Review of Systems Review of Systems: Unobtainable due to cognitive status Physical Exam Constitutional: + ill appearing Respiratory: Auscultation: + diminished lung sounds and + rales Cardiovascular: Rate/Rhythm: + bradycardic Gastrointestinal (Abdomen): normal bowel sounds, soft, nontender, no hepatosplenomegaly Musculoskeletal: Extremities: extremities normal to inspection Skin: no rashes, warm and dry Results & Data Vital Signs (Past 12 Hours) Vital Signs Temp Pulse Pulse Resp BP BP Pulse Ox 03/21/19 07:18 36.1 C L 73 16 141/82 H 92 03/21/19 03:10 36.5 C 64 17 98/53 L 93 03/20/19 23:56 97 H 03/20/19 23:20 36.7 C 94 H 26 H 163/90 H 95 PG Care Time/CCT Total # of Minutes Spent Total Time Spent with Patient: Total time spent is greater than 50% in coordination of care (as documented) at patient's floor/unit and/or counseling patient: (1) Aspiration pneumonia due to gastric secretions Laterality: unspecified laterality Lung location: unspecified part of lung Qualified Code(s): J69.0 - Pneumonitis due to inhalation of food and vomit
[2019-03-21] MEDS ORDERED: LANSOPRAZOLE 30 MG SOLTAB PO SCH (09:45)
[2019-03-21] MEDS: FAMOTIDINE 20 MG in SYRINGE 3 ML IV SCH ×2 (10:54→22:44)
--- NOTE | 2019-03-21 22:29 | Hospitalist Progress Note ---
Date of Service March 21, 2019 Assessment & Plan (1) Atrial fibrillation with RVR: - New onset - likely in the setting of dehydration from emesis -- On 03/18 in pre-op she developed A Fib RVR - HR ranging from 120-160 appears comfortable but communication is limited due to advanced dementia. Was discussed with anesthesiology who did utilize BB therapy but no longstanding improvement with HR. No response with increased fluids. Started Amio bolus/drip which resulted in rhythm conversion but subsequent bradycardia. 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 -- Given stable H&H this is unlikely GI bleed Cardiology following - appreciate input (2) Aspiration pneumonia due to gastric secretions: - CT (on admission) with patchy airspace consolidation in both lung bases - possibility of aspiration; CXR unremarkable -- Given the amount of emesis an aspiration component is possible - Repeat CXR - cardiomegaly with pulmonary vascular congestion and development of mild asymmetric interstitial opacities of R lung suggestive of pulm edema vs pneumonitis; R > L bibasilar opacities suggestive of pneumonia vs pneumonitis - surprisingly continues to have good saturations on RA -- Given the abdominal mass and carcinomatosis - question of pulmonary metastasis? - ABG reveals a mild respiratory alkalosis - respiratory status improved through the day; Lactic is 4 - Will place very gentle hydration given lactic acid - again concern of maybe these opacities having relation to the carcinomatosis of the abdomen? -- Appears to be developing some third spacing; compressive atelectasis likely contributing to issues but due to dementia incentive spirometry would be difficult to perform - repeat lactic in AM and possible D/C fluids however may further complicate if unable to perform dilation as feeding may lead to further issues and if not eating will lead to further decline - Place NPO at this time until vomiting improves/EGD; may need WATER RESOURCE MANAGER consultation however last eval without aspiration and likely this is due to vomiting -- Normally on mechanical soft diet with thin liquids at [facility] - Continue Zosyn - WBC is trending down; remains afebrile - CT suggests these may be small to mod pleural effusion - may benefit from a tap and maybe assess for cancer cells? -will need to discuss with family as patient would not tolerate treatment (3) Esophageal stenosis: - states this is her typical presentation when she needs her esophagus dilated and normally fixes the issue; H/O esophageal scarring - CT (admission) with moderate hiatal hernia that is fluid filled - emesis seemed to improve through the day - If continued issues with emesis can consider NG tube but may be rather tortuous for patient given her dementia and tendency to pull IVs/etc - Given ongoing vomiting and reports of stool like emesis did repeat CT - CT on 03/20 - abdominopelvic ascities with diffuse omental/peritoneal nodules suggestive of carcinomatosis; heterogeneity of uterine fundus/fundal endometrium; no bowel obstruction; moderate hernia; diffuse body wall edema - GI following - unable to complete EGD due to A Fib RVR - planning on Thursday if rhythm stable (4) Vomiting: - This is likely in the setting of esophageal stricture/hiatal hernia/slow motility - Given initial CT findings likely is related to this; however given carcinomatosis suggestion could consider MRI to R/O brain mets? 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 Reports H/O hysterectomy probably 40 years ago. Reviewed previous imaging which suggested possible partial hysterectomy as it appears there was some uterine material on scan however no mention of current scans findings - Long discussion with family and Dr. Betts - given these findings cancer is likely and she would not do well with the treatments this would entail - Discussed doing a pelvic ultrasound to further assess - will await stabilization from acute matters and ultimately could be completed as outpatient if necessary - Patient does have a GYNE she follows with - Oncology consulted - discussed with Dr. Felipe on admission - no current input at current time and can assess pending identification of mass (6) Chronic kidney disease, stage 3a: - Currently with acute kidney injury superimposed - likely prerenal in setting of dehydration; Baseline appears 0.8-1.1 - Continue IVF and monitor; avoid nephrotoxins - Cr currently at 1.34 (7) Upper gastrointestinal bleed: - History of upper GI bleed; reporting coffee ground emesis and similar appearing stools x 4 days prior to admission - Hgb currently stable - baseline appears to be 8-10 - however recent labs are running higher then this (8) Hypothyroidism: - TSH is still slightly elevated but much improved from previous - normal T4 - given acute illness this may be mildly elevated on a reactive basis - and may be best to hold further adjustments at this time -- Given elevation unlikely contributing to A Fib (9) Dementia: - Advanced; mentation is closer to baseline today - Will resume medications when NPO status lifted; Ativan IV NORMA - states normally has x 4 daily as it is scheduled at home but hold for sedation Disposition: Resident of [facility]; and daughter at bedside who supplied details for patient due to her advanced dementia; 1:1 per nurses discretion when not at bedside -- On 03/20, Discussion had with family given multiple co-morbidities and suspected metastatic CA which treatment likely would not be tolerated by ailyn ent. Her respiratory status is stable but CXR with multiple findings and therefore anesthesia for scope may be risky so this will need re-evaluated tomorrow and can discuss with cardiology as well. After discussion with family, code status has been changed to DNR/DNI. They would like to continue with current plan with Abx/fluids but should she deteriorate then the ultimate goal would be for comfort. Family not at bedside on 03/21, will discuss with them on 03/22 Subjective Patient is resting, awakens but does not provide any history. Review of Systems Review of Systems: All systems reviewed & are unremarkable except as noted in HPI & below Physical Exam Physical Exam: Constitutional: + frail appearing; no acute distress, sedated Eyes: sclerae not anicteric Neck: trachea midline Respiratory: Auscultation: + diminished lung sounds lung [place] difficult to assess due to breathing status and cooperation Cardiovascular: Rate/Rhythm: regular rate and regular rhythm Vessels: no JVD Gastrointestinal (Abdomen): Inspection/Auscultation: normal bowel sounds Percussion/Palpation: abdomen soft; abdomen nontender Musculoskeletal: Head/Neck/Chest: normocephalic and head atraumatic Extremitie s: no cyanosis Skin: no rashes, warm and dry Neurologic: moves all extremities Psychiatric: Orientation: alert Results & Data Vital Signs (Past 12 Hours) Vital Signs Temp Pulse Resp BP Pulse Ox 03/21/19 18:48 37.3 C 86 28 H 125/77 92 03/21/19 15:10 36.2 C L 84 32 H 132/78 93 PG Care Time/CCT Total # of Minutes Spent Total Time Spent with Patient: Total time spent is greater than 50% in coordination of care (as documented) at patient's floor/unit and/or counseling patient: (1) Dementia Dementia behavioral disturbance: without behavioral disturbance Dementia type: unspecified type Qualified Code(s): F03.90 - Unspecified dementia without behavioral disturbance (2) Hypothyroidism Hypothyroidism type: acquired Qualified Code(s): E03.9 - Hypothyroidism, unspecified (3) Aspiration pneumonia due to gastric secretions Laterality: unspecified laterality Lung location: unspecified part of lung Qualified Code(s): J69.0 - Pneumonitis due to inhalation of food and vomit (4) Vomiting Nausea presence: unspecified Vomiting Intractability: unspecified Vomiting type: unspecified Qualified Code(s): R11.10 - Vomiting, unspecified
[2019-03-22] MEDS: CHECK FENTANYL PATCH PLACEMENT SCH ×3 (00:10→15:33)
[2019-03-22] MEDS: LORazepam 0.5 MG/1 ML VIAL IV SCH ×4 (03:43→22:08)
[2019-03-22] MEDS: LEVOTHYROXINE SODIUM 112 MCG TABLET PO SCH (05:26)
[2019-03-22] MEDS: SODIUM CHLOR 0.45% + 20MEQ KCL 20 MEQ/1,000 ML BAG IV SCH (07:55)
[2019-03-22] MEDS: FAMOTIDINE 20 MG in SYRINGE 3 ML IV SCH ×3 (07:55→23:33)
[2019-03-22] MEDS: PIPERACILLIN/TAZOBACTAM 3.375 GM in DEXTROSE 5% 100 ML IV SCH ×3 (07:55→23:33)
[2019-03-22] MEDS: fentaNYL 25 MCG/HR TDSY TD SCH (07:57)
[2019-03-22] MEDS: MoRPHine SULFATE 2 MG/ML CARP IV PRN ×2 (09:48→16:25)
[2019-03-22] MEDS: ONDANSETRON INJ 2 MG/ML 2 ML VIAL IV PRN (15:08)
--- NOTE | 2019-03-22 15:58 | Palliative Care Progress Note ---
Date of Service March 22, 2019 Subjective Consult received, discussed with physician. Patient will be seen on 03/24. Results & Data Vital Signs (Past 12 Hours) Vital Signs Temp Pulse Pulse Pulse Resp BP BP 03/22/19 15:14 36.0 C L 72 18 142/91 H 178/90 H 03/22/19 12:19 36.7 C 68 25 H 166/89 H 03/22/19 08:00 68 03/22/19 07:10 36.9 C 76 24 159/77 H Pulse Ox 03/22/19 15:14 100 03/22/19 12:19 100 03/22/19 08:00 03/22/19 07:10 95 PG Care Time/CCT Total # of Minutes Spent Total Time Spent with Patient: Total time spent is greater than 50% in coordination of care (as documented) at patient's floor/unit and/or counseling patient:
--- NOTE | 2019-03-22 23:04 | Hospitalist Progress Note ---
Date of Service March 22, 2019 Assessment & Plan (1) Atrial fibrillation with RVR: - New onset - likely in the setting of dehydration from emesis -- On 03/18 in pre-op she developed A Fib RVR - HR ranging from 120-160 appears comfortable but communication is limited due to advanced dementia. Was discussed with anesthesiology who did utilize BB therapy but no longstanding improvement with HR. No response with increased fluids. Started Amio bolus/drip which resulted in rhythm conversion but subsequent bradycardia. 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 -- Given stable H&H this is unlikely GI bleed Cardiology following - appreciate input (2) Aspiration pneumonia due to gastric secretions: - CT (on admission) with patchy airspace consolidation in both lung bases - possibility of aspiration; CXR unremarkable -- Given the amount of emesis an aspiration component is possible - Repeat CXR - cardiomegaly with pulmonary vascular congestion and development of mild asymmetric interstitial opacities of R lung suggestive of pulm edema vs pneumonitis; R > L bibasilar opacities suggestive of pneumonia vs pneumonitis - surprisingly continues to have good saturations on RA -- Given the abdominal mass and carcinomatosis - question of pulmonary metastasis? - ABG reveals a mild respiratory alkalosis - respiratory status improved through the day; Lactic is 4 - Will place very gentle hydration given lactic acid - again concern of maybe these opacities having relation to the carcinomatosis of the abdomen? -- Appears to be developing some third spacing; compressive atelectasis likely contributing to issues but due to dementia incentive spirometry would be difficult to perform - repeat lactic in AM and possible D/C fluids however may further complicate if unable to perform dilation as feeding may lead to further issues and if not eating will lead to further decline - Place NPO at this time until vomiting improves/EGD; may need TRENCH DIGGER consultation however last eval without aspiration and likely this is due to vomiting -- Normally on mechanical soft diet with thin liquids at [facility] - Continue Zosyn - WBC is trending down; remains afebrile - CT suggests these may be small to mod pleural effusion - may benefit from a tap and maybe assess for cancer cells? -will need to discuss with family as patient would not tolerate treatment -Had extensive discussion with family, -Essentially reiterated what Dr. Betts had explained on Thursday with Daughter and . They are interested in palliative care. Will hold off EGD unless patient improves (which seems unlikely) -palliative care will discuss goals of care with family. will continue antibiotics. (3) Esophageal stenosis: - states this is her typical presentation when she needs her esophagus dilated and normally fixes the issue; H/O esophageal scarring - CT (admission) with moderate hiatal hernia that is fluid filled - emesis seemed to improve through the day - If continued issues with emesis can consider NG tube but may be rather tortuous for patient given her dementia and tendency to pull IVs/etc - Given ongoing vomiting and reports of stool like emesis did repeat CT - CT on 03/20 - abdominopelvic ascities with diffuse omental/peritoneal nodules suggestive of carcinomatosis; heterogeneity of uterine fundus/fundal endometrium; no bowel obstruction; moderate hernia; diffuse body wall edema - GI following - unable to complete EGD due to A Fib RVR - holding for now as stated above (4) Vomiting: - This is likely in the setting of esophageal stricture/hiatal hernia/slow motility - Given initial CT findings likely is related to this; however given carci nomatosis suggestion could consider MRI to R/O brain mets? - Symptomatic treatment with anti-emetics Had another episode of vomiting on 03/22 will order x-ray in AM. Possible repeat aspiration. 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 Reports H/O hysterectomy probably 40 years ago. Reviewed previous imaging which suggested possible partial hysterectomy as it appears there was some uterine material on scan however no mention of current scans findings - Long discussion with family and Dr. Betts - given these findings cancer is likely and she would not do well with the treatments this would entail - Discussed doing a pelvic ultrasound to further assess - will await stabilization from acute matters and ultimately could be completed as outpatient if necessary - Patient does have a GYNE she follows with - Oncology consulted - discussed with Dr. Felipe on admission - no current input at current time and can assess pending identification of mass (6) Chronic kidney disease, stage 3a: - Currently with acute kidney injury superimposed - likely prerenal in setting of dehydration; Baseline appears 0.8-1.1 - Continue IVF and monitor; avoid nephrotoxins - Cr currently at 1.34 (7) Upper gastrointestinal bleed: - History of upper GI bleed; reporting coffee ground emesis and similar appearing stools x 4 days prior to admission - Hgb currently stable - baseline appears to be 8-10 - however recent labs are running higher then this (8) Hypothyroidism: - TSH is still slightly elevated but much improved from previous - normal T4 - given acute illness this may be mildly elevated on a reactive basis - and may be best to hold further adjustments at this time -- Given elevation unlikely contributing to A Fib (9) Dementia: - Advanced; mentation is closer to baseline today - Will resume medications when NPO status lifted; Ativan IV NORMA - states normally has x 4 daily as it is scheduled at home but hold for sedation Subjective Patient does not provide history, Review of Systems Review of Systems: Unobtainable due to reduced consciousness Physical Exam Physical Exam: Constitutional: no acute distress, sedated Eyes: sclerae not anicteric Neck: trachea midline Respiratory: Auscultation: + diminished lung sounds lung [place] difficult to assess due to breathing status and cooperation Cardiovascular: Rate/Rhythm: regular rate and regular rhythm Vessels: no JVD Gastrointestinal (Abdomen): Inspection/Auscultation: normal bowel sounds Percussion/Palpation: abdomen soft; abdomen nontender Musculoskeletal: Head/Neck/Chest: normocephalic and head atraumatic Extremities: no cyanosis Skin: no rashes, warm and dry Neurologic: moves all extremities Psychiatric: Orientation: alert Results & Data Vital Signs (Past 12 Hours) Vital Signs Temp Pulse Pulse Resp BP BP Pulse Ox 03/22/19 22:50 36.3 C L 72 18 176/85 H 97 03/22/19 18:24 93 03/22/19 18:20 88 L 03/22/19 15:14 36.0 C L 72 18 142/91 H 178/90 H 100 03/22/19 12:19 36.7 C 68 25 H 166/89 H 100 PG Care Time/CCT Total # of Minutes Spent Total Time Spent with Patient: Total time spent is greater than 50% in coordination of care (as documented) at patient's floor/unit and/or counseling patient: (1) Dementia Dementia behavioral disturbance: without behavioral disturbance Dementia type: unspecified type Qualified Code(s): F03.90 - Unspecified dementia without behavioral disturbance (2) Hypothyroidism Hypothyroidism type: acquired Qualified Code(s): E03.9 - Hypothyroidism, unspecified (3) Aspiration pneumonia due to gastric secretions Laterality: unspecified laterality Lung location: unspecified part of lung Qualified Code(s): J69.0 - Pneumonitis due to inhalation of food and vomit (4) Vomiting Nausea presence: unspecified Vomiting Intractability: unspecified Vomiting type: unspecified Qualified Code(s): R11.10 - Vomiting, unspecified
[2019-03-23] MEDS: SODIUM CHLOR 0.45% + 20MEQ KCL 20 MEQ/1,000 ML BAG IV SCH ×2 (03:44→13:47)
[2019-03-23] MEDS: CHECK FENTANYL PATCH PLACEMENT SCH ×3 (03:49→15:49)
[2019-03-23] MEDS: LORazepam 0.5 MG/1 ML VIAL IV SCH ×2 (03:49→09:37)
[2019-03-23 06:58] LABS: Creatinine Clr Calc Pharmacy 37.1 ml/min; Est GFR (African American) 56.1; Est GFR (Non-African American) 48.4
[2019-03-23] MEDS: LEVOTHYROXINE SODIUM 112 MCG TABLET PO SCH (07:09)
[2019-03-23] MEDS: PIPERACILLIN/TAZOBACTAM 3.375 GM in DEXTROSE 5% 100 ML IV SCH ×3 (08:03→22:26)
[2019-03-23] MEDS: HydrALAZINE HCL 20 MG/ML VIAL IV PRN (08:25)
[2019-03-23] MEDS: ONDANSETRON INJ 2 MG/ML 2 ML VIAL IV PRN (08:25)
--- NOTE | 2019-03-23 09:44 | XRay Report ---
SINGLE VIEW CHEST CLINICAL HISTORY: Aspiration. FINDINGS: An AP, portable, upright chest radiograph is compared to study dated 03/20/2019. The examin ation is degraded by portable technique and patient rotation. The heart is mildly enlarged noting ath erosclerotic calcification of the thoracic aorta. The pulmonary vasculature is noncongested. A hiatal hernia is noted. There is bibasilar airspace consolidation, right greater than left. Trace pleural e ffusions are noted. No pneumothorax is seen. The skeletal structures are osteopenic. There are healed left-sided rib fractures and chronic posttraumatic deformity of the left humerus. IMPRESSION: Mild 1. Cardiomegaly. Pulmonary vascular congestion has improved from 03/20/2019. 2. Patchy airspace consolidation is present at both lung bases, right greater than left with trace pl eural effusions. The appearance is typical for pneumonia/aspiration pneumonitis. Renographic follow-u p to resolution is recommended. 3. Hiatal hernia. ACT 112: Negative or not required by law. Electronically signed by: Prince Pathak M.D. 03/23/2019 9:43 AM
[2019-03-23] MEDS: MoRPHine SULFATE 2 MG/ML CARP IV PRN (10:00)
[2019-03-23] MEDS: FAMOTIDINE 20 MG in SYRINGE 3 ML IV SCH ×2 (10:03→22:16)
[2019-03-23] MEDS ORDERED: ONDANSETRON INJ 2 MG/ML 2 ML VIAL IV PRN (10:08)
[2019-03-23] MEDS ORDERED: PROMETHAZINE HCL 25 MG in SODIUM CHLORIDE 0.9% 50 ML IV STA (10:09)
[2019-03-23] MEDS ORDERED: ondansetron HCL 8 MG in DEXTROSE 5% 50 ML IV PRN (10:15)
--- NOTE | 2019-03-23 10:15 | Hospitalist Progress Note ---
Date of Service March 23, 2019 Assessment & Plan (1) Atrial fibrillation with RVR: - New onset - likely in the setting of dehydration from emesis -- On 03/18 in pre-op she developed A Fib RVR - HR ranging from 120-160 appears comfortable but communication is limited due to advanced dementia. Was discussed with anesthesiology who did utilize BB therapy but no longstanding improvement with HR. No response with increased fluids. Started Amio bolus/drip which resulted in rhythm conversion but subsequent bradycardia. 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 - cardiology plans to treat conservatively - Defer on anticoagulation at this time given concern for GI bleed; depending on course of hospital stay may consider event monitor to assess for possible chronicity of this rhythm to make sure appropriate stroke prevention measures are taken patient in sinus tachycardia on monitor, no need to continue with telemetry, downgrade to medical floor no need for anticoagulation, converting to palliative approach (2) Aspiration pneumonia due to gastric secretions: - CT (on admission) with patchy airspace consolidation in both lung bases - possibility of aspiration; CXR unremarkable -- Given the amount of emesis an aspiration component is possible - Repeat CXR - cardiomegaly with pulmonary vascular congestion and development of mild asymmetric interstitial opacities of R lung suggestive of pulm edema vs pneumonitis; R > L bibasilar opacities suggestive of pneumonia vs pneumonitis - surprisingly continues to have good saturations on RA -- Given the abdominal mass and carcinomatosis - question of pulmonary metastasis? - ABG reveals a mild respiratory alkalosis - respiratory status improved through the day; Lactic is 4 - Will place very gentle hydration given lactic acid - again concern of maybe these opacities having relation to the carcinomatosis of the abdomen? -- Appears to be developing some third spacing; compressive atelectasis likely contributing to issues but due to dementia incentive spirometry would be difficult to perform - repeat lactic in AM and possible D/C fluids however may further complicate if unable to perform dilation as feeding may lead to further issues and if not eating will lead to further decline - strict NPO, appears to have difficult time handling secretions add Scopolamine patch - Continue Zosyn for time being as goal is comfort, will not erradicate infection 03/23: spoke with daughter and at the bedside, discussed making patient more comfortable as she is in distress this morning continue Zosyn with goal of comfort will increase Ativan to 1mg, Morphine to 4mg, Fentanyl to 50mcg and Zofran to 8mg give a dose of Phenergan 25mg for her nausea/vomiting, hopefully will give her some rest as well will downgrade to medical floor, focus on comfort palliative care to see officially tomorrow anticipate the patient passing away in the hospital as she is requiring multiple IV medications to keep her comfortable (3) Esophageal stenosis: - states this is her typical presentation when she needs her esophagus dilated and normally fixes the issue; H/O esophageal scarring - CT (admission) with moderate hiatal hernia that is fluid filled - emesis again today, 03/23 - CT on 03/20 - abdominopelvic ascities with diffuse omental/peritoneal nodules suggestive of carcinomatosis; heterogeneity of uterine fundus/fundal endometrium; no bowel obstruction; moderate hernia; diffuse body wall edema - GI following - no plans for EGD, transition to palliative approach (4) Vomiting: - This is likely in the setting of esophageal stricture/hiatal hernia/slow motility - Given initial CT findings likely is related to this; however given carcinomatosis could have a low grade obstruction - Symptomatic treatment with anti-emetics increase Zofran to 8mg IV and add Phenergan 25mg IV more vomiting on 03/22 and 03/23 (5) Metastatic cancer: - 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 Reports H/O hysterectomy probably 40 years ago. Reviewed previous imaging which suggested possible partial hysterectomy as it appears there was some uterine material on scan however no mention of current scans findings - Long discussion with family and Dr. Betts - given these findings cancer is likely and she would not do well with the treatments this would entail - Discussed doing a pelvic ultrasound to further assess - will await stabilization from acute matters and ultimately could be completed as outpatient if necessary - Patient does have a GYNE she follows with - Oncology consulted - discussed with Dr. Felipe on admission - no current input at current time and can assess pending identification of mass no plans for work up, palliative care planned (6) Chronic kidney disease, stage 3a: - Currently with acute kidney injury superimposed - likely prerenal in setting of dehydration; Baseline appears 0.8-1.1 - Continue IVF and monitor; avoid nephrotoxins - Cr currently at 1.0 (7) Upper gastrointestinal bleed: - History of upper GI bleed; reporting coffee ground emesis and similar appearing stools x 4 days prior to admission - Hgb currently stable - baseline appears to be 8-10 - however recent labs are running higher then this (8) Hypothyroidism: - TSH is still slightly elevated but much improved from previous - normal T4 - given acute illness this may be mildly elevated on a reactive basis - and may be best to hold further adjustments at this time -- Given elevation unlikely contributing to A Fib (9) Dementia: resident of [facility] for 4 years due to dementia highly anxious, use Ativan for relief every 6 hours Plan: transfer to medical floor, increase sedation and pain control to provide more comfort palliative care to officially see tomorrow Subjective met with patient's and daughter at the bedside patient does not appear comfortable, she vomited again this morning breathing is labored, RR in the 30's, HR in the low 100's on monitor discussed that we need to adjust medications to make her more comfortable explained that we would downgrade her to medical floor for palliative care family agrees that they just want her comfortable, don't want to see her suffer no labs today CXR this morning shows persistent bibasilar opacities from aspiration she is likely aspirating all the time Review of Systems Review of Systems: Unobtainable due to cognitive status Physical Exam Constitutional: + acute distress, + ill appearing and + thin; + not well nourished Eyes: PERRL, conjunctivae normal, anicteric sclerae ENMT: external ear and nose normal, oropharynx normal Neck: trachea midline, no thyromegaly Respiratory: + respiratory distress, + labored breathing and + uses accessory muscles Auscultation: + crackles and + rhonchi; no wheezes Cardiovascular: Rate/Rhythm: regular rhythm and + tachycardic Heart Sounds: normal S1 and normal S2; no murmur Extremities: normal capillary refill; no edema Gastrointestinal (Abdomen): normal bowel sounds, soft, nontender, no hepatosplenomegaly Musculoskeletal: no cyanosis or clubbing, extremities motor strength 5/5 Skin: no rashes, warm and dry Neurologic: patellar DTR's 2+ bilat, sensation intact and PERRL, EOMI, accommodation nl, no face palsy, no dysarthria Psychiatric: Orientation: + not alert and + not oriented x 3 Lymphatic: no cervical or axillary lymphadenopathy Results & Data Vital Signs (Past 12 Hours) Vital Signs Temp Pulse Pulse Resp BP BP Pulse Ox 03/23/19 08:07 36.6 C 76 25 H 167/86 H 170/80 H 95 03/23/19 03:47 36.5 C 77 19 161/72 H 97 03/23/19 00:00 76 03/22/19 22:50 36.3 C L 72 18 176/85 H 97 Laboratory Results Laboratory Results - last 24 hr 03/23/19 05:48 Creatinine 1.10 Est Cr Clr Drug Dosing 37.1 Est GFR ( Amer) 56.1 Est GFR (Non-Af Amer) 48.4 Medications Administered Current Inpatient Medications Fentanyl (Duragesic) 50 mcg TD Q3D ON LICENSE OF [facility] Stop: 04/06/19 10:29 Hydralazine HCl (Hydralazine Hcl) 10 mg IV Q6H PRN PRN Reason: Sys > 170 or Angelique > 90 Stop: 04/18/19 09:21 Last Admin: 03/23/19 08:25 Dose: 10 mg Documented by: Piperacillin Sod/Tazobactam (Sod 3.375 gm/ Dextrose) 115 mls @ 28.75 mls/hr IV Q8H ON LICENSE OF [facility]; Protocol Stop: 03/27/19 22:59 Last Admin: 03/23/19 08:03 Dose: 28.8 mls/hr Documented by: Famotidine 20 mg/ Syringe 5 mls @ 2.5 mls/min IV Q12H ON LICENSE OF [facility] Stop: 04/16/19 22:59 Last Admin: 03/23/19 10:03 Dose: 2.5 mls/min Documented by: Potassium Chloride/Sodium Chloride (1/2 Nss + 20meq Kcl 1000ml) 20 meq in 1,000 mls @ 75 mls/hr IV .[id number] ON LICENSE OF [facility] Stop: 04/19/19 17:59 Last Admin: 03/23/19 03:44 Dose: 75 mls/hr Documented by: Lorazepam (Ativan) 1 mg in 2 mls @ 1 mls/min IV Q6H ON LICENSE OF [facility] Stop: 04/18/19 09:59 Promethazine HCl 25 mg/ Sodium (Chloride) 51 mls @ 204 mls/hr IV NOW STA Stop: 03/23/19 10:23 Promethazine HCl 25 mg/ Sodium (Chloride) 51 mls @ 204 mls/hr IV Q6H PRN PRN Reason: Nausea And Vomiting Stop: 04/22/19 10:06 Levothyroxine Sodium (Synthroid) 112 mcg PO DAILYBB ON LICENSE OF [facility] Stop: 04/17/19 06:29 Last Admin: 03/23/19 07:09 Dose: Not Given Documented by: Miscellaneous (Fentanyl Patch Remove & Waste) 1 ea N/A Q3D NORMA Stop: 04/19/19 22:59 Last Admin: 03/20/19 21:46 Dose: 1 ea Documented by: Miscellaneous (Fentanyl Patch Check Placement) 1 ea N/A QS ON LICENSE OF [facility] Stop: 04/17/19 00:00 Last Admin: 03/23/19 08:03 Dose: 1 ea Documented by: Miscellaneous (Check Scopolamine Patch Placement) 1 ea N/A QS ON LICENSE OF [facility] Stop: 04/22/19 15:59 Miscellaneous (Remove Transderm-Scop Patch) 1 ea N/A Q72H ON LICENSE OF [facility] Stop: 04/25/19 09:59 Miscellaneous Information (Consult) 1 ea N/A UD PRN PRN Reason: Consult Stop: 04/16/19 22:44 Morphine Sulfate (Morphine Sulfate) 4 mg IV Q4H PRN PRN Reason: Pain Stop: 04/02/19 09:24 Ondansetron HCl (Zofran) 8 mg IV Q6H PRN PRN Reason: Nausea Stop: 04/16/19 22:37 Scopolamine (Transderm-Scop) 1.5 mg TD Q72H NORMA Stop: 04/22/19 09:59 PG Care Time/CCT Total # of Minutes Spent Total Time Spent: 35 Total Time Spent with Patient: Total time spent is greater than 50% in coordination of care (as documented) at patient's floor/unit and/or counseling patient: (1) Aspiration pneumonia due to gastric secretions Laterality: unspecified laterality Lung location: unspecified part of lung Qualified Code(s): J69.0 - Pneumonitis due to inhalation of food and vomit (2) Vomiting Nausea presence: unspecified Vomiting Intractability: unspecified Vomiting type: unspecified Qualified Code(s): R11.10 - Vomiting, unspecified (3) Hypothyroidism Hypothyroidism type: acquired Qualified Code(s): E03.9 - Hypothyroidism, unspecified (4) Dementia Dementia behavioral disturbance: without behavioral disturbance Dementia type: unspecified type Qualified Code(s): F03.90 - Unspecified dementia without behavioral disturbance
[2019-03-23] MEDS: fentaNYL 50 MCG/HR TDSY TD SCH (10:24)
[2019-03-23] MEDS: [UNRECOGNIZED DRUG - OTHER] SCH (10:24)
[2019-03-23] MEDS: LORazepam 1 MG/2 ML VIAL IV SCH ×3 (10:28→22:21)
[2019-03-23] MEDS: SCOPOLAMINE 1.5 MG TDSY TD SCH (10:36)
[2019-03-23] MEDS: MoRPHine SULFATE 4 MG/ML 1 ML CARP\\VIAL IV PRN ×3 (11:20→22:23)
[2019-03-23] MEDS: CHECK SCOPOLAMINE PATCH PLACEMENT SCH (15:47)
[2019-03-24] MEDS: CHECK SCOPOLAMINE PATCH PLACEMENT SCH ×4 (01:03→23:15)
[2019-03-24] MEDS: CHECK FENTANYL PATCH PLACEMENT SCH ×4 (01:03→23:16)
[2019-03-24] MEDS: SODIUM CHLOR 0.45% + 20MEQ KCL 20 MEQ/1,000 ML BAG IV SCH ×2 (03:32→19:26)
[2019-03-24] MEDS: LORazepam 1 MG/2 ML VIAL IV SCH ×3 (03:37→16:57)
[2019-03-24] MEDS: PIPERACILLIN/TAZOBACTAM 3.375 GM in DEXTROSE 5% 100 ML IV SCH ×3 (06:30→23:10)
--- NOTE | 2019-03-24 09:15 | Palliative Care Consultation ---
Date of Consultation March 24, 2019 Assessment & Plan (1) Palliative care encounter: The patient is a 78-year-old female who presented to the hospital from [facility], where she is a permanent resident, with increased nausea and vomiting. The patient has an additional PMH that includes GI bleeding, anemia, gastritis, esophagitis, dementia, AF with RVR, CKD stage 3, OA, PNA, esophageal stenosis requiring dilitation, RLS, depression, hypothyroidism, and bladder prolapse. The patient was noted to have aspiration PNA based on CT results. CXR has been unremarkable. The patients fluid status has been difficult to manage with third spacing. A repeat abdominal CT scan was performed on 03/20 that showed abdominopelvic ascites with diffuse omental/peritoneal nodules suggestive of carcinomatosis; heterogeneity of uterine fundus/fundal endometrium; without bowel obstruction; moderate hernia; diffuse body wall edema. The patient started to have increased emesis and with GI consultation, a more conservative approach was recommended with medications like Zofran and Phenergan. An NGT was placed for decompression relief. No SBO was noted. The patients and daughter indicated that they would prefer to focus on a comfort approach, especially with the CT scan suggesting uterine neoplasm with metastasis and carcinomatosis/ascites. This case was discussed with Dr. Cam who stated that there would be no plans for work up at this time due to instability. Palliative Care was consulted to discuss goals of care and address code status. -I met with the patient, her Remi, and daughter Estela at the bedside. -Patient is sitting upright in the hospital bed with symmetrical but deep diaphragmatic breathing, but appears relatively comfortable. -She remained obtunded during the entire visit. We discussed what the patients wishes would be if she was able to be awake and conversing. -The patients stated that they have been for 60 years and know that she would want to be comfortable. This all has occurred so abrupt in their eyes, that they would like to take it one step at a time, but not delay . They know she would not want to be kept alive and would not "want to live this way" -The patient has Morphine ordered 4 mg Q4 PRN and the family was feeling that the patient could receive more morphine overall. We discussed morphine, its half life, pharmacokinetics at end of life, ensuring their understanding that the more she receives, she will become even less interactive. I did order Morphine 2 mg Q6 scheduled with hold parameters for RR < 10bpm. patient also can have Morphine 1mg Q1 PRN if needed.Based on Morphine PRN needs, have a low threshold for starting a Morphine gtt. Patient also has a Fentanyl patch and Ativan ordered. -While I was in the room, her breathing did change as well, becoming more shall ow. -the patient did want to leave her IV Fluids in place for another day, but then, later in the day, decided they would like to stop the fluids. We discussed that IV fluids running at 75mL/hour could actually be detrimental as she is already having lower extremity edema and can cause further respiratory distress. -They also confirmed they would like to stop all blood draws, vital sign monitoring and all medications that do not focus on comfort. -The family would like to allow the NGT to remain in situ for comfort focus, knowing that it can be removed at any time. -We discussed oxygen at end of life and discussed its comfort focus at this time. OK for patient to continue to receive 2LNC by family. -We talked at length regarding end of life assessment including breathing changes, skin changes, facial grimacing, secretions, etc. -Family was very thankful and receptive of the conversation. They do not want her life prolonged. -I anticipate patients has hours to days of life expectancy and do not forsee the patient stabilizing for transition outside of the hospital. -Patient currently not a GIP candidate as her symptoms are managed. Comfort cart outside of the room. Gone from [employer] booklet provided. -PPS: 10% -Palliative Care will continue to follow and provide support and symptom management. (2) Atrial fibrillation with RVR: (3) Aspiration pneumonia due to gastric secretions: Laterality: unspecified laterality Lung location: unspecified part of lung Qualified Code(s): J69.0 - Pneumonitis due to inhalation of food and vomit (4) Carcinomatosis peritonei: (5) Metastatic cancer: (6) Dementia: Dementia behavioral disturbance: without behavioral disturbance Dementia type: unspecified type Qualified Code(s): F03.90 - Unspecified dementia without behavioral disturbance Supervising Physician Co-Signing Physician Notes Chart reviewed, patient seen and examined, patient's and daughter at bedside. Collaborated with AUSTIN Ronquillo PE: Patient unresponsive to voice or touch HEENT: Neck hyperextended, NG tube in [id number] fluid in suction canister Respirations: Unlabored CV: Regular rate, 1+ lower extremity edema Abdomen: Distended Neuro: Unresponsive Discussed at length with family benefit versus burden of IV fluids-they are agreeable to stop IV fluids. Focus is on comfort care and pain relief. Discussed end-of-life issues at length with family at bedside. Agree with above note, assessment and plan as per AUSTIN Ronquillo-will continue to follow and provide support to family as patient is nearing end-of-life. History of Present Illness Reason for Consultation: Goals of Care Requesting Physician: Dr. Stallings Attending Physician: Edmund Stallings History of Present Illness The patient is a 78-year-old female who presented to the hospital from [facility], where she is a permanent resident, with increased nausea and vomiting. The patient has an additional PMH that includes GI bleeding, anemia, g astritis, esophagitis, dementia, AF with RVR, CKD stage 3, OA, PNA, esophageal stenosis requiring dilitation, RLS, depression, hypothyroidism, and bladder prolapse. The patient was noted to have aspiration PNA based on CT results. CXR has been unremarkable. The patients fluid status has been difficult to manage with third spacing. A repeat abdominal CT scan was performed on 03/20 that showed abdominopelvic ascites with diffuse omental/peritoneal nodules suggestive of carcinomatosis; heterogeneity of uterine fundus/fundal endometrium; without bowel obstruction; moderate hernia; diffuse body wall edema. The patient started to have increased emesis and with GI consultation, a more conservative approach was recommended with medications like Zofran and Phenergan. An NGT was placed for decompression relief. No SBO was noted. The patients and daughter indicated that they would prefer to focus on a comfort approach, especially with the CT scan suggesting uterine neoplasm with metastasis and carcinomatosis/ascites. This case was discussed with Dr. Cam who stated that there would be no plans for work up at this time due to instability. Palliative Care was consulted to discuss goals of care and address code status. Please see A/P for further details. Thank you kindly for involving the palliative care team with this patient. We will continue to follow and offer support. With her advanced dementia Allergies Allergy/AdvReac Type Severity Reaction Status Date / Time melon Allergy Intermediate Cantelope Verified 03/17/19 15:23 - Rash caffeine Allergy Unknown ON CENTRE Verified 03/17/19 15:23 CREST LIST desipramine Allergy Unknown ON CENTRE Verified 03/17/19 15:23 CREST LIST ergotamine Allergy Unknown ON CENTRE Verified 03/17/19 15:23 CREST LIST nitrofurantoin Allergy Unknown ON CENTRE Verified 03/17/19 15:23 CREST LIST watermelon Allergy Unknown UNKNOWN Verified 03/17/19 15:23 Home Medications Home Medications Medication Instructions Recorded Confirmed Type acetaminophen [Tylenol] 650 mg PO Q6 PRN 11/16/18 03/17/19 History calcium carbonate 600 mg PO QAM 11/16/18 03/17/19 History cholecalciferol (vitamin D3) 2,000 unit PO QAM 11/16/18 03/17/19 History [Vitamin D3] cranberry extract 250 mg PO QAM 11/16/18 03/17/19 History escitalopram oxalate [Lexapro] 10 mg PO HS 11/16/18 03/17/19 History ferrous sulfate 325 mg PO QAM 11/16/18 03/17/19 History levothyroxine 112 mcg PO QAM 11/16/18 03/17/19 History lisinopril 5 mg PO QAM 11/16/18 03/17/19 History memantine [Namenda] 5 mg PO BID17 11/16/18 03/17/19 History olanzapine [Zyprexa] 5 mg PO QAM 11/16/18 03/17/19 History olanzapine [Zyprexa] 7.5 mg PO HS 11/16/18 03/17/19 History ondansetron HCl [Zofran] 4 mg PO Q6 PRN 11/16/18 03/17/19 History pantoprazole [Protonix] 40 mg PO AMHS 11/16/18 03/17/19 History polyethylene glycol 3350 17 g PO DAILY PRN 11/16/18 03/17/19 History promethazine [Phenergan] 25 mg [place] Q6H PRN 11/16/18 03/17/19 History ropinirole [Requip] 0.25 mg PO HS 11/16/18 03/17/19 History sennosides-docusate sodium [Senna 2 tab PO HS 11/16/18 03/17/19 History with Docusate Sodium] sucralfate [Carafate] 10 ml PO QID 11/16/18 03/17/19 History sulfamethoxazole-trimethoprim 1 tab PO QAM 11/16/18 03/17/19 History [Bactrim] sumatriptan succinate [Imitrex] 25 mg PO DAILY PRN 11/16/18 03/17/19 History multivitamin with minerals 1 tab PO QAM 12/02/18 03/17/19 History lorazepam [Ativan] 0.5 mg PO QID #8 tab 12/05/18 03/17/19 Rx oxycodone [Roxicodone] 5 mg PO Q4 PRN #3 tab 12/05/18 03/17/19 Rx amoxicillin 250 mg PO TID 03/17/19 03/17/19 History ascorbic acid (vitamin C) 500 mg PO DAILY 03/17/19 03/17/19 History famotidine 20 mg PO QAM 03/17/19 03/17/19 History fentanyl [Duragesic] 25 mcg TOPICAL Q72H 03/17/19 03/17/19 History Patient History Medical History Anemia Bladder infection Chronic kidney disease, stage 3a Chronic scarring of esophagus Cystocele (Chronic) Dementia (Chronic) Depression Female bladder prolapse (Resolved) Fracture of head of left humerus (Acute) Fracture of left olecranon process (Acute) Fracture, thoracic vertebra, compression (Acute) HTN (hypertension) (Chronic) Hypothyroidism Lumbar transverse process fracture (Acute) Palliative care encounter Rapidly progressive dementia (Acute) T12 compression fracture (Acute) Thoracic compression fracture (Acute) Upper GI bleed (Acute) Urinary tract infection (Resolved) UTI (lower urinary tract infection) (Acute) Surgical History S/P breast biopsy S/P hysterectomy S/P shoulder surgery Status post Rudy fundoplication Family History Other Family history non-contributory Social History Preferred Language: Nigerien Communication Ability: Impaired Restaurant Inspector Required: No Beliefs That Will Affect Care: None marital status: Current Living Situation: Long-Term Current Living Situation Comment: resides at [facility] current occupational status: retired Other Information That Helps Us Care for You: No Feels Safe at Home: Yes Safety Concerns: Feels Safe At This Time Smoking Status: Never smoker Do You Dip or Chew Tobacco: No ; Second Hand Exposure: No ; Hx Alcohol Use: No Hx Substance Use: No Review of Systems Review of Systems: Unobtainable due to reduced consciousness Physical Exam Constitutional: comfortable Respiratory: + labored breathing, + uses accessory muscles and symmetric chest movement Auscultation: + diminished lung sounds Cardiovascular: Extremities: + edema (+2 pitting) Gastrointestinal (Abdomen): Inspection/Auscultation: normal bowel sounds Percussion/Palpation: + ascites NGT Left Nares - coffee ground emesis Skin: no rashes, warm and dry + ecchymosis (left arm ) Psychiatric: obtunded Genitourinary: indwelling marks catheter in place PG Care Time/CCT Total # of Minutes Spent Total Time Spent with Patient: Total time spent is greater than 50% in coordination of care (as documented) at patient's floor/unit and/or counseling patient: 100 Prolonged Care Time Prolonged Care Time: Yes Total Prolonged Care Time: 60 Time Spent Midlevel Total time spent 100 minutes with > 50% of that time spent assessing the patient, discussing goals of care with the family and providing symptom management. Attending Spent 30 minutes in addition to the 100 minutes spent by SHOT MAN for total of 130 minutes with greater than 50% of the time spent at bedside discussing treatment options and goals of care as well as providing support to family at bedside. Critical Care Time Prolonged Care Time Prolonged Care Time: Yes Total Prolonged Care Time: 60 130
[2019-03-24] MEDS: MoRPHine SULFATE 4 MG/ML 1 ML CARP\\VIAL IV PRN (10:08)
[2019-03-24] MEDS: FAMOTIDINE 20 MG in SYRINGE 3 ML IV SCH ×2 (10:10→23:10)
[2019-03-24] MEDS: MoRPHine SULFATE 2 MG/ML CARP IV SCH ×3 (11:46→23:10)
--- NOTE | 2019-03-24 23:17 | Hospitalist Progress Note ---
Date of Service March 24, 2019 Assessment & Plan (1) Atrial fibrillation with RVR: - New onset - likely in the setting of dehydration from emesis -- On 03/18 in pre-op she developed A Fib RVR - HR ranging from 120-160 appears comfortable but communication is limited due to advanced dementia. Was discussed with anesthesiology who did utilize BB therapy but no longstanding improvement with HR. No response with increased fluids. Started Amio bolus/drip which resulted in rhythm conversion but subsequent bradycardia. 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 (2) Aspiration pneumonia due to gastric secretions: - CT (on admission) with patchy airspace consolidation in both lung bases - possibility of aspiration; CXR unremarkable -- Given the amount of emesis an aspiration component is possible - Repeat CXR - cardiomegaly with pulmonary vascular congestion and development of mild asymmetric interstitial opacities of R lung suggestive of pulm edema vs pneumonitis; R > L bibasilar opacities suggestive of pneumonia vs pneumonitis - surprisingly continues to have good saturations on RA -- Given the abdominal mass and carcinomatosis - question of pulmonary m etastasis? - ABG reveals a mild respiratory alkalosis - respiratory status improved through the day; Lactic is 4 - Will place very gentle hydration given lactic acid - again concern of maybe these opacities having relation to the carcinomatosis of the abdomen? -- Appears to be developing some third spacing; compressive atelectasis likely contributing to issues but due to dementia incentive spirometry would be difficult to perform - repeat lactic in AM and possible D/C fluids however may further complicate if unable to perform dilation as feeding may lead to further issues and if not eating will lead to further decline - strict NPO, appears to have difficult time handling secretions add Scopolamine patch - Continue Zosyn for time being as goal is comfort, will not erradicate infection 03/24: spoke with palliative care team whom had discussion with family. Patient continues to be comfort measures only No blood draws will be done, changes in morphine were made to help make the patient more comfortable. Patient already on fentanyl, scopolamine, ativan. Had phone call with later in the evening and updated him. I answered all of the questions he had. anticipate the patient passing away in the hospital as she is requiring multiple IV medications to keep her comfortable (3) Esophageal stenosis: - states this is her typical presentation when she needs her esophagus dilated and normally fixes the issue; H/O esophageal scarring - CT (admission) with moderate hiatal hernia that is fluid filled - emesis again today, 03/23 - CT on 03/20 - abdominopelvic ascities with diffuse omental/peritoneal nodules suggestive of carcinomatosis; heterogeneity of uterine fundus/fundal endometrium; no bowel obstruction; moderate hernia; diffuse body wall edema - GI following - no plans for EGD, transition to palliative approach (4) Vomiting: - This is likely in the setting of esophageal stricture/hiatal hernia/slow motility - Given initial CT findings likely is related to this; however given carcinomatosis could have a low grade obstruction - Symptomatic treatment with anti-emetics increase Zofran to 8mg IV and add Phenergan 25mg IV more vomiting on 03/22 and 03/23. This appears to have decreased on 03/24. 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 Reports H/O hysterectomy probably 40 years ago. Reviewed previous imaging which suggested possible partial hysterectomy as it appears there was some uterine material on scan however no mention of current scans findings - Long discussion with family and Dr. Betts - given these findings cancer is likely and she would not do well with the treatments this would entail - Discussed doing a pelvic ultrasound to further assess - will await stabilization from acute matters and ultimately could be completed as outpatient if necessary - Patient does have a GYNE she follows with - Oncology consulted - discussed with Dr. Felipe on admission - no current input at current time and can assess pending identification of mass no plans for work up, palliative care planned (6) Chronic kidney disease, stage 3a: - Currently with acute kidney injury superimposed - likely prerenal in setting of dehydration; Baseline appears 0.8-1.1 - Continue IVF and monitor; avoid nephrotoxins - Cr currently at 1.0 (7) Upper gastrointestinal bleed: - History of upper GI bleed; reporting coffee ground emesis and similar appearing stools x 4 days prior to admission - Hgb currently stable - baseline appears to be 8-10 - however recent labs are running higher then this (8) Hypothyroidism: - TSH is still slightly elevated but much improved from previous - normal T4 - given acute illness this may be mildly elevated on a reactive basis - and may be best to hold further adjustments at this time -- Given elevation unlikely contributing to A Fib (9) Dementia: resident of [facility] for 4 years due to dementia highly anxious, use Ativan for relief every 6 hours Subjective Patient was seen at bedside at 16:30. Patient appears to be resting comfortably. Family is at bedside this time. Prior to examining patient had discussion with palliative care who had discussion with family regards to comfort measures and change of pain medicine and discontinuing IVF, which I agreed with. Review of Systems Review of Systems: All systems reviewed & are unremarkable except as noted in HPI & below Physical Exam Physical Exam: Constitutional: + thin; no acute distress + not well nourished Eyes: PERRL, conjunctivae normal, anicteric sclerae ENMT: external ear and nose normal, oropharynx normal Neck: trachea midline, no thyromegaly Respiratory: no signs of respiratory distress; Auscultation: + crackles and + rhonchi; no wheezes Cardiovascular: Rate/Rhythm: regular rhythm and + tachycardic Heart Sounds: normal S1 and normal S2; no murmur Extremities: normal capillary refill; no edema Gastrointestinal (Abdomen): normal bowel sounds, soft, nontender, no hepatosplenomegaly Psychiatric: Obtunded+ not alert and + not oriented x 3 Lymphatic: no cervical or axillary lymphadenopathy, edema noted in lower extremity PG Care Time/CCT Total # of Minutes Spent Total Time Spent with Patient: Total time spent is greater than 50% in coordination of care (as documented) at patient's floor/unit and/or counseling patient: (1) Dementia Dementia behavioral disturbance: without behavioral disturbance Dementia type: unspecified type Qualified Code(s): F03.90 - Unspecified dementia without behavioral disturbance (2) Hypothyroidism Hypothyroidism type: acquired Qualified Code(s): E03.9 - Hypothyroidism, unspecified (3) Aspiration pneumonia due to gastric secretions Laterality: unspecified laterality Lung location: unspecified part of lung Qualified Code(s): J69.0 - Pneumonitis due to inhalation of food and vomit (4) Vomiting Nausea presence: unspecified Vomiting Intractability: unspecified Vomiting type: unspecified Qualified Code(s): R11.10 - Vomiting, unspecified
[2019-03-25] MEDS: MoRPHine SULFATE 2 MG/ML CARP IV SCH ×4 (05:52→23:22)
[2019-03-25] MEDS: MoRPHine SULFATE 4 MG/ML 1 ML CARP\\VIAL IV PRN ×2 (07:32→15:56)
[2019-03-25] MEDS: CHECK FENTANYL PATCH PLACEMENT SCH ×2 (08:00→15:52)
[2019-03-25] MEDS: CHECK SCOPOLAMINE PATCH PLACEMENT SCH ×2 (08:00→15:51)
[2019-03-25] MEDS: PIPERACILLIN/TAZOBACTAM 3.375 GM in DEXTROSE 5% 100 ML IV SCH (10:30)
[2019-03-25] MEDS: ATROPINE SULFATE 1% OP SOLN 2 ML BTL OP PRN ×2 (10:34→16:00)
[2019-03-25] MEDS: FAMOTIDINE 20 MG in SYRINGE 3 ML IV SCH (10:35)
--- NOTE | 2019-03-25 11:31 | Palliative Care Progress Note ---
Date of Service March 25, 2019 Assessment & Plan (1) Comfort measures only status: -Comfort measures only. -Patient is requiring IV morphine for comfort. -Today, patient has increased tracheal secretions-- discussed with patient's and daughter. We can do oral suctioning and swabs. -Atropine 1% oph soln 4 drops SL Q1h PRN secretions. -Scopolamine patch applied. -Patient is declining rapidly, not currently stable for discharge back to SNF. Will follow up on Thursday. (2) Atrial fibrillation with RVR: (3) Aspiration pneumonia due to gastric secretions: (4) Carcinomatosis peritonei: (5) Metastatic cancer: (6) Dementia: Subjective Patient was awake with open eyes, but mostly unresponsive. No distress. Daughter Estela and Remi "Vinh" at bedside. Dr. Stallings and I visited together. Review of Systems Review of Systems: Unobtainable due to cognitive status Physical Exam Constitutional: comfortable Respiratory: + labored breathing and symmetric chest movement Auscultation: + diminished lung sounds Cardiovascular: Extremities: + edema (+2 pitting) Gastrointestinal (Abdomen): Inspection/Auscultation: normal bowel sounds Skin: no rashes, warm and dry Neurologic: + obtunded (eyes open, but mostly unresponsive) Time Spent Midlevel 35 minutes with >50% of the time spent at bedside with patient and family discussing comfort measures only. (1) Aspiration pneumonia due to gastric secretions Laterality: unspecified laterality Lung location: unspecified part of lung Qualified Code(s): J69.0 - Pneumonitis due to inhalation of food and vomit (2) Dementia Dementia behavioral disturbance: without behavioral disturbance Dementia type: unspecified type Qualified Code(s): F03.90 - Unspecified dementia without behavioral disturbance
--- NOTE | 2019-03-25 22:51 | Hospitalist Progress Note ---
Date of Service March 25, 2019 Assessment & Plan (1) Atrial fibrillation with RVR: - New onset - likely in the setting of dehydration from emesis -- On 03/18 in pre-op she developed A Fib RVR - HR ranging from 120-160 appears comfortable but communication is limited due to advanced dementia. Was discussed with anesthesiology who did utilize BB therapy but no longstanding improvement with HR. No response with increased fluids. Started Amio bolus/drip which resulted in rhythm conversion but subsequent bradycardia. 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 This was discussed with palliative care team that we will suction as needed to remvoe any secretions. Added atropine. D/Andi IV antibiotics as family agreed to this. Will continue to monitor. (2) Aspiration pneumonia due to gastric secretions: - CT (on admission) with patchy airspace consolidation in both lung bases - possibility of aspiration; CXR unremarkable -- Given the amount of emesis an aspiration component is possible - Repeat CXR - cardiomegaly with pulmonary vascular congestion and development of mild asymmetric interstitial opacities of R lung suggestive of pulm edema vs pneumonitis; R > L bibasilar opacities suggestive of pneumonia vs pneumonitis - surprisingly continues to have good saturations on RA -- Given the abdominal mass and carcinomatosis - question of pulmonary metastasis? - ABG reveals a mild respiratory alkalosis - respiratory status improved through the day; Lactic is 4 - Will place very gentle hydration given lactic acid - again concern of maybe these opacities having relation to the carcinomatosis of the abdomen? -- Appears to be developing some third spacing; compressive atelectasis likely contributing to issues but due to dementia incentive spirometry would be difficult to perform - repeat lactic in AM and possible D/C fluids however may further complicate if unable to perform dilation as feeding may lead to further issues and if not eating will lead to further decline - strict NPO, appears to have difficult time handling secretions add Scopolamine patch - Continue Zosyn for time being as goal is comfort, will not erradicate infection 03/24: spoke with palliative care team whom had discussion with family. Patient continues to be comfort measures only No blood draws will be done, changes in morphine were made to help make the patient more comfortable. Patient already on fentanyl, scopolamine, ativan. Had phone call with later in the evening and updated him. I answered all of the questions he had. anticipate the patient passing away in the hospital as she is requiring multiple IV medications to keep her comfortable (3) Esophageal stenosis: - states this is her typical presentation when she needs her esophagus dilated and normally fixes the issue; H/O esophageal scarring - CT (admission) with moderate hiatal hernia that is fluid filled - emesis again today, 03/23 - CT on 03/20 - abdominopelvic ascities with diffuse omental/peritoneal nodules suggestive of carcinomatosis; heterogeneity of uterine fundus/fundal endometrium; no bowel obstruction; moderate hernia; diffuse body wall edema - GI following - no plans for EGD, transition to palliative approach (4) Vomiting: - This is likely in the setting of esophageal stricture/hiatal hernia/slow motility - Given initial CT findings likely is related to this; however given carcinomatosis could have a low grade obstruction - Symptomatic treatment with anti-emetics increase Zofran to 8mg IV and add Phenergan 25mg IV more vomiting on 03/22 and 03/23. 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 Reports H/O hysterectomy probably 40 years ago. Reviewed previous imaging which suggested possible partial hysterectomy as it appears there was some uterine material on scan ho wever no mention of current scans findings - Long discussion with family and Dr. Betts - given these findings cancer is likely and she would not do well with the treatments this would entail - Discussed doing a pelvic ultrasound to further assess - will await stabilization from acute matters and ultimately could be completed as outpatient if necessary - Patient does have a GYNE she follows with - Oncology consulted - discussed with Dr. Felipe on admission - no current input at current time and can assess pending identification of mass no plans for work up, palliative care planned (6) Chronic kidney disease, stage 3a: - Currently with acute kidney injury superimposed - likely prerenal in setting of dehydration; Baseline appears 0.8-1.1 - Continue IVF and monitor; avoid nephrotoxins - Cr currently at 1.0 (7) Upper gastrointestinal bleed: - History of upper GI bleed; reporting coffee ground emesis and similar appearing stools x 4 days prior to admission - Hgb currently stable - baseline appears to be 8-10 - however recent labs are running higher then this (8) Hypothyroidism: - TSH is still slightly elevated but much improved from previous - normal T4 - given acute illness this may be mildly elevated on a reactive basis - and may be best to hold further adjustments at this time -- Given elevation unlikely contributing to A Fib (9) Dementia: resident of [facility] for 4 years due to dementia highly anxious, use Ativan for relief every 6 hours Subjective Patient appears to be resting comfortably. Family at bedside, questions and concerns were answered in the presence of Palliative care team. Review of Systems Review of Systems: Unobtainable due to mental health condition Physical Exam Physical Exam: Constitutional: + thin; no acute distress + not well nourished Respiratory: no signs of respiratory distress; Auscultation: + crackles and + rhonchi; no wheezes Cardiovascular: Rate/Rhythm: regular rhythm Gastrointestinal (Abdomen): normal bowel sounds, soft, nontender, no hepatosplenomegaly Psychiatric: Obtunded+ not alert and + not oriented x 3 PG Care Time/CCT Total # of Minutes Spent Total Time Spent with Patient: Total time spent is greater than 50% in coordination of care (as documented) at patient's floor/unit and/or counseling patient: (1) Dementia Dementia behavioral disturbance: without behavioral disturbance Dementia type: unspecified type Qualified Code(s): F03.90 - Unspecified dementia without behavioral disturbance (2) Hypothyroidism Hypothyroidism type: acquired Qualified Code(s): E03.9 - Hypothyroidism, unspecified (3) Aspiration pneumonia due to gastric secretions Laterality: unspecified laterality Lung location: unspecified part of lung Qualified Code(s): J69.0 - Pneumonitis due to inhalation of food and vomit (4) Vomiting Nausea presence: unspecified Vomiting Intractability: unspecified Vomiting type: unspecified Qualified Code(s): R11.10 - Vomiting, unspecified
[2019-03-26] MEDS: CHECK SCOPOLAMINE PATCH PLACEMENT SCH ×4 (00:12→23:36)
[2019-03-26] MEDS: CHECK FENTANYL PATCH PLACEMENT SCH ×4 (00:18→23:38)
[2019-03-26] MEDS: MoRPHine SULFATE 2 MG/ML CARP IV SCH ×4 (05:51→23:29)
[2019-03-26] MEDS: SCOPOLAMINE 1.5 MG TDSY TD SCH (10:03)
[2019-03-26] MEDS: [UNRECOGNIZED DRUG - OTHER] SCH (10:04)
[2019-03-26] MEDS: fentaNYL 50 MCG/HR TDSY TD SCH (10:04)
[2019-03-26] MEDS: MoRPHine SULFATE 4 MG/ML 1 ML CARP\\VIAL IV PRN ×3 (15:42→21:04)
--- NOTE | 2019-03-26 20:07 | Hospitalist Progress Note ---
Date of Service March 26, 2019 Assessment & Plan (1) Atrial fibrillation with RVR: - New onset - likely in the setting of dehydration from emesis -- On 03/18 in pre-op she developed A Fib RVR - HR ranging from 120-160 appears comfortable but communication is limited due to advanced dementia. Was discussed with anesthesiology who did utilize BB therapy but no longstanding improvement with HR. No response with increased fluids. Started Amio bolus/drip which resulted in rhythm conversion but subsequent bradycardia. 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 This was discussed with palliative care team that we will suction as needed to remvoe any secretions. Added atropine. D/Andi IV antibiotics as family agreed to this. Will continue to monitor. On 03/26, no change in plan. Currently on comfort measures. (2) Aspiration pneumonia due to gastric secretions: - CT (on admission) with patchy airspace consolidation in both lung bases - possibility of aspiration; CXR unremarkable -- Given the amount of emesis an aspiration component is possible - Repeat CXR - cardiomegaly with pulmonary vascular congestion and development of mild asymmetric interstitial opacities of R lung suggestive of pulm edema vs pneumonitis; R > L bibasilar opacities suggestive of pneumonia vs pneumonitis - surprisingly continues to have good saturations on RA -- Given the abdominal mass and carcinomatosis - question of pulmonary metastasis? - ABG reveals a mild respiratory alkalosis - respiratory status improved through the day; Lactic is 4 - Will place very gentle hydration given lactic acid - again concern of maybe these opacities having relation to the carcinomatosis of the abdomen? -- Appears to be developing some third spacing; compressive atelectasis likely contributing to issues but due to dementia incentive spirometry would be difficult to perform - repeat lactic in AM and possible D/C fluids however may further complicate if unable to perform dilation as feeding may lead to further issues and if not eating will lead to further decline - strict NPO, appears to have difficult time handling secretions add Scopolamine patch - Continue Zosyn for time being as goal is comfort, will not erradicate infection 03/24: spoke with palliative care team whom had discussion with family. Patient continues to be comfort measures only No blood draws will be done, changes in morphine were made to help make the patient more comfortable. Patient already on fentanyl, scopolamine, ativan. Had phone call with later in the evening and updated him. I answered all of the questions he had. anticipate the patient passing away in the hospital as she is requiring multiple IV medications to keep her comfortable (3) Esophageal stenosis: - states this is her typical presentation when she needs her esophagus dilated and normally fixes the issue; H/O esophageal scarring - CT (admission) with moderate hiatal hernia that is fluid filled - emesis again today, 03/23 - CT on 03/20 - abdominopelvic ascities with diffuse omental/peritoneal nodules suggestive of carcinomatosis; heterogeneity of uterine fundus/fundal endometrium; no bowel obstruction; moderate hernia; diffuse body wall edema - GI following - no plans for EGD, transition to palliative approach (4) Vomiting: - This is likely in the setting of esophageal stricture/hiatal hernia/slow motility - Given initial CT findings likely is related to this; however given carcinomatosis could have a low grade obstruction - Symptomatic treatment with anti-emetics increase Zofran to 8mg IV and add Phenergan 25mg IV more vomiting on 03/22 and 03/23. 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 Reports H/O hysterectomy probably 40 years ago. Reviewed previous imaging which suggested possible partial hysterectomy as it appears there was some uterine material on scan however no mention of current scans findings - Long discussion with family and Dr. Betts - given these findings cancer is likely and she would not do well with the treatments this would entail - Discussed doing a pelvic ultrasound to further assess - will await stabilization from acute matters and ultimately could be completed as outpatient if necessary - Patient does have a GYNE she follows with - Oncology consulted - discussed with Dr. Felipe on admission - no current input at current time and can assess pending identification of mass no plans for work up, palliative care planned (6) Chronic kidney disease, stage 3a: - Currently with acute kidney injury superimposed - likely prerenal in setting of dehydration; Baseline appears 0.8-1.1 - Continue IVF and monitor; avoid nephrotoxins - Cr currently at 1.0 (7) Upper gastrointestinal bleed: - History of upper GI bleed; reporting coffee ground emesis and similar appearing stools x 4 days prior to admission - Hgb currently stable - baseline appears to be 8-10 - however recent labs are running higher then this (8) Hypothyroidism: - TSH is still slightly elevated but much improved from previous - normal T4 - given acute illness this may be mildly elevated on a reactive basis - and may be best to hold further adjustments at this time -- Given elevation unlikely contributing to A Fib (9) Dementia: resident of [facility] for 4 years due to dementia highly anxious, use Ativan for relief every 6 hours Subjective 78 yo female lying in bed in no distress. Does not verbalize nay complaints. Review of Systems Review of Systems: Unobtainable due to reduced consciousness Physical Exam Physical Exam: Constitutional: + thin; no acute distress + not well nourished Respiratory: no signs of respiratory distress; Auscultation: + crackles and + rhonchi; no wheezes Cardiovascular: Rate/Rhythm: regular rhythm Gastrointestinal (Abdomen): normal bowel sounds, soft, nontender, no hepatosplenomegaly Psychiatric: Obtunded+ not alert and + not oriented x 3 PG Care Time/CCT Total # of Minutes Spent Total Time Spent with Patient: Total time spent is greater than 50% in coordination of care (as documented) at patient's floor/unit and/or counseling patient: (1) Dementia Dementia behavioral disturbance: without behavioral disturbance Dementia type: unspecified type Qualified Code(s): F03.90 - Unspecified dementia without behavioral disturbance (2) Hypothyroidism Hypothyroidism type: acquired Qualified Code(s): E03.9 - Hypothyroidism, unspecified (3) Aspiration pneumonia due to gastric secretions Laterality: unspecified laterality Lung location: unspecified part of lung Qualified Code(s): J69.0 - Pneumonitis due to inhalation of food and vomit (4) Vomiting Nausea presence: unspecified Vomiting Intractability: unspecified Vomiting type: unspecified Qualified Code(s): R11.10 - Vomiting, unspecified
[2019-03-27] MEDS: MoRPHine SULFATE 4 MG/ML 1 ML CARP\\VIAL IV PRN ×4 (01:44→21:16)
[2019-03-27] MEDS ORDERED: MICONAZOLE NITRATE POWDER 43 GM EXT PRN (05:17)
[2019-03-27] MEDS: MoRPHine SULFATE 2 MG/ML CARP IV SCH ×4 (05:20→23:39)
[2019-03-27] MEDS: LORazepam 1 MG/2 ML VIAL IV PRN ×2 (07:50→19:29)
[2019-03-27] MEDS: CHECK SCOPOLAMINE PATCH PLACEMENT SCH ×2 (07:51→15:41)
[2019-03-27] MEDS: CHECK FENTANYL PATCH PLACEMENT SCH ×2 (07:51→15:41)
--- NOTE | 2019-03-27 23:36 | Hospitalist Progress Note ---
Date of Service March 27, 2019 Assessment & Plan (1) Atrial fibrillation with RVR: - New onset - likely in the setting of dehydration from emesis -- On 03/18 in pre-op she developed A Fib RVR - HR ranging from 120-160 appears comfortable but communication is limited due to advanced dementia. Was discussed with anesthesiology who did utilize BB therapy but no longstanding improvement with HR. No response with increased fluids. Started Amio bolus/drip which resulted in rhythm conversion but subsequent bradycardia. 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 This was discussed with palliative care team that we will suction as needed to remvoe any secretions. Added atropine. D/Andi IV antibiotics as family agreed to this. Will continue to monitor. On 03/27, no change in plan. Currently on comfort measures. (2) Aspiration pneumonia due to gastric secretions: - CT (on admission) with patchy airspace consolidation in both lung bases - possibility of aspiration; CXR unremarkable -- Given the amount of emesis an aspiration component is possible - Repeat CXR - cardiomegaly with pulmonary vascular congestion and development of mild asymmetric interstitial opacities of R lung suggestive of pulm edema vs pneumonitis; R > L bibasilar opacities suggestive of pneumonia vs pneumonitis - surprisingly continues to have good saturations on RA -- Given the abdominal mass and carcinomatosis - question of pulmonary metastasis? - ABG reveals a mild respiratory alkalosis - respiratory status improved through the day; Lactic is 4 - Will place very gentle hydration given lactic acid - again concern of maybe these opacities having relation to the carcinomatosis of the abdomen? -- Appears to be developing some third spacing; compressive atelectasis likely contributing to issues but due to dementia incentive spirometry would be difficult to perform - repeat lactic in AM and possible D/C fluids however may further complicate if unable to perform dilation as feeding may lead to further issues and if not eating will lead to further decline - strict NPO, appears to have difficult time handling secretions add Scopolamine patch - Continue Zosyn for time being as goal is comfort, will not erradicate infection 03/24: spoke with palliative care team whom had discussion with family. Patient continues to be comfort measures only No blood draws will be done, changes in morphine were made to help make the patient more comfortable. Patient already on fentanyl, scopolamine, ativan. Had phone call with later in the evening and updated him. I answered all of the questions he had. anticipate the patient passing away in the hospital as she is requiring multiple IV medications to keep her comfortable (3) Esophageal stenosis: - states this is her typical presentation when she needs her esophagus dilated and normally fixes the issue; H/O esophageal scarring - CT (admission) with moderate hiatal hernia that is fluid filled - emesis again today, 03/23 - CT on 03/20 - abdominopelvic ascities with diffuse omental/peritoneal nodules suggestive of carcinomatosis; heterogeneity of uterine fundus/fundal endometrium; no bowel obstruction; moderate hernia; diffuse body wall edema - GI following - no plans for EGD, transition to palliative approach (4) Vomiting: - This is likely in the setting of esophageal stricture/hiatal hernia/slow motility - Given initial CT findings likely is related to this; however given carcinomatosis could have a low grade obstruction - Symptomatic treatment with anti-emetics increase Zofran to 8mg IV and add Phenergan 25mg IV more vomiting on 03/22 and 03/23. 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 Reports H/O hysterectomy probably 40 years ago. Reviewed previous imaging which suggested possible partial hysterectomy as it appears there was some uterine material on scan however no mention of current scans findings - Long discussion with family and Dr. Betts - given these findings cancer is likely and she would not do well with the treatments this would entail - Discussed doing a pelvic ultrasound to further assess - will await stabilization from acute matters and ultimately could be completed as outpatient if necessary - Patient does have a GYNE she follows with - Oncology consulted - discussed with Dr. Felipe on admission - no current input at current time and can assess pending identification of mass no plans for work up, palliative care planned (6) Chronic kidney disease, stage 3a: - Currently with acute kidney injury superimposed - likely prerenal in setting of dehydration; Baseline appears 0.8-1.1 - Continue IVF and monitor; avoid nephrotoxins - Cr currently at 1.0 (7) Upper gastrointestinal bleed: - History of upper GI bleed; reporting coffee ground emesis and similar appearing stools x 4 days prior to admission - Hgb currently stable - baseline appears to be 8-10 - however recent labs are running higher then this (8) Hypothyroidism: - TSH is still slightly elevated but much improved from previous - normal T4 - given acute illness this may be mildly elevated on a reactive basis - and may be best to hold further adjustments at this time -- Given elevation unlikely contributing to A Fib (9) Dementia: resident of [facility] for 4 years due to dementia highly anxious, use Ativan for relief every 6 hours Subjective Patient resting comfortably. Does not provide much history. Review of Systems Review of Systems: All systems reviewed & are unremarkable except as noted in HPI & below Physical Exam Physical Exam: Constitutional: + thin; no acute distress + not well nourished Respiratory: no signs of respiratory distress; Auscultation: + crackles and + rhonchi; no wheezes Cardiovascular: Rate/Rhythm: regular rhythm Gastrointestinal (Abdomen): normal bowel sounds, soft, nontender, no hepato splenomegaly Psychiatric: Obtunded+ not alert and + not oriented x 3 PG Care Time/CCT Total # of Minutes Spent Total Time Spent with Patient: Total time spent is greater than 50% in coordination of care (as documented) at patient's floor/unit and/or counseling patient: (1) Dementia Dementia behavioral disturbance: without behavioral disturbance Dementia type: unspecified type Qualified Code(s): F03.90 - Unspecified dementia without behavioral disturbance (2) Hypothyroidism Hypothyroidism type: acquired Qualified Code(s): E03.9 - Hypothyroidism, unspecified (3) Aspiration pneumonia due to gastric secretions Laterality: unspecified laterality Lung location: unspecified part of lung Qualified Code(s): J69.0 - Pneumonitis due to inhalation of food and vomit (4) Vomiting Nausea presence: unspecified Vomiting Intractability: unspecified Vomiting type: unspecified Qualified Code(s): R11.10 - Vomiting, unspecified
[2019-03-28] MEDS: CHECK SCOPOLAMINE PATCH PLACEMENT SCH ×3 (00:18→16:21)
[2019-03-28] MEDS: CHECK FENTANYL PATCH PLACEMENT SCH ×3 (00:19→16:21)
[2019-03-28] MEDS: MoRPHine SULFATE 4 MG/ML 1 ML CARP\\VIAL IV PRN ×2 (03:46→07:48)
[2019-03-28] MEDS: MoRPHine SULFATE 2 MG/ML CARP IV SCH ×2 (06:16→10:38)
[2019-03-28] MEDS: LORazepam 1 MG/2 ML VIAL IV PRN ×2 (07:15→23:51)
[2019-03-28] MEDS: ATROPINE SULFATE 1% OP SOLN 2 ML BTL SL PRN (07:37)
--- NOTE | 2019-03-28 10:02 | Palliative Care Progress Note ---
Date of Service March 28, 2019 Assessment & Plan (1) Comfort measures only status: -Comfort measures only. Pt daughter and at the bedside. -Patient did not open eyes on verbal command. Pt withdrew her right foot when I touched her skin. -Patient is requiring IV morphine for comfort, currently scheduled Q6, with additional Q1 PRN. She required FIVE doses of PRN over the past 24 hours, for a total of NINE doses including the scheduled and 18 mg. We discussed starting a Morphine drip for continued scheduled comfort, family will decide within the next 24 hours if they would like this moving forward. -Nursing removed NGT per family wishes and after discussion, increased secreti ons surrounding tube - appears more comfortable without it in place. -Secretions improved. Equal, unlabored respirations. -Urine output decrease and dark yellow with sediment. -We can do oral suctioning and swabs for comfort. -Mottling noted on bilateral knees. No mottling on feet. -Patient not stable for discharge back to SNF. Not a GIP candidate. -Anticipate life expectancy hours to a day or two. -Continued support for family given. -PPS: 10% (2) Atrial fibrillation with RVR: (3) Aspiration pneumonia due to gastric secretions: (4) Carcinomatosis peritonei: (5) Metastatic cancer: (6) Dementia: Subjective Comfort measures only. Pt daughter and at the bedside. Patient did not open eyes on verbal command. Pt withdrew her right foot when I touched her skin. Pt in no apparent distress NGT removed this AM. Please see A/P for further details. Review of Systems Review of Systems: Unobtainable due to reduced consciousness Physical Exam Constitutional: comfortable Respiratory: symmetric chest movement Auscultation: + diminished lung sounds Cardiovascular: RRR, no murmur, no edema Gastrointestinal (Abdomen): Inspection/Auscultation: normal bowel sounds Percussion/Palpation: + ascites Skin: no rashes, warm and dry + ecchymosis (left arm ) Genitourinary: marks in situ. dark yellow urine output with sediment Supervising Physician Co-Signing Physician Notes Chart reviewed, patient seen and examined, patient's and daughter at bedside. Collaborated with AUSTIN Ronquillo PE: Patient did open her eyes briefly in response to touch, appears comfortable- currently on a morphine drip HEENT: Opens eyes briefly, NG tube removed Respirations: Unlabored CV: Regular rate, 1+ lower extremity edema Abdomen: Distended Neuro: Minimally responsive Discussed end-of-life issues with family at bedside. Agree with above note, assessment and plan as per AUSTIN Ronquillo-will continue to follow and provide support to family as patient is nearing end-of-life. PG Care Time/CCT Total # of Minutes Spent Total Time Spent with Patient: Total time spent is greater than 50% in coordination of care (as documented) at patient's floor/unit and/or counseling patient: 35 Time Spent Midlevel Total time spent 35 minutes with > 50% of that time spent assessing the patient, discussing and addressing symptom management with family. (1) Dementia Dementia behavioral disturbance: without behavioral disturbance Dementia type: unspecified type Qualified Code(s): F03.90 - Unspecified dementia without behavioral disturbance (2) Aspiration pneumonia due to gastric secretions Laterality: unspecified laterality Lung location: unspecified part of lung Qualified Code(s): J69.0 - Pneumonitis due to inhalation of food and vomit
[2019-03-28] MEDS: MoRPHine SULF/NSS 250 MG/250 ML BTL IV SCH (13:34)
--- NOTE | 2019-03-28 17:47 | Hospitalist Progress Note ---
Date of Service March 28, 2019 Assessment & Plan (1) Comfort measures only status: Now on morphine drip Family would prefer not to reinsert NG for vomiting, will add ondansetron and patient can utilize Phenergan as well Palliative consulted Previous to comfort measures the below problems were being addressed: (2) Atrial fibrillation with RVR: - New onset - likely in the setting of dehydration from emesis -- On 03/18 in pre-op she developed A Fib RVR - HR ranging from 120-160 appears comfortable but communication is limited due to advanced dementia. Was discussed with anesthesiology who did utilize BB therapy but no longstanding improvement with HR. No response with increased fluids. Started Amio bolus/drip which resulted in rhythm conversion but subsequent bradycardia. 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 (3) Aspiration pneumonia due to gastric secretions: - CT (on admission) with patchy airspace consolidation in both lung bases - possibility of aspiration; CXR unremarkable -- Given the amount of emesis an aspiration component is possible - Repeat CXR - cardiomegaly with pulmonary vascular congestion and development of mild asymmetric interstitial opacities of R lung suggestive of pulm edema vs pneumonitis; R > L bibasilar opacities suggestive of pneumonia vs pneumonitis - surprisingly continues to have good saturations on RA -- Given the abdominal mass and carcinomatosis - question of pulmonary metastasis? - ABG revealed a mild respiratory alkalosis - respiratory status improved through the day; Lactic is 4 - Had received Zosyn until comfort measures (4) Esophageal stenosis: - states this is her typical presentation when she needs her esophagus dilated and normally fixes the issue; H/O esophageal scarring - CT (admission) with moderate hiatal hernia that is fluid filled - emesis again today, 03/23 - CT on 03/20 - abdominopelvic ascities with diffuse omental/peritoneal nodules suggestive of carcinomatosis; heterogeneity of uterine fundus/fundal endometrium; no bowel obstruction; moderate hernia; diffuse body wall edema - GI consulted (5) Vomiting: - This is likely in the setting of esophageal stricture/hiatal hernia/slow motility - Given initial CT findings likely is related to this; however given carcinomatosis could have a low grade obstruction - Symptomatic treatment with anti-emetics (6) Metastatic cancer: - 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 Reports H/O hysterectomy probably 40 years ago. Reviewed previous imaging which suggested possible partial hysterectomy as it appears there was some uterine material on scan however no mention of current scans findings - Long discussion with family and Dr. Betts - given these findings cancer is likely and she would not do well with the treatments this would entail - Discussed doing a pelvic ultrasound to further assess - will await stabilization from acute matters and ultimately could be completed as outpatient if necessary - Patient does have a GYNE she follows with - Oncology consulted - discussed with Dr. Felipe on admission - no current input at current time and can assess pending identification of mass (7) Chronic kidney disease, stage 3a: - Currently with acute kidney injury superimposed - likely prerenal in setting of dehydration; Baseline appears 0.8-1.1 (8) Upper gastrointestinal bleed: - History of upper GI bleed; reporting coffee ground emesis and similar appearing stools x 4 days prior to admission - Hgb was stable - baseline appears to be 8-10 (9) Hypothyroidism: - TSH is still slightly elevated but much improved from previous - normal T4 - given acute illness this may be mildly elevated on a reactive basis (10) Dementia: resident of [facility] for 4 years due to dementia Supervising Physician Co-Signing Physician Notes I supervised Reina Rivera NP on this patient's care. I examined the patient today independently of her. I discussed the plan of care with her with the plan being as written in her note except for any following changes/exceptions: None. Black emesis. On comfort care. Family does not want a new NG tube placed. Continue with morphine gtt. Subjective Ms. Hunt appears comfortable. She was sleeping with family at bedside at the time of my assessment in the morning. Later in the afternoon nursing called to say she had vomited brown emesis. I discussed with her family and they do not want her to have an NG. Physical Exam Constitutional: comfortable Respiratory: normal respiratory effort; no respiratory distress and no labored breathing clear to ausculation anteriorly Cardiovascular: RRR, no murmur, no edema Gastrointestinal (Abdomen): Inspection/Auscultation: abdomen normal to inspection; abdomen not distended Percussion/Palpation: abdomen soft Musculoskeletal: no cyanosis or clubbing, extremities motor strength 5/5 Skin: + pallor Neurologic: does not awaken during exam PG Care Time/CCT Total # of Minutes Spent Total Time Spent with Patient: Total time spent is greater than 50% in coordination of care (as documented) at patient's floor/unit and/or counseling patient: (1) Dementia Dementia behavioral disturbance: without behavioral disturbance Dementia type: unspecified type Qualified Code(s): F03.90 - Unspecified dementia without behavioral disturbance (2) Hypothyroidism Hypothyroidism type: acquired Qualified Code(s): E03.9 - Hypothyroidism, unspecified (3) Aspiration pneumonia due to gastric secretions Laterality: unspecified laterality Lung location: unspecified part of lung Qualified Code(s): J69.0 - Pneumonitis due to inhalation of food and vomit (4) Vomiting Nausea presence: unspecified Vomiting Intractability: unspecified Vomiting type: unspecified Qualified Code(s): R11.10 - Vomiting, unspecified
[2019-03-28] MEDS: ONDANSETRON INJ 2 MG/ML 2 ML VIAL IV PRN (23:52)
[2019-03-29] MEDS: CHECK FENTANYL PATCH PLACEMENT SCH ×3 (01:25→16:44)
[2019-03-29] MEDS: CHECK SCOPOLAMINE PATCH PLACEMENT SCH ×3 (01:25→16:44)
[2019-03-29] MEDS: PROMETHAZINE HCL 25 MG in SODIUM CHLORIDE 0.9% 50 ML IV PRN ×2 (04:17→10:36)
[2019-03-29] MEDS: LORazepam 1 MG/2 ML VIAL IV PRN ×2 (05:25→07:52)
[2019-03-29] MEDS: ONDANSETRON INJ 2 MG/ML 2 ML VIAL IV PRN ×2 (08:58→13:23)
[2019-03-29] MEDS: fentaNYL 50 MCG/HR TDSY TD SCH (10:37)
[2019-03-29] MEDS: [UNRECOGNIZED DRUG - OTHER] SCH (10:37)
[2019-03-29] MEDS: SCOPOLAMINE 1.5 MG TDSY TD SCH (10:37)
--- NOTE | 2019-03-29 11:54 | Palliative Care Progress Note ---
Date of Service March 29, 2019 Assessment & Plan (1) Comfort measures only status: -Comfort measures continue. Patient is obtunded and comfortable on continuous morphine infusion at 5mg/hr. -Daughter and at bedside. They have no questions. -Patient is not stable for transfer out of hospital. Expected to in hours to maybe days. (2) Atrial fibrillation with RVR: (3) Aspiration pneumonia due to gastric secretions: (4) Carcinomatosis peritonei: (5) Metastatic cancer: (6) Dementia: Subjective Patient is obtunded, appears comfortable on morphine infusion. Daughter and at bedside. Review of Systems Review of Systems: Unobtainable due to reduced consciousness Physical Exam Constitutional: comfortable Respiratory: + labored breathing and symmetric chest movement Auscultation: + diminished lung sounds Cardiovascular: Extremities: + edema (+2 pitting) Gastrointestinal (Abdomen): Inspection/Auscultation: normal bowel sounds Skin: + mottling Neurologic: + obtunded (eyes open, but mostly unresponsive) Supervising Physician Co-Signing Physician Notes Patient seen briefly-family did not want patient disturbed. Patient's and daughter at bedside. PE: Patient now propped upright in bed Respirations: Increased work of breathing CV: Regular rate Neuro: Obtunded Agree with above note, assessment and plan as per AUSTIN Braxton-patient nearing end-of-life, on comfort care Time Spent Midlevel 35 minutes with >50% of the time spent at bedside with patient and family discussing comfort measures and end of life care. (1) Dementia Dementia behavioral disturbance: without behavioral disturbance Dementia type: unspecified type Qualified Code(s): F03.90 - Unspecified dementia without behavioral disturbance (2) Aspiration pneumonia due to gastric secretions Laterality: unspecified laterality Lung location: unspecified part of lung Qualified Code(s): J69.0 - Pneumonitis due to inhalation of food and vomit
[2019-03-29] MEDS: ATROPINE SULFATE 1% OP SOLN 2 ML BTL SL PRN ×2 (16:46→22:30)
--- NOTE | 2019-03-29 17:07 | Hospitalist Progress Note ---
Date of Service March 29, 2019 Assessment & Plan (1) Comfort measures only status: Continue morphine drip Family would prefer not to reinsert NG for vomiting, continue ondansetron and Phenergan Palliative consulted Previous to comfort measures the below problems were being addressed: (2) Atrial fibrillation with RVR: - New onset - likely in the setting of dehydration from emesis -- On 03/18 in pre-op she developed A Fib RVR - HR ranging from 120-160 appears comfortable but communication is limited due to advanced dementia. Was discussed with anesthesiology who did utilize BB therapy but no longstanding improvement with HR. No response with increased fluids. Started Amio bolus/drip which resulted in rhythm conversion but subsequent bradycardia. 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 (3) Aspiration pneumonia due to gastric secretions: - CT (on admission) with patchy airspace consolidation in both lung bases - possibility of aspiration; CXR unremarkable -- Given the amount of emesis an aspiration component is possible - Repeat CXR - cardiomegaly with pulmonary vascular congestion and development of mild asymmetric interstitial opacities of R lung suggestive of pulm edema vs pneumonitis; R > L bibasilar opacities suggestive of pneumonia vs pneumonitis - surprisingly continues to have good saturations on RA -- Given the abdominal mass and carcinomatosis - question of pulmonary metastasis? - ABG revealed a mild respiratory alkalosis - respiratory status improved through the day; Lactic is 4 - Had received Zosyn until comfort measures (4) Esophageal stenosis: - states this is her typical presentation when she needs her esophagus dilated and normally fixes the issue; H/O esophageal scarring - CT (admission) with moderate hiatal hernia that is fluid filled - emesis again today, 03/23 - CT on 03/20 - abdominopelvic ascities with diffuse omental/peritoneal nodules suggestive of carcinomatosis; heterogeneity of uterine fundus/fundal endometrium; no bowel obstruction; moderate hernia; diffuse body wall edema - GI consulted (5) Vomiting: - This is likely in the setting of esophageal stricture/hiatal hernia/slow motility - Given initial CT findings likely is related to this; however given carcinomatosis could have a low grade obstruction - Symptomatic treatment with anti-emetics (6) Metastatic cancer: - 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 Reports H/O hysterectomy probably 40 years ago. Reviewed previous imaging which suggested possible partial hysterectomy as it appears there was some uterine material on scan however no mention of current scans findings - Long discussion with family and Dr. Betts - given these findings cancer is likely and she would not do well with the treatments this would entail - Discussed doing a pelvic ultrasound to further assess - will await stabilization from acute matters and ultimately could be completed as outpatient if necessary - Patient does have a GYNE she follows with - Oncology consulted - discussed with Dr. Felipe on admission - no current input at current time and can assess pending identification of mass (7) Chronic kidney disease, stage 3a: - Currently with acute kidney injury superimposed - likely prerenal in setting of dehydration; Baseline appears 0.8-1.1 (8) Upper gastrointestinal bleed: - History of upper GI bleed; reporting coffee ground emesis and similar appearing stools x 4 days prior to admission - Hgb was stable - baseline appears to be 8-10 (9) Hypothyroidism: - TSH is still slightly elevated but much improved from previous - normal T4 - given acute illness this may be mildly elevated on a reactive basis (10) Dementia: resident of [facility] for 4 years due to dementia Subjective Ms. Hunt appeared comfortable at the time of my assessment. Daughter and at bedside. They report patient had some vomiting this morning but seemed to be doing better following anti emetics and increase in morphine drip. They did feel she was having difficulty breathing. We discussed the possibility of aspiration with her intermittently vomiting. They do not want an NG tube placed Physical Exam Physical Exam: General: no distress Eyes: normal inspection, PERLL Respiratory: chest non tender, clear to auscultation, normal breath sounds, no respiratory distress, no accessory muscle use Cardiac: regular rate and rhythm, no rub or gallop, no murmur, no edema, no jvd GI/: active bowel sounds, no abd pain or tenderness, soft, non distended Extremities: normal range of motion, normal strength, non tender Neuro/Psych: alert and oriented x 3, normal mood and affect Skin: normal color, dry PG Care Time/CCT Total # of Minutes Spent Total Time Spent with Patient: Total time spent is greater than 50% in coordination of care (as documented) at patient's floor/unit and/or counseling patient: (1) Aspiration pneumonia due to gastric secretions Laterality: unspecified laterality Lung location: unspecified part of lung Qualified Code(s): J69.0 - Pneumonitis due to inhalation of food and vomit (2) Vomiting Nausea presence: unspecified Vomiting Intractability: unspecified Vomiting type: unspecified Qualified Code(s): R11.10 - Vomiting, unspecified (3) Hypothyroidism Hypothyroidism type: acquired Qualified Code(s): E03.9 - Hypothyroidism, unspecified (4) Dementia Dementia behavioral disturbance: without behavioral disturbance Dementia type: unspecified type Qualified Code(s): F03.90 - Unspecified dementia without behavioral disturbance
[2019-03-30] MEDS: CHECK FENTANYL PATCH PLACEMENT SCH ×3 (00:01→16:15)
[2019-03-30] MEDS: CHECK SCOPOLAMINE PATCH PLACEMENT SCH ×3 (08:08→16:15)
--- NOTE | 2019-03-30 09:17 | Palliative Care Progress Note ---
Date of Service March 30, 2019 Assessment & Plan (1) Comfort measures only status: -Comfort measures continue. Patient is obtunded and comfortable on continuous morphine infusion at 5mg/hr. Titration available if needed. -Daughter and at bedside. We discussed her breathing changes with irregular and non-symmetrical movement. Pt had an episode of vomiting yesterday. -Pt warm, mottling noted on knees and bottom of feet. -no urine output noted in marks catheter bag. -Patient is not stable for transfer out of hospital. Expected to in hours to a day. -PPS: 10% (2) Atrial fibrillation with RVR: (3) Aspiration pneumonia due to gastric secretions: (4) Carcinomatosis peritonei: (5) Metastatic cancer: (6) Dementia: Subjective Patient is obtunded, appears comfortable on morphine infusion. Daughter and at bedside. Review of Systems Review of Systems: Unobtainable due to reduced consciousness Physical Exam Constitutional: comfortable Respiratory: + uses accessory muscles and + abnormal respiratory pattern (periods of apnea) Auscultation: + diminished lung sounds Cardiovascular: RRR, no murmur, no edema Extremities: + edema (+2 pitting) Gastrointestinal (Abdomen): Inspection/Auscultation: normal bowel sounds Percussion/Palpation: + ascites Skin: no rashes, warm and dry + ecchymosis (left arm ) PG Care Time/CCT Total # of Minutes Spent Total Time Spent with Patient: Total time spent is greater than 50% in coordination of care (as documented) at patient's floor/unit and/or counseling patient: 25 Time Spent Midlevel total time spent 25 minutes with > 50% of that time spent assessing the patient, discussing end of life symptoms with family. (1) Aspiration pneumonia due to gastric secretions Laterality: unspecified laterality Lung location: unspecified part of lung Qualified Code(s): J69.0 - Pneumonitis due to inhalation of food and vomit (2) Dementia Dementia behavioral disturbance: without behavioral disturbance Dementia type: unspecified type Qualified Code(s): F03.90 - Unspecified dementia without behavioral disturbance
[2019-03-30] MEDS: LORazepam 1 MG/2 ML VIAL IV PRN (13:16)
--- NOTE | 2019-03-30 17:56 | Hospitalist Progress Note ---
Date of Service March 30, 2019 Assessment & Plan (1) Comfort measures only status: Continue morphine drip Family would prefer not to reinsert NG for vomiting, continue ondansetron and Phenergan Palliative consulted Previous to comfort measures the below problems were being addressed: (2) Atrial fibrillation with RVR: - New onset - likely in the setting of dehydration from emesis -- On 03/18 in pre-op she developed A Fib RVR - HR ranging from 120-160 appears comfortable but communication is limited due to advanced dementia. Was discussed with anesthesiology who did utilize BB therapy but no longstanding improvement with HR. No response with increased fluids. Started Amio bolus/drip which resulted in rhythm conversion but subsequent bradycardia. 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 (3) Aspiration pneumonia due to gastric secretions: - CT (on admission) with patchy airspace consolidation in both lung bases - possibility of aspiration; CXR unremarkable -- Given the amount of emesis an aspiration component is possible - Repeat CXR - cardiomegaly with pulmonary vascular congestion and development of mild asymmetric interstitial opacities of R lung suggestive of pulm edema vs pneumonitis; R > L bibasilar opacities suggestive of pneumonia vs pneumonitis - surprisingly continues to have good saturations on RA -- Given the abdominal mass and carcinomatosis - question of pulmonary metastasis? - ABG revealed a mild respiratory alkalosis - respiratory status improved through the day; Lactic is 4 - Had received Zosyn until comfort measures (4) Esophageal stenosis: - states this is her typical presentation when she needs her esophagus dilated and normally fixes the issue; H/O esophageal scarring - CT (admission) with moderate hiatal hernia that is fluid filled - emesis again today, 03/23 - CT on 03/20 - abdominopelvic ascities with diffuse omental/peritoneal nodules suggestive of carcinomatosis; heterogeneity of uterine fundus/fundal endometrium; no bowel obstruction; moderate hernia; diffuse body wall edema - GI consulted (5) Vomiting: - This is likely in the setting of esophageal stricture/hiatal hernia/slow motility - Given initial CT findings likely is related to this; however given carcinomatosis could have a low grade obstruction - Symptomatic treatment with anti-emetics (6) Metastatic cancer: - 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 Reports H/O hysterectomy probably 40 years ago. Reviewed previous imaging which suggested possible partial hysterectomy as it appears there was some uterine material on scan however no mention of current scans findings - Long discussion with family and Dr. Betts - given these findings cancer is likely and she would not do well with the treatments this would entail - Discussed doing a pelvic ultrasound to further assess - will await stabilization from acute matters and ultimately could be completed as outpatient if necessary - Patient does have a GYNE she follows with - Oncology consulted - discussed with Dr. Felipe on admission - no current input at current time and can assess pending identification of mass (7) Chronic kidney disease, stage 3a: - Currently with acute kidney injury superimposed - likely prerenal in setting of dehydration; Baseline appears 0.8-1.1 (8) Upper gastrointestinal bleed: - History of upper GI bleed; reporting coffee ground emesis and similar appearing stools x 4 days prior to admission - Hgb was stable - baseline appears to be 8-10 (9) Hypothyroidism: - TSH is still slightly elevated but much improved from previous - normal T4 - given acute illness this may be mildly elevated on a reactive basis (10) Dementia: resident of [facility] for 4 years due to dementia Subjective Ms. Hunt appears comfortable. She does not respond to stimuli. Daughter and at bedside Physical Exam Physical Exam: General: no distress Respiratory: chest non tender, clear to auscultation, normal breath sounds, no respiratory distress, no accessory muscle use Cardiac: regular rate and rhythm, no rub or gallop, no murmur, trace edema lower extremities Neuro/Psych: obtunded Skin: pale PG Care Time/CCT Total # of Minutes Spent Total Time Spent with Patient: Total time spent is greater than 50% in coordination of care (as documented) at patient's floor/unit and/or counseling patient: (1) Aspiration pneumonia due to gastric secretions Laterality: unspecified laterality Lung location: unspecified part of lung Qualified Code(s): J69.0 - Pneumonitis due to inhalation of food and vomit (2) Vomiting Nausea presence: unspecified Vomiting Intractability: unspecified Vomiting type: unspecified Qualified Code(s): R11.10 - Vomiting, unspecified (3) Hypothyroidism Hypothyroidism type: acquired Qualified Code(s): E03.9 - Hypothyroidism, unspecified (4) Dementia Dementia behavioral disturbance: without behavioral disturbance Dementia type: unspecified type Qualified Code(s): F03.90 - Unspecified dementia without behavioral disturbance
[2019-03-31] MEDS: MoRPHine SULF/NSS 250 MG/250 ML BTL IV SCH (01:35)
[2019-03-31] MEDS: CHECK SCOPOLAMINE PATCH PLACEMENT SCH ×4 (01:45→23:36)
[2019-03-31] MEDS: CHECK FENTANYL PATCH PLACEMENT SCH ×4 (01:46→23:36)
[2019-03-31] MEDS: PROMETHAZINE HCL 25 MG in SODIUM CHLORIDE 0.9% 50 ML IV PRN (07:38)
[2019-03-31] MEDS: LORazepam 1 MG/2 ML VIAL IV PRN ×2 (10:23→15:54)
[2019-03-31] MEDS ORDERED: ONDANSETRON INJ 2 MG/ML 2 ML VIAL IV PRN (13:02)
[2019-03-31] MEDS ORDERED: PROMETHAZINE HCL 25 MG in SODIUM CHLORIDE 0.9% 50 ML IV PRN (13:15)
--- NOTE | 2019-03-31 14:33 | Hospitalist Progress Note ---
Date of Service March 31, 2019 Assessment & Plan (1) Comfort measures only status: Continue morphine drip Family would prefer not to reinsert NG for vomiting, increased ondansetron and Phenergan Palliative consulted Previous to comfort measures the below problems were being addressed: (2) Atrial fibrillation with RVR: - New onset - likely in the setting of dehydration from emesis -- On 03/18 in pre-op she developed A Fib RVR - HR ranging from 120-160 appears comfortable but communication is limited due to advanced dementia. Was discussed with anesthesiology who did utilize BB therapy but no longstanding improvement with HR. No response with increased fluids. Started Amio bolus/drip which resulted in rhythm conversion but subsequent bradycardia. 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 (3) Aspiration pneumonia due to gastric secretions: - CT (on admission) with patchy airspace consolidation in both lung bases - possibility of aspiration; CXR unremarkable -- Given the amount of emesis an aspiration component is possible - Repeat CXR - cardiomegaly with pulmonary vascular congestion and development of mild asymmetric interstitial opacities of R lung suggestive of pulm edema vs pneumonitis; R > L bibasilar opacities suggestive of pneumonia vs pneumonitis - surprisingly continues to have good saturations on RA -- Given the abdominal mass and carcinomatosis - question of pulmonary metastasis? - ABG revealed a mild respiratory alkalosis - respiratory status improved through the day; Lactic is 4 - Had received Zosyn until comfort measures (4) Esophageal stenosis: - states this is her typical presentation when she needs her esophagus dilated and normally fixes the issue; H/O esophageal scarring - CT (admission) with moderate hiatal hernia that is fluid filled - emesis again today, 03/23 - CT on 03/20 - abdominopelvic ascities with diffuse omental/peritoneal nodules suggestive of carcinomatosis; heterogeneity of uterine fundus/fundal endometrium; no bowel obstruction; moderate hernia; diffuse body wall edema - GI consulted (5) Vomiting: - This is likely in the setting of esophageal stricture/hiatal hernia/slow motility - Given initial CT findings likely is related to this; however given carcinomatosis could have a low grade obstruction - Symptomatic treatment with anti-emetics (6) Metastatic cancer: - 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 Reports H/O hysterectomy p robably 40 years ago. Reviewed previous imaging which suggested possible partial hysterectomy as it appears there was some uterine material on scan however no mention of current scans findings - Long discussion with family and Dr. Betts - given these findings cancer is likely and she would not do well with the treatments this would entail - Discussed doing a pelvic ultrasound to further assess - will await stabilization from acute matters and ultimately could be completed as outpatient if necessary - Patient does have a GYNE she follows with - Oncology consulted - discussed with Dr. Felipe on admission - no current input at current time and can assess pending identification of mass (7) Chronic kidney disease, stage 3a: - Currently with acute kidney injury superimposed - likely prerenal in setting of dehydration; Baseline appears 0.8-1.1 (8) Upper gastrointestinal bleed: - History of upper GI bleed; reporting coffee ground emesis and similar appearing stools x 4 days prior to admission - Hgb was stable - baseline appears to be 8-10 (9) Hypothyroidism: - TSH is still slightly elevated but much improved from previous - normal T4 - given acute illness this may be mildly elevated on a reactive basis (10) Dementia: resident of [facility] for 4 years due to dementia Physical Exam Constitutional: comfortable Respiratory: course breath sounds. Respers uneven Cardiovascular: RRR, no murmur, no edema Gastrointestinal (Abdomen): Inspection/Auscultation: abdomen normal to inspection; abdomen not distended Percussion/Palpation: abdomen soft Skin: + pallor Neurologic: awake and + obtunded PG Care Time/CCT Total # of Minutes Spent Total Time Spent with Patient: Total time spent is greater than 50% in coordination of care (as documented) at patient's floor/unit and/or counseling patient: (1) Dementia Dementia behavioral disturbance: without behavioral disturbance Dementia type: unspecified type Qualified Code(s): F03.90 - Unspecified dementia without behavioral disturbance (2) Hypothyroidism Hypothyroidism type: acquired Qualified Code(s): E03.9 - Hypothyroidism, unspecified (3) Aspiration pneumonia due to gastric secretions Laterality: unspecified laterality Lung location: unspecified part of lung Qualified Code(s): J69.0 - Pneumonitis due to inhalation of food and vomit (4) Vomiting Nausea presence: unspecified Vomiting Intractability: unspecified Vomiting type: unspecified Qualified Code(s): R11.10 - Vomiting, unspecified
--- NOTE | 2019-03-31 16:19 | Palliative Care Progress Note ---
Date of Service March 31, 2019 Assessment & Plan (1) Comfort measures only status: -Comfort measures continue. Patient is obtunded and comfortable on continuous morphine infusion at 5mg/hr. Titration available if needed. -No further vomiting noted -Pt warm, mottling improved today -Scant urine output noted in marks catheter bag. -Patient is not stable for transfer out of hospital. Patient nearing end-of-life -PPS: 10% (2) Atrial fibrillation with RVR: (3) Aspiration pneumonia due to gastric secretions: (4) Carcinomatosis peritonei: (5) Metastatic cancer: (6) Dementia: Subjective Patient unresponsive, currently on morphine drip. No family at bedside Scopolamine patch controlling excess oral secretions-no PRN atropine required. Patient did receive 2 PRN Ativan in the past 24 hours. Review of Systems Review of Systems: Unobtainable due to cognitive status Physical Exam Physical Exam: PE: Mild increased work of breathing, no acute distress, no furloughed brow HEENT: Excess secretions well controlled Respiratory: Mild increased work of breathing, no apnea during exam CV: Regular rate Abdomen: Soft Extremities: Warm, no mottling Neuro: Unresponsive to voice or touch PG Care Time/CCT Total # of Minutes Spent Total Time Spent with Patient: Total time spent is greater than 50% in coordination of care (as documented) at patient's floor/unit and/or counseling patient: (1) Aspiration pneumonia due to gastric secretions Laterality: unspecified laterality Lung location: unspecified part of lung Qualified Code(s): J69.0 - Pneumonitis due to inhalation of food and vomit (2) Dementia Dementia behavioral disturbance: without behavioral disturbance Dementia type: unspecified type Qualified Code(s): F03.90 - Unspecified dementia without behavioral disturbance
--- NOTE | 2019-04-01 18:04 | Discharge Summary ---
Date of Service April 01, 2019 Admission HPI Per Admitting Provider The patient is a 78-year-old female with a past medical history including history of upper GI bleeding, anemia, gastritis, esophagitis, chronic kidney disease stage III OA, pneumonia, esophageal stenosis requiring dilatation, restless leg syndrome, depression, hypothyroidism, bladder prolapse and dementia. The patient presents as noted above with worsening nausea vomiting began earlier in the day prior to arrival, per , had begun the day previously as well. Patient has been seen by Dr. Felix Montemayor, gastroenterology who has performed dilatation of her esophagus in the past. Her reports that he has been told there is been scarring in the esophagus which is led to issues with difficulty swallowing. Principal Diagnosis Aspiration pneumonia Discharge Exam Constitutional + acute distress, + ill appearing, + thin, + frail appearing and comfortable; + not well nourished Eyes PERRL, conjunctivae normal, anicteric sclerae sclerae not anicteric ENMT external ear and nose normal, oropharynx normal Neck trachea midline, no thyromegaly trachea midline Respiratory normal respiratory effort and + uses accessory muscles; no respiratory distress and no labored breathing Auscultation: + diminished lung sounds, + crackles and + rhonchi; no wheezes Cardiovascular RRR, no murmur, no edema Rate/Rhythm: regular rate, regular rhythm and + tachycardic Heart Sounds: normal S1 and normal S2; no murmur Vessels: no JVD Extremities: normal capillary refill; no edema Gastrointestinal (Abdomen) normal bowel sounds, soft, nontender, no hepatosplenomegaly Inspection/Auscultation: abdomen normal to inspection; abdomen not distended Percussion/Palpation: abdomen soft; abdomen nontender Musculoskeletal no cyanosis or clubbing, extremities motor strength 5/5 Head/Neck/Chest: normocephalic and head atraumatic Extremities: no cyanosis Skin no rashes, warm and dry + pallor Neurologic patellar DTR's 2+ bilat, sensation intact and PERRL, EOMI, accommodation nl, no face palsy, no dysarthria moves all extremities, awake and + obtunded Psychiatric Orientation: + not alert and + not oriented x 3 Lymphatic no cervical or axillary lymphadenopathy Discharge Data Allergies Allergy/AdvReac Type Severity Reaction Status Date / Time melon Allergy Intermediate Cantelope Verified 03/17/19 15:23 - Rash caffeine Allergy Unknown ON CENTRE Verified 03/17/19 15:23 CREST LIST desipramine Allergy Unknown ON CENTRE Verified 03/17/19 15:23 CREST LIST ergotamine Allergy Unknown ON CENTRE Verified 03/17/19 15:23 CREST LIST nitrofurantoin Allergy Unknown ON CENTRE Verified 03/17/19 15:23 CREST LIST watermelon Allergy Unknown UNKNOWN Verified 03/17/19 15:23 Consultations 03/17/19 19:52 ED Decision to Admit Stat 03/17/19 22:38 Consult Case Management - Discharge Planning Routine Consult Gastroenterology Routine Consult Hematology Routine 03/18/19 15:55 Consult Cardiology Stat 03/22/19 12:11 Consult Palliative Care Routine Procedures Performed Operation Date: 03/18/19 12:00 <No data on this case meets the specified criteria> Operation Date: 03/18/19 12:00 <No data on this case meets the specified criteria> Operation Date: 03/21/19 15:35 <No data on this case meets the specified criteria> Ordered Studies 03/17/19 16:04 CT abd pelvis wo con Stat 03/20/19 11:37 CT abd pelvis wo con Routine Hospital Course (1) Comfort measures only status: Time of : 01:00. (2) Atrial fibrillation with RVR: - New onset - likely in the setting of dehydration from emesis -- On 03/18 in pre-op she developed A Fib RVR - HR ranging from 120-160 appears comfortable but communication is limited due to advanced dementia. Was discussed with anesthesiology who did utilize BB therapy but no longstanding improvement with HR. No response with increased fluids. Started Amio bolus/drip which resulted in rhythm conversion but subsequent bradycardia. 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 (3) Aspiration pneumonia due to gastric secretions: - CT (on admission) with patchy airspace consolidation in both lung bases - possibility of aspiration; CXR unremarkable -- Given the amount of emesis an aspiration component is possible - Repeat CXR - cardiomegaly with pulmonary vascular congestion and development of mild asymmetric interstitial opacities of R lung suggestive of pulm edema vs pneumonitis; R > L bibasilar opacities suggestive of pneumonia vs pneumonitis - surprisingly continues to have good saturations on RA -- Given the abdominal mass and carcinomatosis - question of pulmonary metastasis? - ABG revealed a mild respiratory alkalosis - respiratory status improved through the day; Lactic is 4 - Had received Zosyn until comfort measures (4) Esophageal stenosis: - states this is her typical presentation when she needs her esophagus dilated and normally fixes the issue; H/O esophageal scarring - CT (admission) with moderate hiatal hernia that is fluid filled - emesis again today, 03/23 - CT on 03/20 - abdominopelvic ascities with diffuse omental/peritoneal nodules suggestive of carcinomatosis; heterogeneity of uterine fundus/fundal endometrium; no bowel obstruction; moderate hernia; diffuse body wall edema - GI consulted (5) Vomiting: - This is likely in the setting of esophageal stricture/hiatal hernia/slow motility - Given initial CT findings likely is related to this; however given ca rcinomatosis could have a low grade obstruction - Symptomatic treatment with anti-emetics (6) Metastatic cancer: - 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 Reports H/O hysterectomy probably 40 years ago. Reviewed previous imaging which suggested possible partial hysterectomy as it appears there was some uterine material on scan however no mention of current scans findings - Long discussion with family and Dr. Betts - given these findings cancer is likely and she would not do well with the treatments this would entail - Discussed doing a pelvic ultrasound to further assess - will await stabilization from acute matters and ultimately could be completed as outpatient if necessary - Patient does have a GYNE she follows with - Oncology consulted - discussed with Dr. Felipe on admission - no current input at current time and can assess pending identification of mass (7) Chronic kidney disease, stage 3a: - Currently with acute kidney injury superimposed - likely prerenal in setting of dehydration; Baseline appears 0.8-1.1 (8) Upper gastrointestinal bleed: - History of upper GI bleed; reporting coffee ground emesis and similar appearing stools x 4 days prior to admission - Hgb was stable - baseline appears to be 8-10 (9) Hypothyroidism: - TSH is still slightly elevated but much improved from previous - normal T4 - given acute illness this may be mildly elevated on a reactive basis (10) Dementia: resident of [facility] for 4 years due to dementia Total Time Total Time Spent Total Time Spent (In Minutes): 0 Discharge Plan Discharge Items Patient Disposition: Reason For Visit: ASPIRATION PNEUMONIA,CARCINOMATOSIS Follow-up/Referrals: [place],Vance [Primary Care Provider] - Admission Data Admit Date/Time: 03/17/19 20:57 Other DC Date/Time DO NOT enter until pt leaves facility: 04/01/19 03:39
== END 2019-04-01 03:39 | disposition expired | DRG 178 ==
LOC: ED 14:58 → 4W 20:57 → SUATTDRO 20:57 → 4W 21:56 → 2E 03-18 17:19 → 2W 03-23 10:08 → 4W 03-26 03:19